=== PATIENT | male | born 1955 | race Caucasian/White ===

== ENCOUNTER 2018-03-28 17:49 | Outpatient (REF) | payer OTHER, SELFPAY ==
[2018-03-30 12:39] LABS: Hepatitis C Ab w Rflx HCV PCR Negative (NEGAT)
== END 2018-03-28 18:09 ==
LOC: NCHCN 17:49
PROVIDERS: PCP Nurse Practitioner Family; Visit Provider Nurse Practitioner Family
DX: Z11.59 Encounter for screening for other viral diseases (principal)
CPT/HCPCS: 86803

== ENCOUNTER 2018-09-19 16:21 | Outpatient (REF) | payer OTHER, SELFPAY ==
[2018-09-19 21:43] LABS: ALT 68 U/L (12-78); AST 30 U/L (15-37); Albumin 3.9 g/dL (3.4-5.0); Alkaline Phosphatase 103 U/L (46-116); Anion Gap 9.4 mmol/L (3-11); BUN 20 mg/dL (7-18); Bilirubin, Total 0.4 mg/dL (0.2-1.0); CO2 27.6 mmol/L (21.0-32.0); CREATININE 1.01 mg/dL (0.70-1.30); Calcium 9.2 mg/dL (8.5-10.1); Chloride 105 mmol/L (98-107); Glucose 124 mg/dL (70-100); Potassium 4.2 mmol/L (3.5-5.1); Sodium 142 mmol/L (136-145); TSH 0.05 uIU/mL (0.358-3.74); Total Protein 6.8 g/dL (6.4-8.2)
== END 2018-09-19 16:41 ==
LOC: NCHCN 16:21
PROVIDERS: PCP Nurse Practitioner Family; Visit Provider Nurse Practitioner Family
DX: E03.9 Hypothyroidism, unspecified (principal); I10 Essential (primary) hypertension; E78.5 Hyperlipidemia, unspecified
CPT/HCPCS: 80053; 84439; 84443; 84481

== ENCOUNTER 2018-11-02 17:00 | Outpatient (REF) | payer OTHER, SELFPAY ==
[2018-11-02 22:48] LABS: FREE T4 0.89 ng/dL (0.76-1.46); TSH 0.09 uIU/mL (0.358-3.74)
[2018-11-02 23:13] LABS: ESR 10 MM/HR (1-20)
[2018-11-03 21:24] LABS: T3,Free 4.2 pg/ml (2.8-5.3)
== END 2018-11-02 17:20 ==
LOC: NCHCN 17:00
PROVIDERS: PCP Nurse Practitioner Family; Visit Provider Nurse Practitioner Family
DX: I10 Essential (primary) hypertension (principal); E03.9 Hypothyroidism, unspecified
CPT/HCPCS: 85652; 84439; 84443; 84481

== ENCOUNTER 2018-11-28 13:32 | Outpatient (CLI) | payer OTHER, SELFPAY ==
[2018-11-28 21:19] LABS: C-Reactive Protein 0.09 mg/dL (0.0-0.3)
[2018-11-30 09:40] LABS: Rheumatoid Factor <8 IU/mL (<12.5)
[2018-11-30 10:19] LABS: Lyme Ab w Rflx to Lyme Confirm Negative
[2018-11-30 14:57] LABS: ANA Interpretation Negative (NEGAT)
== END 2018-11-28 13:52 ==
PROVIDERS: PCP Nurse Practitioner Family; Visit Provider Nurse Practitioner Family
DX: M25.50 Pain in unspecified joint (principal)
CPT/HCPCS: 86038; 86140; 86431; 86618

== ENCOUNTER 2018-12-20 15:22 | Outpatient (REF) | payer OTHER, SELFPAY ==
[2018-12-20 22:04] LABS: TSH (W/Ref FT4) 0.24 uIU/mL (0.358-3.74)
[2018-12-20 22:21] LABS: FREE T4 0.77 ng/dL (0.76-1.46)
== END 2018-12-20 15:42 ==
LOC: NCHCN 15:22
PROVIDERS: PCP Nurse Practitioner Family; Visit Provider Nurse Practitioner Family
DX: E03.9 Hypothyroidism, unspecified (principal)
CPT/HCPCS: 84439; 84443

== ENCOUNTER 2019-02-08 15:42 | Outpatient (REF) | payer OTHER, SELFPAY ==
[2019-02-09 05:53] LABS: TSH 1.14 uIU/mL (0.36-3.74)
== END 2019-02-08 16:02 ==
LOC: NCHCN 15:42
PROVIDERS: PCP Nurse Practitioner Family; Visit Provider Nurse Practitioner Family
DX: E03.9 Hypothyroidism, unspecified (principal)
CPT/HCPCS: 84443

== ENCOUNTER 2019-05-03 01:38 | Outpatient (CLI) | payer OTHER, SELFPAY ==
--- NOTE | 2019-05-03 09:48 | DI.MRI_ITS ---
EXAM: MR UPPER JOINT RT WO CLINICAL HISTORY: RT SHOULDER JT PAIN, M25.511. TECHNIQUE: Multiplanar multisequence MRI was performed. COMPARISON: No exams were available for comparison FINDINGS: MR of the right shoulder was performed according to the usual protocol. There is abnormal bony signa l associated with the acromion and clavicle at the acromioclavicular joint. Otherwise bony signal ap pears within normal limits. Glenoid labrum grossly intact as visualized on this noncontrast study. Minimal fluid in subacromial bursa noted. Biceps tendon and anchor appear intact and the tendon is normally placed in the bicipital groove. There is abnormal signal in supraspinatus and infraspinatus tendons distally consistent with tendinos is. There is a probable tiny partial thickness undersurface tear of the supraspinatus attachment. Subscapularis tendon shows contour abnormality and probable undersurface tear adjacent to the humeral attachment. There may be minimal retraction of a portion of the tendon on its undersurface. No other rotator cuff abnormality seen. No full-thickness rotator cuff tear seen. IMPRESSION: Findings consistent with supraspinatus and infraspinatus tendinosis with tiny partial thickness nonre tracted attachment tear of supraspinatus. Probable partially retracted undersurface tear of subscapularis at its humeral attachment.
== END 2019-05-03 01:58 ==
PROVIDERS: PCP Nurse Practitioner Family; Visit Provider Nurse Practitioner Family
DX: M25.511 Pain in right shoulder (principal); M75.81 Other shoulder lesions, right shoulder; S43.81XA Sprain of other specified parts of right shoulder girdle, initial encounter
CPT/HCPCS: 73221

== ENCOUNTER 2019-09-19 09:21 | Outpatient (REF) | payer OTHER, SELFPAY ==
[2019-09-19 20:27] LABS: ALT 49 U/L (16-63); AST 24 U/L (15-37); Albumin 4.2 g/dL (3.4-5.0); Alkaline Phosphatase 87 U/L (46-116); Anion Gap 8.6 mmol/L (3-11); BUN 16 mg/dL (7-18); Bilirubin, Total 0.4 mg/dL (0.2-1.0); CO2 30.4 mmol/L (21.0-32.0); CREATININE 1.05 mg/dL (0.70-1.30); Calcium 9.1 mg/dL (8.5-10.1); Chloride 104 mmol/L (98-107); Glucose 103 mg/dL (74-106); Potassium 4.4 mmol/L (3.5-5.1); Sodium 143 mmol/L (136-145); TSH 1.57 uIU/mL (0.36-3.74); Total Protein 7.3 g/dL (6.4-8.2)
[2019-09-19 20:30] LABS: Hemoglobin A1C 5.9 % (3.8-5.6)
== END 2019-09-19 09:41 ==
LOC: NCHCN 09:21
PROVIDERS: PCP Nurse Practitioner Family; Visit Provider Nurse Practitioner Family
DX: I10 Essential (primary) hypertension (principal); E03.9 Hypothyroidism, unspecified; E78.5 Hyperlipidemia, unspecified; R39.9 Unspecified symptoms and signs involving the genitourinary system
CPT/HCPCS: 80053; 83036; 84443; 87086

== ENCOUNTER 2019-10-05 12:20 | Outpatient (CLI) | payer OTHER, SELFPAY ==
[2019-10-05 15:51] LABS: D-Dimer 1803 ng/mlFEU (<500)
== END 2019-10-05 12:40 ==
PROVIDERS: PCP Nurse Practitioner Family; Visit Provider Nurse Practitioner Family
DX: M79.89 Other specified soft tissue disorders (principal)
CPT/HCPCS: 36415; 85379

== ENCOUNTER 2019-10-06 11:00 | Outpatient (CLI) | payer OTHER, SELFPAY ==
--- NOTE | 2019-10-06 | DI.US_ITS ---
EXAM: US LOWER EXTREMITY VENOUS LT CLINICAL HISTORY: LT LEG SWELLING, M79.89 TECHNIQUE: Left lower extremity venous ultrasound performed using grayscale, color-flow, and spectra l Doppler analysis. COMPARISON: No exams were available for comparison FINDINGS: The left common femoral and femoral demonstrate normal compressibility, augmentation, and color Doppl er. There is hypoechoic thrombus seen within the posterior tibialis vein with extension into the popl iteal vein. The saphenofemoral junction is unremarkable. There is no evidence of a Lawler cyst. The soft tissues are unremarkable. IMPRESSION: Findings of a DVT within the left posterior tibialis vein and extending into the popliteal vein. DATA REPOSITORY:
== END 2019-10-06 11:20 ==
PROVIDERS: PCP Nurse Practitioner Family; Visit Provider Nurse Practitioner Family
DX: R22.42 Localized swelling, mass and lump, left lower limb (principal); I82.442 Acute embolism and thrombosis of left tibial vein; I82.432 Acute embolism and thrombosis of left popliteal vein
CPT/HCPCS: 93971

== ENCOUNTER 2019-10-16 01:38 | Outpatient (CLI) | payer OTHER, SELFPAY ==
--- NOTE | 2019-10-16 08:22 | DI.CTLCSR_ITS ---
EXAM: CT CHEST LUNG CANCER SCREEN CLINICAL HISTORY: FORMER SMOKER,Z87.891,DVT,I82.90 TECHNIQUE: COMPARISON: No exams were available for comparison FINDINGS: CT examination of the chest was performed utilizing low-dose lung cancer screening protocol. Images obtained through the upper abdomen show unremarkable appearance of visualized portions of live r, spleen, adrenals, and pancreas. Ascending aorta is ectatic at 41 millimeters. No mediastinal or hilar adenopathy. Tracheobronchial tree appears intact. There is a tiny left basilar calcified pulmonary nodule consistent with healed granulomatous disease. No noncalcified intrapulmonary nodule seen. IMPRESSION: Lung RADS Cat 1 - Negative: No nodules and definitely benign nodules Continue annual screening with LD CT in 12 months
== END 2019-10-16 01:58 ==
PROVIDERS: PCP Nurse Practitioner Family; Visit Provider Nurse Practitioner Family
DX: Z12.2 Encounter for screening for malignant neoplasm of respiratory organs (principal); Z87.891 Personal history of nicotine dependence; J98.4 Other disorders of lung
CPT/HCPCS: G0297

== ENCOUNTER 2020-01-08 01:18 | Outpatient (CLI) | payer OTHER, SELFPAY ==
--- NOTE | 2020-01-08 | DI.US_ITS ---
EXAM: US LOWER EXTREMITY VENOUS LT CLINICAL HISTORY: F/U DVT,I82.90 TECHNIQUE: Ultrasound performed using standard protocol. COMPARISON: US US LOWER EXTREMITY VENOUS LT from 10/06/2019 FINDINGS: Duplex venous ultrasound the left lower extremity was performed. Prior examination of October 05 showed popliteal and posterior tibialis thrombus. On today's examination there is nonocclusive visible thr ombus in single posterior tibial vein. No extension into popliteal vein at this time. IMPRESSION: Decreased extent DVT since previous examination of October 05. DVT is nonocclusive and is confined to a single posterior tibial vein. No popliteal involvement. DATA REPOSITORY:
== END 2020-01-08 01:38 ==
PROVIDERS: PCP Nurse Practitioner Family; Visit Provider Nurse Practitioner Family
DX: I82.442 Acute embolism and thrombosis of left tibial vein (principal)
CPT/HCPCS: 93971

== ENCOUNTER 2020-01-15 11:56 | Outpatient (REF) | payer OTHER, SELFPAY ==
[2020-01-15 20:52] LABS: HCT 41.9 % (40.0-50.0); HGB 13.8 g/dL (13.5-17.5); MCH 30.5 pg (27.0-33.0); MCHC 32.9 % (32.0-36.0); MCV 92.7 fL (80-95); MPV 9.7 fL (8.0-11.0); Platelet Count 227 10^3/uL (130-400); RBC 4.52 10^6/uL (4.36-5.78); RDW 12.5 % (11.8-14.1); RDW-SD 42.5 fL; WBC 7.13 10^3/uL (4.4-10.8)
== END 2020-01-15 12:16 ==
LOC: NCHCN 11:56
PROVIDERS: PCP Nurse Practitioner Family; Visit Provider Family Medicine
DX: K92.1 Melena (principal)
CPT/HCPCS: 85027

== ENCOUNTER 2020-05-20 02:23 | Outpatient (CLI) | payer OTHER, SELFPAY ==
[2020-05-20 10:54] LABS: D-Dimer 607 ng/mlFEU (<500)
== END 2020-05-20 02:43 ==
PROVIDERS: PCP Nurse Practitioner Family; Visit Provider Nurse Practitioner Family
DX: R07.9 Chest pain, unspecified (principal); I82.90 Acute embolism and thrombosis of unspecified vein; R05 Cough
CPT/HCPCS: 36415; 85379

== ENCOUNTER 2020-05-24 03:57 | Outpatient (CLI) | payer OTHER, SELFPAY ==
[2020-05-24 12:59] LABS: CREATININE 1.04 mg/dL (0.70-1.30)
--- NOTE | 2020-05-24 13:21 | DI.CT_ITS ---
EXAM: CT CHEST PE CTA CLINICAL HISTORY: COUGH,R05,CHEST TIGHTNESS,F07.89,DVT,I82.90. TECHNIQUE: Imaging Protocol: Axial CT angiography was performed with multi-slice acquisition and mu lti-planar and/or 3D reconstructions. CONTRAST MATERIAL: Intravenous: Omnipaque 350 Contrast volume:100 mL COMPARISON: CT CT CHEST LUNG CANCER SCREEN from 10/16/2019 FINDINGS: Pulmonary Arteries: No evidence of filling defect to suggest pulmonary emboli. Tracheobronchial tree: Patent where visualized. Mediastinum and Myrna: No dominant adenopathy or fluid collection. Pulmonary parenchyma: No consolidation or dominant measurable mass. No architectural distortion. Pleura: No effusion or pneumothorax. Heart: The heart is not dilated. Mild coronary artery calcification. No pericardial effusion. Aorta: Thoracic aorta non-dilated. Mild atherosclerosis. Upper abdomen: Unremarkable. Bones: Mild degenerative changes. Soft tissues: Unremarkable. IMPRESSION: 1. No evidence of pulmonary embolism. 2. Coronary artery calcification and atherosclerosis. RADIATION DOSE DELIVERED: 562.29mGy.cm Total DLP DATA REPOSITORY: All CT scans at this facility are submitted to the National Radiology Data Registry (NRDR) Dose Index Registry (DIR) with the [employer] (A[employer]). RADIATION OPTIMIZATION: All CT scans at this facility use at least one of these dose optimization te chniques: automated exposure control; mA and/or kV adjustment per patient size (includes targeted exa ms where dose is matched to clinical indication); or iterative reconstruction.
[2020-05-24] MEDS: Omnipaque 350 MG/ML 100 ML BTL IJ (13:33)
[2020-05-24] MEDS: Normal Saline - Diluent 50 ML VIAL IV (13:33)
[2020-05-24] MEDS: Normal Saline Flush 10 ML SYR IVP (13:34)
== END 2020-05-24 04:17 ==
PROVIDERS: PCP Nurse Practitioner Family; Visit Provider Nurse Practitioner Family
DX: R05 Cough (principal); R07.89 Other chest pain; I82.90 Acute embolism and thrombosis of unspecified vein; I25.10 Atherosclerotic heart disease of native coronary artery without angina pectoris; I10 Essential (primary) hypertension; Z01.812 Encounter for preprocedural laboratory examination
CPT/HCPCS: 71275; 82565; J3490

== ENCOUNTER 2020-05-30 02:56 | Outpatient (CLI) | payer OTHER, SELFPAY ==
[2020-05-31 17:02] LABS: COVID-19 RT-PCR UVMMC Result Negative (Negative)
== END 2020-05-30 03:16 ==
PROVIDERS: PCP Nurse Practitioner Family; Visit Provider Internal Medicine Cardiovascular Disease
DX: Z20.828 Contact with and (suspected) exposure to other viral communicable diseases (principal); Z01.810 Encounter for preprocedural cardiovascular examination
CPT/HCPCS: U0003

== ENCOUNTER 2020-06-03 01:40 | Outpatient (CLI) | payer OTHER, SELFPAY ==
--- NOTE | 2020-06-03 | ETT_ITS ---
APPROVED REPORT Exam: Exercise Treadmill Patient Location: Out-Patient Room/Bed: Stress Nurse: Bibiana Alvarado RN BMI: 39.15 Baseline Rhythm: Sinus Rhythm Indications: Chest pain/tightness, lighteadededness, MCNAMARA. Medical History Medical History: Aortic dilatation, DVT, former smoker, KAREN, Fatigue, HTN, Obesity, ED, GERD, HLD, Hy pothyroidism Cardiac Medications: Metoprolol succinat, Omeprazole, Rosuvastatin, Sildenafil, Allergies: Prochlorperazine Cardiac Risk Factors: HTN, Hyperlipidemia, FHX of CAD, Smoking (former) Previous Cardiac Procedures: None. Pretest Chest Pain Characteristics: None. Exercise History: Sedentary Physical Disabilities: None. Lung Sounds: Clear to auscultation Heart Sounds: Regular Stress Test Details Test: Exercise stress testing was performed using a Reji protocol. Rest Stress HR Resting HR Supine: 66 bpm Max Heart Rate (APMHR): 156 bpm Resting HR Standin bpm Target HR (85% APMHR): 132 bpm Max HR Achieved: 152 bpm % of APMHR: 97 Recovery HR: 95 bpm HR response to stress: Normal HR response to stress BP Resting BP Supine: 150/84 mmHg Resting BP Standin/80 mmHg Max BP: 190/96 mmHg Recovery BP: 160/82 mmHg BP response to stress: Normal blood pressure response to stress. ECG Resting ECG: Sinus Rhythm Ectopy: None. Stress ECG: Sinus Tachycardia ST Change: No significant ST segment changes. Arrhythmia: occasional PVC, couplet. Recovery ECG: Sinus Rhythm Recovery ST Change: No significant ST segment changes. Recovery Arrhythmia: PVCs, rare PAC Clinical Reason for Termination: Dyspnea Stress Symptoms: Dyspnea, General Fatigue Exercise duration: 4 min31 sec Highest Stage Reached: Stage 2: 2.5 mph at 12% grade. Exercise capacity: 6.45 METs Stress ECG Conclusion 1. The resting electrocardiogram showed left anterior fascicular block, late transition 2. Patient exercised on the Reji protocol and completed a workload of 6.45 METS, stopping due to fat igue and shortness of breath 3. Normal heart rate and blood pressure response to exercise. The patient achieved 97% of predicted heart rate for age 4. Electrocardiographically there was no evidence of myocardial ischemia 5. Occasional premature ventricular contractions, rare premature atrial contractions were noted 6. Keller treadmill score is 4.5, low risk Stress Test Summary STAGE Time (mins) Speed (mph) Grade (%) HR BP SYMPTOMS METS Supine 66 150/84 Standing 75 158/80 1 3 1.7 10 133 172/84 4.6 1 min recovery 130 190/96 3 min recovery 102 186/94 6 min recovery 95 160/82
== END 2020-06-03 02:00 ==
PROVIDERS: PCP Nurse Practitioner Family; Visit Provider Internal Medicine Cardiovascular Disease
DX: R07.9 Chest pain, unspecified (principal); R42 Dizziness and giddiness; R06.09 Other forms of dyspnea; I10 Essential (primary) hypertension; E78.5 Hyperlipidemia, unspecified; Z82.49 Family history of ischemic heart disease and other diseases of the circulatory system; Z87.891 Personal history of nicotine dependence
CPT/HCPCS: 93017

== ENCOUNTER 2020-06-12 03:04 | Outpatient (CLI) | payer OTHER, SELFPAY ==
--- NOTE | 2020-06-12 07:24 | DI.US_ITS ---
APPROVED REPORT EXAM: Comprehensive 2D, Doppler, and color-flow Echocardiogram Patient Location: Out-Patient Cane Furniture Maker: Tg Brennan RDCS (AE) Indications: Chest pain, Chest tightness, Cough, DVT, Aortic Dilation Other Information Study Quality: Adequate Conclusion Left Ventricle : The left ventricle is normal size. The left ventricular systolic function is normal. The left ventricular ejection fraction is within the normal range. There is normal left ventricular wall thickness. There is normal LV segmental wall motion. LVEF is 60%. Right Ventricle : The right ventricle is normal size. The right ventricular systolic function is norm al. The RVSP is 24.7 mmHg. Atria : The left atrium size is normal. The right atrium size is normal. Valves: There are no hemodynamically significant valvular lesions. Great Vessels : The aortic root is normal in size. The ascending aorta is mildly dilated. Aortic arch is normal in caliber. IVC is normal in size and collapses >50% with inspiration. Please see remainder of study for further details. Wall motion Left Ventricle The left ventricle is normal size. The left ventricular systolic function is normal. The left ventric ular ejection fraction is within the normal range. There is normal left ventricular wall thickness. T here is normal LV segmental wall motion. The diastolic function is abnormal. There is no ventricular septal defect visualized. LVEF is 60%. Right Ventricle The right ventricle is normal size. The right ventricular systolic function is normal. The RVSP is 24 .7 mmHg. Atria The left atrium size is normal. The right atrium size is normal. The interatrial septum is intact wit h no evidence for an atrial septal defect. Aortic Valve The aortic valve is normal in structure. Aortic valve is trileaflet. There is no aortic valvular sten osis. No aortic regurgitation is present. Mitral Valve The mitral valve is normal in structure. No evidence of mitral valve stenosis. Trace mitral regurgita tion. Tricuspid Valve The tricuspid valve is normal in structure. There is no tricuspid valve stenosis. Trace tricuspid reg urgitation. Pulmonic Valve The pulmonary valve is normal in structure. There is no pulmonic valvular stenosis. Trace pulmonic re gurgitation. Great Vessels The aortic root is normal in size. The ascending aorta is mildly dilated. Aortic arch is normal in ca liber. IVC is normal in size and collapses >50% with inspiration. Pericardium There is no pericardial effusion. 2D Dimensions IVSD d PLAX 0.94 cm M: 0.6-1.2 LV Vol A2C d MOD 140.1 mL LVPW d PLAX 0.94 cm M: 0.6 - 1.2 LV Vol A4C d MOD 127.9 mL LVID d PLAX 5.12 cm M: 4.2 - 5.8 LA vol/ BSA A2C s A-L 27.5 mL/m2 LVDs 3.25 cm M: 2.5 - 4.0 LA vol/ BSA A4C s A-L 20.8 mL/m2 Ao Root d 3.05 cm M: 3.1 - 3.7 LA Vol/ BSA Biplane s A-L 24.3 mL/m2 RA Area A4C 18.36 cm2 LA Area A4C s MOD 17.43 cm2 RA Vol/ BSA A4C s A-L 23.5 mL/m2 LA Area A2C s MOD 19.74 cm2 Ao Asc Diam d 3.50 cm M: 2.6 - 3.4 LV EF A4C MOD 60.5 % LV EF Teichholz 65.9 % LV EF A2C MOD 60.1 % LVEF (Helton's) 60.41 % M: 52 - 72 LV EF Biplane MOD 60.4 % LV Volume 100.16 mL M: 62 - 150 SV 83.83 mL LV Volume Index 44.51 mL/m2 M: 34 - 74 SV Index 37.17 mL/m2 LV Vol Biplane MOD 138.8 mL FS 36.50 % M-Mode TAPSE 2.52 cm (M/F) >1.7 LV Diastology MV E' medial 0.064 (>0.07 m/s) E/A Ratio 1.4 LV E/e MED 13.20 (<14) MV E Vmax 0.84 (0.4-1.3 m/s) MV E' lateral 0.083 (>0.1 m/s) MV A Vmax 0.60 (0.4-1.3 m/s) LV E/e LAT 10.10 (<14) MV E/A Ratio 1.39 MV E/E' medial 13.23 MV E/E' lateral 10.12 Aortic Valve LVOT Area 3.96 cm2 AoV Area Vmax 2.91 cm2 LVOT Vmax 0.99 m/s AoV Area/ BSA (Vmax) 1.29 cm2/m2 LVOT Mean Nitin. 0.64 m/s LETICIA Mean Nitin. 2.87 cm2 LVOT Peak Grad 3.9 mmHg LETICIA Mean Nitin. Index 1.27 cm2/m2 LVOT Mean Grad 1.9 mmHg LVOT VTI 0.214 m LVOT Diam s 2.20 cm AoV Vmax 1.34 m/s Velocity Ratio 0.73 AoV Mean Nitin. 0.89 m/s AoV Peak Grad 7.2 mmHg LVOT SV 84.76 mL AoV Mean Grad 3.7 mmHg AoV VTI 0.269 m AoV Area VTI 3.15 cm2 AoV Area/ BSA (VTI) 1.40 cm/m2 Mitral Valve MV DT 221 (160-240 msec) MV PHT 64 msec MV Area PHT 3.43 cm2 MV VTI 0.267 m MV Area VTI 3.17 (4.0-6.0 cm2) Pulmonary Valve PV Vmax 1.43 (0.5-1.5 m/s) RVOT Peak Gr. 1.37 mmHg PV Peak Grad 8.2 mmHg RVOT Mean Gr. 0.65 mmHg PV Mean Grad 3.9 mmHg RVOT VTI 0.134 m PV VTI 0.303 m RVOT Vmax 0.58 m/s Tricuspid Valve TR Peak Grad 21.6 mmHg TR Vmax 2.33 m/s RA Pressure 3.00 mmHg RVSP (TR) 24.7 mmHg
== END 2020-06-12 03:24 ==
PROVIDERS: PCP Nurse Practitioner Family; Visit Provider Nurse Practitioner Family
DX: I77.810 Thoracic aortic ectasia (principal)
CPT/HCPCS: 93306

== ENCOUNTER 2020-06-14 09:02 | Outpatient (CLI) | payer OTHER, SELFPAY ==
--- NOTE | 2020-06-14 | DI.RAD_ITS ---
EXAM: XR CHEST 2V PA LATERAL CLINICAL HISTORY: DVT, I82.90 TECHNIQUE: 2D digital imaging was performed. COMPARISON: No exams were available for comparison FINDINGS: MEDIASTINUM: Normal. HEART: Normal. PULMONARY VASCULATURE: Normal. LUNGS: Clear. PLEURAL SPACE: No pleural effusion or pneumothorax. BONE:Within normal limits for the patient's age. OTHER FINDINGS:Normal. IMPRESSION: No acute pulmonary findings. DATA REPOSITORY: RADIATION DOSE DELIVERED:
--- NOTE | 2020-06-14 | DI.US_ITS ---
EXAM: US LOWER EXTREMITY VENOUS LT CLINICAL HISTORY: DVT, I82.90 TECHNIQUE: Left lower extremity venous ultrasound performed using grayscale, color-flow, and spectra l Doppler analysis. COMPARISON: US US LOWER EXTREMITY VENOUS LT from 01/08/2020 FINDINGS: The left common femoral, femoral and popliteal veins demonstrate normal compressibility, augmentation , and color Doppler. The posterior tibial veins are patent. The saphenofemoral junction is unremarka ble. There is no evidence of a Lawler cyst. The soft tissues are unremarkable. IMPRESSION: No DVT. DATA REPOSITORY:
== END 2020-06-14 09:22 ==
PROVIDERS: PCP Nurse Practitioner Family; Visit Provider Nurse Practitioner Family
DX: Z86.718 Personal history of other venous thrombosis and embolism (principal)
CPT/HCPCS: 71046; 93971

== ENCOUNTER 2020-08-22 08:50 | Outpatient (REF) | payer OTHER, SELFPAY ==
[2020-08-22 14:08] LABS: ALT 48 U/L (16-63); AST 24 U/L (15-37); Alkaline Phosphatase 91 U/L (46-116); Anion Gap 6.1 mmol/L (3-11); BUN 21 mg/dL (7-18); Bilirubin, Total 0.4 mg/dL (0.2-1.0); CO2 30.9 mmol/L (21.0-32.0); CREATININE 1.1 mg/dL (0.70-1.30); Calcium 9.1 mg/dL (8.5-10.1); Chloride 106 mmol/L (98-107); Glucose 118 mg/dL (74-106); Potassium 4.3 mmol/L (3.5-5.1); Sodium 143 mmol/L (136-145); TSH (W/Ref FT4) 1.31 uIU/mL (0.36-3.74); Total Protein 7.2 g/dL (6.4-8.2); Vitamin B12 392 pg/mL (193-986)
[2020-08-22 14:19] LABS: Hemoglobin A1C 6.3 % (<5.7)
== END 2020-08-22 08:51 | disposition home or self-care (01) ==
LOC: NCHCN 08:50
PROVIDERS: PCP Nurse Practitioner Family; Visit Provider Nurse Practitioner Family
DX: I10 Essential (primary) hypertension (principal); E78.5 Hyperlipidemia, unspecified; R05 Cough; R73.03 Prediabetes; I70.90 Unspecified atherosclerosis; R07.9 Chest pain, unspecified; I77.819 Aortic ectasia, unspecified site; M25.59 Pain in other specified joint
CPT/HCPCS: 80053; 82607; 83036; 83735; 84443

== ENCOUNTER 2020-09-18 14:55 | Outpatient (REF) | payer OTHER, SELFPAY ==
[2020-09-18 21:38] LABS: HCT 43.2 % (40.0-50.0); HGB 14.4 g/dL (13.5-17.5); MCH 30.9 pg (27.0-33.0); MCHC 33.3 % (32.0-36.0); MCV 92.7 fL (80-95); MPV 9.7 fL (8.0-11.0); Platelet Count 226 10^3/uL (130-400); RBC 4.66 10^6/uL (4.36-5.78); RDW 11.9 % (11.8-14.1); RDW-SD 40.8 fL; WBC 6.97 10^3/uL (4.4-10.8)
== END 2020-09-18 14:56 | disposition home or self-care (01) ==
LOC: NCHCN 14:55
PROVIDERS: PCP Nurse Practitioner Family
DX: I82.90 Acute embolism and thrombosis of unspecified vein (principal)
CPT/HCPCS: 85027

== ENCOUNTER 2020-10-31 10:34 | Outpatient (REF) | payer OTHER, SELFPAY ==
[2020-10-31 13:55] LABS: ALT 47 U/L (16-63); AST 24 U/L (15-37); Albumin 3.8 g/dL (3.4-5.0); Alkaline Phosphatase 106 U/L (46-116); Bilirubin, Total 0.3 mg/dL (0.2-1.0); Calculated LDL 98 mg/dL (<100); Cholesterol 171 mg/dL (<200); HDL Cholesterol 38 mg/dL (40-60); Total Protein 6.8 g/dL (6.4-8.2); Triglyceride 177 mg/dL (<150)
[2020-10-31 14:13] LABS: Bilirubin, Direct 0.1 mg/dL (0.0-0.2)
== END 2020-10-31 10:35 | disposition home or self-care (01) ==
LOC: NCHCN 10:34
PROVIDERS: PCP Nurse Practitioner Family; Visit Provider Nurse Practitioner Family
DX: R73.03 Prediabetes (principal); E03.9 Hypothyroidism, unspecified; E78.5 Hyperlipidemia, unspecified; K21.9 Gastro-esophageal reflux disease without esophagitis; I70.90 Unspecified atherosclerosis
CPT/HCPCS: 80061; 80076

== ENCOUNTER 2020-11-14 09:47 | Outpatient (CLI) | payer OTHER, SELFPAY ==
--- NOTE | 2020-11-14 | DI.US_ITS ---
Exam(s) US EXTREMITY VENOUS BI EXAM: US EXTREMITY VENOUS BI CLINICAL HISTORY: BILAT LEG SWELLING, +D-DIMER, H/O DVT, M79.89. TECHNIQUE: Bilateral lower extremity venous ultrasound performed using grayscale, color-flow, and sp ectral Doppler analysis. COMPARISON: No exams were available for comparison FINDINGS: The bilateral common femoral, femoral and popliteal veins demonstrate normal compressibility, augment ation, and color Doppler. The posterior tibial veins are patent. There is no evidence superficial th rombophlebitis. No Lawler's cyst or hematoma is seen. IMPRESSION: Right: Negative for DVT Left: Negative for DVT DATA REPOSITORY:
[2020-11-14 10:56] LABS: D-Dimer 726 ng/mlFEU (<500)
== END 2020-11-14 09:48 | disposition home or self-care (01) ==
PROVIDERS: PCP Nurse Practitioner Family; Visit Provider Nurse Practitioner Family
DX: R22.41 Localized swelling, mass and lump, right lower limb (principal); R22.42 Localized swelling, mass and lump, left lower limb; M79.89 Other specified soft tissue disorders; R79.1 Abnormal coagulation profile
CPT/HCPCS: 36415; 85379; 93970

== ENCOUNTER 2021-08-11 12:42 | Outpatient (REF) | payer OTHER, SELFPAY ==
[2021-08-11 15:56] LABS: ALT 45 U/L (16-63); AST 24 U/L (15-37); Albumin 3.9 g/dL (3.4-5.0); Alkaline Phosphatase 91 U/L (46-116); Anion Gap 10.5 mmol/L (3-11); BUN 17 mg/dL (7-18); Bilirubin, Total 0.4 mg/dL (0.2-1.0); CO2 27.5 mmol/L (21.0-32.0); Chloride 104 mmol/L (98-107); FREE T4 0.75 ng/dL (0.76-1.46); Glucose 133 mg/dL (74-106); Potassium 4.3 mmol/L (3.5-5.1); Sodium 142 mmol/L (136-145); TSH 1.72 uIU/mL (0.36-3.74); Total Protein 7.1 g/dL (6.4-8.2)
[2021-08-11 15:58] LABS: Hemoglobin A1C 6.3 % (<5.7)
[2021-08-11 22:00] LABS: T3,Free 5.1 pg/mL (2.8-5.3)
== END 2021-08-11 12:43 | disposition home or self-care (01) ==
LOC: NCHCN 12:42
PROVIDERS: PCP Nurse Practitioner Family; Visit Provider Nurse Practitioner Family
DX: I10 Essential (primary) hypertension (principal); E03.9 Hypothyroidism, unspecified; R73.03 Prediabetes; R39.9 Unspecified symptoms and signs involving the genitourinary system; R05.8 Other specified cough; M25.59 Pain in other specified joint
CPT/HCPCS: 80053; 83036; 84439; 84443; 84481

== ENCOUNTER 2022-01-29 09:08 | Emergency (ER) | payer OTHER, SELFPAY ==
[2022-01-29 09:18] VITALS: BP 164/84; PULSE 61; RESP 16; TEMP 36.8; O2SAT 97
--- NOTE | 2022-01-29 09:53 | ED.GENADUL_ITS ---
Discharge Plan Disposition Patient Disposition: HOME Condition: Stable Discharge Details Clinical Impression: Sprain of left shoulder Primary Care Provider: Vivian Bautista ED Provider: Brittany Suarez Home Meds and New Rx's Prescriptions: No Action sildenafil 100 mg tablet 100 mg PO DAILY PRN Rx Instructions: administer 30 minutes to 4 hours before activity cyclobenzaprine 5 mg tablet 5 mg PO QHS famotidine 20 mg tablet 20 mg PO DAILY liothyronine 5 mcg tablet 10 mcg PO DAILY levothyroxine 25 MCG tablet 25 mcg PO DAILY Label Comments: pt is unsure of any of his doses. 02/14/15 rl rosuvastatin [Crestor] 20 MG tablet 20 mg PO QPM Label Comments: pt is unsure of any of his doses. 02/14/15 rl Blood Pressure Medicine Label Comments: pt is unsure of any of his doses or the name of his BP med. 02/14/15 rl loratadine 10 MG tablet 10 mg PO DAILY Qty: 30 0RF Ibuprofen PM 1 EACH capsule metoprolol tartrate 100 MG tablet 100 mg PO DAILY Discharge Instructions Instructions: Shoulder Pain (ED) Additional Instructions: XRays show some widening of the AC joint. No fracture. Rest, Ice, compression. Please keep you previously scheduled appointment with Ortho. Follow up with primary care provider in 3-5 days. Return to ED sooner if any worsening or concerns. Increase oral fluids. Take the muscle relaxers and pain medication as directed with food. Please take Tylenol or Ibuprofen with food every 4-6 hours as needed for pain and swelling. 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 Xray ordered, patient requesting work note until after Feb 17 when he has an appt with Ortho and something for pain. X-ray WNL. Discussed follow-up care patient was given tramadol for pain. This text was generated using [employer] and the [employer] system, please disregard any oddities of phrase or misspellings. Medical Records Medical records reviewed: Yes I reviewed the patient's medical records. Imaging Data Radiologic Study: Imaging: X-Ray Radiologist's impression: EXAM: XR SHOULDER LT COMPLETE 2+V CLINICAL HISTORY: Pain, Hx of surgery TECHNIQUE: COMPARISON: No exams were available for comparison FINDINGS: Five views were obtained. There is a suture anchor of the humeral head. There are slight degenerative changes at the glenohumeral joint. Acromioclavicular joint appears widened which may be a postsurgical finding. There is no evidence of acute fracture or dislocation. HPI General Mode of arrival: ambulatory . Date/Time Provider Initiated Documentation: 01/29/22 09:17 . Limitations to Documentation: no limitations . Information obtained by: patient, RN notes reviewed and old records reviewed . 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 Does have a history of a laparoscopic left shoulder surgery from the [facility] in 2020. Reports increased pain. He has been taking ibuprofen at home with little to no relief. Related Data Home Medications Medication Instructions Recorded Confirmed Blood Pressure Medicine 02/14/15 02/14/15 levothyroxine 25 mcg tablet 25 mcg PO DAILY 02/14/15 01/29/22 loratadine 10 mg tablet 10 mg PO DAILY ##30 02/14/15 01/29/22 rosuvastatin 20 mg tablet (Crestor) 20 mg PO QPM 02/14/15 01/29/22 ibuprofen 200 mg-diphenhydramine 07/12/16 HCl 25 mg capsule (Ibuprofen PM) metoprolol tartrate 100 mg tablet 100 mg PO DAILY 02/15/17 01/29/22 cyclobenzaprine 5 mg tablet 5 mg PO QHS 09/19/21 01/29/22 famotidine 20 mg tablet 20 mg PO DAILY 09/19/21 01/29/22 liothyronine 5 mcg tablet 10 mcg PO DAILY 09/19/21 sildenafil 100 mg tablet 100 mg PO DAILY PRN 09/19/21 01/29/22 Previous Rx's Medication Instructions Recorded loratadine 10 mg tablet 10 mg PO DAILY ##30 02/14/15 Allergies Allergy/AdvReac Type Severity Reaction Status Date / Time prochlorperazine AdvReac Intermediate facial tics Unverified 01/29/22 09:22 [From Compazine] prochlorperazine edisylate AdvReac Intermediate facial tics Unverified 01/29/22 09:22 [From Compazine] prochlorperazine maleate AdvReac Intermediate facial tics Unverified 01/29/22 09:22 [From Compazine] General Stated Complaint: Orthopedic MINE: 4 Review of Systems Musculoskeletal Musculoskeletal: Reports as per HPI, Denies deformity, Reports arthralgias (left shoulder pain) and Reports radiating pain into limb PFSH All Active Problems (Updated 01/29/22 @ 10:39 by Brittany Suarez NP) Sprain of left shoulder (Acute) Aortic dilatation (Acute) KAREN on CPAP (Chronic) Diarrhea (Acute) Screening for colon cancer (Acute) Medical History Atherosclerosis Chronic GERD Erectile dysfunction Fatigue Hyperlipidemia Hypertension Hypothyroidism Obesity Prediabetes Surgical History Appendectomy Arthroplasty of knee Colonoscopy - IV Sedation 2005 2009 Colonoscopy - MAC (02/15/17) Vasectomy Social History Smoking/Tobacco Use Status: Former Tobacco Use Smoking risk assessment performed?: Yes Drug use: Never Do you feel safe in your relationship?: Yes Exam Extrem General: normal to inspection, capillary refill normal and no joint enlargement Left upper extremity: shoulder/upper arm Details: inspection abnormal; no swelling, no deformity and no unsual warmth Course Vital Signs Vital signs: Vital Signs Temperature 36.8 C 01/29/22 09:18 Pulse 61 01/29/22 09:18 Respiratory Rate 16 01/29/22 09:18 Blood Pressure 164/84 H 01/29/22 09:18 Pulse Oximetry 97 01/29/22 09:18 Temperature 36.8 C 01/29/22 09:18 Temperature Source Temporal Artery Scan 01/29/22 09:18 Pulse 61 01/29/22 09:18 Respiratory Rate 16 01/29/22 09:18 Respiratory Effort 01/29/22 09:21 Blood Pressure 164/84 H 01/29/22 09:18 Pulse Oximetry 97 01/29/22 09:18 Oxygen Delivery Method Room Air 01/29/22 09:18 Oxygen Flow Rate 0 01/29/22 09:18 Pain Level 7 01/29/22 09:18
--- NOTE | 2022-01-29 10:04 | DI.RAD_ITS ---
Exam(s) XR SHOULDER LT COMPLETE 2+V EXAM: XR SHOULDER LT COMPLETE 2+V CLINICAL HISTORY: Pain, Hx of surgery TECHNIQUE: COMPARISON: No exams were available for comparison FINDINGS: Five views were obtained. There is a suture anchor of the humeral head. There are slight degenerati ve changes at the glenohumeral joint. Acromioclavicular joint appears widened which may be a postsur gical finding. There is no evidence of acute fracture or dislocation. IMPRESSION: RADIATION DOSE DELIVERED: Total DLP
[2022-01-29] MEDS: Cyclobenzaprine 10 MG TAB, 3 TABS/BTL PO (10:52)
== END 2022-01-29 10:54 | disposition home or self-care (01) ==
PROVIDERS: Emergency Provider Registered Nurse Emergency; PCP Nurse Practitioner Family
DX: S43.402A Unspecified sprain of left shoulder joint, initial encounter (principal); X50.1XXA Overexertion from prolonged static or awkward postures, initial encounter; Y99.0 Civilian activity done for income or pay; I10 Essential (primary) hypertension; Z87.891 Personal history of nicotine dependence
CPT/HCPCS: 99283; 73030; 99282

== ENCOUNTER 2022-07-10 18:09 | Outpatient (CLI) | payer OTHER, SELFPAY ==
[2022-07-10 15:42] LABS: FREE T4 1.01 ng/dL (0.76-1.46); TSH 0.42 uIU/mL (0.36-3.74)
[2022-07-10 22:25] LABS: T3, Total 138 ng/dL (97-169)
== END 2022-07-10 18:10 | disposition home or self-care (01) ==
LOC: LBO 18:10
PROVIDERS: PCP Nurse Practitioner Family; Visit Provider Internal Medicine Endocrinology, Diabetes & Metabolism
DX: E03.9 Hypothyroidism, unspecified (principal)
CPT/HCPCS: 36415; 84439; 84443; 84480

== ENCOUNTER 2022-07-20 08:06 | Day surgery (SDC) | payer OTHER, SELFPAY ==
--- NOTE | 2022-07-19 20:03 | W.COLOREPORT ---
Date of service: 07/20/22 Time of Service: 11:05 Colonoscopy Report Date of procedure: 07/20/22 Pre-op diagnosis general: Surveillance colonscopy; personal hx of adenomatous polyps Post-op diagnosis procedure note: other (Colorectal polyps) Procedure: 1. Colonoscopy 2. Polypectomy by cold forceps (polyp @95cm; polyp @ 80cm; rectosigmoid polyp @30cm) Surgeon: Antony Lopez Anesthesia Type: MAC Estimated blood loss (mL): 5 Pathology: other (1.polyp @95cm ; 2.polyp @ 80cm; 3. rectosigmoid polyp @30cm) Complications: None Disposition: same day Indications: Surveillance colonscopy for personal hx of adenomatous polyps, but last exam in 2017 only demonstrated hyperplastic polyps Prep: Miralax/Dulcolax Retraction Time: >20min Findings: 1. Small polyps (<5mm) found at @95cm, @ 80cm, and rectosigmoid polyp @30cm 2. Few scattered rectosigmoid diverticulosis Procedure Description: After informed consent was obtained, the patient was taken to the procedure room and placed in a left decubitus position. Monitors were applied and a time out was done. The patient's name, date of , procedure, allergies to medications, and metal in their body were reviewed. The patient was then sedated. Once sedated and comfortable, a digital rectal exam was done. External exam was normal. Internal exam revealed normal sphincter tone, and no palpable masses or gross blood. The colonoscope was then introduced and advanced to the cecum under direct visualization with mild difficulty. The ileocecal valve and appendiceal orifice were visualized. The prep was fair.? ?The scope was then slowly withdrawn over 20 minutes in a circumferential manner to the rectum. In doing so, polyps were encountered.?They were all resected and retrieved be cold forceps. There? was few diverticula noted. The mucosa is pink and healthy.? In the rectum, the scope was retroflexed, and mild internal hemorrhoids were noted.? The scope was straightened and withdrawn from the anus. The patient tolerated the procedure well, and there were no immediate complications.? The patient was taken to the Day Surgery Unit recovery?area in good condition. Follow up: 3-5 years; await pathology
--- NOTE | 2022-07-19 20:06 | W.PM.DSUDISC ---
Date of service: 07/20/22 Time of Service: 11:12 Discharge Plan Disposition Patient Disposition: Home Condition: Stable Discharge Details Reason For Visit: Surveillance colonoscopy, hx of adenomatous polyps Attending Provider: Antony Lopez Primary Care Provider: Vivian Bautista Home Meds and New Rx's Prescriptions: No Action multivitamin [Daily Multi-Vitamin] Tablet 1 tab PO DAILY beet supplement PO DAILY polyethylene glycol 3350 17 gram/dose powder 238 g PO ONCE Qty: 238 0RF Rx Instructions: take per colonoscopy instructions bisacodyl [Dulcolax (bisacodyl)] 5 mg tablet,delayed release (DR/EC) 5 mg PO ONCE Qty: 4 0RF Rx Instructions: take per colonoscopy instructions sildenafil 100 mg tablet 100 mg PO DAILY PRN Rx Instructions: administer 30 minutes to 4 hours before activity liothyronine 5 mcg tablet 10 mcg PO DAILY cyclobenzaprine 5 mg tablet 5 mg PO QHS PRN famotidine 20 mg tablet 20 mg PO DAILY PRN levothyroxine 25 MCG tablet 25 mcg PO DAILY Patient Comments: pt is unsure of any of his doses. 02/14/15 rl loratadine 10 MG tablet 10 mg PO DAILY Qty: 30 0RF rosuvastatin [Crestor] 20 mg tablet 20 mg PO QPM Patient Comments: Pt takes 40 mg on Wednesday, Wednesday and Wednesday the rest of the week he takes 20mg.BMR Ibuprofen PM 200-25 mg capsule 200 cap PO PRN (Reason: sleep) metoprolol tartrate 100 MG tablet 100 mg PO DAILY Discharge Instructions Instructions: Colonoscopy (DC), Diverticulosis Diet (GEN), Diverticulosis (DC), Colorectal Polyps (DC) Activity:: Activity as Tolerated Diet:: High fiber DS: Diagnosis Discharge Diagnosis (1) Colorectal polyps: Status: Acute Asessment and Plan: Repeat colonoscopy in 3-5 years Await pathology (2) Diverticulosis large intestine w/o perforation or abscess w/o bleeding: Status: Acute Asessment and Plan: --high fiber diet --increase water intake --see attached recommendations
[2022-07-20 08:26] VITALS: BP 135/92; PULSE 77; RESP 18; TEMP 36.6; O2SAT 99
[2022-07-20] MEDS: Lactated Ringers 1,000 ML 80 ML IV (08:57)
--- NOTE | 2022-07-20 09:16 | W.ANESPRE ---
General Info Date of Service Date Performed: 07/20/22 Height: 5 ft 9 in Weight: 114.9 kg Body Mass Index (BMI): 37.4 Surgical Procedure: Operation Date: 07/20/22 09:35 Proposed Procedure Side Surgeon p Colonoscopy possible Polypectomy Antony Lopez MD Meds Allergies and Home Medications Allergies Allergy/AdvReac Type Severity Reaction Status Date / Time prochlorperazine AdvReac Intermediate facial tics Unverified 07/20/22 08:35 [From Compazine] prochlorperazine edisylate AdvReac Intermediate facial tics Unverified 07/20/22 08:35 [From Compazine] prochlorperazine maleate AdvReac Intermediate facial tics Unverified 07/20/22 08:35 [From Compazine] Home Medication Medication Instructions Recorded levothyroxine 25 mcg tablet 25 mcg PO DAILY 02/14/15 loratadine 10 mg tablet 10 mg PO DAILY #30 tabs 02/14/15 metoprolol tartrate 100 mg tablet 100 mg PO DAILY 02/15/17 liothyronine 5 mcg tablet 10 mcg PO DAILY 09/19/21 sildenafil 100 mg tablet 100 mg PO DAILY PRN 09/19/21 beet supplement PO DAILY 07/10/22 bisacodyl 5 mg tablet,delayed 5 mg PO ONCE colonscopy bowel prep 07/10/22 release (Dulcolax (bisacodyl)) #4 tabs cyclobenzaprine 5 mg tablet 5 mg PO QHS PRN 07/10/22 famotidine 20 mg tablet 20 mg PO DAILY PRN 07/10/22 ibuprofen 200 mg-diphenhydramine 200 cap PO PRN sleep 07/10/22 HCl 25 mg capsule (Ibuprofen PM) multivitamin (Daily Multi-Vitamin 1 tab PO DAILY 07/10/22 tablet) polyethylene glycol 3350 17 238 g PO ONCE colonoscopy prep 07/10/22 gram/dose oral powder #238 grams rosuvastatin 20 mg tablet (Crestor) 20 mg PO QPM 07/10/22 Current Visit Medications: Current Medications Generic Name Dose Route Start Last Admin Trade Name Freq PRN Reason Stop Dose Admin Ringer's Solution 1,000 mls @ 80 mls/hr 07/20/22 06:00 07/20/22 08:57 IV 08/19/22 23:59 80 mls/hr INFUSION DEJUAN Administration IV Miscellaneous Supplies 1 each 07/20/22 06:00 Iv Access IV 08/19/22 23:59 DIRECTED DEJUAN Sodium Chloride 0 ml 07/20/22 06:00 Normal Saline Flush 10 Ml Syr IV 08/19/22 23:59 PRN PRN Sodium Chloride 0 ml 07/20/22 06:00 Normal Saline 10 Ml Vial IJ 08/19/22 23:59 DIRECTED PRN Sterile Water 0 ml 07/20/22 06:00 Water,Injection,Sterile 10 Ml Vial IJ 08/19/22 23:59 DIRECTED PRN PFSH Active Problems Active Problems: Problem Status Onset Code Screening for colon cancer Z12.11 Diarrhea R19.7 KAREN on CPAP G47.33, Z99.89 Aortic dilatation I77.819 Obesity (BMI 30-39.9) E66.9 Medical History Medical History Atherosclerosis Chronic GERD Erectile dysfunction Fatigue Hyperlipidemia Hypertension Hypothyroidism Obesity Prediabetes Medical History Comments:: 07/20/22 - last used CPAP 07/19/22 Surgical History Surgical History Appendectomy Arthroplasty of knee 1975 (L) Colonoscopy - IV Sedation 2005 2009 2016 Colonoscopy - MAC (02/15/17) Hx of shoulder surgery RTCR Vasectomy Tobacco Smoking/Tobacco Use Status: Former Tobacco Use Substance Use Substance use: Never Substance use type: does not use Vital Signs and Lab Results Vital Signs Most Recent Vital Signs in EMR: Most Recent Vital Signs Temp Pulse Resp BP Pulse Ox 36.6 C 77 18 135/92 H 99 07/20/22 08:26 07/20/22 08:26 07/20/22 08:26 07/20/22 08:26 07/20/22 08:26 Lab Results Blood Type / Crossmatch: No Data to Display Complete Blood Count: No Data to Display Complete Metabolic Panel: No Data to Display Liver Function Panel: No Data to Display Coagulation Panel: No Data to Display Cardiac Panel: No Data to Display Arterial Blood Gas: No Data to Display Venous Blood Gas: No Data to Display Pancreas Panel: No Data to Display Thyroid Panel: Thyroid Stimulating Hormone (TSH) 0.42 uIU/mL (0.36-3.74) 07/10/22 13:55 Total Triiodothyronine 138 ng/dL (97-169) 07/10/22 13:55 Infectious Disease: No Data to Display Blood Cultures: No Data to Display Toxicology Panel: No Data to Display Imaging and Studies Imaging and Studies Study information below may be from another EMR and interpreted by another provider. Please see original notes in EMR for more complete details. Stress Test Summary: 2019 Stress ECG Conclusion 1. The resting electrocardiogram showed left anterior fascicular block, late transition 2. Patient exercised on the Reji protocol and completed a workload of 6.45 METS, stopping due to fatigue and shortness of breath 3. Normal heart rate and blood pressure response to exercise. The patient achieved 97% of predicted heart rate for age 4. Electrocardiographically there was no evidence of myocardial ischemia 5. Occasional premature ventricular contractions, rare premature atrial contractions were noted 6. Keller treadmill score is 4.5, low risk Echocardiogram Summary: 06/27Conclusion Left Ventricle : The left ventricle is normal size. The left ventricular systolic function is normal. The left ventricular ejection fraction is within the normal range. There is normal left ventricular wall thickness. There is normal LV segmental wall motion. LVEF is 60%. Right Ventricle : The right ventricle is normal size. The right ventricular systolic function is normal. The RVSP is 24.7 mmHg. Atria : The left atrium size is normal. The right atrium size is normal. Valves: There are no hemodynamically significant valvular lesions. Great Vessels : The aortic root is normal in size. The ascending aorta is mildly dilated. Aortic arch is normal in caliber. IVC is normal in size and collapses >50% with inspiration. Please see remainder of study for further details. Carotid Artery Summary:: 2014 IMPRESSION: No evidence of hemodynamically significant cervical carotid artery stenosis. Anesthesia Assessment and Plan Anesthesia History Personal History: No History of Anesthesia Complications Family History: No Family History of Anesthesia Complications Exercise Tolerance Exercise Tolerance: Metabolic Equivalents>4 Pertinent Negatives Pertinent Negatives: No Symptoms of GERD Cardiac & Pulmonary Exam Cardiac Exam: Normal S1/S2 Heart Sounds Pulmonary Exam: Clear Bilateral Breath Sounds Implantable Cardiac Device Does patient have a Pacemaker or an ICD?: No Airway Exam Known Difficult Airway: No Mallampati Class: 3 Mouth Opening: Normal (> 3cm) Thyromental Distance: Greater than 3 cm Neck Range of Motion: Full ROM Neck Circumference: Normal Teeth Condition: Normal Dentition and Removable Dentures/Plates Upper ASA Classification ASA Score: ASA 3 Emergency Case?: No NPO Status NPO Status: NPO Clears >2 hours, Solids >8 hours Anesthesia Plan Resuscitation Status: Full Code Anesthesia Technique: General Anesthesia Airway Planned: Natural Airway Monitors Used: Standard Monitors
[2022-07-20 09:18] VITALS: BMI 37.4
--- NOTE | 2022-07-20 10:36 | BOWEL_PTH ---
PATIENT: Julian Edmonds LOC: [facility] U#:[id number] AGE/SX: 67/M ROOM: RE07/20/[address]: Antony Lopez : 1955 BED: DIS: 07/20/2022 SPEC #: [id number] RECD: 07/20/22 12:35 STATUS: JANNET REQ #: [id number] KING: 07/20/22 10:[address]: Antony Lopez DEPT: Surgical Specimen RECD BY: Li Vasquez ENTERED: 07/20/22 12:37 SP TYPE: Bowel OTHR DR: Vivian Bautista Tissues: 1 - BIOPSY BOWEL 2 - BIOPSY BOWEL 3 - BIOPSY BOWEL Procedures: GROSS AND MICRO LEVEL 4 Comments: [id number]
[2022-07-20 11:06] VITALS: BP 135/93; PULSE 69; RESP 18; TEMP 36; O2SAT 99
--- NOTE | 2022-07-20 11:11 | W.ANESPOSTOP ---
Postoperative Evaluation Date, Time and Location Date Performed: 07/20/22 Time Performed: 11:11 Patient Location: Day Surgery Unit Vital Signs Most Recent Imported Vital Signs: Most Recent Vital Signs Temp Pulse Resp BP Pulse Ox 36.0 C L 69 18 135/93 H 99 07/20/22 11:06 07/20/22 11:06 07/20/22 11:06 07/20/22 11:06 07/20/22 11:06 Pain Score Most Recent Pain Score: Most Recent Pain Score Pain Level 0 07/20/22 08:26 Assessment Mental Status: Awake (Alert & Oriented to Patient Baseline) Airway and Respiratory Function: Patent airway with normal (patient baseline) respiratory exam Cardiovascular Function: Hemodynamically Stable Hydration Status: Adequately Hydrated Nausea & Vomiting: No Nausea or Vomiting Pain: Pt. Denies Any Pain Peripheral Nerve Block: Patient did not receive a nerve block
[2022-07-20 11:43] VITALS: BP 127/77; PULSE 65; RESP 18; TEMP 36.1; O2SAT 96
== END 2022-07-20 11:59 | disposition home or self-care (01) ==
PROVIDERS: PCP Nurse Practitioner Family; Visit Provider Surgery
PROC: 0DJD8ZZ Inspection of Lower Intestinal Tract, Via Natural or Artificial Opening Endoscopic (ICD-10-PCS; CPT 45378; principal; 2022-07-20 09:30)
DX: Z12.11 Encounter for screening for malignant neoplasm of colon (principal); K63.5 Polyp of colon; Z86.010 Personal history of colon polyps; K57.30 Diverticulosis of large intestine without perforation or abscess without bleeding
CPT/HCPCS: 45380; 88305; J2704

== ENCOUNTER 2022-09-15 11:17 | Outpatient (REF) | payer OTHER, SELFPAY ==
[2022-09-15 16:40] LABS: ALT 43 U/L (16-63); AST 20 U/L (15-37); Albumin 3.8 g/dL (3.4-5.0); Alkaline Phosphatase 94 U/L (46-116); Anion Gap 7.7 mmol/L (3-11); BUN 15 mg/dL (7-18); Bilirubin, Total 0.3 mg/dL (0.2-1.0); CO2 30.3 mmol/L (21.0-32.0); CREATININE 1.1 mg/dL (0.70-1.30); Calcium 8.6 mg/dL (8.5-10.1); Calculated LDL 60 mg/dL (<100); Chloride 104 mmol/L (98-107); Cholesterol 147 mg/dL (<200); Estimated GFR 74.04 (mL/min/1.73m2); Glucose 124 mg/dL (74-106); HDL Cholesterol 39 mg/dL (40-60); Potassium 4.6 mmol/L (3.5-5.1); Sodium 142 mmol/L (136-145); TSH 0.57 uIU/mL (0.36-3.74); Total Protein 6.8 g/dL (6.4-8.2); Triglyceride 243 mg/dL (<150)
[2022-09-15 22:14] LABS: T3,Free 5.9 pg/mL (2.8-5.3)
[2022-09-15 22:48] LABS: PSA, Screening 5.1 ng/mL (<=4.5)
== END 2022-09-15 11:18 | disposition home or self-care (01) ==
LOC: NCHCN 11:17
PROVIDERS: PCP Nurse Practitioner Family; Visit Provider Nurse Practitioner Family
DX: Z00.00 Encounter for general adult medical examination without abnormal findings (principal); Z86.718 Personal history of other venous thrombosis and embolism; I10 Essential (primary) hypertension; I70.90 Unspecified atherosclerosis; E78.5 Hyperlipidemia, unspecified; E66.9 Obesity, unspecified; R73.03 Prediabetes; E03.9 Hypothyroidism, unspecified
CPT/HCPCS: 80053; 80061; 84153; 84439; 84443; 84481

== ENCOUNTER 2022-10-21 15:55 | Outpatient (REF) | payer OTHER, SELFPAY ==
[2022-10-21 17:46] LABS: Bacteria Negative HPF (Negative); C & S Indicated? No; Casts Negative LPF (Negative); Crystals Negative HPF (Negative); Epithelial Cells Few HPF (Negative); Mucus Negative (Negative); RBC 0-2 HPF (0-2); WBC 0-2 HPF (0-5)
== END 2022-10-21 15:56 | disposition home or self-care (01) ==
LOC: LBN 15:55
PROVIDERS: PCP Nurse Practitioner Family; Visit Provider Urology
DX: R31.29 Other microscopic hematuria (principal)
CPT/HCPCS: 81015

== ENCOUNTER 2023-01-01 11:19 | Outpatient (REF) | payer OTHER, SELFPAY ==
[2023-01-01 14:43] LABS: Anion Gap 8.3 mmol/L (3-11); BUN 19 mg/dL (7-18); CO2 28.7 mmol/L (21.0-32.0); CREATININE 1.1 mg/dL (0.70-1.30); Calcium 9.3 mg/dL (8.5-10.1); Chloride 104 mmol/L (98-107); Estimated GFR 74.04 (mL/min/1.73m2); FREE T4 0.91 ng/dL (0.76-1.46); Glucose 123 mg/dL (74-106); Potassium 4.6 mmol/L (3.5-5.1); Sodium 141 mmol/L (136-145); TSH 0.79 uIU/mL (0.36-3.74)
[2023-01-01 22:05] LABS: T3,Free 4.1 pg/mL (2.8-5.3)
== END 2023-01-01 11:20 | disposition home or self-care (01) ==
LOC: NCHCN 11:19
PROVIDERS: PCP Nurse Practitioner Family; Visit Provider Nurse Practitioner Family
DX: I10 Essential (primary) hypertension (principal); R73.03 Prediabetes; R19.7 Diarrhea, unspecified; R05.3 Chronic cough; G47.62 Sleep related leg cramps; E66.9 Obesity, unspecified
CPT/HCPCS: 80048; 84439; 84443; 84481

== ENCOUNTER → 2023-03-15 02:58 | Outpatient (CLI) | payer OTHER, SELFPAY ==
--- NOTE | 2023-03-15 08:30 | DI.RAD_ITS ---
Exam(s) XR FOOT RT COMPLETE EXAM: XR FOOT RT COMPLETE CLINICAL HISTORY: Rt foot pain M79.671 M76.60 ACHILLES TENDINITIS. TECHNIQUE: 2D digital imaging was performed. Three views. COMPARISON: No exams were available for comparison FINDINGS: BONES: No acute fracture is present. No bony destructive lesion is seen. No calcaneal enthesophyte. JOINTS: No dislocation present. No significant degenerative changes. Plantar arch maintained. SOFT TISSUE: Normal. IMPRESSION: Unremarkable radiographs of the right foot. DATA REPOSITORY: RADIATION DOSE DELIVERED:
== END ==
PROVIDERS: PCP Nurse Practitioner Family; Visit Provider Podiatrist
DX: M76.61 Achilles tendinitis, right leg (principal); M79.671 Pain in right foot
CPT/HCPCS: 73630

== ENCOUNTER 2023-05-05 03:10 | Outpatient (CLI) | payer OTHER, SELFPAY ==
[2023-05-05 16:11] LABS: FREE T4 0.91 ng/dL (0.76-1.46); TSH 0.52 uIU/mL (0.36-3.74)
[2023-05-05 23:22] LABS: T3, Total 129 ng/dL (97-169)
== END 2023-05-05 03:11 | disposition home or self-care (01) ==
PROVIDERS: PCP Nurse Practitioner Family; Visit Provider Internal Medicine Endocrinology, Diabetes & Metabolism
DX: M79.671 Pain in right foot (principal)
CPT/HCPCS: 36415; 84439; 84443; 84480

== ENCOUNTER 2023-09-23 15:33 | Outpatient (REF) | payer OTHER, SELFPAY ==
[2023-09-23 17:56] LABS: Calculated LDL 77 mg/dL (<100); Cholesterol 145 mg/dL (<200); HDL Cholesterol 48 mg/dL (40-60); TSH 2.94 uIU/Ml (0.36-3.74); Triglyceride 104 mg/dL (<150)
[2023-09-23 18:13] LABS: FREE T4 1.02 ng/dL (0.76-1.46)
[2023-09-23 23:11] LABS: PSA, Screening 5.9 ng/mL (<=4.5)
[2023-09-23 23:23] LABS: T3, Total 158 ng/dL (97-169)
== END 2023-09-23 15:34 | disposition home or self-care (01) ==
LOC: NCHCN 15:33
PROVIDERS: PCP Nurse Practitioner Family; Visit Provider Nurse Practitioner Family
DX: E03.9 Hypothyroidism, unspecified (principal); E78.5 Hyperlipidemia, unspecified; R31.21 Asymptomatic microscopic hematuria; Z12.5 Encounter for screening for malignant neoplasm of prostate
CPT/HCPCS: 80061; 84153; 84439; 84443; 84480

== ENCOUNTER 2024-02-07 10:24 | Emergency (ER) | payer MEDICARE, BC, SELFPAY ==
[2024-02-07 10:39] VITALS: BP 146/80; PULSE 63; RESP 21; TEMP 36.4; O2SAT 98
[2024-02-07 10:55] VITALS: BP 146/80; PULSE 63; RESP 21; TEMP 36.4; O2SAT 98
--- NOTE | 2024-02-07 10:55 | ED.GENADUL_ITS ---
Discharge Plan Disposition Patient Disposition: Home Condition: Stable Discharge Details Clinical Impression: COVID-19 Primary Care Provider: Vivian Bautista ED Provider: Brittany Suarez Home Meds and New Rx's Prescriptions: New Paxlovid 300 mg (150 mg x 2)-100 mg tablets,dose pack 300 dose pk PO DAILY 5 Days Qty: 10 0RF Rx Instructions: Take 2 150 mg tablets daily x 5 days Held rosuvastatin 40 mg tablet See Rx Instructions PO DAILY Hold Instructions: Resume on 02/12/24. Hold while taking paxlovid Rx Instructions: orally daily; Take (1 tab) 40mg 4 days a week, and (2 tabs) 80mg 3 days a week. sildenafil 100 mg tablet 100 mg PO DAILY PRN Hold Instructions: Resume on 02/12/24. Hold while taking Paxlovid Rx Instructions: administer 30 minutes to 4 hours before activity No Action multivitamin [Daily Multi-Vitamin] Tablet 1 tab PO DAILY beet supplement 1 pill PO DAILY metoprolol succinate 100 mg tablet extended release 24 hr 100 mg PO DAILY cetirizine [Zyrtec] 10 mg tablet 10 mg PO DAILY losartan 50 mg tablet 50 mg PO DAILY levothyroxine 100 mcg capsule 100 mcg PO DAILY Rx Instructions: Pt reports dose as 125mcg (03/15/23) EO famotidine 20 mg tablet 20 mg PO DAILY PRN liothyronine 5 mcg tablet 5 mcg PO DAILY Discharge Instructions Instructions: COVID-19 ED, Nirmatrelvir and Ritonavir Additional Instructions: Positive for COVID-19. Please take the Paxil bid as directed. It is 2 tablets once daily for the next 5 days. Please do not take the sildenafil or the lovastatin while taking this medication. Follow up with primary care provider in 3-5 days. Return to ED sooner if any worsening or concerns. Please quarantine as recommended by the CDC. Referrals: Vivian Bautista [Primary Care Provider] - 1 week Discharge Data Discharge Date/Time-TO BE ENTERED AT DEPARTURE: 02/07/24 12:31 HPI General Mode of arrival: ambulatory . Date/Time Provider Initiated Documentation: 02/07/24 10:44 . Limitations to Documentation: no limitations . Information obtained by: patient, RN notes reviewed and old records reviewed . HPI Narrative: 68-year-old male presents to the ER with a chief complaint of testing for COVID- positive by home test this morning. Reports that his is also positive. He is complaining of cough, congestion and sore throat. He does have a past medical history of high cholesterol, hypertension, diarrhea he is a former smoker history of DVT. He is requesting Paxlovid. I did discuss his medication contraindications with him. He verbalized understanding. Will check renal function improved following COVID-positive status with a rapid COVID test. Related Data Home Medications ?Medication ?Instructions ?Recorded ?Confirmed sildenafil 100 mg tablet 100 mg PO DAILY PRN 09/19/21 02/07/24 beet supplement 1 pill PO DAILY 07/10/22 02/07/24 famotidine 20 mg tablet 20 mg PO DAILY PRN 07/10/22 02/07/24 multivitamin (Daily Multi-Vitamin 1 tab PO DAILY 07/10/22 02/07/24 tablet) cetirizine 10 mg tablet (Zyrtec) 10 mg PO DAILY 03/15/23 02/07/24 levothyroxine 100 mcg capsule 100 mcg PO DAILY 03/15/23 02/07/24 liothyronine 5 mcg tablet 5 mcg PO DAILY 03/15/23 02/07/24 losartan 50 mg tablet 50 mg PO DAILY 03/15/23 02/07/24 metoprolol succinate 100 mg 100 mg PO DAILY 03/15/23 02/07/24 tablet,extended release 24 hr rosuvastatin 40 mg tablet See Rx Instructions PO DAILY 03/15/23 02/07/24 nirmatrelvir 300 mg (150 mg 300 dose pk PO DAILY Covid 5 days 02/07/24 x2)-ritonavir 100 mg tablet,dose #10 dose pk pack (Paxlovid) Previous Rx's ?Medication ?Instructions ?Recorded nirmatrelvir 300 mg (150 mg 300 dose pk PO DAILY Covid 5 days 02/07/24 x2)-ritonavir 100 mg tablet,dose #10 dose pk pack (Paxlovid) Allergies Allergy/AdvReac Type Severity Reaction Status Date / Time prochlorperazine (From AdvReac Intermediate facial tics Unverified 03/15/23 14:58 Compazine) prochlorperazine edisylate AdvReac Intermediate facial tics Unverified 03/15/23 14:58 (From Compazine) prochlorperazine maleate AdvReac Intermediate facial tics Unverified 03/15/23 14:58 (From Compazine) General Stated Complaint: RespSymp MINE: 4 Exam Narrative Exam Narrative: Constitutional: Alert and oriented x3. Appears stated age. Normal body habitus. Head: Normocephalic, no trauma. Eyes: Pupils PERRL, Red reflex noted, EOM's intact. Eyelids symmetrical without lesions, discharge, or swelling. ENT: Bilateral TM's WNL, External ear normal to inspection, no mastoid TTP, swelling, or erythema, Nasal turbinates WNL, no nasal discharge. Normal dentition, Posterior pharynx WNL, no exudate. Chest: RRR, Normal S1, S2, distal pulses intact. Resp: Lungs clear to auscultation bilaterally, no wheezes, rales, or rhonchi. Abdomen: Soft, non-distended, Normoactive bowel sounds all 4 quads. Musculoskeletal: Normal gait, Moves all 4 extremities without difficulty. Skin: No suspicious rashes or lesions. Capillary refill less than 2 sec. Neurologic: Cranial nerves II-XII intact. Alert and oriented x 3. Motor: No deficits noted. Sensory: Intact bilaterally all 4 extremities. Hematologic/Lymphatic: No ecchymosis, no lymphadenopathy. Course Vital Signs Vital signs: Vital Signs Temperature 36.4 C L 02/07/24 10:39 Pulse 63 02/07/24 10:39 Respiratory Rate 21 02/07/24 10:39 Blood Pressure 146/80 H 02/07/24 10:39 Pulse Oximetry 98 02/07/24 10:39 Temperature 36.4 C L 02/07/24 10:39 Temperature Source Oral 02/07/24 10:39 Pulse 63 02/07/24 10:39 Respiratory Rate 21 02/07/24 10:39 Blood Pressure 146/80 H 02/07/24 10:39 Blood Pressure Position Sitting 02/07/24 10:39 Pulse Oximetry 98 02/07/24 10:39 Oxygen Delivery Method Room Air 02/07/24 10:39 Oxygen Flow Rate 0 02/07/24 10:39 Pain Level 2 02/07/24 10:39 Medical Decision Making 68-year-old male presents to the ER with a chief complaint of testing for COVID- positive by home test this morning. Reports that his is also positive. He is complaining of cough, congestion and sore throat. He does have a past medi gabrielle history of high cholesterol, hypertension, diarrhea he is a former smoker history of DVT. He is requesting Paxlovid. I did discuss his medication contraindications with him. He verbalized understanding. Will check renal function improved following COVID-positive status with a rapid COVID test. CMP POC COVID positive. CMP is WNL, will order regular dose Paxlovid and have patient hold statin and Sildenefil while taking the medication he verbalizes understanding. This text was generated using Ifeelgoodsation system, please disregard any oddities of phrase or misspellings. Quality:SDOH Health Related Social Needs: No Data to Display PFSH All Active Problems (Updated 02/07/24 @ 11:35 by Brittany Suarez NP) COVID-19 (Acute) Pain of right lower extremity (Acute) Achilles tendon contracture, bilateral (Acute) Achilles tendinitis, right leg (Acute) Bilateral knee pain (Acute) Lower urinary tract symptoms (LUTS) (Acute) Onychomycosis (Acute) Diverticulosis large intestine w/o perforation or abscess w/o bleeding (Acute) Colorectal polyps (Acute) Obesity (BMI 30-39.9) (Acute) Aortic dilatation (Acute) - Patient had ultrasound of the aorta on 06/28 The ultrasound was normal and showed no aortic dilation. Atherosclerosis (Acute) KAREN on CPAP (Chronic) Prediabetes (Acute) Hypertension (Chronic) Chronic GERD (Acute) Hypothyroidism (Chronic) Hyperlipidemia (Acute) Erectile dysfunction (Acute) Medical History Asymptomatic microscopic hematuria Diarrhea Fatigue Former smoker History of DVT (deep vein thrombosis) Low back pain Nocturnal leg cramps Screening for colon cancer Surgical History Appendectomy Arthroplasty of knee 1974 (L) Colonoscopy - IV Sedation 2005 2009 2016 Colonoscopy - MAC (02/15/17) Hx of shoulder surgery RTCR Vasectomy Social History Smoking/Tobacco Use Status: Former Tobacco Use Quit Date: 06/07/02 Smoking risk assessment performed?: Yes Drug use: Never Substance use type: does not use Current gender identity: male Do you feel safe at home: Yes Do you feel safe in your relationship?: Yes
--- OUTSIDE RECORDS SUMMARY | 2024-02-07 11:00 | XMS_ITS | Encounter Summary ---
Author Organization [facility] Address [address] [place] [address] Care Team Providers Care Director Of Event Sales Name Role Phone Vivian Bautista APRN Primary Care Provider [phone] Encounter Details Date Type Department Care Team (Late st Contact Info) Description 01/01/2023 Lab Requisition [facility] Pathology & Laboratory Medicine - [facility] [address], [place] [address] Outr Resulting Lab, Provider Social History Tobacco Use Types Packs/Day Years Used Date Smoking Tobacco: Never Assessed Interpersonal Safety Answer Date Record ed Physically Hurt Never 01/07/2020 Verbally Threaten Not on file 01/07/2020 Sex and Gender Information Value Date Recorded Sex Assigned at Not on file Gender Identity Not on file Sexual Orientation Not on file documented as of this encounter Plan of Treatment Not on file documented as of this encounter Procedures Procedure Name Priority Date/Time Associated Diagnosis Comments T3 FREE Routine 01/01/2023 9:00 EDT documented in this encounter Results * T3 FREE (01/01/2023 9:00 EDT) T3, Free 4.1 2.8 - 5.3 pg/mL 01/01/2023 22:00 EDT [facility] Blood VENOUS BLOOD / Unknown 01/01/2023 9:00 EDT 01/01/2023 21:16 EDT Provider Outr Resulting Lab CHEMISTRY & BLOOD GAS ORDERABLES [facility] [address] [place] [address] documented in this encounter Visit Diagnoses Not on filedocumented in this encounter Care Teams Director Of Event Sales Relationship Specialty Start Date End Date Vivian Bautista APRN [address] [place] [id number] PCP - General 07/08/22 documented as of this encounter
--- OUTSIDE RECORDS SUMMARY | 2024-02-07 11:00 | XMS_ITS | Referral Summary ---
Author Organization [facility] Address [address] [place] [address] Care Team Providers Care Basket Filler Name Role Phone Vivian aButista APRN Primary Care Provider [phone] Social History Tobacco Use Types Packs/Day Years Used Date Smoking Tobacco: Never Assessed Interpersonal Safety Answer Date Record ed Physically Hurt Never 01/07/2020 Verbally Threaten Not on file 01/07/2020 Sex and Gender Information Value Date Recorded Sex Assigned at Not on file Gender Identity Not on file Sexual Orientation Not on file Plan of Treatment Not on file Care Teams Basket Filler Relationship Specialty Start Date End Date Vivian Bautista APRN [address] [place] [address] PCP - General 07/08/22
--- OUTSIDE RECORDS SUMMARY | 2024-02-07 11:00 | XMS_ITS | Encounter Summary ---
Author Organization [facility] Address [address] [place] [address] Care Team Providers Care Patient Financial Services Specialist Name Role Phone Vivian Bautista APRN Primary Care Provider [phone] Encounter Details Date Type Department Care Team (Late st Contact Info) Description 07/20/2022 Lab Requisition [facility] Pathology & Laboratory Medicine - [address] [address] Antony Lopez MD Polyp of colon; Rectal polyp; Diverticulosis of large intestine without perforation or abscess without bleeding Social History Tobacco Use Types Packs/Day Years [...] Procedure Name Priority Date/Time Associated Diagnosis Comments SURGICAL PATHOLOGY Today 07/20/2022 10 :36 EST Polyp of colon Rectal polyp Diverticulosis of large intestine without perforation or abscess without bleeding documented in this encounter Results * SURGICAL PATHOLOGY (07/20/2022 10:36 EST) Note to Patient The following pathology results have been interpreted by your pathologist and may be available to you before your health provider has had the opportunity to review them. Please allow time for your provider to receive these results and explore management options, if applicable. 07/21/2022 17:55 [facility] Final Diagnosis A. COLON, 95 CMS, POLYP, BIOPSY: - Fragments of tubular adenoma. B. COLON, 80 CMS, POLYP, BIOPSY: - Tubular adenoma. C. COLON, RECTOSIGMOID AT 30 CMS, POLYP, BIOPSY: - Hyperplastic polyp. 07/21/2022 17:55 [facility] Attestation By the signature below, the attending physician certifies that they have 1) personally conducted a gross and/or microscopic examination of the described specimen(s), and/or personally interpreted the results of laboratory testing of the described specimen(s), and 2) personally rendered or confirmed the above diagnosis. 07/21/2022 17:55 [facility] at [address]55 Clinical History History of colon polyps 07/21/2022 17:55 [facility] Gross Description A. Received in formalin labelled with proper patient identification (initials J, E) and 1. Polyp at 95 cm is an aggregate of rizvi-brown tissue fragments (1.2 x 0.7 x 0.1 cm). Entirely submitted in A1. B. Received in formalin labelled with proper patient identification (initials J, E) and 2. Polyp at 80 cm is a rizvi tissue (0.6 x 0.4 x 0.2 cm). Entirely submitted in B1. C. Received in formalin labelled with proper patient identification (initials J, E) and 3. Rectal sigmoid polyp at 30 cm are 2 rizvi-brown tissue fragments (0.6 x 0.5 x 0.1 cm in aggregate). Entirely submitted in C1. NESS LARA(ASCP) 07/21/2022 8:18 07/21/2022 17:55 [facility] Performing Lab [facility] 07/21/2022 17:55 [facility] Scanned Images 07/21/2022 17:55 [facility] Tissue ENTIRE SIGMOID COLON / Unknown 07/20/2022 10:36 EST 07/20/2022 17:45 EST Tissue specimen (specimen) COLON STRUCTURE / Unknown 07/20/2022 10:36 EST 07/20/2022 17:45 EST Tissue specimen (specimen) SIGMOID COLON STRUCTURE / Unknown 07/20/2022 10:36 EST 07/20/2022 17:45 EST Antony Lopez MD PATHOLOGY ORDERABLES [facility] [address] [place] [address] documented in this encounter Visit Diagnoses Diagnosis Polyp of colon Benign neoplasm of colon Rectal polyp Anal and rectal polyp Diverticulosis of large intestine without perforation or abscess without bleeding Diverticulosis of colon (without mention of hemorrhage) documented in this encounter Care Teams Patient Financial Services Specialist Relationship Specialty Start Date End Date Vivian Bautista, INSERTER OPERATOR [address] [place] [address] PCP - General 07/08/22 documented as of this encounter
--- OUTSIDE RECORDS SUMMARY | 2024-02-07 11:00 | XMS_ITS | Encounter Summary ---
Author Organization [facility] Address [address] [place] [address] Care Team Providers Care Floating Derrick Operator Name Role Phone Vivian Bautista APRN Primary Care Provider [phone] [phone] Encounter Details Date Type Department Care Team (Late st Contact Info) Description 05/05/2023 Lab Requisition [facility] Pathology & Laboratory Medicine - [facility] [address] [place] [address] Outr Resulting Lab, Provider Social History Tobacco [...] Procedure Name Priority Date/Time Associated Diagnosis Comments T3, TOTAL Routine 05/05/2023 15:07 EST documented in this encounter Results * T3, TOTAL (05/05/2023 15:07 EST) T3, Total 129 97 - 169 ng/dL 05/05/2023 23:16 EST [facility] Blood VENOUS BLOOD / Unknown 05/05/2023 15:07 EST 05/05/2023 22:10 EST Provider Outr Resulting Lab CHEMISTRY & BLOOD GAS ORDERABLES [facility] [address] [place] [address] documented in this encounter Visit Diagnoses Not on filedocumented in this encounter Care Teams Floating Derrick Operator Relationship Specialty Start Date End Date Vivian Bautista APRN [address] [facility] [address] [place] [address] PCP - General 07/08/22 documented as of this encounter
--- OUTSIDE RECORDS SUMMARY | 2024-02-07 11:00 | XMS_ITS | Encounter Summary ---
Author Organization [facility] Address [address] [place] [address] Care Team Providers Care Multi Skilled Operator Name Role Phone Imer Villegas MD Primary Care Provider [phone] Encounter Details Date Type Department Care Team (Latest Contact Info) Description 02/15/2017 9:53 EDT - 02/15/2017 23:59 EDT Hospital Encounter [facility] [address] [place] [address] Unknown, Provider, Discharge Disposition: Home or Self Care Social History Tobacco Use Types Packs/Day Years Used Date Smoking Tobacco: Never Assessed Sex and Gender Information Value Date Recorded Sex Assigned at Not on file Gender Identity Not on file Sexual Orientation Not on file documented as of this encounter Discharge Disposition Disposition Code Departure Means Destination Home or Self Halfway documented in this encounter Plan of Treatment Not on file documented as of this encounter Visit Diagnoses Not on filedocumented in this encounter Care Teams Multi Skilled Operator Relationship Specialty Start Date End Date Imer Villegas MD [address] [place] [address] PCP - General 11/13/09 07/07/22 documented as of this encounter
--- OUTSIDE RECORDS SUMMARY | 2024-02-07 11:00 | XMS_ITS | Encounter Summary ---
Author Organization [facility] Address [address] [place] [address] Care Team Providers Care Stone Crusher Operator Name Role Phone Vivian Bautista APRN Primary Care Provider [phone] [phone] Encounter Details Date Type Department Care Team (Late st Contact Info) Description 09/15/2022 Lab Requisition [facility] Pathology & Laboratory Medicine - [facility] [address] [place] [address] Outr Resulting Lab, Provider Social History Tobacco [...] Date/Time Associated Diagnosis Comments T3 FREE Routine 09/15/2022 7:55 EDT PSA TOTAL, DIAGNOSTIC Routine 09/15/2022 7:55 EDT documented in this encounter Results * (ABNORMAL) T3 FREE (09/15/2022 7:55 EDT) T3, Free 5.9(H) 2.8 - 5.3 pg/mL 09/15/2022 22:10 EDT [facility] Blood VENOUS BLOOD / Unknown 09/15/2022 7:55 EDT 09/15/2022 21:39 EDT Provider Outr Resulting Lab CHEMISTRY & BLOOD GAS ORDERABLES Performing Organization Address City/[facility]/ZIP Co de Phone Number [facility] [address] [place] [address] * (ABNORMAL) PSA TOTAL, DIAGNOSTIC (09/15/2022 7:55 EDT) PSA 5.1(H) <=4.5 ng/mL 09/15/2022 22:44 EDT [facility] Blood VENOUS BLOOD / Unknown 09/15/2022 7:55 EDT 09/15/2022 21:39 EDT Narrative [facility] - 09/15/2022 22:44 EDT NOTE: Serum PSA concentration should not be interpreted as absolute evidence for the presence or absence of malignant disease. Assayed on Siemens VM Enterprisesaur XPT using chemiluminescent technology.??Values obtained by using different assay methods cannot be used interchangeably. Provider Outr Resulting Lab CHEMISTRY & BLOOD GAS ORDERABLES Performing Organization Address City/[facility]/ZIP Co de Phone Number [facility] [address] [place] [address] documented in this encounter Visit Diagnoses Not on filedocumented in this encounter Care Teams Stone Crusher Operator Relationship Specialty Start Date End Date Vivian Bautista APRN [address] [facility] [address] [place] [address] PCP - General 07/08/22 documented as of this encounter
--- OUTSIDE RECORDS SUMMARY | 2024-02-07 11:00 | XMS_ITS | Encounter Summary ---
Author Organization [facility] Address [address] [place] [address] Care Team Providers Care Industrial Psychology Professor Name Role Phone Imer Villegas MD Primary Care Provider [phone] Vivian Bautista APRN Primary Care Provider [phone] Encounter Details Date Type Department Care Team (Late st Contact Info) Description 05/30/2020 Lab Requisition [facility] Pathology & Laboratory Medicine - [address] [address] Outr Resulting Lab, Provider Social History Tobacco [...] Procedure Name Priority Date/Time Associated Diagnosis Comments ZZCOVID-19 TEST [facility] PCR Today 05/30/2020 8:58 EST COVID-19 TESTING Routine 05/30/2020 8:58 EST documented in this encounter Results * COVID-19 TEST [facility] PCR (05/30/2020 8:58 EST) Swab ENTIRE NASOPHARYNX / Unknown 05/30/2020 8:58 EST 05/30/2020 20:24 EST Provider Outr Resulting Lab MICROBIOLOGY - GENERAL ORDERABLES Performing Organization Address [facility] Co de Phone Number [facility] [address] [place] [address] * COVID-19 TESTING (05/30/2020 8:58 EST) COVID-19 rt-PCR Result Negative Negative 05/31/2020 16:58 EST [facility] Comment: This test has not been FDA cleared or approved. This test has been authorized by FDA under an EUA for use by authorized laboratories. This test has been authorized only for detection of nucleic acid from 2019-nCoV, not for any other viruses or pathogens. This test is only authorized for the duration of the declaration that circumstances exist justifying the authorization of emergency use of in vitro diagnostic tests for detection and/or diagnosis of 2019-nCoV under section 564(b)(1) of Act, 21 U.S.C ?? 360bbb-3(b) (1), unless the authorization is terminated or revoked sooner. Negative results do not preclude 2019-nCoV infection and should not be used as the sole basis for treatment or other patient management decisions. Negative results must be combined with clinical observations, patient history, and epidemiological information. Performed on the LOGID[employer]-Solutionsher Fusion instrument Performing Lab [facility] 05/31/2020 16:58 EST [facility] Swab 05/30/2020 8:58 EST 05/30/2020 20:24 EST Provider Outr Resulting Lab MICROBIOLOGY - GENERAL ORDERABLES Performing Organization Address City/[facility] Co de Phone Number [facility] [address] [place] [address] documented in this encounter Visit Diagnoses Not on filedocumented in this encounter Care Teams Industrial Psychology Professor Relationship Specialty Start Date End Date Imer Villegas MD [address] [place] [address] PCP - General 11/13/09 07/07/22 Vivian Bautista, VINNY [address] [place] [address] PCP - General 07/08/22 documented as of this encounter
--- OUTSIDE RECORDS SUMMARY | 2024-02-07 11:00 | XMS_ITS | Encounter Summary ---
Author Organization [facility] Address [address] [place] [address] Care Team Providers Care Speech Therapist Technician Name Role Phone Imer Villegas MD Primary Care Provider [phone] Vivian Bautista APRN Primary Care Provider [phone] Encounter Details Date Type Department Care Team (Late st Contact Info) Description 08/11/2021 Lab Requisition [facility] Pathology & Laboratory Medicine - [facility] [address] [place], [place] [address] Outr Resulting Lab, Provider Social History Tobacco [...] Date/Time Associated Diagnosis Comments T3 FREE Routine 08/11/2021 8:15 EST documented in this encounter Results * T3 FREE (08/11/2021 8:15 EST) T3, Free 5.1 2.8 - 5.3 pg/mL 08/11/2021 21:56 EST [facility] Blood VENOUS BLOOD / Unknown 08/11/2021 8:15 EST 08/11/2021 21:17 EST Provider Outr Resulting Lab CHEMISTRY & BLOOD GAS ORDERABLES [facility] [address] [place] [address] documented in this encounter Visit Diagnoses Not on filedocumented in this encounter Care Teams Speech Therapist Technician Relationship Specialty Start Date End Date Imer Villegas MD [address] [place] [address] PCP - General 11/13/09 07/07/22 Vivian Bautista APRN [address] [place] [address] PCP - General 07/08/22 documented as of this encounter
--- OUTSIDE RECORDS SUMMARY | 2024-02-07 11:00 | XMS_ITS | Encounter Summary ---
Author Organization [facility] Address [address] [place] [address] Care Team Providers Care Lead Mechanic Name Role Phone Vivian Bautista APRN Primary Care Provider [phone] Encounter Details Date Type Department Care Team (Late st Contact Info) Description 07/10/2022 Lab Requisition [facility] Pathology & Laboratory Medicine - [facility] [address] [place] [address] Outr Resulting Lab, Provider Social History Tobacco [...] Date/Time Associated Diagnosis Comments T3, TOTAL Routine 07/10/2022 13:55 EST documented in this encounter Results * T3, TOTAL (07/10/2022 13:55 EST) T3, Total 138 97 - 169 ng/dL 07/10/2022 22:20 EST [facility] Blood VENOUS BLOOD / Unknown 07/10/2022 13:55 EST 07/10/2022 21:33 EST Provider Outr Resulting Lab CHEMISTRY & BLOOD GAS ORDERABLES [facility] [address] [place] [address] documented in this encounter Visit Diagnoses Not on filedocumented in this encounter Care Teams Lead Mechanic Relationship Specialty Start Date End Date Vivian Bautista APRN [address] [facility] [address] [place] [phone] PCP - General 07/08/22 documented as of this encounter
--- OUTSIDE RECORDS SUMMARY | 2024-02-07 11:00 | XMS_ITS | Clinical Summary ---
Author Organization [facility] Address [address] [place] [address] Care Team Providers Care Professor Of Biblical Studies Name Role Phone Vivian Bautista APRN Primary Care Provider [phone] Social History Tobacco Use Types Packs/Day Years Used Date Smoking Tobacco: Never Assessed Interpersonal Safety Answer Date Record ed Physically Hurt Never 01/07/2020 Verbally Threaten Not on file 01/07/2020 Sex and Gender Information Value Date Recorded Sex Assigned at Not on file Gender Identity Not on file Sexual Orientation Not on file Plan of Treatment Health Maintenance Due Date Last Done Comments Hepatitis C Screen 1955 RSV Immunization ( o r 60+ Years) (1 - 1-dose 60+ series) 2016 Fall Risk Screening 2021 COVID-19 Vaccine ( season) 2023 Care Teams Professor Of Biblical Studies Relationship Specialty Start Date End Date Vivian Bautista APRN [facility] [facility] [address] [place] [address] PCP - General 07/08/22
--- OUTSIDE RECORDS SUMMARY | 2024-02-07 11:00 | XMS_ITS | Encounter Summary ---
Author Organization [facility] Address [address] [place] [address] Care Team Providers Care Spinning Lathe Operator Automatic Name Role Phone Vivian Bautista APRN Primary Care Provider [phone] Encounter Details Date Type Department Care Team (Late st Contact Info) Description 09/23/2023 Lab Requisition [facility] Pathology & Laboratory Medicine - [facility] [address] [place] [address] Outr Resulting Lab, Provider Social History Tobacco [...] Date/Time Associated Diagnosis Comments T3, TOTAL Routine 09/23/2023 12:25 EDT PSA TOTAL, DIAGNOSTIC Routine 09/23/2023 12:25 EDT documented in this encounter Results * T3, TOTAL (09/23/2023 12:25 EDT) T3, Total 158 97 - 169 ng/dL 09/23/2023 23:18 EDT [facility] Blood VENOUS BLOOD / Unknown 09/23/2023 12:25 EDT 09/23/2023 22:30 EDT Provider Outr Resulting Lab CHEMISTRY & BLOOD GAS ORDERABLES Performing Organization Address [facility] Co de Phone Number [facility] [address] [place], [place] [address] * (ABNORMAL) PSA TOTAL, DIAGNOSTIC (09/23/2023 12:25 EDT) PSA 5.9(H) <=4.5 ng/mL 09/23/2023 23:07 EDT [facility] Blood VENOUS BLOOD / Unknown 09/23/2023 12:25 EDT 09/23/2023 22:30 EDT Narrative [facility] - 09/23/2023 23:07 EDT NOTE: Serum PSA concentration should not be interpreted as absolute evidence for the presence or absence of malignant disease. Assayed on Siemens Palladium [employer] SciencesIA [employer]aur XPT using chemiluminescent technology.??Values obtained by using different assay methods cannot be used interchangeably. Provider Outr Resulting Lab CHEMISTRY & BLOOD GAS ORDERABLES Performing Organization Address [facility] Co de Phone Number [facility] [address] [place] [phone] documented in this encounter Visit Diagnoses Not on filedocumented in this encounter Care Teams Spinning Lathe Operator Automatic Relationship Specialty Start Date End Date Vivian Bautista APRN [address] [place] [address] PCP - General 07/08/22 documented as of this encounter
--- OUTSIDE RECORDS SUMMARY | 2024-02-07 11:01 | XMS_ITS | Encounter Summary ---
[place] [address] Care Team Providers Care Geophysics Scientist Name Role Phone Vivian Bautista APRN Primary Care Provider [phone] [phone] Encounter Details Date Type Department Care Team (Late st Contact Info) Description 09/15/2023 [place] [phone] Bossman Hu, RN Social History Tobacco Use Types Packs/Day Years Used Date Smoking Tobacco: Former Cigarettes Smokeless Tobacco: Never Comments:quit 2002 Alcohol Use Standard Drinks/Week Comments Yes 0 (1 standard drink = 0.6 oz pur e alcohol) Sex and Gender Information Value Date Recorded Sex Assigned at Male 03/18/2021 6:26 AM EDT Gender Identity Male 03/18/2021 6:26 AM EDT Sexual Orientation Straight 03/18/2021 6: 26 AM EDT documented as of this encounter Miscellaneous Notes * Telephone Encounter - Bossman Hu, RN - 09/15/2023 4:44 PM EDT Copied from CRM #[id number]. Topic: Specialty Dept CRMs - Generic Call >> Sep 15, 2023 4:34 PM Janet Quiros wrote: Specialist: Dr.Michael Kong Relationship (if other than patient-full name): self Reason for Call: Patient wants to know if any labs or imaging is needed prior to his one year follow up. If so please send orders to [facility] and notify patient. documented in this encounter Plan of Treatment Not on file documented as of this encounter Visit Diagnoses Not on filedocumented in this encounter Care Teams Geophysics Scientist Relationship Specialty Start Date End Date Vivian Bautista, ONLINE MERCHANDISING COORDINATOR [address] [place] [address] PCP - General 10/19/13 documented as of this encounter
--- OUTSIDE RECORDS SUMMARY | 2024-02-07 11:01 | XMS_ITS | Encounter Summary ---
[place] [address] Care Team Providers Care City Surveyor Name Role Phone Vivian Bautista APRN Primary Care Provider [phone] [phone] Encounter Details Date Type Department Care Team (Late st Contact Info) Description 11/17/2022 [place] [phone] Bossman Hu, RN Social History Tobacco Use [...] Telephone Encounter - Bossman Hu, RN - 11/17/2022 7:28 AM EDT Received in basket message to cancel CT urogram from 10/05/2022 by the ordering provider. Order cancelled. documented in this encounter Plan of Treatment Not on file documented as of this encounter Visit Diagnoses Not on filedocumented in this encounter Care Teams City Surveyor Relationship Specialty Start Date End Date Vivian Bautista APRN [address] [place] [address] PCP - General 10/19/13 documented as of this encounter
--- OUTSIDE RECORDS SUMMARY | 2024-02-07 11:01 | XMS_ITS | Encounter Summary ---
Author Organization [facility] Address [address] [place] [address] Care Team Providers Care Patient Account Analyst Name Role Phone Unavailable Primary Care Provider Unavailabl e Encounter Details Date Type Department Care Team (Late st Contact Info) Description 11/11/2009 Results Only [facility] Laboratory Services - [facility] ([facility]) [address] [place], [place] [address] Frank Andres MD [address] [place] [address] Social History Tobacco Use Types Packs/Day Years Used Date Smoking Tobacco: Never Assessed Sex and Gender Information Value Date Recorded Sex Assigned at Not on file Gender Identity Not on file Sexual Orientation Not on file documented as of this encounter Plan of Treatment Not on file documented as of this encounter Procedures Procedure Name Priority Date/Time Associated Diagnosis Comments SURGICAL PATHOLOGY Routine 11/11/2009 0:00 EDT documented in this encounter Results * SURGICAL PATHOLOGY (11/11/2009 0:00 EDT) Pathology Report: SURGICAL PATHOLOGY REPORT ? Reports generated via electronic interface contain original data; ? however they are lacking the format of the original report. ? Caution should be taken when reading/interpreti ng unformatted reports. ? Name: ? GREY, EDWARD ? Accession #: ? [id number] ? : ? 1955 (Age: 54) ??M ? Collect Date: ? 11/11/2009 ? Location: ? [facility] ? Receive Date: ? 11/12/2009 ? Provider: FRANK ANDRES MD ? Copy to: DAVID JACOBSON MD ? Final Pathologic Diagnosis: ? Colon, 25 cm, polyps, biopsies: ? - Fragments of hyperplastic polyps. ? Document reviewed and electronically signed by: ? JOSE ALEXANDRA MD ? Report ??Date: 11/13/2009 09:17 ? By the signature above, the attending physician certifies that he/she has ? personally conducted a gross and/or microscopic examination of the described ? specimens and rendered or confirmed the above diagnosis. ? Specimen(s) Received: ? Colon polyps 25 cm x2 ? Clinical History: ? Hx polyps ? Gross Description: ? Received in Carlton's fixative labelled Grey, Edward and #1 colon ?? polyps 25 cm x 2 are three biopsies which vary in size from 0.2 x 0.2 x 0.2 cm up to 0.4 x 0.3 x 0.2 cm. ??The specimens are submitted intact in one cassette. ?? (Orin Fernandez)/mpl ? End of Report ? TANIA ROSALES 11/11/2009 11/12/2009 8:1 1 EDT Frank Andres MD PATHOLOGY ORDERABLE S TANIA ROSALES [address] [place] [address] documented in this encounter Visit Diagnoses Not on filedocumented in this encounter
--- OUTSIDE RECORDS SUMMARY | 2024-02-07 11:01 | XMS_ITS | Encounter Summary ---
Author Organization [facility] Address [facility] [place] [address] Care Team Providers Care Security Incident Response Engineer Name Role Phone Morena Bautistahradelaida Rose VINNY Primary Care Provider +1 [phone] Encounter Details Date Type Department Care Team (Late st Contact Info) Description 10/15/2022 [place] [address] Srinivas Kong MD [facility] [place] [place] [address] Microhematuria Social History Tobacco Use Types Packs/Day Years [...] AM EDT documented as of this encounter Plan of Treatment Not on file documented as of this encounter Visit Diagnoses Diagnosis Microhematuria Microscopic hematuria documented in this encounter Care Teams Security Incident Response Engineer Relationship Specialty Start Date End Date Vivian Bautista APRN [address] [place] [address] PCP - General 10/19/13 documented as of this encounter
--- OUTSIDE RECORDS SUMMARY | 2024-02-07 11:01 | XMS_ITS | Encounter Summary ---
[place] [address] Care Team Providers Care Customer Services Manager Name Role Phone Vivian Bautista APRN Primary Care Provider [phone] [phone] Reason for Visit * Consultation (Urgent) - Closed Specialty Diagnoses / Procedures Referred By Lashaun camarena Referred To Contact Urology Diagnoses Unspecified symptoms and signs involving the genitourinary system Asymptomatic microscopic hematuria Lower urinary tract symptoms. Vivian Bautista APRN [address] [place] [address] [facility] [place] [address] Referral ID Status Reason Start Date Expiration Date V isits Requested Visits Authorized [id number] Closed Consult, Test & Treat PCP Updated and/or Approved 08/28/2021 08/28/2022 12 12 Encounter Details Date Type Department Care Team (Late st Contact Info) Description 09/25/2021 10:00 AM EDT Office [place] [address] Srinivas Miller MD [facility] [address] Screening PSA (prostate specific antigen); Benign prostatic hyperplasia, unspecified whether lower urinary tract symptoms present; Microhematuria Social History Tobacco Use Types Packs/Day Years Used Date Smoking Tobacco: Former Cigarettes Smokeless Tobacco: Never Comments:quit 2007 Alcohol Use Standard Drinks/Week Comments Yes 0 (1 standard drink = 0.6 oz pur e alcohol) Sex and Gender Information Value Date Recorded Sex Assigned at Male 03/18/2021 6:26 AM EDT Gender Identity Male 03/18/2021 6:26 AM EDT Sexual Orientation Straight 03/18/2021 6: 26 AM EDT documented as of this encounter Last Filed Vital Signs Vital Sign Reading Time Taken Comments Blood Pressure 126/65 09/25/2021 10:02 AM EDT Pulse 68 09/25/2021 10:02 AM EDT Temperature - - Respiratory Rate - - Oxygen Saturation - - Inhaled Oxygen Concentration - - Weight - - Height - - Body Mass Index - - documented in this encounter Progress Notes * Srinivas Miller MD - 09/25/2021 10:00 AM EDT [facility] SECTION OF UROLOGY UROLOGY CLINIC VISIT Name: Julian Edmonds : 1955 Date: 09/25/2021 Referred by: Vivian Bautista Chief Complaint: BPH with LUTS History of Present Illness (carried forward for reference): Julian Edmonds is a 66 y.o. male withCAD, KAREN on CPAP now but had stopped recently. He is referred for nocturia and trace blood on urinedip at PCP office. Moderate bother with nocturia. Denies dysuria or gross hematuria. Has had microhematuria (trace) in the past. UA today shows no blood. 20pack year smoking history. Quit 20yrs ago Denies stress or urge urinary incontinence. He is currently taking no medications for urinary symptoms. Drinks 1 cup coffee in AM, then water/gatorade. Bedtime 8pm. He drinks up until bedtime and when he gets up to avoid leg cramps. IPSS score 9/35 (0/1/1/3/1/1/2); QOL 4/6. No prostate imaging. He has never had PSA checked No reported bowel issues. Patient is currently not on any anticoagulation. Patient Active Problem List Diagnosis Code ??? Knee pain M25.569 ??? Hypertension I10 ??? GERD (gastroesophageal reflux disease) K21.9 ??? Hyperlipidemia E78.5 ??? Thyroid disease E07.9 ??? KAREN (obstructive sleep apnea) G47.33 ??? ASCVD (arteriosclerotic cardiovascular disease) I25.10 ??? Thoracic aortic aneurysm without rupture I71.2 Past Surgical History: Procedure Laterality Date ??? PRO UNLISTED CRANIO/MAXILLOFACIAL SURG top denture/wisdom teeth ??? PRO UNLISTED E/M SVC appendectomy ??? PRO UNLISTED PROCEDURE PHARYNX ADENOIDS/TONSILS tonsill ??? PRO UNLISTED PROCEDURE, MUSCULOSKELETAL SYSTEM, GENERAL knee ??? PRO UNLISTED PX UR SYS vasectomy Physical Examination: BP 126/65 Pulse 68 Constitutional: The patient is well developed, well nourished, alert and oriented, and appears his stated age. Cardiovascular: Good peripheral pulses Respiratory: Breathing comfortably. No audible wheezes are appreciated. Abdomen: Moderately obese, soft, non-tender, non-distended. : Phallus flaccid, uncircumcised, retractable, no lesions. Scrotum with no swelling, erythema, ormasses. Bilateral testes with no masses, tenderness, or swelling. Rectal: Normal sphincter tone. The prostate is significantly enlarged (>60 gm) with no nodularity, firmness and asymmetry. Extremities: Appear warm and well perfused. No LE Edema Neuro: Awake and alert. Oriented to person/place/time. No gross motor defects. Review of Tests: Recent Urine: UA today negative UA at PCPs office had trace blood hemolyzed Urine Studies Performed today: PVR (with bladder scanner) = 20-40ml ASSESSMENT Julian Edmonds is a 66 y.o. male with BPH with mild LUTS and low PVR . He also has KAREN and is bothered by nocturia. Discussed the importance of wearing his CPAP. Also discussed avoiding fluids within 2-3hrs of bedtime and not drinking water overnight. Discussed the risks/benefits of PSA screening. Will check PSA today. Will send UA for micro to rule out microhematuria. PLAN - PSA today (will call if abnormal) - UA micro - f/u 1 year The patient expressed understanding and agreement with the above. Srinivas Miller MD Section of Urology [facility] Office: [phone] documented in this encounter Miscellaneous Notes * Addendum Note - Tami Zuniga - 09/25/2021 10:00 AM EDTAddended by: TAMI ZUNIGA on: 09/25/2021 10:47 AM Modules accepted: Orders * Addendum Note - Srinivas Miller MD - 09/25/2021 10:00 AM EDTAddended by: SRINIVAS MILLER on: 09/25/2021 11:20 AM Modules accepted: Orders documented in this encounter Plan of Treatment Not on file documented as of this encounter Procedures Procedure Name Priority Date/Time Associated Diagnosis Comments HC URINALYSIS ROUTINE Routine 09/25/2021 11:20 AM EDT Microhematuria HC PROSTATE SPECIFIC AG SCREENING Routine 09/25/2021 10:59 AM EDT Screening PSA (prostate specific antigen) Benign prostatic hyperplasia, unspecified whether lower urinary tract symptoms present documented in this encounter Results * _Urinalysis with microscopic (09/25/2021 11:20 AM EDT) Glucose, Urine Dipstick Negative Negative mg/dL [facility] Protein, Urine Dipstick Negative Negative mg/dL [facility] Bilirubin, Urine Dipstick Negative Negative mg/dL [facility] Comment: Clinical correlation required for positive Urine Bilirubin results as false positive may occur with some drugs and drug related products. If a false positive is suspected a serum total bilirubin should be considered if clinically indicated. Urobilinogen, Urine Dipstick Normal Normal mg/dL [facility] pH, Urn (dipstick) 5.0 5.0 - 8.0 [facility] Blood, Urine Dipstick Negative Negative mg/dL [facility] Ketone, Urine Dipstick Negative Negative mg/dL [facility] Nitrite, Urine Dipstick Negative Negative [facility] Leukocytes, Urine Dipstick Negative Negative [facility] Appearance, Urine Dipstick Clear Clear [facility] Specific Ovid Urine Automated 1.026 1.005 - 1.030 [facility] Color, Urine Dipstick Yellow Yellow [facility] RBC, Urine 3 0 - 3 /HPF [facility] WBC, Urine 2 0 - 3 /HPF [facility] Squamous Epithelial Cells Raw Data, Urine 1 <=4 /HPF [facility] Hyaline Casts, Urine 1 0 - 2 /LPF [facility] Urine 09/25/2021 11:2 0 AM EDT 09/25/2021 2:16 PM EDT Narrative Resulting Agency Comment Spec In Lab Srinivas Miller MD URINE ORDERABLES Performing Organization Address [facility] Co de Phone Number [facility] [place] [address] * (ABNORMAL) PSA Screen (09/25/2021 10:59 AM EDT) PSA Screen 6.12(H) 0.00 - 4.00 ng/mL [facility] Comment: PLEASE NOTE: The above reference interval is intended for healthy males with an intact prostate. Values within this reference interval may indicate recurrence in men who have undergone radical prostatectomy. Blood 09/25/2021 10:5 9 AM EDT 09/25/2021 11:11 AM EDT Narrative Resulting Agency Comment Spec In Lab Srinivas Miller MD CHEMISTRY ORDERABLES Performing Organization Address [facility]/ZIP Co de Phone Number [facility] [place] [address] documented in this encounter Visit Diagnoses Diagnosis Screening PSA (prostate specific antigen) Special screening for malignant neoplasm of prostate Benign prostatic hyperplasia, unspecified whether lower urinary tract symptoms present Microhematuria Microscopic hematuria documented in this encounter Care Teams Customer Services Manager Relationship Specialty Start Date End Date Vivian Bautista APRN [address] [place] [address] PCP - General 10/19/13 documented as of this encounter
--- OUTSIDE RECORDS SUMMARY | 2024-02-07 11:01 | XMS_ITS | Encounter Summary ---
[place] [address] Care Team Providers Care Diagram Clerk Name Role Phone Vivian Bautista APRN Primary Care Provider [phone] [phone] Encounter Details Date Type Department Care Team (Latest Contact Info) Description 05/05/2023 Travel Social History Tobacco Use Types Packs/Day Years [...] on filedocumented in this encounter Care Teams Diagram Clerk Relationship Specialty Start Date End Date Vivian Bautista APRN [address] [place] [address] PCP - General 10/19/13 documented as of this encounter
--- OUTSIDE RECORDS SUMMARY | 2024-02-07 11:01 | XMS_ITS | Encounter Summary ---
[facility] [place] [address] Care Team Providers Care Command And Control Officer Name Role Phone Morena Bautistahryn Milton VINNY Primary Care Provider +1 [phone] Encounter Details Date Type Department Care Team (Late st Contact Info) Description 10/28/2022 [place] [address] Srinivas Kong MD [facility] [place] [address] Social History Tobacco Use Types Packs/Day Years [...] encounter Miscellaneous Notes * Telephone Encounter - Coral Mcnair RN - 10/28/2022 10:19 AM EDT Copied from [facility] #[id number]. Topic: Specialty Dept CRMs - Generic Call >> October 28, 2022 10:08 AM Estelle Schmitz wrote: Specialist: Dr Kong Relationship (if other than patient-full name): Patient Reason for Call: Patient is calling the office back again to find out what the urine test results are, patient has been waiting over a week to discuss results. Please call patient back as soon as possible documented in this encounter Plan of Treatment Not on file documented as of this encounter Visit Diagnoses Not on filedocumented in this encounter Care Teams Command And Control Officer Relationship Specialty Start Date End Date Vivian Bautista APRN [address] [place] [address] PCP - General 10/19/13 documented as of this encounter
--- OUTSIDE RECORDS SUMMARY | 2024-02-07 11:01 | XMS_ITS | Encounter Summary ---
Author Organization [facility] Address [facility] [place] [address] Care Team Providers Care Professor Of Food Biochemistry Name Role Phone MicheleMorena davenporthryn Milton VINNY Primary Care Provider +1 [phone] Encounter Details Date Type Department Care Team (Late st Contact Info) Description 10/09/2022 [place] [address] Srinivas Kong MD [facility] [place] [address] Social History Tobacco Use Types Packs/Day Years [...] encounter Miscellaneous Notes * Telephone Encounter - Farooq Richmond - 10/09/2022 3:22 PM EDTSummary: schedule CT LMOM for pt to call back to answer CT questions and schedule CTU prior to appt with Dilan on 12/18 documented in this encounter Plan of Treatment Not on file documented as of this encounter Visit Diagnoses Not on filedocumented in this encounter Care Teams Professor Of Food Biochemistry Relationship Specialty Start Date End Date Vivian Bautista APRN [address] [place] [address] PCP - General 10/19/13 documented as of this encounter
--- OUTSIDE RECORDS SUMMARY | 2024-02-07 11:01 | XMS_ITS | Encounter Summary ---
Author Organization [facility] [place] [address] Care Team Providers Care Senior Application Software Engineer Name Role Phone Morena Bautistahradelaida Rose VINNY Primary Care Provider +1 -[phone] Encounter Details Date Type Department Care Team (Late st Contact Info) Description 09/25/2021 Telephone [place] [address] Srinivas Kong MD [facility] [place] [address] [place] [address] Social History Tobacco Use Types Packs/Day Years [...] encounter Miscellaneous Notes * Telephone Encounter - Srinivas Kong MD - 09/25/2021 4:18 PM EDT Called patient to let him know his PSA came back at 6.12. Therefore I recommend repeating this in 2-4 weeks as a PSA free and total. I will call with result. Srinivas Kong MD 09/25/2021 4:20 PM documented in this encounter Plan of Treatment Not on file documented as of this encounter Results * (ABNORMAL) PSA (Ultrasensitive), total and free (10/16/2021 7:23 AM EDT) Prostate Specific Antigen (Ultrasensitive ) 6.06(H) 0.00 - 4.00 ng/mL [facility] Comment: PLEASE NOTE: The above reference interval is intended for healthy males with an intact prostate. Values within this reference interval may indicate recurrence in men who have undergone radical prostatectomy. Prostate Specific Antigen, Free 1.0 ng/mL [facility] PSA % Free 16 % [facility] Comment: Probability of finding FUSING MACHINE OPERATOR on needle biopsy by age in years: % fPSA ? 50-59yrs ? 60-69yrs ? >=70yrs <=10 ? 49.2 ? 57.5 ? 64.5 11-18 ?26.9 ? 33.9 ? 40.8 19-25 ?18.2 ? 23.9 ? 29.7 >25 ? 9.1 ? 12.2 ? 15.8 Blood 10/16/2021 7:23 AM EDT 10/16/2021 7:31 AM EDT Narrative Resulting Agency Comment Spec In Lab Srinivas Kong MD CHEMISTRY ORDERABLES [facility] [place] [address] documented in this encounter Visit Diagnoses Diagnosis Elevated PSA Elevated prostate specific antigen (PSA) documented in this encounter Care Teams Senior Application Software Engineer Relationship Specialty Start Date End Date Vivian Bautista APRN [address] [place] [address] PCP - General 10/19/13 documented as of this encounter
--- OUTSIDE RECORDS SUMMARY | 2024-02-07 11:01 | XMS_ITS | Encounter Summary ---
[place] [address] Care Team Providers Care Felt Coverer Name Role Phone Vivian Bautista APRN Primary Care Provider [phone] Encounter Details Date Type Department Care Team (Latest Contact Info) Description 10/01/2023 Travel Social History Tobacco Use Types Packs/Day [...] on filedocumented in this encounter Care Teams Felt Coverer Relationship Specialty Start Date End Date Vivian Bautista APRN [address] [place] [address] PCP - General 10/19/13 documented as of this encounter
--- OUTSIDE RECORDS SUMMARY | 2024-02-07 11:01 | XMS_ITS | Encounter Summary ---
Author Organization [facility] [place] [address] Care Team Providers Care Studio Operations Manager Name Role Phone Vivian Bautista APRN Primary Care Provider [phone] Reason for Visit * Consultation (Routine) - Closed Specialty Diagnoses / Procedures Referred By Lashaun camarena Referred To Contact Cardiology Diagnoses Chest pain, unspecified Dizziness and giddiness Aortic ectasia, unspecified site Other chest pain Chest pain, unspecified. Dizziness and giddiness. Aortic ectasia, unspecified site. Other chest pain *SCANNED DOCS Vivian Bautista APRN [address] [place] [address] [facility] [address] [place] [address] Referral ID Status Reason Start Date Expiration Date V isits Requested Visits Authorized [id number] Closed Consult, Test [facility] PCP Updated and/or Approved 08/13/2020 08/13/2021 6 6 Encounter Details Date Type Department Care Team (Late st Contact Info) Description 09/10/2020 8:00 AM EDT Office Visit Cardiology at [address] [place] [address] Haim Fung MD [facility] [place] [address] Chest pain, unspecified type; Thoracic aortic aneurysm without rupture; ASCVD (arteriosclerotic cardiovascular disease); Hypertension, unspecified type; Hyperlipidemia, unspecified hyperlipidemia type Social History Tobacco Use Types Packs/Day Years [...] Sign Reading Time Taken Comments Blood Pressure 136/84 09/10/2020 8:03 AM EDT Pulse 59 09/10/2020 8:03 AM EDT Temperature - - Respiratory Rate - - Oxygen Saturation 99% 09/10/2020 8:03 AM EDT Inhaled Oxygen Concentration - - Weight 115.7 kg (255 lb) 09/10/2020 8:03 AM EDT Height 175.3 cm (5' 9) 09/10/2020 8:03 AM EDT Body Mass Index 37.66 09/10/2020 8:03 AM EDT documented in this encounter Progress Notes * Haim Fung MD - 09/10/2020 8:00 AM EDT Images from the original note were not included. [facility] [place] [address] CARDIOLOGY OUTPATIENT PROGRESS NOTE PRIMARY CARE PROVIDER: Vivian Bautista APRN REFERRING PROVIDER: Vivian Bautista PROBLEM LIST: Patient Active Problem List Diagnosis ??? ASCVD (arteriosclerotic cardiovascular disease) -Asymptomatic -Calcification on coronary CT scan ??? Thoracic aortic aneurysm without rupture -Ascending aortic diameter equals 3.[address] scan ??? KAREN (obstructive sleep apnea) ??? Hypertension ??? GERD (gastroesophageal reflux disease) ??? Hyperlipidemia ??? Thyroid disease ??? Knee pain MEDICATIONS: Current Outpatient Medications Medication Sig Dispense Refill ??? amLODIPine (Norvasc) 5 mg Tablet Take 5 mg by mouth daily. ??? omeprazole (PriLOSEC) 20 mg Capsule, Delayed Release(E.C.) Take 20 mg by mouth daily. ??? cholecalciferol, Vitamin D3, (Vitamin D3) 1,000 unit Tablet Take by mouth daily. ??? cyclobenzaprine (Flexeril) 5 mg Tablet as needed. ??? liothyronine (Cytomel) 5 mcg Tablet TAKE 2 TABLETS BY MOUTH DAILY 180 tablet 3 ??? levothyroxine (SYNTHROID) 137 mcg Tablet 100 mcg daily. ??? meTOPROLOL succinate (TOPROL-XL) 100 mg Tablet Sustained Release 24 hr Take 50 mg by mouth daily. ??? rosuvastatin (CRESTOR) 10 mg Tablet Take 10 mg by mouth daily. ??? ibuprofen (ADVIL;MOTRIN) 800 mg tablet Take 800 mg by mouth every 6 hours as needed. No current facility-administered medications for this visit. Subjective: Patient ID: Julian Edmonds is a 65 y.o. patient of Vivian Bautista APRN. HPI: This is the initial outpatient visit for a 65-year-old gentleman with no symptomatic coronary disease who was referred to me for management of hypertension dyslipidemia coronary artery disease and a dilated ascending aorta. He works in a physically demanding profession as a [place]. He has a great deal of daily physical activity including carrying lumber and climbing up and down ladders. With exertion, absolutely no symptoms including exertional chest pain dyspnea or any cardiac functional limitations. No previous history of coronary artery disease, revascularization MN. No history of congestive heart failure. 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 He is now up about 20 pounds and has noted a consequent loss of stamina. Recently he was noted increasing fatigue and had his beta- yaakov that he takes for hypertension reduced and was started on a calcium channel yaakov. He also takes rosuvastatin for dyslipidemia. Recently, he underwent a routine screening CT because of a past smoking history. He was noted to have coronary artery calcification. His ascending thoracic aorta measured 3.5 cm which was slightly above the range of normal. It should be noted however that he is a large gentleman standing close to 6feet tall. Was not indexed for body height. He also had as a result a stress test and echocardiogram. His stress test was completely negative for ischemia and his echocardiogram is entirely normal aswell including his aortic root diameter. REVIEW OF SYSTEMS: He is scheduled for rotator cuff surgery in 2 weeks and has already been cleared by his primary care provider on the basis of the negative stress test. He actually has no symptoms and unlimited functional capacity. Family History: Family History Problem Relation Age of Onset ??? Heart Disease Father has had a few heart attacks ??? High Cholesterol Father ??? High Cholesterol Sister Social History: Social History Socioeconomic History ??? Marital status: Spouse name: Not on file ??? Number of children: Not on file ??? Years of education: Not on file ??? Highest education level: Not on file Occupational History ??? Not on file Tobacco Use ??? Smoking status: Former Smoker Types: Cigarettes ??? Smokeless tobacco: Never Used ??? Tobacco comment: quit 2008 Substance and Sexual Activity ??? Alcohol use: Yes Types: 6 Cans of beer per week ??? Drug use: No ??? Sexual activity: Not on file Other Topics Concern ??? Exercise: Patient reported Yes ??? Abuse or Threat: Physical, Sexual, Verbal No Social History Narrative ??? Not on file Social Determinants of Health Financial Resource Strain: ??? Difficulty of Paying Living Expenses: Food Insecurity: ??? Worried About Running Out of Food in the Last Year: ??? Ran Out of Food in the Last Year: Transportation Needs: ??? Lack of Transportation (Medical): ??? Lack of Transportation (Non-Medical): Physical Activity: ??? Days of Exercise per Week: ??? Minutes of Exercise per Session: Stress: ??? Feeling of Stress : Social Connections: ??? Frequency of Communication with Friends and Family: ??? Frequency of Social Gatherings with Friends and Family: ??? Attends Shinto Services: ??? Active Member of Clubs or Organizations: ??? Attends Club or Organization Meetings: ??? Marital Status: Intimate Partner Violence: ??? Fear of Current or Ex-Partner: ??? Emotionally Abused: ??? Physically Abused: ??? Sexually Abused: Objective: PHYSICAL EXAM: BP 136/84 Pulse 59 Ht 175.3 cm (5' 9) Wt 115.7 kg (255 lb) SpO2 99% BMI 37.66 kg/m?? , Body mass index is 37.66 kg/m??. General: Pleasant. No distress. Skin: Warm and dry. HEENT: Anicteric sclera. Neck: JVP not elevated. No AJR. No carotid bruits. Chest: Clear to auscultation Heart: No heave. Regularly regular rhythm. Normal S1 and S2. No gallops. No murmurs. Abdomen: Nondistended. Soft. Nontender. Extremities: No edema. NETWORK STRATEGIST: Normal mentation. Psych: Appropriate affect. Labs: EKG shows sinus rhythm with left anterior fascicular block Assessment and Plan: ASCVD (arteriosclerotic cardiovascular disease) I believe that he needs to be treated to secondary prevention targets given the presence of his coronary calcification and multiple risk factors. I will recheck his lipids today and we will target anLDL cholesterol of less than 70 and a non- HDL cholesterol less than 100 Thoracic aortic aneurysm without rupture While technically he does meet criteria for an aneurysmal ascending aorta, given his body size I believe that this is nonsignificant. This can be managed through achieving standard targets for blood pressure management and lipid management Hypertension I agree with the change that was recently made in the antihypertensive therapy. I would like to target a systolic blood pressure to be regularly less than 135 mmHg and this may require titrating up his amlodipine to 10 mg daily Hyperlipidemia I am going to recheck his lipids today with target lipid levels as described above. I suspect he will need a higher dose of rosuvastatin. Revisit will be with me in 1 year, sooner if any new symptoms intervene. I gave him a target weightof less than 240 pounds by the time of his next visit. Thank you for the opportunity to participate in this patient's cardiovascular care. All questions were answered and I look forward to the next visit. Haim Fung MD * Haim Fung MD - 09/10/2020 8:00 AM EDT Lipids are backing. Will increase him to high dose statin. Thanks. documented in this encounter Miscellaneous Notes * Assessment & Plan Note - Haim Fung MD - 09/10/2020 8:42 AM EDT Associated Problem(s): Hyperlipidemia I am going to recheck his lipids today with target lipid levels as described above. I suspect he will need a higher dose of rosuvastatin. * Assessment & Plan Note - Haim Fung MD - 09/10/2020 8:41 AM EDT Associated Problem(s): Hypertension I agree with the change that was recently made in the antihypertensive therapy. I would like to target a systolic blood pressure to be regularly less than 135 mmHg and this may require titrating up his amlodipine to 10 mg daily * Assessment & Plan Note - Haim Fung MD - 09/10/2020 8:41 AM EDT Associated Problem(s): Thoracic aortic aneurysm without rupture While technically he does meet criteria for an aneurysmal ascending aorta, given his body size I believe that this is nonsignificant. This can be managed through achieving standard targets for blood pressure management and lipid management * Assessment & Plan Note - Haim Fung MD - 09/10/2020 8:40 AM EDT Associated Problem(s): ASCVD (arteriosclerotic cardiovascular disease) I believe that he needs to be treated to secondary prevention targets given the presence of his coronary calcification and multiple risk factors. I will recheck his lipids today and we will target anLDL cholesterol of less than 70 and a non- HDL cholesterol less than 100 documented in this encounter Plan of Treatment Not on file documented as of this encounter Procedures Procedure Name Priority Date/Time Associated Diagnosis Comments HC VENIPUNCTURE Routine 09/10/2020 8:49 AM EDT Chest pain, unspecified type EKG 12-LEAD Routine 09/10/2020 8:05 AM EDT Chest pain, unspecified type documented in this encounter Results * Lipid Panel (Reflex Direct LDL) (09/10/2020 8:49 AM EDT) [facility] Cholesterol, Total 205 mg/dL [facility] Comment: Lower Risk: <200 mg/dL Average Risk: 200-239 mg/dL Higher Risk: >op=527 mg/dL Triglyceride 267 mg/dL [facility] Comment: Average Risk/Lower Risk: <150 mg/dL Borderline High Risk: 150-199 mg/dL High Risk: 200-499 mg/dL Very High Risk: >td=432 mg/dL HDL Cholesterol 41 mg/dL [facility] Comment: Males: ?? Higher Risk: <40 mg/dL Females: ?? Higher Risk: <50 mg/dL LDL Cholesterol 111 mg/dL [facility] Comment: Lowest Risk: <100 mg/dL Lower Risk: 100-129 mg/dL Borderline High Risk: 130-159 mg/dL High Risk: 160-189 mg/dL Very High Risk: >wi=947 mg/dL Cholesterol/HDL Ratio 5.0 ratio [facility] Lipid Interpretation See Note [facility] Comment: Lipid management should be guided by a patient? s ASCVD risk, goals and preferences. ACC/AHA Guidelines recommend high intensity statin if clinical ASCVD or LDL greater than or equal to 190 mg/dL. http://tinyurl.com/JYT-CXS-Uqqpzezce Adults aged 40-75 with LDL 70-189 mg/dL should have their 10 year ASCVD risk estimated with the ACC/AHA ASCVD risk cake batter mixer http://tools.acc.org/ZDRND-Xveu-Skmecamqh/ Statin should be discussed if risk greater than or equal to 7.5% in non-diabetics. With diabetes, moderate intensity statin is recommended if risk less than 7.5%, high intensity if risk greater than or equal to 7.5%. Annual lipid monitoring on statins is not necessary. Evaluate secondary causes of Triglycerides greater than 500 mg/dL or LDL greater than 190 mg/dL: See table 6 of ACC/AHA Guideline. Lifestyle modification is a critical component of ASCVD risk reduction. Blood specimen (specimen) 09/10/2020 8:49 AM EDT 09/10/2020 8:57 AM EDT Narrative Resulting Agency Comment Spec In Lab Haim Fung MD CHEMISTRY ORDERABL ES Performing Organization Address City/[facility] Co de Phone Number [facility] [place] [address] * EKG 12 Lead (09/10/2020 8:05 AM EDT) Ventricular rate 60 BPM MUSE SYSTEM Atrial Rate 60 BPM MUSE SYSTEM P-R Interval 186 ms MUSE SYSTEM QRS Duration 94 ms MUSE SYSTEM Q-T Interval 384 ms MUSE SYSTEM QTC Calculated (Bezet) 384 ms MUSE SYSTEM Calculated P Hudgins 26 degrees MUSE SYSTEM Calculated R Hudgins -51 degrees MUSE SYSTEM Calculated T Hudgins 16 degrees MUSE SYSTEM INTERPRETATION Normal sinus rhythm Left anterior fascicular block Otherwise normal ECG No previous ECGs available I personally reviewed the tracing and edited the fellows interpretation Confirmed by fellow MD Erika, Lorri Garcia ([id number]) on 09/10/2020 11:07:46 AM Confirmed by MD SIMON BRUCE ([id number]) on 09/10/2020 1:33:58 PM MUSE SYSTEM 09/10/2020 8:05 AM EDT 09/10/2020 1:33 PM EDT Haim Fung MD ECG ORDERABLES Performing Organization Address City/[facility]/ZIP Co de Phone Number MUSE SYSTEM documented in this encounter Visit Diagnoses Diagnosis Chest pain, unspecified type Thoracic aortic aneurysm without rupture Thoracic aneurysm without mention of rupture ASCVD (arteriosclerotic cardiovascular disease) Unspecified cardiovascular disease Hypertension, unspecified type Hyperlipidemia, unspecified hyperlipidemia type documented in this encounter Care Teams Studio Operations Manager Relationship Specialty Start Date End Date Vivian Bautista APRN [address] [place] [address] PCP - General 10/19/13 documented as of this encounter
--- OUTSIDE RECORDS SUMMARY | 2024-02-07 11:01 | XMS_ITS | Encounter Summary ---
Author Organization [facility] Address [facility] [place] [address] Care Team Providers Care Brass Plater Name Role Phone Vivian Bautista VINNY Primary Care Provider [phone] Encounter Details Date Type Department Care Team (Late st Contact Info) Description 11/28/2021 Telephone Urology at [facility] [address] [place] [id number] Srinivas Kong MD [facility] [place] [address] Social History Tobacco Use Types Packs/Day Years [...] Telephone Encounter - Srinivas Kong MD - 11/28/2021 11:32 AM EDT Attempted to call patient to inform him that MRI was negative and PSA density is < 0.10 which means we can continue to watch his PSA and he does not require biopsy at this time. Could not leave voicemail documented in this encounter Plan of Treatment Not on file documented as of this encounter Visit Diagnoses Diagnosis BPH with elevated PSA Hypertrophy of prostate without urinary obstruction and other lower urinary tract symptoms (LUTS) documented in this encounter Care Teams Brass Plater Relationship Specialty Start Date End Date Vivian Bautista APRN [address] [place] [address] PCP - General 10/19/13 documented as of this encounter
--- OUTSIDE RECORDS SUMMARY | 2024-02-07 11:01 | XMS_ITS | Encounter Summary ---
Author Organization [facility] Address [facility] [place] [address] Care Team Providers Care Chain Mender Name Role Phone Vivian Bautista VINNY Primary Care Provider [phone] Encounter Details Date Type Department Care Team (Late st Contact Info) Description 10/05/2022 8:40 AM EDT [place] [address] Srinivas Kong MD [facility] [place] [address] Microhematuria; Lower urinary tract symptoms (LUTS); BPH with elevated PSA Social History Tobacco Use Types Packs/Day Years [...] Sign Reading Time Taken Comments Blood Pressure - - Pulse 76 10/05/2022 8:39 AM EDT Temperature - - Respiratory Rate 16 10/05/2022 8:39 AM EDT Oxygen Saturation 99% 10/05/2022 8:39 AM EDT Inhaled Oxygen Concentration - - Weight 113.4 kg (250 lb) 10/05/2022 8:39 AM EDT Height 175.3 cm (5' 9) 10/05/2022 8:39 AM EDT Body Mass Index 36.92 10/05/2022 8:39 AM EDT documented in this encounter Progress Notes * Srinivas Kong MD - 10/05/2022 8:40 AM EDT [facility] SECTION OF UROLOGY UROLOGY CLINIC VISIT Name: Julian Edmonds : 1955 Date: 10/05/2022 Referred by: No ref. provider found Chief Complaint: BPH with LUTS History of Present Illness (carried forward for reference): Julian Edmonds is a 67 y.o. male withCAD, KAREN on CPAP now but had stopped recently. He is referred for nocturia and trace blood on urinedip at PCP office. 09/2021 Moderate bother with nocturia. Denies dysuria or [...] to avoid leg cramps. IPSS score 9/35 (0/1//3/); QOL 4/6. PSA 6.12 (16% free) MRI showed 88cc prostate. PIRADS 1 No reported bowel issues. Patient is currently not on any anticoagulation. 10/05/22 Nocturia down to ~1-2x/night since wearing CPAP regularly IPSS 10; QoL 3 PSA 5.1 (09/2022) Former smoker (30 pack years, quit 2002) UA last year showed 3RBC/hpf. UA recently at PCP showed persistent microscopic hematuria. Physical Examination: Pulse 76 Resp 16 Ht 175.3 cm (5' 9) Wt 113.4 kg (250 lb) SpO2 99% BMI 36.92 kg/m?? Vital Signs Stable Gen: NAD Resp: Breathing comfortably Abd: not distended Ext: Appear well perfused Rectal: Normal sphincter tone. The prostate is significantly enlarged (>60 gm) with no nodularity, firmness and asymmetry. Review of Tests: Recent Urine: UA (09/2021) - 3 RBC/hpf UA today - PENDING ASSESSMENT Julian Edmonds is a 67 y.o. male with BPH with mild LUTS and low PVR . He also has KAREN with nocturia helped by CPAP. PSA is stable and likely just elevated due to BPH He also has persistent microhematuria and a 30 pack year smoking history. We will confirm with a UA/micro today. But we will order a CT urogram and office cystoscopy to complete a hematuria workup. PLAN - CT urogram - office cysto - UA today The patient expressed understanding and agreement with the above. Srinivas Kong MD Section of Urology [facility] Office: [phone] documented in this encounter Plan of Treatment Not on file documented as of this encounter Visit Diagnoses Diagnosis Microhematuria Microscopic hematuria Lower urinary tract symptoms (LUTS) Other symptoms involving urinary system BPH with elevated PSA Hypertrophy of prostate without urinary obstruction and other lower urinary tract symptoms (LUTS) documented in this encounter Care Teams Chain Mender Relationship Specialty Start Date End Date Vivian Bautista APRN [address] [place] [address] PCP - General 10/19/13 documented as of this encounter
--- OUTSIDE RECORDS SUMMARY | 2024-02-07 11:01 | XMS_ITS | Encounter Summary ---
Author Organization [facility] Address [facility] [place] [address] Care Team Providers Care Citrix Consultant Name Role Phone Morena Bautistahradelaida Rose VINNY Primary Care Provider [phone] [phone] Reason for Visit * Reason Comments Skin Check Encounter Details Date Type Department Care Team (Late st Contact Info) Description 11/10/2022 9:15 AM EDT Office Visit Dermatology at [facility] [address] [place] [address] Tressa Jordan MD [facility] [place] [address] Multiple benign melanocytic nevi of upper and lower extremities and trunk; Seborrheic keratoses; Verduzco angioma; Stucco keratoses; Spider angioma; Lentigines Social History Tobacco Use Types Packs/Day Years [...] AM EDT documented as of this encounter Progress Notes * Tressa Jordan MD - 11/10/2022 9:15 AM EDT Images from the original note were not included. DEPARTMENT OF DERMATOLOGY Medical Dermatology Clinic Provider: TRESSA JORDAN MD Patient's preferred name Amadeo Preferred contact method for results [x]Phone (Cell) []myD-H []Letter Detailed phone message OK? Yes Are there any other people with whom we may discuss your care? (Lynette) Past Medical History Date, location, treatment Melanoma No Dysplastic nevi No SCC No BCC No AKs No UV Exposure & Protection + History of blistering sunburns Other relevant past medical history Xerosis, EIC (left chest) Family History Details Melanoma No NMSC No Other relevant family history No Social History Occupation: [employer] Hobbies: Marital status: . Previously lived in [place]. Pre-Procedure Questions Details Allergy to lidocaine, epinephrine, Dermabond, chlorhexidine, or adhesives No Bleeding disorder or blood thinners No Pacemaker, defibrillator, deep brain stimulator, cochlear implant No History of Present Illness: Julian Edmonds is a 67 y.o. Patient returns to the clinic today for afull skin exam and skin cancer screening with the following concerns: - He denies any growing, tender, or bleeding lesions. - He denies any rashes. - He endorses a few new skin tags. Last FSE: 11/06/20 with Srinivas Cates MD Medications: Reviewed in eD-H Allergies: Reviewed in eD-H Skin Examination: Full skin examination: Patient asked to undress to their comfort level. Verbalized that the provider???s preference is that the patient remove all clothing and that the provider will not examine areas patient elects to keep covered. Patient elects to keep underwear on and have the following examined: scalp, hair, face, ears, neck, chest, axillae, abdomen, back, and upper and lower extremities. Genitalia and buttocks were not examined. Assessment/Plan 1. Benign Nevi - Scattered light to medium brown macules on the trunk and extremities with reassuring pigment pattern on dermoscopy. - Reassured of benign appearance on exam today. - Advised patient to watch for any new or changing lesions. - Reviewed warning signs of skin cancer. 2. Seborrheic Keratoses - Stuck on, waxy papules on the trunk and extremities. - Benign. No treatment needed. 3. Verduzco Angiomas - 0.2-0.4cm bright red, well-demarcated papules on the trunk and extremities. - Benign. No treatment needed. 4. Stucco Keratoses - 0.2-0.3cm white, warty, stuck-on papules on the bilateral legs. - Patient reassured of benign nature. - Advised patient to call if areas become inflamed or irritated. 5. Lentigines - Scattered light-brown, evenly pigmented, well-demarcated macules on sun-exposed areas of the trunk and extremities. - No worrisome pigmented lesions. Discussed benign nature of lesions and provided reassurance. Willcontinue to monitor. 6. Spider Angioma - Blanchable, vascular, pink papule with radial branches on the nasal root. - Discussed benign nature and provided reassurance. No treatment necessary. Other: N/A RTC: 2 years for FSE []Note routed to litigation secretary [x]Recall placed in scheduling system []Appointment scheduled at checkout Scribe attestation: ROBERTA Bryant has performed the documentation for this encounter in the presence of and acting as a scribe for TRESSA JORDAN MD. I performed the above scribed service and agree with the accuracy of the documentation in this encounter. Reviewed and signed by: TRESSA JORDAN MD Dermatology [facility] documented in this encounter Plan of Treatment Not on file documented as of this encounter Visit Diagnoses Diagnosis Multiple benign melanocytic nevi of upper and lower extremities and trunk Seborrheic keratoses Verduzco angioma Nevus, non-neoplastic Stucco keratoses Spider angioma Nevus, non-neoplastic Lentigines Other dyschromia documented in this encounter Care Teams Citrix Consultant Relationship Specialty Start Date End Date Vivian Bautista APRN [address] [place] [address] PCP - General 10/19/13 documented as of this encounter
--- OUTSIDE RECORDS SUMMARY | 2024-02-07 11:01 | XMS_ITS | Clinical Summary ---
Author Organization [facility] Address [facility] [place] [address] Care Team Providers Care Trim Operator Name Role Phone MicheleMorena davenportjanice Rose APRN Primary Care Provider [phone] [phone] Allergies Active Allergy Reactions Criticality Noted Date Comments Prochlorperazine Other (See Comments) 3 Facial ticks Medications Medication Sig Dispensed Refills Start Date End Date Status meTOPROLOL succinate (TOPROL-XL) 100 mg Tablet Sustained Release 24 hr Take 100 mg by mouth daily. 06/21/2017 Active rosuvastatin (Crestor) 40 mg Tablet Take 1 tablet by mouth daily. 90 tablet 3 09/10/2020 Active Additional Information Patient taking differently:40 mg Oral DAILY,Takes 2 tablets every other day, Reported on 10/16/2021 sildenafiL (VIAGRA) 100 mg Tablet 05/12/2021 Active ibuprofen (Advil) 600 mg Tablet 02/19/2022 Active cyclobenzaprine (Flexeril) 5 mg Tablet Take 5 mg by mouth as needed. 03/26/2022 Active multivitamin Capsule Take 1 capsule by mouth daily. Active NONFORMULARY REQUEST 2 times daily. Beet supplement Active cetirizine (ZyrTEC) 10 mg tablet Take 10 mg by mouth daily. Active fluticasone (VERAMYST) 27.5 mcg/actuation [place], Suspension 2 sprays by Nasal route as needed for Rhinitis. Active losartan (Cozaar) 50 mg tablet Take 1 tablet by mouth daily. 90 tablet 3 10/08/2022 Active levothyroxine (Synthroid) 125 mcg tabletIndications:H ypothyroidism, acquired TAKE 1 TABLET DAILY 90 tablet 3 04/28/2023 Active liothyronine (Cytomel) 5 mcg tabletIndications:H ypothyroidism, acquired Take 1 tablet once daily 90 tablet 3 05/11/2023 Active Active Problems Problem Noted Date Diagnosed Date ASCVD (arteriosclerotic cardiovascular disease) 09/10/2020 Overview (09/10/2020): -Asymptomatic -Calcification on coronary CT scan Assessment & Plan (10/08/2022 8:11 AM EDT): His coronary artery disease is properly treated with secondary prevention intensity statins and aggressive blood pressure control. He does need to lose weight. He is not on aspirin which is appropriate. I have encouraged continued weight loss and exercise Assessment & Plan (10/16/2021 8:37 AM EDT): He continues to be asymptomatic from his coronary artery disease. He is appropriately treated with high-dose statin and antihypertensive therapy. He is overdue for lipids. I continue to think that he does not warrant aspirin therapy. I have emphasized the importance of appropriate diet and increased exercise for long-term therapy. Assessment & Plan (09/10/2020 8:40 AM EDT): I believe that he needs to be treated to secondary prevention targets given the presence of his coronary calcification and multiple risk factors. I will recheck his lipids today and we will target an LDL cholesterol of less than 70 and a non-HDL cholesterol less than 100 Thoracic aortic aneurysm without rupture 021 Overview (09/10/2020): -Ascending aortic diameter equals 3.[address] scan Assessment & Plan (09/10/2020 8:41 AM EDT): While technically he does meet criteria for an aneurysmal ascending aorta, given his body size I believe that this is nonsignificant. This can be managed through achieving standard targets for blood pressure management and lipid management KAREN (obstructive sleep apnea) 07/15/2017 Knee pain 01/02/2013 Hypertension Assessment & Plan (10/08/2022 8:12 AM EDT): His blood pressure is not at goal. Again I attribute this to weight gain. I encouraged him to lose back the weight he has gained over the last year. In the interim I am going to add losartan 50 mg daily to target systolic blood pressure averaging less than 135 mmHg. Assessment & Plan (10/16/2021 8:38 AM EDT): Overall his blood pressure control is adequate and I have not made any changes in his therapy with metoprolol. Assessment & Plan (09/10/2020 8:41 AM EDT): I agree with the change that was recently made in the antihypertensive therapy. I would like to target a systolic blood pressure to be regularly less than 135 mmHg and this may require titrating up his amlodipine to 10 mg daily GERD (gastroesophageal reflux disease) Hyperlipidemia Assessment & Plan (10/08/2022 8:12 AM EDT): His LDL cholesterol is under excellent control. His triglycerides are increased in the last year and I think this is a reflection of poor diet. I have asked him to lose back to 13 pounds he is gained over the last year and adhere to a diet with less concentrated sugars. Assessment & Plan (10/16/2021 8:39 AM EDT): This is his maximally tolerated statin dose. In the past he has not tolerated Zetia because of diarrhea. I am going to check fasting lipids today. The major therapeutic impact of this is going to be being able to better advise him regarding diet and exercise if it is still above target because I do not think that we have much by the way future therapeutic options. Assessment & Plan (09/10/2020 8:42 AM EDT): I am going to recheck his lipids today with target lipid levels as described above. I suspect he will need a higher dose of rosuvastatin. Thyroid disease Family History Medical History Relation Comments Heart Disease Father has had a few he art attacks High Cholesterol Father High Cholesterol Sister Relation Status Comments Father Sister Social History Tobacco Use Types Packs/Day Years Used Date Smoking Tobacco: Former Cigarettes Smokeless Tobacco: Never Tobacco Cessation:Counseling Given: Not Answered Comments:quit 2002 Alcohol Use Standard Drinks/Week Comments Yes 0 (1 standard drink = 0.6 oz pur e alcohol) Sex and Gender Information Value Date Recorded Sex Assigned at Male 03/18/2021 6:26 AM EDT Gender Identity Male 03/18/2021 6:26 AM EDT Sexual Orientation Straight 03/18/2021 6: 26 AM EDT Last Filed Vital Signs Vital Sign Reading Time Taken Comments Blood Pressure 124/74 10/07/2023 8:46 AM EDT Pulse 55 10/07/2023 8:46 AM EDT Temperature 36.7 ??C (98 ??F) 05/11/2023 1:19 PM EST Respiratory Rate 16 10/05/2022 8:39 AM EDT Oxygen Saturation 99% 05/11/2023 1:19 PM EST Inhaled Oxygen Concentration - - Weight 111.9 kg (246 lb 9.6 oz) 05/11/2023 1:19 PM EST Height 175.3 cm (5' 9) 05/11/2023 1:19 PM EST Body Mass Index 36.42 05/11/2023 1:19 PM EST Plan of Treatment Health Maintenance Due Date Last Done Comments CT Colonography 1955 Colonoscopy 1955 Colorectal Cancer Screening 1955 FIT DNA 1955 FIT 1955 Sigmoidoscopy (10 year) with FIT yearly 1955 Sigmoidoscopy 1955 Hepatitis C Screening 1974 Tdap adult 1975 Tetanus vaccine 1975 Diabetes Screening (HgbA1C or Glucose) 1996 Zoster vaccine (1 of 2) 2006 Advance Directive 2011 AAA Screen 2021 Pneumoccocal Vaccine: 65+ (1 of 1 - PCV) 2021 Covid-19 Vaccine ( - 2022-24 season) 2023 Influenza (Flu) vaccine (1 o f 1 - Influenza standard series) 02/06/2024 Advance Directives Documents on File Type Date Recorded Patient Options Trader Expl anation Personal Options Trader 07/06/2017 10:47 AM Lynette GuoRenee Care Teams Trim Operator Relationship Specialty Start Date End Date Vivian Bautista APRN [address] [place] [address] PCP - General 10/19/13
--- OUTSIDE RECORDS SUMMARY | 2024-02-07 11:01 | XMS_ITS | Encounter Summary ---
Author Organization [facility] Address [facility] [place] [address] Care Team Providers Care Napper Grinder Name Role Phone Vivian Bautista VINNY Primary Care Provider [phone] Encounter Details Date Type Department Care Team (Late st Contact Info) Description 11/01/2020 Orders Only Cardiology at [address] [address] Haim Fung MD [facility] [place] [address] Social History Tobacco Use Types Packs/Day Years [...] on filedocumented in this encounter Care Teams Napper Grinder Relationship Specialty Start Date End Date Vivian Bautista APRN [address] [place] [address] PCP - General 10/19/13 documented as of this encounter
--- OUTSIDE RECORDS SUMMARY | 2024-02-07 11:01 | XMS_ITS | Encounter Summary ---
[place] [address] Care Team Providers Care Audio Technician Name Role Phone Vivian Bautista APRN Primary Care Provider [phone] Encounter Details Date Type Department Care Team (Latest Contact Info) Description 11/03/2022 Travel Social History Tobacco Use Types Packs/Day [...] on filedocumented in this encounter Care Teams Audio Technician Relationship Specialty Start Date End Date Vivian Bautista APRN [address] [place] [address] PCP - General 10/19/13 documented as of this encounter
--- OUTSIDE RECORDS SUMMARY | 2024-02-07 11:01 | XMS_ITS | Encounter Summary ---
Author Organization [facility] Address [facility] [place] [address] Care Team Providers Care Flux Core Welder Name Role Phone MicheleMorena davenporthryn Milton VINNY Primary Care Provider [phone] Encounter Details Date Type Department Care Team (Late st Contact Info) Description 12/22/2020 Orders [place] [address] Darren Mendoza MD [facility] [place] [address] Hypothyroidism, unspecified type Social History Tobacco Use Types Packs/Day [...] as of this encounter Visit Diagnoses Diagnosis Hypothyroidism, unspecified type documented in this encounter Care Teams Flux Core Welder Relationship Specialty Start Date End Date Vivian Bautista APRN [address] [place] [address] PCP - General 10/19/13 documented as of this encounter
--- OUTSIDE RECORDS SUMMARY | 2024-02-07 11:01 | XMS_ITS | Encounter Summary ---
Author Organization [facility] Address [address] [place] [address] Care Team Providers Care Sports Lawyer Name Role Phone David Jacobson MD Primary Care Provider [phone] Encounter Details Date Type Department Care Team (Late st Contact Info) Description 07/02/2005 Results Only [facility] conversion [address] [place] [address] Frank Andres MD [address] [place] [id number] Social History Tobacco Use Types Packs/Day Years Used Date Smoking Tobacco: Never Assessed Sex and Gender Information Value Date Recorded Sex Assigned at Not on file Gender Identity Not on file Sexual Orientation Not on file documented as of this encounter Plan of Treatment Not on file documented as of this encounter Procedures Procedure Name Priority Date/Time Associated Diagnosis Comments SURGICAL PATHOLOGY Routine 07/02/2005 0:00 EST documented in this encounter Results * SURGICAL PATHOLOGY (07/02/2005 0:00 EST) Pathology Report: SURGICAL PATHOLOGY REPORT Reports generated via electronic interface contain original data; however they are lacking the format of the original report. Caution should be taken when reading/interpreti ng unformatted reports. Name: ? JULIAN EDMONDS ? Accession #: ? [id number] ? : ? 1955 (Age: 50) ??M ? Collect Date: ? 07/02/2005 ? Location: ? [facility] ? Receive Date: ? 07/03/2005 ? Provider: FRANK ANDRES MD Copy to: DAVID JACOBSON MD ? Final Pathologic Diagnosis: A. ?Colon, sigmoid, polyps, biopsies: 1. ?Tubular adenoma. 2. ?Hyperplastic polyps. ? 3. ?? No high grade dysplasia or carcinoma identified. B. ?Rectum, polyp, biopsy: 1. ?Hyperplastic polyp. ?2. ?No adenomatous mucosa identified. Document reviewed and electronically signed by: LISA SMITH MD Report ??Date: 07/06/2005 17:35 By the signature above, the attending physician certifies that he/she has personally conducted a gross and/or microscopic examination of the described specimens and rendered or confirmed the above diagnosis. Specimen(s) Received: A. ?Sigmoid polyps B. ?Rectum polyp Clinical History: ? Polyps Gross Description: ? Received in Hollande's fixative labeled Grey and sigmoid polyps are five rizvi-pink tissues ranging from 0.2 x 0.1 x 0.1 cm to 0.7 x 0.4 x 0.3 cm. The four smaller tissues are submitted in toto as (A1). ??The larger is bisected and entirely submitted as (A2). ?? Received in Hollande's fixative labeled Grey and rectum polyp is a 0.2 x 0.1 x 0.1 cm rizvi-pink tissue. ??The specimen is submitted intact as (B). ??(Nay Ibarra)/tmg End of Report TANIA ROSALES 07/02/2005 07/03/2005 8:4 0 EST Frank Andres MD PATHOLOGY ORDERABLE S Performing Organization Address City/State/[facility] Co de Phone Number [facility] [address] [place] [address] documented in this encounter Visit Diagnoses Not on filedocumented in this encounter Care Teams Sports Lawyer Relationship Specialty Start Date End Date David Jacobson MD [address] [place] [id number] PCP - General 11/13/09 07/07/22 documented as of this encounter
--- OUTSIDE RECORDS SUMMARY | 2024-02-07 11:01 | XMS_ITS | Encounter Summary ---
Author [place] [address] Care Team Providers Care Head Paper Tester Name Role Phone Vivian Bautista APRN Primary Care Provider [phone] Encounter Details Date Type Department Care Team (Latest Contact Info) Description 05/11/2022 Travel Social History Tobacco Use Types Packs/Day [...] on filedocumented in this encounter Care Teams Head Paper Tester Relationship Specialty Start Date End Date Vivian Bautista APRN [address] [place] [address] PCP - General 10/19/13 documented as of this encounter
--- OUTSIDE RECORDS SUMMARY | 2024-02-07 11:01 | XMS_ITS | Encounter Summary ---
Author Organization [facility] Address [facility] [place] [address] Care Team Providers Care Game Moderator Name Role Phone Vivian Bautista VINNY Primary Care Provider [phone] Encounter Details Date Type Department Care Team (Late st Contact Info) Description 10/08/2022 8:00 AM EDT Office Visit Cardiology at [address] [address] Haim Fung MD [facility] [place] [address] ASCVD (arteriosclerotic cardiovascular disease); Hyperlipidemia, unspecified hyperlipidemia type; Hypertension, unspecified type Social History Tobacco Use Types [...] Sign Reading Time Taken Comments Blood Pressure 142/83 10/08/2022 7:44 AM EDT Pulse 54 10/08/2022 7:44 AM EDT Temperature - - Respiratory Rate - - Oxygen Saturation 100% 10/08/2022 7:44 AM EDT Inhaled Oxygen Concentration - - Weight 119.5 kg (263 lb 6.4 oz) 10/08/2022 7:44 AM EDT Height 175.3 cm (5' 9) 10/08/2022 7:44 AM EDT Body Mass Index 38.9 10/08/2022 7:44 AM EDT documented in this encounter Patient Instructions * Patient Instructions* Haim Fung MD - 10/08/2022 8:00 AM EDT I am adding losartan to your medications. Your other medications will remain the same You need to lose back the weight you have gained over the last year. I will see you back in a year. Please have cholesterol check before the appointment documented in this encounter Progress Notes * Haim Fung MD - 10/08/2022 8:00 AM EDT Images from the original note were not included. [facility] [place] [id number] CARDIOLOGY OUTPATIENT PROGRESS NOTE PRIMARY CARE PROVIDER: Vivian Bautista APRN REFERRING PROVIDER: Vivian Bautista PROBLEM LIST: Patient Active Problem List Diagnosis ??? ASCVD (arteriosclerotic cardiovascular disease) -Asymptomatic -Calcification on coronary CT scan ??? Hypertension ??? Hyperlipidemia ??? Thoracic aortic aneurysm without rupture -Ascending aortic diameter equals 3.[address] scan ??? KAREN (obstructive sleep apnea) ??? GERD (gastroesophageal reflux disease) ??? Thyroid disease ??? Knee pain MEDICATIONS: Current Outpatient Medications Medication Sig Dispense Refill ??? cetirizine (ZyrTEC) 10 mg tablet Take 10 mg by mouth daily. ??? fluticasone (VERAMYST) 27.5 mcg/actuation [place], Suspension 2 sprays by Nasal route as needed for Rhinitis. ??? liothyronine (Cytomel) 5 mcg tablet Take 5 mcg by mouth daily. ??? cyclobenzaprine (Flexeril) 5 mg Tablet Take 5 mg by mouth as needed. ??? multivitamin Capsule Take 1 capsule by mouth daily. ??? NONFORMULARY REQUEST 2 times daily. Beet supplement ??? levothyroxine (Synthroid) 125 mcg Tablet Take 1 tablet by mouth daily. 90 tablet 3 ??? ibuprofen (Advil) 600 mg Tablet ??? sildenafiL (VIAGRA) 100 mg Tablet ??? rosuvastatin (Crestor) 40 mg Tablet Take 1 tablet by mouth daily. (Patient taking differently: Take 40 mg by mouth daily. Takes 2 tablets every other day) 90 tablet 3 ??? meTOPROLOL succinate (TOPROL-XL) 100 mg Tablet Sustained Release 24 hr Take 100 mg by mouth daily. ??? losartan (Cozaar) 50 mg tablet Take 1 tablet by mouth daily. 90 tablet 3 No current facility-administered medications for this visit. Subjective: Patient ID: Julian Edmonds is a 67 y.o. patient of Vivian Bautista APRN. HPI: This is a 67-year-old gentleman whom I am seeing in follow-up. He has a history of asymptomatic coronary artery disease that was detected incidentally on CT scan. We have opted to treat him to secondary prevention goals as a result. His risk factors are hypertension and dyslipidemia as well as weight gain. Over the last year he has gained 13 pounds. He has a physically active job. He attributes this to dietary indiscretions. He checks his blood pressure regularly at home, and typical systolic blood pressures average approximate 140 mmHg. He has a physically active job that involves walking almost [place] every day. With exertion he has no chest pain or dyspnea. Functional capacity is unchanged. REVIEW OF SYSTEMS: Otherwise unremarkable Family History: Family History Problem Relation Age [...] file Tobacco Use ??? Smoking status: Former Types: Cigarettes ??? Smokeless tobacco: Never ??? Tobacco comments: quit 2003 Vaping Use ??? Vaping Use: Never used Substance and Sexual Activity ??? Alcohol use: Yes Types: 6 Cans of beer per week ??? Drug use: No ??? Sexual activity: Not on file Other Topics Concern ??? Exercise: Patient reported Yes ??? Abuse or Threat: Physical, Sexual, Verbal No Social History Narrative ??? Not on file Social Determinants of Health Financial Resource Strain: Not on file Food Insecurity: Not on file Transportation Needs: Not on file Physical Activity: Not on file Housing Stability: Not on file Objective: PHYSICAL EXAM: BP 142/83 (BP Location (NBP): Left arm, Patient Position: Sitting) Pulse 54 Ht 175.3 cm (5' 9) Wt 119.5 kg (263 lb 6.4 oz) SpO2 100% BMI 38.90 kg/m?? , Body mass index is 38.9 kg/m??. General: Pleasant. No distress. Skin: Warm and dry. HEENT: Anicteric sclera. Neck: JVP not elevated. No AJR. No carotid bruits. Chest: Clear to auscultation Heart: No heave. Regularly regular rhythm. Normal S1 and S2. No gallops. No murmurs. Abdomen: Nondistended. Soft. Nontender. Extremities: No edema. CAREER COUNSELOR: Normal mentation. Psych: Appropriate affect. Labs: Lab Results Component Value Date CHLPL 138 10/16/2021 CHLPL 205 09/10/2020 HDL 35 10/16/2021 HDL 41 09/10/2020 CHOLHDL 3.9 10/16/2021 CHOLHDL 5.0 09/10/2020 TRIG 153 10/16/2021 TRIG 267 09/10/2020 LDLCHOL 72 10/16/2021 LDLCHOL 111 09/10/2020 Recent lipids were checked by his primary care provider. His LDL cholesterol of 60, although his triglycerides have increased to 250. Assessment and Plan: ASCVD (arteriosclerotic cardiovascular disease) His coronary artery disease is properly treated with secondary prevention intensity statins and aggressive blood pressure control. He does need to lose weight. He is not on aspirin which is appropriate. I have encouraged continued weight loss and exercise Hyperlipidemia His LDL cholesterol is under excellent control. His triglycerides are increased in the last year and I think this is a reflection of poor diet. I have asked him to lose back to 13 pounds he is gainedover the last year and adhere to a diet with less concentrated sugars. Hypertension His blood pressure is not at goal. Again I attribute this to weight gain. I encouraged him to lose back the weight he has gained over the last year. In the interim I am going to add losartan 50 mg daily to target systolic blood pressure averaging less than 135 mmHg. Patient Instructions ??? I am adding losartan to your medications. ??? Your other medications will remain the same ??? You need to lose back the weight you have gained over the last year. ??? I will see you back in a year. Please have cholesterol check before the appointment Thank you for the opportunity to participate in this patient's cardiovascular care. All questions were answered and I look forward to the next visit. Haim Fung MD documented in this encounter Miscellaneous Notes * Assessment & Plan Note - Haim Fung MD - 10/08/2022 8:12 AM EDT Associated Problem(s): Hypertension His blood pressure is not at goal. Again I attribute this to weight gain. I encouraged him to lose back the weight he has gained over the last year. In the interim I am going to add losartan 50 mg daily to target systolic blood pressure averaging less than 135 mmHg. * Assessment & Plan Note - Haim Fung MD - 10/08/2022 8:11 AM EDT Associated Problem(s): Hyperlipidemia His LDL cholesterol is under excellent control. His triglycerides are increased in the last year and I think this is a reflection of poor diet. I have asked him to lose back to 13 pounds he is gainedover the last year and adhere to a diet with less concentrated sugars. * Assessment & Plan Note - Haim Fung MD - 10/08/2022 8:11 AM EDT Associated Problem(s): ASCVD (arteriosclerotic cardiovascular disease) His coronary artery disease is properly treated with secondary prevention intensity statins and aggressive blood pressure control. He does need to lose weight. He is not on aspirin which is appropriate. I have encouraged continued weight loss and exercise documented in this encounter Plan of Treatment Not on file documented as of this encounter Visit Diagnoses Diagnosis ASCVD (arteriosclerotic cardiovascular disease) Unspecified cardiovascular disease Hyperlipidemia, unspecified hyperlipidemia type Hypertension, unspecified type documented in this encounter Care Teams Game Moderator Relationship Specialty Start Date End Date Vivian Bautista APRN [address] [place] [address] PCP - General 10/19/13 documented as of this encounter
--- OUTSIDE RECORDS SUMMARY | 2024-02-07 11:01 | XMS_ITS | Encounter Summary ---
Author Organization [facility] Address [address] [place] [address] Care Team Providers Care Shake Table Operator Name Role Phone Imer Villegas MD Primary Care Provider [phone] Encounter Details Date Type Department Care Team (Late st Contact Info) Description 02/15/[address] [facility] [phone] Halley Butterfield MD [address] [place] [address] [address] [place], [place] [address] Social History Tobacco Use Types Packs/Day Years Used Date Smoking Tobacco: Never Assessed Sex and Gender Information Value Date Recorded Sex Assigned at Not on file Gender Identity Not on file Sexual Orientation Not on file documented as of this encounter Plan of Treatment Not on file documented as of this encounter Procedures Procedure Name Priority Date/Time Associated Diagnosis Comments SURGICAL PATHOLOGY Routine 02/15/2017 15 :24 EDT documented in this encounter Results * SURGICAL PATHOLOGY (02/15/2017 15:24 EDT) Pathology Report: SURGICAL PATHOLOGY REPORT Reports generated via electronic interface contain original data; however they are lacking the format of the original report. Caution should be taken when reading/interpret ing unformatted reports. Name: ? JOSH HINES ? Accession #: ? [id number] ? : ? 1955 (Age: 61) ??M ? Collect Date: ? 02/15/2017 ? Location: ? [facility] ? Receive Date: ? 02/15/2017 ? Provider: HALLEY BUTTERFIELD MD Copy to: ZEYAD DUBOIS HRIS COORDINATOR ? Final Pathologic Diagnosis: A. ??RECTUM, POLYP, BIOPSY: - Fragments of hyperplastic polyp. B. ??COLON, SIGMOID, POLYP, BIOPSY: - Fragments of hyperplastic polyp(s). Document reviewed and electronically signed by: LILLIAN FANG MD Report ??Date: 02/18/2017 18:25 By the signature above, the attending physician certifies that he/she has personally conducted a gross and/or microscopic examination of the described specimens and rendered or confirmed the above diagnosis. Specimen(s) Received: A. ??Rectal polyp x3 B. ??Sigmoid polyp x3 Clinical History: Hx of polyps Gross Description: A. ?Received in formalin labelled with proper patient identification (initials J, E) and rectal polyp x3 are three pink-rizvi tissues (0.2 x 0.1 x 0.1 cm to 0.4 x 0.3 x 0.1 cm). Entirely submitted in A1. B. ?Received in formalin labelled with proper patient identification (initials J, E) and sigmoid polyp x3 are five pink-rizvi tissues (0.2 x 0.2 x 0.1 cm to 0.4 x 0.2 x 0.1 cm). Entirely submitted in B1 and B2. NESS Blood (ASCP) 02/15/2017 4:15 PM End of Report [facility] 02/15/2017 15:2 4 EDT 02/15/2017 15:24 EDT Halley Butterfield MD PATHOLOGY ORDERA KESHIA [facility] [address] [place] [address] documented in this encounter Visit Diagnoses Not on filedocumented in this encounter Care Teams Shake Table Operator Relationship Specialty Start Date End Date Imer Villegas MD [address] [place] [address] PCP - General 11/13/09 07/07/22 documented as of this encounter
--- OUTSIDE RECORDS SUMMARY | 2024-02-07 11:01 | XMS_ITS | Encounter Summary ---
Author Organization [facility] [place] [address] Care Team Providers Care Tire Retreader Name Role Phone Vivian Bautista VINNY Primary Care Provider [phone] Reason for Visit * Reason Comments Medication Refill Encounter Details Date Type Department Care Team (Late st Contact Info) Description 09/01/2020 Refill [place] [address] Darren Mendoza MD [facility] [place] [address] Social History Tobacco Use Types Packs/Day Years [...] on filedocumented in this encounter Care Teams Tire Retreader Relationship Specialty Start Date End Date Vivian Bautista APRN [address] [place] [address] PCP - General 10/19/13 documented as of this encounter
--- OUTSIDE RECORDS SUMMARY | 2024-02-07 11:01 | XMS_ITS | Encounter Summary ---
Author Organization [facility] [place] [address] Care Team Providers Care Lap Hand Tool Name Role Phone Vivian Bautista APRN Primary Care Provider [phone] Encounter Details Date Type Department Care Team (Late st Contact Info) Description 07/16/2022 Orders Only Sleep [facility] at [facility] [address] [place] [address] Katie Mckeon, SUPERVISOR [facility] KAERN on CPAP Social History Tobacco Use Types Packs/Day Years [...] as of this encounter Visit Diagnoses Diagnosis KAREN on CPAP Obstructive sleep apnea (adult) (pediatric) documented in this encounter Care Teams Lap Hand Tool Relationship Specialty Start Date End Date Vivian Bautista APRN [address] [place] [address] PCP - General 10/19/13 documented as of this encounter
--- OUTSIDE RECORDS SUMMARY | 2024-02-07 11:01 | XMS_ITS | Encounter Summary ---
Author Organization [facility] Address [facility] [place] [address] Care Team Providers Care Fruit Grading Supervisor Name Role Phone Vivian Bautista VINNY Primary Care Provider [phone] Reason for Visit * Reason Comments Skin Cancer Examination Encounter Details Date Type Department Care Team (Late st Contact Info) Description 11/06/2020 2:00 PM EDT Office Visit Dermatology at [facility] [address] [place] [address] Srinivas Cates MD [facility] [place] [address] Dilated pore of [place]; Multiple benign nevi; Lentigines; Callus; Verduzco angioma; Seborrheic keratoses; Stucco keratoses; Xerosis cutis Social History Tobacco Use Types Packs/Day Years [...] as of this encounter Progress Notes * Srinivas Cates MD - 11/06/2020 2:00 PM EDT Images from the original note were not included. DEPARTMENT OF DERMATOLOGY [facility] Provider: Srinivas Cates MD Patient's preferred name Amadeo Preferred contact method for results [] myDH [] Letter [x] Phone: home Detailed phone message OK? Yes Are there any other people with whom we may discuss your care? , Lynette PAST MEDICAL HISTORY Y/N Date, location, treatment Melanoma N Dysplastic nevi N SCC N BCC N AKs N Blistering sunburns or tanning bed use Y Blistering sunburns Other relevant past medical history (i.e. eczema, psoriasis, birthmarks, immunosuppression) N FAMILY HISTORY Y/N If yes, details Melanoma N NMSC N Other relevant family history N SOCIAL HISTORY Occupation: [employer] Other: Diagnosis or treatment significantly limited by social determinants of health? No History of Present Illness: Julian Edmonds is a 65 y.o., established patient, last seen on 11/27/2019. Here today for a full skin exam with the following concerns: - Lesion on the right second finger that he has noticed in the past couple years. He is often picking at the lesion. - Lesion on the right forehead that has been present for a while. He has tried squeezing at the lesion with no resolve. The lesion has not grown. Medications: Reviewed in eD-H Allergies: Reviewed in eD-H Skin Examination: Full skin examination: Patient asked to undress to their comfort level. Verbalized that the provider's preference is that patient removal all clothing and that the provider will not examine areas patient elects to keep covered. Examination of the scalp, hair, head, face, ears, neck, chest, axillae,abdomen, back, buttocks, and upper and lower extremities.Genitalia was not examined. Assessment/Plan #. Dilated Pores - Poral opening with central keratin plug on right forehead and chest - Reassured of benign nature, no intervention required - Can consider removal in the future if patient desires. #. Benign nevi - Scattered medium-brown macules and papules on the trunk and extremities. - Reassured of benign appearance on exam today. - Reviewed ABCDEs of melanoma - Recommend daily sun protection with protective clothing and SPF 30+ #. Solar Lentigines - 0.2-0.6cm light-brown evenly pigmented, well-demarcated macules on the face, trunk, and extremities - Patient reassured of benign nature, reinforced importance of sun protection #. Callus - On the right 2nd finger there is a 3 mm flesh colored thickened papule - Reassured of benign nature #. Verduzco Angiomas - Multiple 0.2-0.4cm bright red, well-demarcated papules on the abdomen, chest, and back - Reassured of benign nature #. Stucco Keratoses - 0.2-0.3cm white, warty, stuck-on papules on the bilateral legs. - Patient reassured of benign nature. - Advised patient to call if areas become inflamed or irritated. #. Xerosis Cutis - Patient with diffuse xerosis and scaling of the lower extremities - Recommend dove soap as an alterative to old spice soap. Recommend old spice use. #. Seborrheic Keratoses - Scattered brown and flesh colored waxy nummular stuck on plaques located on the trunk and extremities - Reassured of benign nature, return to clinic if these lesions become inflamed or irritating Other items to document in the assessment/plan if relevant ??? N/A RTC: Return in about 2 years (around 11/06/2022) for FSE. Scribe attestation: Coral Foster CMA has performed the documentation for this encounter in the presence of and acting as a scribe for Srinivas Cates MD I performed the above scribed service and agree with the accuracy of the documentation in this encounter. Reviewed and signed by: Srinivas Cates MD Dermatology [facility] Patient seen and evaluated with staff hospital television rental clerk: Wil Kong MD Department of Dermatology [facility] * Wil Kong MD - 11/06/2020 2:00 PM EDT I directly supervised Dr. Cates during this office visit. Dr. Cates presented the history and physical exam to me. I then saw and examined this patient with Dr. Cates . We reviewed the history and pertinent details and I confirmed the physical findings. I agree with the details of the history and physical exam as documented in Dr. Cates's note. WIL KONG MD Staff Physician documented in this encounter Plan of Treatment Not on file documented as of this encounter Visit Diagnoses Diagnosis Dilated pore of [place] Multiple benign nevi Benign neoplasm of skin, site unspecified Lentigines Other dyschromia Callus Corns and callosities Verduzco angioma Nevus, non-neoplastic Seborrheic keratoses Stucco keratoses Xerosis cutis Other specified disease of sebaceous glands documented in this encounter Care Teams Fruit Grading Supervisor Relationship Specialty Start Date End Date Vivian Bautista, TEAM MEMBER [address] [place] [address] PCP - General 10/19/13 documented as of this encounter
--- OUTSIDE RECORDS SUMMARY | 2024-02-07 11:01 | XMS_ITS | Encounter Summary ---
Author Organization [facility] Address [facility] [place] [address] Care Team Providers Care Manager Msw Name Role Phone Vivian Bautista VINNY Primary Care Provider [phone] Encounter Details Date Type Department Care Team (Late st Contact Info) Description 09/16/2023 Orders Only Cardiology at [address] [address] Haim Fung MD [facility] [place] [address] Mixed hyperlipidemia; Benign prostatic hyperplasia, unspecified whether lower urinary tract symptoms present Social History Tobacco Use Types Packs/Day Years [...] as of this encounter Plan of Treatment Scheduled Orders Name Type Priority Associated Diagnoses Orde r Schedule Lipid Panel (Reflex Direct LDL) Lab Routine Mixed hyperlipidemia Expected: 09/17/2023, Expires: 01/16/2024 documented as of this encounter Visit Diagnoses Diagnosis Mixed hyperlipidemia Benign prostatic hyperplasia, unspecified whether lower urinary tract symptoms present documented in this encounter Care Teams Manager Msw Relationship Specialty Start Date End Date Vivian Bautista APRN [address] [place] [address] PCP - General 10/19/13 documented as of this encounter
--- OUTSIDE RECORDS SUMMARY | 2024-02-07 11:01 | XMS_ITS | Encounter Summary ---
Author Organization [facility] [place] [address] Care Team Providers Care Natural Resource Manager Name Role Phone MicheleMorena davenportjanice Rose APRN Primary Care Provider [phone] [phone] Reason for Visit * Reason Comments Obstructive Sleep Apnea Encounter Details Date Type Department Care Team (Late st Contact Info) Description 03/07/2020 2:30 PM EDT Office Visit Sleep Center at [facility] [address] [place] [address] Katie Mckeon, REGIONAL [employer]ED TRUCK DRIVER SLEEP CENTER KAREN on CPAP Social History Tobacco Use Types [...] Sign Reading Time Taken Comments Blood Pressure 140/75 03/07/2020 2:28 PM EDT Pulse 79 03/07/2020 2:28 PM EDT Temperature - - Respiratory Rate - - Oxygen Saturation 99% 03/07/2020 2:28 PM EDT Inhaled Oxygen Concentration - - Weight 109.8 kg (242 lb) 03/07/2020 2:28 PM EDT Height 177.8 cm (5' 10) 03/07/2020 2:28 PM EDT Body Mass Index 34.72 03/07/2020 2:28 PM EDT documented in this encounter Progress Notes * Katie Mckeon, [employer] TRUCK DRIVER - 03/07/2020 2:30 PM EDT Sleep Medicine Clinical Health Specialist Brief Follow-Up Note HPI: Mr. Julian Edmonds is a 64 y.o. male seen for follow-up of obstructive sleep apnea. Patient presents today for a one year follow-up in PAP clinic: ?? Sleep Study: 07/09/17 HST DOS: 07/09/17 Total recording time: 543 min 4% SHUBHAM: 25 Apnea index: 6 Central apnea index: 3 Hypopnea with desaturation > or equal to 4% index: 19 Average SpO2: 89% Minimum SpO2: 68% ?? Minimum heart rate: 50 bpm Maximum heart rate: 102 bpm Average heart rate: 63 bpm Weight: 239# Prior visit: 03/07/19. He continues to have excellent adherence and tolerance and good symptom benefit from CPAP. The download demonstrates the AHI appears well controlled. The 95% leak is a bit elevated. He is aware of mouth breathing-has some dry mouth. He has a chin strap-has never used it. He may try it. He has a FFM uses it only when he has an URI. Likes his nasal mask. Some recent trouble returning to sleep when he gets up to urinate (once/night) that he related to increased work stress. He goes to bed early and is up early. Averages 8 hr/night of sleep. Sleep quality is good. No settingchanges made. RTC in one year. Treatment: CPAP Pressure: 11-16 cm (9-6 cm) Pressure tolerance good Interface: Nasal mask-N 20 nasal mask. He does have a FFM but has never used it Fit: likes it notices some leak-mouth breathing-never has use the chin strap-he has one Chin Strap: Tried it but not using it. HCC: [employer] Insurance: [employer] Snoring: no Dry Mouth/Throat: yes not bad Mouth Breathing: yes some Symptom Benefit: Patient-reported last 4 scores: [facility] 12/15/2017 03/07/2018 03/07/2019 03/01/2020 [facility] 8 8 7 6 Insomnia Severity Index 8 (Subthreshold insomnia) 9 (Subthreshold insomnia) 4 (No clinically significant insomnia) 4 (No clinically significant insomnia) VR12 - Physical Component Summary - - - - VR12 - Mental Component Summary - - - - Sleep quality: better than it has been since the shoulder surgery done in August Bedtime: 8pm, affixes mask. Latency: out like a light Awakening's: once/night to void. Can take awhile to return to sleep couple times/week mind runs Rise time: 5 am He estimates 8 hr of sleep most night sometimes more Daytime Symptoms: Involuntary Dozing: no Napping: once in a blue navarro on a week end day in his recliner Driving: Sleepiness or drowsiness no ROS: ?? ENT: Nasal Obstruction:??no sinus congestion. He does have a productive cough for last 2 months or longer Constitutional:?? Study Weight 239# 03/07/19 weight: 239# Current weight: 242# Previous data Compliance Card Data: Date Range: 12/08-03/25/19 Settin-16 cm median 11.5 cm/95% 13 cm Residual AHI: 0.2 Vibratory Snore Index: n/a % Night in Large Leak: Median 2.7/95% 22 Average usage all days-Hours: 7 hr 35 min # of Days of usage: 79/90 % Days used > 4 hours 84% Physical Exam: Respirations: Even and not labored at rest DERM: Skin irritation: none Vitals: 03/07/20 1428 BP: 140/75 Pulse: 79 SpO2: 99% Weight: 109.8 kg (242 lb) Height: 177.8 cm (5' 10) Time spent face to face: 35 Min. Assessment: Mr. Julian Edmonds is a 64 y.o. male seen for follow-up of obstructive sleep apnea. Mr Edmonds presents today for a one year follow-up in PAP clinic: His data card was defective. He does have modemconnection but [place] staying at camp 6 months of the year. He will return home this weekend and plug in his CPAP to upload the data to air view. He will gabrielle me once done so I can view the data. He reports he has shoulder surgery back in August. Didn't use the machine for couple months until he was ableto return to bed from recliner. He's doing better now. No problems with daytime sleepiness rarely naps or dozes. Continues to use a nasal mask no chin strap. Some mouth breathing and dry mouth but tolerates well. Prefers not to use the chin strap. He reports having a productive cough the past couple months will be seeing his PCP to address it. I will call patient once I have the data DL to view. Otherwise no setting changes made RTC in one year unless I see something on DL. Recomendations: 1) CPAP 11-16 cm with ramp off and Heated Humidity 2) Follow-up: RTC one year with Delmi pulido 3) Driving safety discussed, recommend patient not drive if drowsy, if drowsy while driving to well puller head and take a nap. 4) Patient to replace supplies routinely and understands mask cushions can be replaced monthly. 5) Once I have DL will call patient. The patient indicates understanding of these issues and agrees with the plan. documented in this encounter Plan of Treatment Not on file documented as of this encounter Visit Diagnoses Diagnosis KAREN on CPAP Obstructive sleep apnea (adult) (pediatric) documented in this encounter Care Teams Natural Resource Manager Relationship Specialty Start Date End Date Vivian Bautista APRN [address] [place] [address] PCP - General 10/19/13 documented as of this encounter
--- OUTSIDE RECORDS SUMMARY | 2024-02-07 11:01 | XMS_ITS | Encounter Summary ---
Author Organization [facility] Address [facility] [place] [address] Care Team Providers Care Industrial Robotics Mechanic Name Role Phone MicheleMorena davenporthryn Milton VINNY Primary Care Provider [phone] Encounter Details Date Type Department Care Team (Late st Contact Info) Description 05/14/2022 Orders [place] [address] Courtney Nagel MD [facility] [place] [address] Hypothyroidism, acquired Social History Tobacco Use Types Packs/Day Years [...] of this encounter Visit Diagnoses Diagnosis Hypothyroidism, acquired Unspecified hypothyroidism documented in this encounter Care Teams Industrial Robotics Mechanic Relationship Specialty Start Date End Date Vivian Bautista APRN [address] [place] [address] PCP - General 10/19/13 documented as of this encounter
--- OUTSIDE RECORDS SUMMARY | 2024-02-07 11:01 | XMS_ITS | Encounter Summary ---
[place] [address] Care Team Providers Care Kaiawhina Kura [place] Maori Name Role Phone Vivian Bautista APRN Primary Care Provider [phone] Encounter Details Date Type Department Care Team (Latest Contact Info) Description 10/07/2023 Travel Social History Tobacco Use Types Packs/Day [...] on filedocumented in this encounter Care Teams Kaia[place]ina [place]ura [place] Maori Relationship Specialty Start Date End Date Vivian Bautista APRN [address] [place] [address] PCP - General 10/19/13 documented as of this encounter
--- OUTSIDE RECORDS SUMMARY | 2024-02-07 11:01 | XMS_ITS | Encounter Summary ---
[place] [address] Care Team Providers Care Chemical Instrumentation Officer Name Role Phone Vivian Bautista APRN Primary Care Provider [phone] Encounter Details Date Type Department Care Team (Latest Contact Info) Description 10/21/2023 Travel Social History Tobacco Use Types Packs/Day [...] on filedocumented in this encounter Care Teams Chemical Instrumentation Officer Relationship Specialty Start Date End Date Vivian Bautista APRN [address] [place] [address] PCP - General 10/19/13 documented as of this encounter
--- OUTSIDE RECORDS SUMMARY | 2024-02-07 11:01 | XMS_ITS | Encounter Summary ---
Author Organization [facility] Address [facility] [place] [address] Care Team Providers Care Bricklayer Sewer Name Role Phone Vivian Bautista VINNY Primary Care Provider [phone] [phone] Encounter Details Date Type Department Care Team (Late st Contact Info) Description 10/07/2023 8:40 AM EDT [place] [address] Srinivas Kong MD [facility] [place] [address] BPH with elevated PSA Social History Tobacco [...] Pulse 55 10/07/2023 8:46 AM EDT Temperature - - Respiratory Rate - - Oxygen Saturation - - Inhaled Oxygen Concentration - - Weight - - Height - - Body Mass Index - - documented in this encounter Progress Notes * Wm Sims MD - 10/07/2023 8:40 AM EDT [facility] SECTION OF UROLOGY UROLOGY CLINIC VISIT Name: Julian Edmonds : 1955 Date: 10/07/2023 Referred by: No ref. provider found Chief Complaint: BPH with LUTS History of Present Illness (carried forward for reference): Julian Edmonds is a 68 y.o. male withCAD, KAREN on CPAP now [...] MRI showed 88cc prostate. PIRADS 1 No family hx prostate cancer No reported bowel issues. Patient is currently not on any anticoagulation. 10/05/22 Nocturia down to ~1-2x/night since wearing CPAP regularly IPSS 10; QoL 3 PSA 5.1 (09/2022) Former smoker (30 pack years, quit 2002) UA last year showed 3RBC/hpf. UA today showed no blood 10/07/23 No complaints. Still just 1 cup coffee in AM IPSS 12 (mainly frequency, urgency); QoL 3; PVR 133mL PSA 5.9 Physical Examination: BP 124/74 Pulse 55 Vital Signs Stable Gen: NAD Resp: Breathing comfortably Abd: not distended Ext: Appear well perfused Rectal (10/2022): Normal sphincter tone. The prostate is significantly enlarged (>60 gm) with no nodularity, firmness and asymmetry. Review of Tests: PVR (bladder scanner) today = 133mL Recent Urine: UA (09/2021) - 3 RBC/hpf UA today - PENDING ASSESSMENT Julian Edmonds is a 68 y.o. male with BPH with moderate LUTS and moderate PVR . He also has KAREN with nocturia helped by CPAP. PSA is stable and likely just elevated due to BPH. Did discuss flomax as an option if LUTS become more bothersome. Reviewed side effects. PLAN - Patient will message if he'd like to try flomax - otherwise F/u 1 year with PSA prior The patient expressed understanding and agreement with the above. Srinivas Kong MD Section of Urology [facility] Office: [phone] documented in this encounter Plan of Treatment Scheduled Orders Name Type Priority Associated Diagnoses Orde r Schedule PSA (Ultrasensitive) Lab STAT BPH with elevated PSA Expected: 10/06/2024 (Approximate), Expires: 04/08/2025 documented as of this encounter Visit Diagnoses Diagnosis BPH with elevated PSA Hypertrophy of prostate without urinary obstruction and other lower urinary tract symptoms (LUTS) documented in this encounter Care Teams Bricklayer Sewer Relationship Specialty Start Date End Date Vivian Bautista APRN [address] [place] [address] PCP - General 10/19/13 documented as of this encounter
--- OUTSIDE RECORDS SUMMARY | 2024-02-07 11:01 | XMS_ITS | Encounter Summary ---
Author Organization [facility] [place] [address] Care Team Providers Care Marketing Outreach Coordinator Name Role Phone Morena Bautistahradelaida Rose VINNY Primary Care Provider [phone] [phone] Reason for Visit * Reason Comments Medication Refill Encounter Details Date Type Department Care Team (Late st Contact Info) Description 08/26/2019 Ref[place] [address] Darren Mendoza MD [facility] [place] [address] Social History Tobacco Use Types Packs/Day Years [...] on filedocumented in this encounter Care Teams Marketing Outreach Coordinator Relationship Specialty Start Date End Date Vivian Bautista APRN [address] [place] [address] PCP - General 10/19/13 documented as of this encounter
--- OUTSIDE RECORDS SUMMARY | 2024-02-07 11:01 | XMS_ITS | Encounter Summary ---
Author Organization [facility] [place] [address] Care Team Providers Care Floor Specialist Name Role Phone Vivian Bautista APRN Primary Care Provider [phone] Reason for Visit * Reason Comments Rash * Consultation (Routine) - Specialty Diagnoses / Procedures Referred By Lashaun camarena Referred To Contact Dermatology Diagnoses Rash and other nonspecific skin eruption RASH THROUGHOUT BODY Vivian Bautista APRN [address] [place] [address] [facility] Dermatology [address] [place] [address] Referral ID Status Reason Start Date Expiration Date V isits Requested Visits Authorized [id number] Consult, Test & Treat Connection Center PCP Updated and/or Approved 09/28/2019 09/27/2020 6 6 Encounter Details Date Type Department Care Team (Late st Contact Info) Description 11/27/2019 9:30 AM EDT Office Visit Dermatology at [facility] [address] [place] [address] Trino Chiang MD [facility] [place] [address] Xerosis of skin; EIC (epidermal inclusion cyst); Stucco keratoses; Skin exam, screening for cancer Social History Tobacco Use Types Packs/Day Years [...] as of this encounter Progress Notes * Trino Chiang - 11/27/2019 9:30 AM EDT Images from the original note were not included. DERMATOLOGY - NEW PATIENT NOTE Date of service: 11/27/2019 Julian Edmonds : 1955, 64 y.o. Chief Complaint: Chief Complaint Patient presents with ??? Rash HPI: Julian Edmonds is a 64 y.o. male referred by Vivian Bautista with the following concerns: Mr. Edmonds is here today for evaluation of a rash, and a full skin exam. In particular, he notes waxy stuck on papules on his bilateral thighs and distal legs. Asymptomatic. He also notes diffuse dryness. Intermittently itchy. He also notes 2 cysts on his left chest. Asymptomatic. He has not notedany other new, growing, changing, bleeding, painful or otherwise symptomatic moles or other lesions. He has not noted any other changes in any preexisting lesions. Relevant Skin History: - Okay to leave detailed message with results? yes - Skin cancer (including type): no Family History: Melanoma: no Relevant Social History: - [place] Meds: Current Outpatient Medications Medication Sig Dispense Refill ??? liothyronine (Cytomel) 5 mcg Tablet TAKE 2 TABLETS BY MOUTH DAILY 180 tablet 3 ??? levothyroxine (SYNTHROID) 137 mcg Tablet daily. ??? meTOPROLOL succinate (TOPROL-XL) 100 mg Tablet Sustained Release 24 hr daily. ??? rosuvastatin (CRESTOR) 10 mg Tablet Take 10 mg by mouth daily. ??? ibuprofen (ADVIL;MOTRIN) 800 mg tablet Take 800 mg by mouth every 6 hours as needed. ??? sildenafil (VIAGRA) 100 mg tablet Take 100 mg by mouth as needed. ??? famotidine (PEPCID) 10 mg tablet Take 10 mg by mouth as needed. No current facility-administered medications for this visit. Allergies: Allergies Allergen Reactions ??? Compazine [Prochlorperazine] Other (See Comments) Facial ticks Review of Systems: - General: Feels well - Skin: No other skin concerns. Examination: - Constitutional: Patient was alert, well-appearing and in no noticeable distress. - Full Skin Exam: Skin examination of the scalp, face, ears, neck, back, chest, axillae, abdomen, right and left upper extremities, right and left lower extremities, hands, feet, and buttocks was normal with the exception of the findings listed below. Genitalia not examined. - ROBERTA Lugo was present and on standby during my examination. Diagnosis/Skin findings/Assessment/Plan: # Xerosis - patient with diffuse xerosis and scaling located on the trunk and extremities. - Recommend applying a thick moisturizer, such as Vanicream and CeraVe, twice daily to the trunk and extremities after showering. - If there is itching, recommend applying an over the counter hydrocortisone cream # Epidermal Inclusion Cyst - two 1cm skin colored papule/nodule with central punctum on the left chest - hx of enlarging and becoming bothersome with sleeping. Risk and benefits of surgical interventiondiscussed. - Joint decision reached to defer treatment at this time # Stucco keratosis - on the lower legs/ankles are white 2-3mm gritty stuck on papules ??- Reassured of the benign nature of these lesions. No treatment needed.?? # Screening for Malignant Neoplasm. No suspicious lesions appreciated today - The ABCDEs of Melanoma were discussed with the patient - Patient advised on proper sun protection, use at least SPF 30 sunscreen preferably zinc or titanium oxide, avoid peak hours of the day between 10am-2pm when the sun is the brightest. RTC: in one year for fse Note initiated by ROBERTA Lugo. I, ROBERTA Lugo, have performed the documentation for this encounter in the presence of and acting as a scribe for Trino Chiang MD. I performed the services which were documented by the scribe, and I agree with the accuracy of the documentation in this encounter. Trino Chiang MD Reviewed and signed by Trino Chiang MD Resident in Dermatology [facility] Patient seen in conjunction with staff tapper balance wheel screw hole: Sejal Ambrocio MD Section of Dermatology [facility] * Sejal Ambrocio MD - 11/27/2019 9:30 AM EDT I directly supervised Dr. Chiang in the care of this patient. I saw and evaluated this patient with Dr. Chiang. He presented the history and physical exam details to me, then we saw the patient together and I confirmed these findings. I agree with details as written. My physical examination confirms Dr. Chiang's findings. The assessment and plan were formulated in discussion with me at the time of visit and I agree withthem as documented. SEJAL AMBROCIO MD FAAD Staff Physician documented in this encounter Plan of Treatment Not on file documented as of this encounter Visit Diagnoses Diagnosis Xerosis of skin Other specified disease of sebaceous glands EIC (epidermal inclusion cyst) Sebaceous cyst Stucco keratoses Skin exam, screening for cancer Screening for malignant neoplasm of the skin documented in this encounter Care Teams Floor Specialist Relationship Specialty Start Date End Date Vivian Bautista APRN [address] [place] [address] PCP - General 10/19/13 documented as of this encounter
--- OUTSIDE RECORDS SUMMARY | 2024-02-07 11:01 | XMS_ITS | Encounter Summary ---
Author Organization [facility] [address] Care Team Providers Care Building Maintenance Repairer Name Role Phone Michele, Vivian Rose APRN Primary Care Provider +1 [phone] Encounter Details Date Type Department Care Team (Late st Contact Info) Description 03/18/2021 8:15 AM EDT Office Visit Sleep Center at [facility] [address] [place] [address] Katie Mckeon, MANAGER [facility] KAREN on CPAP Social History [...] as of this encounter Progress Notes * Katie Mckeon, MANAGER [employer]ITION - 03/18/2021 8:15 AM EDT Sleep Medicine Clinical Health Specialist Brief Follow-Up Note HPI: Mr. Julian Edmonds is a 65 y.o. male seen for follow-up of obstructive sleep apnea. Hx of GERD HTN, thyroid, ASCVD, thoracic aortic aneurism, hyperlipidemia and KAREN ?? Sleep Study: 07/09/17 HST DOS: 07/09/17 Total recording time: 543 min 4% SHUBHAM: 25 Apnea index: 6 Central apnea index: 3 Hypopnea with desaturation > or equal to 4% index: 19 Average SpO2: 89% Minimum SpO2: 68% ?? Minimum heart rate: 50 bpm Maximum heart rate: 102 bpm Average heart rate: 63 bpm Weight: 239# Prior visit 03/07/20: Mr Edmonds presents today for a one year follow-up in PAP clinic: His data card was defective. He does have modem connection but is staying at [facility] 6 months of the year. He will return home this weekend and plug in his CPAP to upload the data to air view. He will call me once done so I can view the data. He reports he has shoulder surgery back in August. Didn't use the machinefor couple months until he was able to return to bed from recliner. He's doing [...] year unless I see something on DL. RTC for one year follow up: Treatment: CPAP Pressure: 11-16 cm (9-6 cm) Pressure tolerance good Interface: Nasal mask-N 20 nasal mask. He does have a FFM but has never used it Fit: likes it notices some leak-mouth breathing-never has use the chin strap-he has one Chin Strap: Tried it but not using it. HCC: [employer] Insurance: [employer] Snoring: no Dry Mouth/Throat: yes not bad only on occ Mouth Breathing: yes occ Symptom Benefit: Patient-reported last 4 scores: [facility] 03/07/2018 03/07/2019 03/01/2020 03/18/2021 [facility] 8 (Low Risk) 7 (Low Risk) 6 (Low Risk) 6 (Low Risk) Insomnia Severity Index 9 (Subthreshold insomnia) 4 (No clinically significant insomnia) 4 (No clinically significant insomnia) 11 (Subthreshold insomnia) VR12 - Physical Component Summary - - - - VR12 - Mental Component Summary - - - - Sleep quality: Bedtime: 8 pm, affixes mask. Latency: out like a light Awakening's: once/night to void. Can take awhile to return to sleep couple times/week mind runs-long standing. Shoulder pain wakes him often (both shoulders operated on in course of 2 years.) Rise time: 5 am or earlier 330 elayne 2-3 times/week His hours of use vary Daytime Symptoms: feels tired when on computer around 10 am and 2 pm. Will get up and move around. Involuntary Dozing: no Nappin-2 times/week for an hour on days he wakes earlier. Feels refreshed Driving: Sleepiness or drowsiness seldom but knows to car repairer pullman to nap or not drive ROS: ?? ENT: Nasal Obstruction:??no sinus congestion. Constitutional:?? Study Weight 239# 03/07/19 weight: 239# 03/07/20 weight: 242# 03/18/21 weight: steady Previous data Compliance Card Data: Date Range: 11/11-02/08/21 Settin-16 cm median 11.4 cm/95% 13 cm Residual AHI: 0.3/hr Vibratory Snore Index: n/a % Night in Large Leak: Median 0.6/95% 14 Average usage all days-Hours: 7 hr 32 min # of Days of usage: 83/90 % Days used > 4 hours 89% Days used 92% Physical Exam: Respirations: Even and not labored at rest DERM: Skin irritation: none There were no vitals filed for this visit. Time spent face to face: 45 Min. Assessment: Mr. Julian Edmonds is a 65 y.o. male seen for follow-up of obstructive sleep apnea. Mr Edmonds presents today in PAP clinic for one year follow up. He reports he had left shoulder reconstruction surgery on September 24. No other health conditions. No technical problems with CPAP. Machine is 3 years old. He uses a nasal mask N 20. Occ dry mouth. Has chin strap but doesn't sense he needs it The download shows he uses his machine most nights and meets adherence. His hours of use tends to vary. He reports couple times/week has trouble returning to sleep when wakes. Has a lot of shoulder pain. Will get up for the day as early as 330 a. Those days he reports daytime sleepiness and will nap. Feels refreshed after the hour nap. He reports benefit with CPAP. Wouldn't be able to sleep without it.The download stopped recoding right after 02/08/21. He's been at [employer] and his modem connection is not good. The AHI, and leak appear controlled. No setting changes made. RTC in one year. Recomendations: 1) CPAP 11-16 cm with ramp off and Heated Humidity 2) Follow-up: RTC one year with [facility] pulido 3) Driving safety discussed, recommend patient not drive if drowsy, if drowsy while driving to car repairer pullman and take a nap. 4) Patient to replace supplies routinely and understands mask cushions can be replaced monthly. 5) If unable to return to sleep leave bedroom, do something mundane such as card game solitaire until sleepy. The patient indicates understanding of these issues and agrees with the plan. documented in this encounter Plan of Treatment Not on file documented as of this encounter Visit Diagnoses Diagnosis KAREN on CPAP Obstructive sleep apnea (adult) (pediatric) documented in this encounter Care Teams Building Maintenance Repairer Relationship Specialty Start Date End Date Vivian Bautista APRN [address] [place] [address] PCP - General 10/19/13 documented as of this encounter
--- OUTSIDE RECORDS SUMMARY | 2024-02-07 11:01 | XMS_ITS | Encounter Summary ---
Author Organization [facility] Address [facility] [place] [address] Care Team Providers Care Lab Director Name Role Phone Vivian Bautista VINNY Primary Care Provider [phone] [phone] Encounter Details Date Type Department Care Team (Late st Contact Info) Description 05/11/2023 2:00 PM EST Office Visit [place] [address] Courtney Nagel MD [facility] [place] [address] Hypothyroidism, acquired Social History Tobacco Use Types [...] Sign Reading Time Taken Comments Blood Pressure 141/76 05/11/2023 1:19 PM EST Pulse 61 05/11/2023 1:19 PM EST Temperature 36.7 ??C (98 ??F) 05/11/2023 1:19 PM EST Respiratory Rate - - Oxygen Saturation 99% 05/11/2023 1:19 PM EST Inhaled Oxygen Concentration - - Weight 111.9 kg (246 lb 9.6 oz) 05/11/2023 1:19 PM EST Height 175.3 cm (5' 9) 05/11/2023 1:19 PM EST Body Mass Index 36.42 05/11/2023 1:19 PM EST documented in this encounter Progress Notes * Courtney Nagel MD - 05/11/2023 2:00 PM EST [facility] Follow up Patient Chief complaint: hypothyroidism History: Julian Edmonds is a 68 y.o. male with hypothyroidism, HTN, HLD, KAREN on CPAP, here for follow up of hypothyroidism. Last visit with me in 05/2022. At last visit, I had decreased his Cytomel from 10 mcg daily to 5 mcg daily due to tremors and had increased his LT4 from 100 mcg daily to 125 mcg daily due to elevated TSH. He remains on this regimen at this time. He is currently on LT4 125 mcg and 5mcg of Cytomel daily - both taken in the AM. He has lost about 20 lbs in the last year, intentional, has been fasting. Hs yogurt/fruit in the morning as well as oatmeal. Does not eat in the afternoonand then eats supper - usually protein/vegetables. No neck pain, dysphagia, dysphonia. No constipation, has occasional diarrhea. No longer having tremors on lower dose of T3. Fatigue has improved as well and he tells me today that his BP has improved. Trying to stay more active. He continues to usehis CPAP machine for treatment of KAREN and overall feels well. 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 GERD (gastroesophageal reflux disease) Hormone disorder hypo thyroid Hyperlipidemia Hypertension Thyroid disease Medications: Metoprolol Losartan LT4 Cytomel Allergies: Compazine [prochlorperazine] Review of systems: As noted in HPI, all other systems reviewed and negative Patient Vitals for the past 24 hrs: Temp Pulse BP SpO2 05/11/23 1319 36.7 ??C (98 ??F) 61 141/76 99 % Physical Exam: General: No acute distress, well appearing Head: atraumatic, normocephalic Eyes: no proptosis, no erythema Neck: supple, non-tender to palpation, no masses or goiter noted CV: S1/S2, RRR Resp: CTAB, breathing comfortably; no respiratory distress Psych: AAO x 3; normal affect; memory intact Labs/Imagin05/05/2023: TSH 0.52 Free T4 0.91 Total T3 129 Latest Reference Range & Units 12/17/20 14:10 05/11/22 14:18 T3, Total 80 - 200 ng/dL 119 126 Free T4 0.93 - 1.70 ng/dL 1.02 0.94 TSH 0.27 - 4.20 mcIU/mL 3.39 6.91 (H) (H): Data is abnormally high Assessment and Plan: 68 year old man with hypothyroidism and fatigue 1. Hypothyroidism: Now biochemically euthyroid and clinically euthyroid as well. Continue with LT4 125 mcg daily and Cytomel 5 mcg daily. Refills provided today. Follow up in 1 year (telehealth visit). Courtney Nagel MD [employer] team manager Endocrinology Section [facility] documented in this encounter Plan of Treatment Scheduled Orders Name Type Priority Associated Diagnoses Orde r Schedule T3 Total Lab Routine Hypothyroidism, acquired Expected: 04/10/2024 (Approximate), Expires: 05/11/2024 T4, free Lab Routine Hypothyroidism, acquired Expected: 04/10/2024 (Approximate), Expires: 05/11/2024 TSH Lab Routine Hypothyroidism, acquired Expected: 04/10/2024 (Approximate), Expires: 05/11/2024 documented as of this encounter Visit Diagnoses Diagnosis Hypothyroidism, acquired Unspecified hypothyroidism documented in this encounter Care Teams Lab Director Relationship Specialty Start Date End Date Vivian Bautista APRN [address] [place] [address] PCP - General 10/19/13 documented as of this encounter
--- OUTSIDE RECORDS SUMMARY | 2024-02-07 11:01 | XMS_ITS | Encounter Summary ---
[place] [address] Care Team Providers Care Headhunter Name Role Phone Vivian Bautista APRN Primary Care Provider [phone] [phone] Encounter Details Date Type Department Care Team (Latest Contact Info) Description 11/10/2022 Travel Social History Tobacco Use Types Packs/Day [...] on filedocumented in this encounter Care Teams Headhunter Relationship Specialty Start Date End Date Vivian Bautista APRN [address] [place] [address] PCP - General 10/19/13 documented as of this encounter
--- OUTSIDE RECORDS SUMMARY | 2024-02-07 11:01 | XMS_ITS | Encounter Summary ---
Author Organization [facility] Address [facility] [place] [address] Care Team Providers Care Industrial Gas Fitter Name Role Phone Morena Bautistahradelaida Rose VINNY Primary Care Provider [phone] [phone] Encounter Details Date Type Department Care Team (Late st Contact Info) Description 08/19/2022 Orders Only Cardiology at [address] [address] Haim Fung MD [facility] [place] [address] Hyperlipidemia, unspecified hyperlipidemia type Social History Tobacco [...] as of this encounter Visit Diagnoses Diagnosis Hyperlipidemia, unspecified hyperlipidemia type documented in this encounter Care Teams Industrial Gas Fitter Relationship Specialty Start Date End Date Vivian Bautista, TAG MAKER [address] [place] [address] PCP - General 10/19/13 documented as of this encounter
--- OUTSIDE RECORDS SUMMARY | 2024-02-07 11:01 | XMS_ITS | Encounter Summary ---
Author Organization [facility] Address [facility] [place] [address] Care Team Providers Care Admission Nurse Name Role Phone Vivian Bautista VINNY Primary Care Provider [phone] [phone] Encounter Details Date Type Department Care Team (Late st Contact Info) Description 09/10/2020 Orders Only Cardiology at [address] [address] Haim Fung MD [facility] [place] [address] Social History Tobacco Use Types Packs/Day Years [...] on filedocumented in this encounter Care Teams Admission Nurse Relationship Specialty Start Date End Date Vivian Bautista APRN [address] [place] [address] PCP - General 10/19/13 documented as of this encounter
--- OUTSIDE RECORDS SUMMARY | 2024-02-07 11:01 | XMS_ITS | Encounter Summary ---
Author Organization [facility] [place] [address] Care Team Providers Care Casino Porter Name Role Phone Michele, Vviian Rose APRN Primary Care Provider +1 [phone] Encounter Details Date Type Department Care Team (Late st Contact Info) Description 03/20/2022 2:30 PM EDT Office Visit Sleep Center at [facility] [address] [place] [address] Katie Mckeon, LABORER [employer] SLEEP [facility] KAREN on CPAP Social History [...] Sign Reading Time Taken Comments Blood Pressure 131/57 03/20/2022 2:29 PM EDT Pulse 63 03/20/2022 2:29 PM EDT Temperature - - Respiratory Rate - - Oxygen Saturation 98% 03/20/2022 2:29 PM EDT Inhaled Oxygen Concentration - - Weight 116.3 kg (256 lb 6.4 oz) 03/20/2022 2:29 PM EDT Height 175.3 cm (5' 9) 03/20/2022 2:29 PM EDT Body Mass Index 37.86 03/20/2022 2:29 PM EDT documented in this encounter Progress Notes * Katie Mckeon, LABORER [employer]ABLE [employer] - 03/20/2022 2:30 PM EDT Sleep Medicine Clinical Health Specialist Brief Follow-Up Note HPI: Mr. Julian Edmonds is a 66 y.o. male seen for follow-up of obstructive [...] Average heart rate: 63 bpm Weight: 239# Last seen on 03/18/21: He reports he had left shoulder reconstruction surgery on September 24. No otherhealth conditions. No technical problems with CPAP. Machine is 3 years old. He uses a nasal mask N 20. Occ dry mouth. Has chin strap but doesn't sense he needs it The download shows he uses his machine most nights and meets adherence. His hours of use tends to vary. He reports couple times/week hastrouble returning to sleep when wakes. Has a lot of shoulder pain. Will get up for the day as earlyas 330 a. Those days he reports daytime sleepiness and will nap. Feels refreshed after the hour nap. He reports benefit with CPAP. Wouldn't be able to sleep without it.The download stopped recoding right after 02/08/21. [place] and [place] modem connection is not good. The AHI, and leak appear controlled. No setting changes made. RTC in one year. RTC for one year follow up: Treatment: CPAP Pressure: 11-16 cm (9-6 cm) Pressure tolerance good Interface: Nasal mask-N 20 nasal mask. He does have a FFM as back up Fit: likes it notices some leak-mouth breathing-never has use the chin strap-he has one Chin Strap: no HCC: [employer] Insurance: [employer] Snoring: no Dry Mouth/Throat: once in blue navarro Mouth Breathing: occ Symptom Benefit: Patient-reported last 4 scores: [facility] 03/07/2019 03/01/2020 03/18/2021 03/15/2022 [facility] 7 (Low Risk) 6 (Low Risk) 6 (Low Risk) 6 (Low Risk) Insomnia Severity Index 4 (No clinically significant insomnia) 4 (No clinically significant insomnia) 11 (Subthreshold insomnia) 14 (Subthreshold insomnia) VR12 - Physical Component Summary - - - - VR12 - Mental Component Summary - - - - Sleep quality: Bedtime: 8 pm, affixes mask. Latency: out like a light Awakening's: 2-3 times/night to urinate was waking once to urinate a year ago. Sometimes has trouble returning to sleep. Was told has enlarged prostate Rise time: 5 am or earlier 330 elayne 2-3 times/week Daytime Symptoms: not bad Involuntary Dozing: no Nappin times/month Driving: Sleepiness or drowsiness seldom but knows to ticket puller to nap or not drive. He was tired driving down here today after he had lunch ROS: ?? ENT: Nasal Obstruction:??generally no sinus congestion. Constitutional:?? Study Weight 239# 03/07/19 weight: 239# 03/07/20 weight: 242# 03/18/21 weight 256 Previous data Compliance Card Data: Date Range: 11/17-02/14/22 Settin-16 cm median 11.4 cm/95% 13 cm Residual AHI: 0.3/hr Vibratory Snore Index: n/a % Night in Large Leak: Median 2/95% 18.6 Average usage all days-Hours: 6 hr 30 min # of Days of usage: 73/90 % Days used > 4 hours 80% Days used 81% Physical Exam: Respirations: Even and not labored at rest DERM: Skin irritation: none Vitals: 03/20/22 1429 BP: 131/57 Pulse: 63 SpO2: 98% Weight: 116.3 kg (256 lb 6.4 oz) Height: 175.3 cm (5' 9) Time spent face to face: 40 Min. Assessment: Mr. Julian Edmonds is a 66 y.o. male seen for follow-up of obstructive sleep apnea. Mr Edmonds presents today in PAP clinic for one year follow up. He reports re-injured his shoulder. Weight is up 9 pounds from a year ago @ 256#. Has noticed some EDS at times. His DL shows he's using CPAP and meeting adherence. The AHI is controlled at 0.3/hr. Median pressure is 11/95% 13 cm. The leak appears to fluctuate through the nights. He uses a nasal mask, has chin strap, not using. Also has a FFM on hand. Dry mouth-seldom noticed. Unclear if he's mouth breathing or if mask leaks. We talked about trying a chin strap or the FFM. He prefers the FFM. He will let me know the outcome. Im unable to see data on line from air view. No longer has modem connection. Needs data card for DL. He reports feels better with CPAP than without Sherman scale is 6. He denies any unintentional sleep. He does wake more frequently to urinate. His doctor told him has enlarged prostrate. We talked about trying a higher min setting but I;m reluctant to until leak is controlled. He's comfortable with the current pressure auto pressure. No setting changes at this time. RTC in4 months in July when due for new updated CPAP. Recomendations: 1) CPAP 11-16 cm with ramp off and Heated Humidity 2) Follow-up: RTC due for new updated CPAP in Jul tele-health with [facility] 3) Driving safety discussed, recommend patient not drive if drowsy, if drowsy while driving to ticket puller and take a nap. 4) Patient to [...] (pediatric) documented in this encounter Care Teams Casino Porter Relationship Specialty Start Date End Date Vivian Bautista, VINNY [address] [place] [address] PCP - General 10/19/13 documented as of this encounter
--- OUTSIDE RECORDS SUMMARY | 2024-02-07 11:01 | XMS_ITS | Encounter Summary ---
[place] [address] Care Team Providers Care Concrete Laborer Name Role Phone Vivian Bautista APRN Primary Care Provider [phone] [phone] Encounter Details Date Type Department Care Team (Late st Contact Info) Description 10/15/2022 [place] [id number] Lola Barrios RN Social History Tobacco Use Types Packs/Day [...] encounter Miscellaneous Notes * Telephone Encounter - Lola Barrios RN - 10/15/2022 11:32 AM EDT I returned the pt's call. I let him know that it appears his urine sample was either never sent to the lab, or processed. The pt states Dr. Kong had him leave the labeled urine sample in the bathroom. I apologized to the patient for the error. He will do a repeat urine sample (UA micro) at [facility]. Orders faxed. Copied from [facility] #[id number]. Topic: Specialty Dept CRMs - Test Results >> October 15, 2022 11:25 AM Katie Hernandez wrote: Test Results Request Specialist: Dilan Relationship (if other than patient-full name): self Ordering Provider: Dilan Type of Test: urine test collected in office Date of Test: 10/05/22 Where Was This Test Performed: [facility] Patient states that he was told he would be notified of results and what the next test would be. Please advise. documented in this encounter Plan of Treatment Not on file documented as of this encounter Visit Diagnoses Not on filedocumented in this encounter Care Teams Concrete Laborer Relationship Specialty Start Date End Date Vivian Bautista APRN [address] [place] [address] PCP - General 10/19/13 documented as of this encounter
--- OUTSIDE RECORDS SUMMARY | 2024-02-07 11:01 | XMS_ITS | Encounter Summary ---
Author Organization [facility] Address [facility] [place] [address] Care Team Providers Care Industrial Specialist Name Role Phone Morena Bautistahryn Milton VINNY Primary Care Provider [phone] Encounter Details Date Type Department Care Team (Late st Contact Info) Description 05/11/2022 1:30 PM EST Office Visit [place] [address] Courtney Nagel MD [facility] [place] [address] Hypothyroidism, acquired; Fatigue, unspecified type Social History Tobacco Use Types [...] Sign Reading Time Taken Comments Blood Pressure 162/86 05/11/2022 1:48 PM EST Pulse 92 05/11/2022 1:48 PM EST Temperature 36.7 ??C (98 ??F) 05/11/2022 1:48 PM EST Respiratory Rate - - Oxygen Saturation 98% 05/11/2022 1:48 PM EST Inhaled Oxygen Concentration - - Weight 117 kg (258 lb) 05/11/2022 1:48 PM EST Height 172.7 cm (5' 8) 05/11/2022 1:48 PM EST Body Mass Index 39.23 05/11/2022 1:48 PM EST documented in this encounter Progress Notes * Courtney Nagel MD - 05/11/2022 1:30 PM EST [facility] Endocrinology Clinic Follow up Patient Chief complaint: hypothyroidism History: Julian Edmonds is a 67 y.o. male with hypothyroidism, HTN, HLD, KAREN, here for follow up of hypothyroidism. Last visit with Dr. Mendoza in 12/2020. He is currently on LT4 100 mcg and 10 mcg of Cytomel daily - both taken in the AM, typically does not eat until the afternoon. Takes his LT4 and T3 with coffee. He continues to have fatigue. No neck complaints. His weight has remained stable. No constipation. He has noticed tremors with the T3 and has occasional palpitations as well. Per last note from 09/2020, intention was to increase LT4 to 150mcg daily but he remains on 100 mcg daily. He continues to have fatigue. He wakes up every 2 hours at night to urinate, due to prostate issues- volume low. He also had shoulder surgery prior to this year, with residual pain in the left shoulder that wakes him up at night. He does use his CPAP at night, due to get a new machinenext year. Past Medical History: Past Medical History: Diagnosis Date ??? Allergy 1975 compozine ??? Chronic pain knee ??? Digestive problems heartburn/sometimes ??? Elevated cholesterol 2002 ??? 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 GERD (gastroesophageal reflux disease) ??? Hormone disorder hypo thyroid ??? Hyperlipidemia ??? Hypertension ??? Thyroid disease Medications: Current Outpatient Medications: ??? Synthroid 100 mcg Tablet, , Disp: , Rfl: ??? ibuprofen (Advil) 600 mg Tablet, , Disp: , Rfl: ??? loratadine (Claritin) 10 mg Tablet, , Disp: , Rfl: ??? sildenafiL (VIAGRA) 100 mg Tablet, , Disp: , Rfl: ??? rosuvastatin (Crestor) 40 mg Tablet, Take 1 tablet by mouth daily. (Patient taking differently:Take 40 mg by mouth daily. Takes 2 tablets every other day), Disp: 90 tablet, Rfl: 3 ??? liothyronine (Cytomel) 5 mcg Tablet, TAKE 2 TABLETS BY MOUTH DAILY, Disp: 180 tablet, Rfl: 3 ??? meTOPROLOL succinate (TOPROL-XL) 100 mg Tablet Sustained Release 24 hr, Take 100 mg by mouth daily., Disp: , Rfl: Allergies: Compazine [prochlorperazine] Review of systems: As noted in HPI, all other systems reviewed and negative Patient Vitals for the past 24 hrs: Temp Pulse BP SpO2 05/11/22 1348 36.7 ??C (98 ??F) 92 162/86 98 % Physical Exam: General: No acute distress, well appearing Eyes: no proptosis, no erythema Neck: supple, non-tender to palpation, no nodules or goiter noted CV: S1/S2, RRR Resp: breathing comfortably; chest expansion bilaterally Neuro: + fine tremor bilaterally Psych: AAO x 3; normal affect; memory intact Skin: warm to touch; no jaundice Labs/Imaging: Latest Reference Range & Units 12/17/20 14:10 T3, Total 75 - 170 ng/dL 119 Free T4 0.93 - 1.70 ng/dL 1.02 TSH 0.27 - 4.20 mcIU/mL 3.39 Assessment and Plan: 67 year old man with hypothyroidism and fatigue 1. Hypothyroidism: - on LT4 100 mcg daily and Cytomel 10 mcg daily - tremulous on exam, thus will decrease Cytomel to 5 mcg daily - check TFTs today, will adjust LT4 dose as needed 2. Fatigue: - most likely multifactorial in etiology, from pain, prostate, KAREN etc - may not be related to thyroid - check TFTs 30 minutes total time spent seeing patient today, precharting/reviewing previous labs/office notes,and documenting in the record. Return visit in 1 year Courtney Nagel MD [employer] Operatorpizza chef Endocrinology Section [facility] documented in this encounter Plan of Treatment Not on file documented as of this encounter Procedures Procedure Name Priority Date/Time Associated Diagnosis Comments HC VENIPUNCTURE Routine 05/11/2022 2:18 PM EST Hypothyroidism, acquired HC THYROID STIMULATING HORMONE, SERUM Routine 05/11/2022 2:18 PM EST Hypothyroidism, acquired HC FREE THYROXINE (T4) Routine 05/11/2022 2:18 PM EST Hypothyroidism, acquired documented in this encounter Results * T3 Total (05/11/2022 2:18 PM EST) T3 Total 126 80 - 200 ng/dL [facility] Blood 05/11/2022 2:18 PM EST 05/11/2022 2:36 PM EST Narrative Resulting Agency Comment Spec In Lab Courtney Nagel MD CHEMISTRY ORDERABLES Performing Organization Address [facility] Co de Phone Number [facility] [address] * T4, free (05/11/2022 2:18 PM EST) Free T4 0.94 0.93 - 1.70 ng/dL [facility] Comment: Reference Interval (ng/dL): Females: ??First Trimester: 0.97-1.68 ??Second Trimester: 0.77-1.51 ??Third Trimester: 0.77-1.49 Blood 05/11/2022 2:18 PM EST 05/11/2022 2:36 PM EST Narrative Resulting Agency Comment Spec In Lab Courtney Nagel MD CHEMISTRY ORDERABLES Performing Organization Address City/[facility] Co de Phone Number [facility] [address] * (ABNORMAL) TSH (05/11/2022 2:18 PM EST) Thyroid Stimulating Hormone 6.91(H) 0.27 - 4.20 mcIU/mL [facility] Comment: Reference Interval (mcIU/mL): Females: ??First Trimester: 0.23-3.88 ??Second Trimester: 0.22-3.90 ??Third Trimester: 0.44-4.66 Blood 05/11/2022 2:18 PM EST 05/11/2022 2:36 PM EST Narrative Resulting Agency Comment Spec In Lab Courtney Nagel MD CHEMISTRY ORDERABLES Performing Organization Address City/State/[facility] Co de Phone Number [facility] [address] documented in this encounter Visit Diagnoses Diagnosis Hypothyroidism, acquired Unspecified hypothyroidism Fatigue, unspecified type documented in this encounter Care Teams Industrial Specialist Relationship Specialty Start Date End Date Vivian Bautista APRN [address] [place] [address] PCP - General 10/19/13 documented as of this encounter
--- OUTSIDE RECORDS SUMMARY | 2024-02-07 11:01 | XMS_ITS | Encounter Summary ---
Author Organization [facility] Address [facility] [place] [address] Care Team Providers Care Financial Brokers Name Role Phone Vivian Bautista VINNY Primary Care Provider [phone] Reason for Visit * Consultation (Routine) - Closed Specialty Diagnoses / Procedures Referred By Lashaun camarena Referred To Contact Endocrinology Diagnoses Hypothyroidism, unspecified HYPOTHYROIDISM Frandy Styles MD [address] [place] [address] Darren Mendoza MD [facility] [place] [address] Referral ID Status Reason Start Date Expiration Date V isits Requested Visits Authorized [id number] Closed Consult, [facility] PCP Updated and/or Approved 09/03/2020 09/03/2021 6 6 Encounter Details Date Type Department Care Team (Late st Contact Info) Description 12/17/2020 1:30 PM EDT Office [place] [address] Darren Mendoza MD [facility] [place] [address] Hypothyroidism, unspecified type; Fatigue, unspecified type Social History Tobacco Use [...] Sign Reading Time Taken Comments Blood Pressure 145/75 12/17/2020 1:19 PM EDT Pulse 55 12/17/2020 1:19 PM EDT Temperature 36.1 ??C (97 ??F) 12/17/2020 1:19 PM EDT Respiratory Rate - - Oxygen Saturation 99% 12/17/2020 1:19 PM EDT Inhaled Oxygen Concentration - - Weight 117.2 kg (258 lb 4.8 oz) 12/17/2020 1:19 PM EDT Height 177.8 cm (5' 10) 12/17/2020 1:19 PM EDT Body Mass Index 37.06 12/17/2020 1:19 PM EDT documented in this encounter Progress Notes * Darren Mendoza MD - 12/17/2020 1:30 PM EDT We are seeing this 65 year old man after a 3 year hiatus to re-evaluate possible endocrine causes of fatigue. From 2018 1) Fatigue- the possible endocrine causes include under-or over-replacement of thyroid hormone, hypercalcemia, hyperglycemia, GH deficiency and hypogonadism; there is nothing to suggest adrenal insufficiency. His primary care team has done a nice job of ruling out everything but hypogonadism and GHdeficiency - the latter is not typically worth pursing as the treatment is very expensive and rarely effective for fatigue.We will check his gonadal status. In the meantime I added low dose T3 to seeif this would improve his sense of well being - he can try 5 mcg for two weeks and then try 10 if not effective. I warned him about potential palcebo effects. Interestingly, although most randomized studies do not show questionnaire based improvement with adding T3, usually 1/3 to 1/2 of these patients will say they globally felt better on the T3/T4 combination. 2) hypothyroidism Interim history Fatigue has not improved, though initially it did with thyroid adjustment (added liiothyronine) Now has no energy again for the past year Taking 100 mcg of T4 nd 10 mcg of T3 a day Has sleep apnea, uses CPAP which had helped Ready to nap by 10 AM. Falls asleep easily and rapoidly if he stops. PCP has adjusted bp meds - tried amlodipine- but had leg swelling, went back to metoprolol No palpitations, no recent tremor Has had recent shoulder repair - biceps Medications 12/17/20 1350 Medication Sig Taking? rosuvastatin (Crestor) 40 mg Tablet Take 1 tablet by mouth daily. Yes liothyronine (Cytomel) 5 mcg Tablet TAKE 2 TABLETS BY MOUTH DAILY Yes levothyroxine (SYNTHROID) 137 mcg Tablet 100 mcg daily. Yes meTOPROLOL succinate (TOPROL-XL) 100 mg Tablet Sustained Release 24 hr Take 50 mg by mouth daily. Yes ibuprofen (ADVIL;MOTRIN) 800 mg tablet Take 800 mg by mouth every 6 hours as needed. Yes BP 145/75 Pulse 55 Temp 36.1 ??C (97 ??F) (Temporal) Ht 177.8 cm (5' 10) Wt 117.2 kg (258 lb 4.8 oz) SpO2 99% BMI 37.06 kg/m?? Looks well Eyes: full eom, no stare Thyroid: normal size and texture neck: Neuro:no tremor Recent Results (from the past 24 hour(s)) T4, free Result Value Ref Range Free T4 1.02 0.93 - 1.70 ng/dL T3 Total Result Value Ref Range T3, Total 119 75 - 170 ng/dL TSH Result Value Ref Range TSH 3.39 0.27 - 4.20 mcIU/mL ' 1) hypothyroidism/on T3/T4- these tests are on the lower side of normal for T4 and upper normal TSH- will increase T4 dose to 150 and increase T3 to 10 mcg by letter. It is unclear if this has any role in his fatigue. This was a 30 min visit in total time for precharting, interview and counseling, review of labs as above, ordering labs and charting documented in this encounter Plan of Treatment Scheduled Orders Name Type Priority Associated Diagnoses Orde r Schedule TSH Lab Routine Hypothyroidism, unspecified type Expected: 12/17/2020 (Approximate), Expires: 06/18/2021 T4, free Lab Routine Hypothyroidism, unspecified type Expected: 12/17/2020 (Approximate), Expires: 06/18/2021 documented as of this encounter Procedures Procedure Name Priority Date/Time Associated Diagnosis Comments HC TOTAL T3 Routine 12/17/2020 2:10 PM EDT Hypothyroidism, unspecified type Fatigue, unspecified type HC THYROID STIMULATING HORMONE, SERUM Routine 12/17/2020 2:10 PM EDT Hypothyroidism, unspecified type Fatigue, unspecified type HC FREE THYROXINE (T4) Routine 12/17/2020 2:10 PM EDT Fatigue, unspecified type documented in this encounter Results * T4, free (12/17/2020 2:10 PM EDT) Free T4 1.02 0.93 - 1.70 ng/dL [facility] Blood 12/17/2020 2:10 PM EDT 12/17/2020 2:45 PM EDT Narrative Resulting Agency Comment Spec In Lab Darren Mendoza MD CHEMISTRY ORDERABLES Performing Organization Address City/[facility]/ZIP Co de Phone Number [facility] [place] [address] * T3 Total (12/17/2020 2:10 PM EDT) T3 Total 119 75 - 170 ng/dL [facility] Blood 12/17/2020 2:10 PM EDT 12/17/2020 2:45 PM EDT Narrative Resulting Agency Comment Spec In Lab Darren Mendoza MD CHEMISTRY ORDERABLES [facility] [place] [address] * TSH (12/17/2020 2:10 PM EDT) Thyroid Stimulating Hormone 3.39 0.27 - 4.20 mcIU/mL [facility] Blood 12/17/2020 2:10 PM EDT 12/17/2020 2:45 PM EDT Narrative Resulting Agency Comment Spec In Lab Darren Mendoza MD CHEMISTRY ORDERABLES [facility] [place] [address] documented in this encounter Visit Diagnoses Diagnosis Hypothyroidism, unspecified type Fatigue, unspecified type documented in this encounter Care Teams Financial Brokers Relationship Specialty Start Date End Date Vivian Bautista APRN [address] [place] [address] PCP - General 10/19/13 documented as of this encounter
--- OUTSIDE RECORDS SUMMARY | 2024-02-07 11:01 | XMS_ITS | Encounter Summary ---
Author Organization [facility] Address [facility] [place] [address] Care Team Providers Care Energy Attorney Name Role Phone Morena Bautistahryn Milton VINNY Primary Care Provider [phone] [phone] Reason for Visit * Reason Comments Medication Refill Encounter Details Date Type Department Care Team (Late st Contact Info) Description 04/25/2023 Refill [place] [address] Courtney Nagel MD [facility] [place] [address] Hypothyroidism, acquired Social History Tobacco Use Types [...] encounter Miscellaneous Notes * Telephone Encounter - Charles Borjas - 04/28/2023 8:14 AM EST Patient is out of thius medication. Please pinedo if possible. documented in this encounter Plan of Treatment Not on file documented as of this encounter Visit Diagnoses Diagnosis Hypothyroidism, acquired Unspecified hypothyroidism documented in this encounter Care Teams Energy Attorney Relationship Specialty Start Date End Date Vivian Bautista APRN [address] [place] [address] PCP - General 10/19/13 documented as of this encounter
--- OUTSIDE RECORDS SUMMARY | 2024-02-07 11:01 | XMS_ITS | Encounter Summary ---
Author Organization [facility] Address [facility] [place] [address] Care Team Providers Care Automotive Painter Name Role Phone Vivian Bautista VINNY Primary Care Provider [phone] [phone] Encounter Details Date Type Department Care Team (Late st Contact Info) Description 10/16/2021 8:00 AM EDT Office [place] [address] Haim Fung MD [facility] [place] [place] [address] Hyperlipidemia, unspecified hyperlipidemia type; ASCVD (arteriosclerotic cardiovascular disease); Hypertension, unspecified type Social History Tobacco Use [...] Sign Reading Time Taken Comments Blood Pressure 148/87 10/16/2021 8:06 AM EDT Pulse 67 10/16/2021 8:06 AM EDT Temperature - - Respiratory Rate - - Oxygen Saturation - - Inhaled Oxygen Concentration - - Weight 116.1 kg (256 lb) 10/16/2021 8:06 AM EDT standing Height - - Body Mass Index 36.73 12/17/2020 1:19 PM EDT documented in this encounter Patient Instructions * Patient Instructions* Haim Fung MD - 10/16/2021 8:39 AM EDT I have not made any changes in your medications today. We will get in touch with you regarding the results of your cholesterol test. As always, we would like you to maintain a heart healthy lifestyle. For you, this means losing backthe 20 pounds you have gained over the last several years and increasing your frequency of exercise. Revisit will be with me in 1 year, sooner if any new symptoms intervene. documented in this encounter Progress Notes * Haim Fung MD - 10/16/2021 8:00 AM EDT Images from the original note were not included. [facility] [place] [address] CARDIOLOGY OUTPATIENT PROGRESS NOTE PRIMARY CARE PROVIDER: Vivian Bautista APRN REFERRING PROVIDER: Vivian Bautitsa PROBLEM LIST: Patient Active Problem List Diagnosis ??? ASCVD (arteriosclerotic cardiovascular disease) -Asymptomatic -Calcification on coronary CT scan ??? Hypertension ??? Hyperlipidemia ??? Thoracic aortic aneurysm without rupture -Ascending aortic diameter equals 3.[address] scan ??? KAREN (obstructive sleep apnea) ??? GERD (gastroesophageal reflux disease) ??? Thyroid disease ??? Knee pain MEDICATIONS: Current Outpatient Medications Medication Sig Dispense Refill ??? loratadine (Claritin) 10 mg Tablet ??? sildenafiL (VIAGRA) 100 mg Tablet ??? rosuvastatin (Crestor) 40 mg Tablet Take 1 tablet by mouth daily. (Patient taking differently: Take 40 mg by mouth daily. Takes 2 tablets every other day) 90 tablet 3 ??? liothyronine (Cytomel) 5 mcg Tablet TAKE 2 TABLETS BY MOUTH DAILY 180 tablet 3 ??? levothyroxine (SYNTHROID) 137 mcg Tablet 100 mcg daily. ??? meTOPROLOL succinate (TOPROL-XL) 100 mg Tablet Sustained Release 24 hr Take 100 mg by mouth daily. ??? ibuprofen (ADVIL;MOTRIN) 800 mg tablet Take 800 mg by mouth every 6 hours as needed. No current facility-administered medications for this visit. Subjective: Patient ID: Julian Edmonds is a 66 y.o. patient of Vivian Bautista APRN. HPI: This is a 66-year-old patient well-known to me from a previous visit for his coronary artery disease. This was detected incidentally at the time of a noncontrast CT scan for cancer screening and a former smoker. He was completely free of any coronary artery disease symptoms at the time. He denied angina. He has a previous stress imaging study that is negative for ischemia. After discussion of theoptions we elected to continue medical therapy with antihypertensive therapy and lipid-lowering therapy. We also discussed aspirin therapy which given his primary prevention status was felt to be notindicated. He continues to do well. He is a physically active person. 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 With exertion, no chest pain or dyspnea. 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 However with activity such as climbing stairs and carrying building materials he has no chest pain. Last year we attempted to increase his rosuvastatin from 40 mg to 80 mg daily. He did not tolerate this because of cramps but he is now alternating 40 mg with 80 mg. He takes his metoprolol faithfully. He checks his blood pressure at home. Typical systolic blood pressure is under 140 mmHg, usually averaging around 137 238 mmHg. REVIEW OF SYSTEMS: He has had a recent PSA that was elevated and this is getting a repeat today. Family History: Family History Problem Relation Age [...] Never Used ??? Tobacco comment: quit 2008 Vaping Use ??? Vaping Use: Never used [...] Not on file Objective: PHYSICAL EXAM: BP 148/87 (BP Location (NBP): Left arm, Patient Position: Sitting, BP Cuff Sizes: Adult (25-34 cm)) Pulse 67 Wt 116.1 kg (256 lb) Comment: standing BMI 36.73 kg/m?? , Body mass index is 36.73 kg/m??. General: Pleasant. No distress. Skin: Warm and dry. HEENT: Anicteric sclera. Neck: JVP not elevated. No AJR. No carotid bruits. Chest: Clear to auscultation Heart: No heave. Regularly regular rhythm. Normal S1 and S2. No gallops. No murmurs. Abdomen: Nondistended. Soft. Nontender. Extremities: No edema. MUMPS DEVELOPER: Normal mentation. Psych: Appropriate affect. Labs: Lab Results Component Value Date CHLPL 205 09/10/2020 HDL 41 09/10/2020 CHOLHDL 5.0 09/10/2020 TRIG 267 09/10/2020 LDLCHOL 111 09/10/2020 Assessment and Plan: ASCVD (arteriosclerotic cardiovascular disease) He continues to be asymptomatic from his coronary artery disease. He is appropriately treated with high-dose statin and antihypertensive therapy. He is overdue for lipids. I continue to think that hedoes not warrant aspirin therapy. I have emphasized the importance of appropriate diet and increased exercise for long-term therapy. Hypertension Overall his blood pressure control is adequate and I have not made any changes in his therapy with metoprolol. Hyperlipidemia This is his maximally tolerated statin dose. In the past he has not tolerated Zetia because of diarrhea. I am going to check fasting lipids today. The major therapeutic impact of this is going to be being able to better advise him regarding diet and exercise if it is still above target because I donot think that we have much by the way future therapeutic options. Patient Instructions ??? I have not made any changes in your medications today. ??? We will get in touch with you regarding the results of your cholesterol test. ??? As always, we would like you to maintain a heart healthy lifestyle. For you, this means losing back the 20 pounds you have gained over the last several years and increasing your frequency of exercise. ??? Revisit will be with me in 1 year, sooner if any new symptoms intervene. Thank you for the opportunity to participate in this patient's cardiovascular care. All questions were answered and I look forward to the next visit. Haim Fung MD A total of 30 minutes were spent on this visit including preparation, record review, time with the patient and documentation. documented in this encounter Miscellaneous Notes * Assessment & Plan Note - Haim Fung MD - 10/16/2021 8:38 AM EDT Associated Problem(s): Hyperlipidemia This is his maximally tolerated statin dose. In the past he has not tolerated Zetia because of diarrhea. I am going to check fasting lipids today. The major therapeutic impact of this is going to be being able to better advise him regarding diet and exercise if it is still above target because I donot think that we have much by the way future therapeutic options. * Assessment & Plan Note - Haim Fung MD - 10/16/2021 8:37 AM EDT Associated Problem(s): Hypertension Overall his blood pressure control is adequate and I have not made any changes in his therapy with metoprolol. * Assessment & Plan Note - Haim Fung MD - 10/16/2021 8:37 AM EDT Associated Problem(s): ASCVD (arteriosclerotic cardiovascular disease) He continues to be asymptomatic from his coronary artery disease. He is appropriately treated with high-dose statin and antihypertensive therapy. He is overdue for lipids. I continue to think that hedoes not warrant aspirin therapy. I have emphasized the importance of appropriate diet and increased exercise for long-term therapy. documented in this encounter Plan of Treatment Not on file documented as of this encounter Results * Lipid Panel (Reflex Direct LDL) (10/16/2021 7:23 AM EDT) [facility] Cholesterol, Total 138 mg/dL [facility] Comment: Lower Risk: <200 mg/dL Average Risk: 200-239 mg/dL Higher Risk: >kw=289 mg/dL Triglyceride 153 mg/dL [facility] Comment: Average Risk/Lower Risk: <150 mg/dL Borderline High Risk: 150-199 mg/dL High Risk: 200-499 mg/dL Very High Risk: >rx=901 mg/dL HDL Cholesterol 35 mg/dL [facility] Comment: Males: ?? Higher Risk: <40 mg/dL Females: ?? Higher Risk: <50 mg/dL LDL Cholesterol 72 mg/dL [facility] Comment: Lowest Risk: <100 mg/dL Lower Risk: 100-129 mg/dL Borderline High Risk: 130-159 mg/dL High Risk: 160-189 mg/dL Very High Risk: >eg=788 mg/dL Cholesterol/HDL Ratio 3.9 ratio [facility] Lipid Interpretation See Note [facility] Comment: Lipid management should be guided by a patient? s ASCVD risk, goals and preferences. ACC/AHA Guidelines recommend high intensity statin if clinical ASCVD or LDL greater than or equal to 190 mg/dL. http://Qualiallurl.com/CLO-SUL-Tocdalati Adults aged 40-75 with LDL 70-189 mg/dL should have their 10 year ASCVD risk estimated with the ACC/AHA ASCVD risk bench boring machine operator http://tools.acc.org/TDXGB-Qdjo-Xqbvevsoh/ Statin should be discussed if risk greater [...] critical component of ASCVD risk reduction. Blood 10/16/2021 7:23 AM EDT 10/16/2021 9:49 AM EDT Narrative Resulting Agency Comment Spec In Lab Haim Fung MD CHEMISTRY ORDERABL ES [facility] [place] [address] documented in this encounter Visit Diagnoses Diagnosis Hyperlipidemia, unspecified hyperlipidemia type ASCVD (arteriosclerotic cardiovascular disease) Unspecified cardiovascular disease Hypertension, unspecified type documented in this encounter Care Teams Automotive Painter Relationship Specialty Start Date End Date Vivian Bautista APRN [address] [place] [address] PCP - General 10/19/13 documented as of this encounter
--- OUTSIDE RECORDS SUMMARY | 2024-02-07 11:01 | XMS_ITS | Encounter Summary ---
Author Organization [place] [place] [address] Care Team Providers Care Silver Cleaner Name Role Phone Vivian Bautista APRN Primary Care Provider [phone] Reason for Referral * Diagnostic Test (Routine) - Closed Specialty Diagnoses / Procedures Referred By Lashaun camarena Referred To Contact Radiology Diagnoses Elevated PSA Procedures MRI Pelvis wwo (Prostate) Srinivas Kong MD [facility] [place] [address] [place] [address] Referral ID Status Reason Start Date Expiration Date V isits Requested Visits Authorized [id number] Closed Specialty Service Requested 10/21/2021 01/19/2022 1 1 Encounter Details Date Type Department Care Team (Late st Contact Info) Description 10/21/2021 [place] [address] Srinivas Kong MD [facility] [place] [address] Social History Tobacco Use Types Packs/Day Years [...] Telephone Encounter - Srinivas Kong MD - 10/21/2021 12:42 PM EDT Called Mr. Edmonds to let him know that his PSA was still elevated at 6 and his %free PSA was 16 which is neither worrisome nor reassuring. Therefore we will proceed with an MRI of the prostate. We will plan to perform a biopsy if there are any suspicious lesions or if PSA density is >0.10. I will call him with MRI results Srinivas Kong MD 10/21/2021 12:44 PM documented in this encounter Plan of Treatment Not on file documented as of this encounter Results * MRI Pelvis wwo (Prostate) (11/27/2021 8:53 AM EDT) Anatomical Region Laterality Modality Pelvis Magnetic Resonan ce Impressions 11/28/2021 9:22 AM EDT No focal lesions. ??BPH. PI-RADS 1. Clinically significant disease is highly unlikely to be present. PI-RADS v2.1 Assessment Categories PI-RADS 1 -- Very low (clinically significant cancer is highly unlikely to be present) PI-RADS 2 -- Low (clinically significant cancer is unlikely to be present) PI-RADS 3 -- Intermediate (the presence of clinically significant cancer is equivocal) PI-RADS 4 -- High (clinically significant cancer is likely to be present) PI-RADS 5 -- Very high (clinically significant cancer is highly likely to be present) I have personally reviewed the image(s) and the resident's interpretation and agree with the findings, Mumtaz Jaramillo MD at 11/28/2021 9:22 AM Thank you for letting us participate in the care of this patient. ??If you are a health care provider and have any questions regarding this report, please contact the number below. ??For patients who have questions please contact the health medical care administrator that requested your imaging first. ? Electronically signed by: Mumtaz Jaramillo MD, [facility] ([phone]), at 11/28/2021 9:22 AM Narrative 11/28/2021 9:22 AM EDT EXAMINATION: MRI PELVIS WWO (PROSTATE) CLINICAL HISTORY: Persistently elevated PSA HAS PATIENT HAD PREVIOUS BIOPSY?:No MOST RECENT PSA LEVEL:6 TECHNIQUE: Multiparametric MRI of the prostate prior to and following IV administration of 23 cc of Dotarem contrast. ?? QUALITY: Meets PI-RADS technical criteria. COMPARISON: None FINDINGS: Prostate dimensions: 4.7 x 6.1 x 5.9cm. Estimated prostate volume: 88cc (X x Y x Z x 0.52) PSA density: 0.07 (PSA/prostate volume >0.15 susp, 0.25 highly susp) Peripheral zone: No focal lesions. T2: Linear or wedge-shaped hypointensity with indistinct margin. PI-RADs: 2. DWI: ??No abnormality on ADC and high b-value DWI. PI-RADs: 1. DCE-MRI: (-) No early arterial enhancement.. ? Combined PI-RADs: 1. Transition zone: No focal lesions T2: Typical encapsulated and homogenous circumscribed nodules. PI-RADs: 1. DWI: ??No abnormality on ADC and high b-value DWI. PI-RADs: 1. DCE-MRI: ??(-) No early arterial enhancement.. ? Combined PI-RADs: 1. Extraprostatic disease: Not applicable Lymphadenopathy:No Other findings: Bilateral fat-containing inguinal hernias. Procedure Note Mumtaz Jaramillo MD - 11/28/2021 EXAMINATION: MRI PELVIS WWO (PROSTATE) CLINICAL HISTORY: Persistently elevated PSA HAS PATIENT HAD PREVIOUS BIOPSY?:No MOST RECENT PSA LEVEL:6 TECHNIQUE: Multiparametric MRI of the prostate prior to and following IV administration of 23 cc of Dotarem contrast. QUALITY: Meets PI-RADS technical criteria. COMPARISON: None FINDINGS: Prostate dimensions: 4.7 x 6.1 x 5.9cm. Estimated prostate volume: 88cc (X x Y x Z x 0.52) PSA density: 0.07 (PSA/prostate volume >0.15 susp, 0.25 highly susp) Peripheral zone: No focal lesions. T2: Linear or wedge-shaped hypointensity with indistinct margin. PI-RADs: 2. DWI: No abnormality on ADC and high b-value DWI. PI-RADs: 1. DCE-MRI: (-) No early arterial enhancement.. Combined PI-RADs: 1. Transition zone: No focal lesions T2: Typical encapsulated and homogenous circumscribed nodules. PI-RADs: 1. DWI: No abnormality on ADC and high b-value DWI. PI-RADs: 1. DCE-MRI: (-) No early arterial enhancement.. Combined PI-RADs: 1. Extraprostatic disease: Not applicable Lymphadenopathy:No Other findings: Bilateral fat-containing inguinal hernias. IMPRESSION No focal lesions. BPH. PI-RADS 1. Clinically significant disease ishighly unlikely to be present. PI-RADS v2.1 Assessment Categories PI-RADS 1 -- Very low (clinically significant cancer is highly unlikely gisselle present) PI-RADS 2 -- Low (clinically significant cancer is unlikely to bepresent) PI-RADS 3 -- Intermediate (the presence of clinically significant canceris equivocal) PI-RADS 4 -- High (clinically significant cancer is likely to bepresent) PI-RADS 5 -- Very high (clinically significant cancer is highly likely gisselle present) I have personally reviewed the image(s) and the resident's interpretationand agree with the findings, Mumtaz Jaramillo MD at 11/28/2021 9:22 AM Thank you for letting us participate in the care of this patient. If youare a health care provider and have any questions regarding this report,please contact the number below. For patients who have questions please contactthe health medical care administrator that requested your imaging first. Electronically signed by: Mumtaz Jaramillo MD, [facility]([phone]), at 11/28/2021 9:22 AM Srinivas Kong MD IMG MRI ORDERABLES documented in this encounter Visit Diagnoses Diagnosis Elevated PSA Elevated prostate specific antigen (PSA) Elevated PSA Elevated prostate specific antigen (PSA) documented in this encounter Care Teams Silver Cleaner Relationship Specialty Start Date End Date Vivian Bautista APRN [address] [place] [address] PCP - General 10/19/13 documented as of this encounter
--- OUTSIDE RECORDS SUMMARY | 2024-02-07 11:01 | XMS_ITS | Encounter Summary ---
Author [facility] [place] [address] Care Team Providers Care Photography Colorist Name Role Phone Morena Bautistahradelaida Rose VINNY Primary Care Provider [phone] Encounter Details Date Type Department Care Team (Late st Contact Info) Description 10/28/2022 [place] [address] Srinivas Kong MD [facility] [place] [address] Social History Tobacco Use Types Packs/Day Years [...] Telephone Encounter - Srinivas Kong MD - 10/28/2022 10:48 AM EDT Called patient to review UA with microscopy. There were no RBCs in his urine. Therefore we can cancel his cystoscopy and CT scan. He can get annual UA with his PCP and if there is >3RBC/hpf on microscopy, he can be referred back for CT and cystoscopy. Srinivas Kong MD 10/28/2022 10:49 AM documented in this encounter Plan of Treatment Not on file documented as of this encounter Visit Diagnoses Not on filedocumented in this encounter Care Teams Photography Colorist Relationship Specialty Start Date End Date Vivian Bautista APRN [address] [place] [address] PCP - General 10/19/13 documented as of this encounter
--- OUTSIDE RECORDS SUMMARY | 2024-02-07 11:01 | XMS_ITS | Encounter Summary ---
Author Organization [place] [address] Care Team Providers Care Electric Motor Rebuilder Name Role Phone Vivian Bautista APRN Primary Care Provider [phone] Reason for Referral * Diagnostic Test (Routine) - Closed Specialty Diagnoses / Procedures Referred By Lashaun camarena Referred To Contact Radiology Diagnoses Elevated PSA Procedures MRI Pelvis wwo (Prostate) Srinivas Kong MD [facility] [place] [address] [place] [address] Referral ID Status Reason Start Date Expiration Date V isits Requested Visits Authorized [id number] Closed Specialty Service Requested 10/21/2021 01/19/2022 1 1 Reason for Visit * Diagnostic Test (Routine) - Closed Specialty Diagnoses / Procedures Referred By Lashaun camarena Referred To Contact Radiology Diagnoses Elevated PSA Procedures MRI Pelvis wwo (Prostate) Srinivas Kong MD [facility] [place] [address] [facility] [place] [address] Referral ID Status Reason Start Date Expiration Date V isits Requested Visits Authorized [id number] Closed Specialty Service Requested 10/21/2021 01/19/2022 1 1 Encounter Details Date Type Department Care Team (Latest Contact Info) Description 11/27/2021 7:48 AM EDT - 11/27/2021 11:59 PM EDT Hospital [place] [address] Srinivas Kong MD [facility] [place] [address] Elevated PSA Discharge Disposition: Home Social History Tobacco Use Types Packs/Day Years [...] AM EDT documented as of this encounter Medications at Time of Discharge Medication Sig Dispensed Refills Start Date End Date sildenafiL (VIAGRA) 100 mg Tablet 05/12/2021 rosuvastatin (Crestor) 40 mg Tablet Take 1 tablet by mouth daily. 90 tablet 3 09/10/2020 meTOPROLOL succinate (TOPROL-XL) 100 mg Tablet Sustained Release 24 hr Take 100 mg by mouth daily. 06/21/2017 loratadine (Claritin) 10 mg Tablet 08/22/2021 10/05/2022 liothyronine (Cytomel) 5 mcg Tablet TAKE 2 TABLETS BY MOUTH DAILY 180 tablet 3 08/29/2019 07/15/2022 levothyroxine (SYNTHROID) 137 mcg Tablet 100 mcg daily. 02/04/2017 03/20/2022 ibuprofen (ADVIL;MOTRIN) 800 mg tablet Take 600 mg by mouth every 6 hours as needed. 03/20/2022 documented as of this encounter Plan of Treatment Not on file documented as of this encounter Procedures Procedure Name Priority Date/Time Associated Diagnosis Comments MRI PELVIS WWO (PROSTATE) Routine 11/27/2021 8:53 AM EDT Elevated PSA documented in this encounter Results * MRI Pelvis wwo [...] who have questions please contact the health care management assistant that requested your imaging first. ? Electronically signed by: Mumtaz Jaramillo MD, [facility] ([phone]), at 11/28/2021 9:22 AM Narrative 11/28/2021 9:22 [...] patients who have questions please contactthe health care management assistant that requested your imaging first. Electronically signed by: Mumtaz Jaramillo MD, [facility]([phone]), at 11/28/2021 9:22 AM Srinivas Kong MD [facility] MRI ORDERABLES documented in this encounter Visit Diagnoses Diagnosis Elevated PSA Elevated prostate specific antigen (PSA) documented in this encounter Administered Medications Inactive Administered Medications - up to 3 most recent administrations Medication Order MAR Action Action Date Dose Rate Site gadoterate meglumine (Dotarem) (0.5 mMol/mL) injection solution 0-100 mL 0-100 mL, Intravenous, ONCE PRN, 1 dose, Starting on Radha 11/27/21 at 0851, Until Radha 11/27/21 at 0848, Per Protocol, Radiology Contrast, Routine Given 11/27/2021 8:48 AM EDT 23 mLs documented in this encounter Care Teams Electric Motor Rebuilder Relationship Specialty Start Date End Date Vivian Bautista APRN [address] [place] [address] PCP - General 10/19/13 documented as of this encounter
--- OUTSIDE RECORDS SUMMARY | 2024-02-07 11:01 | XMS_ITS | Encounter Summary ---
[place] [address] Care Team Providers Care Dope Firer Name Role Phone Vivian Bautista APRN Primary Care Provider [phone] Encounter Details Date Type Department Care Team (Latest Contact Info) Description 09/28/2022 Travel Social History Tobacco Use Types Packs/Day [...] on filedocumented in this encounter Care Teams Dope Firer Relationship Specialty Start Date End Date Vivian Bautista APRN [address] [place] [address] PCP - General 10/19/13 documented as of this encounter
--- OUTSIDE RECORDS SUMMARY | 2024-02-07 11:01 | XMS_ITS | Encounter Summary ---
[place] [address] Care Team Providers Care Hammerer Helper Name Role Phone Vivian Bautista APRN Primary Care Provider [phone] Encounter Details Date Type Department Care Team (Latest Contact Info) Description 10/08/2022 Travel Social History Tobacco Use Types Packs/Day [...] on filedocumented in this encounter Care Teams Hammerer Helper Relationship Specialty Start Date End Date Vivian Bautista APRN [address] [place] [address] PCP - General 10/19/13 documented as of this encounter
--- OUTSIDE RECORDS SUMMARY | 2024-02-07 11:01 | XMS_ITS | Encounter Summary ---
Author [place] [address] Care Team Providers Care Installer Helper Name Role Phone Vivian Bautista APRN Primary Care Provider [phone] Encounter Details Date Type Department Care Team (Latest Contact Info) Description 10/01/2022 Travel Social History Tobacco Use Types Packs/Day [...] on filedocumented in this encounter Care Teams Installer Helper Relationship Specialty Start Date End Date Vivian Bautista APRN [address] [place] [address] PCP - General 10/19/13 documented as of this encounter
--- OUTSIDE RECORDS SUMMARY | 2024-02-07 11:01 | XMS_ITS | Encounter Summary ---
[place] [address] Care Team Providers Care Compatibility Test Engineer Name Role Phone Morena Bautistahryn Milton VINNY Primary Care Provider +1 -[phone] Encounter Details Date Type Department Care Team (Late st Contact Info) Description 09/03/2020 Orders Only Cardiology at [address] [address] Lynne Sorto RN Chest pain, unspecified type Social History Tobacco Use Types [...] documented as of this encounter Results * EKG 12 Lead (09/10/2020 8:05 AM EDT) Ventricular rate 60 BPM MUSE SYSTEM Atrial Rate 60 BPM MUSE SYSTEM P-R Interval 186 ms MUSE SYSTEM QRS Duration 94 ms MUSE SYSTEM Q-T Interval 384 ms MUSE SYSTEM QTC Calculated (Bezet) 384 ms MUSE SYSTEM Calculated P Sandy 26 degrees MUSE SYSTEM Calculated R Sandy -51 degrees MUSE SYSTEM Calculated T Sandy 16 degrees MUSE SYSTEM INTERPRETATION Normal sinus rhythm Left anterior fascicular block Otherwise normal ECG No previous ECGs available I personally reviewed the tracing and edited the fellows interpretation Confirmed by fellow MD Erika, Lorri Garcia ([id number]) on 09/10/2020 11:07:46 AM Confirmed by MD ALFRED, KATY ([id number]) on 09/10/2020 1:33:58 PM MUSE SYSTEM 09/10/2020 8:05 AM EDT 09/10/2020 1:33 PM EDT Haim Fung MD ECG ORDERABLES MUSE SYSTEM documented in this encounter Visit Diagnoses Diagnosis Chest pain, unspecified type documented in this encounter Care Teams Compatibility Test Engineer Relationship Specialty Start Date End Date Vivian Bautista, MECHANICAL MANUFACTURING TECHNICIAN [address] [place] [address] PCP - General 10/19/13 documented as of this encounter
--- OUTSIDE RECORDS SUMMARY | 2024-02-07 11:01 | XMS_ITS | Encounter Summary ---
[place] [address] Care Team Providers Care Nuclear Test Technician Name Role Phone Vivian Bautista APRN Primary Care Provider +1 [phone] Encounter Details Date Type Department Care Team (Latest Contact Info) Description 05/11/2023 Travel Social History Tobacco Use Types Packs/Day [...] on filedocumented in this encounter Care Teams Nuclear Test Technician Relationship Specialty Start Date End Date Vivian Bautista APRN [address] [place] [address] PCP - General 10/19/13 documented as of this encounter
--- OUTSIDE RECORDS SUMMARY | 2024-02-07 11:01 | XMS_ITS | Encounter Summary ---
[place] [address] Care Team Providers Care Donor Recruiter Name Role Phone Vivian Bautista APRN Primary Care Provider +1 [phone] Encounter Details Date Type Department Care Team (Latest Contact Info) Description 10/05/2022 Travel Social History Tobacco Use Types Packs/Day [...] on filedocumented in this encounter Care Teams Donor Recruiter Relationship Specialty Start Date End Date Vivian Bautista APRN [address] [place] [address] PCP - General 10/19/13 documented as of this encounter
--- OUTSIDE RECORDS SUMMARY | 2024-02-07 11:01 | XMS_ITS | Encounter Summary ---
[place] [address] Care Team Providers Care Foreign Legal Consultant Name Role Phone Morena Bautistahradelaida Rose VINNY Primary Care Provider +1 [phone] Encounter Details Date Type Department Care Team (Latest Contact Info) Description 10/16/2021 7:15 AM EDT Laboratory Appointment Lab [address] [place] [id number] Elevated PSA; Hyperlipidemia, unspecified hyperlipidemia type Social History Tobacco [...] Name Priority Date/Time Associated Diagnosis Comments HC PROSTATE SPECIFIC ANTIGEN Routine 10/16/2021 7:23 AM EDT Elevated PSA LIPID PANEL (REFLEX DIRECT LDL) Routine 10/16/2021 7:23 AM EDT Hyperlipidemia, unspecified hyperlipidemia type documented in this encounter Results * Lipid Panel (Reflex Direct LDL) (10/16/2021 7:23 AM EDT) Cholesterol, Total 138 mg/dL [facility] Comment: Lower Risk: <200 mg/dL Average Risk: 200-239 mg/dL Higher Risk: >ll=725 mg/dL Triglyceride 153 mg/dL [facility] Comment: Average Risk/Lower Risk: <150 mg/dL Borderline High Risk: 150-199 mg/dL High Risk: 200-499 mg/dL Very High Risk: >sm=259 mg/dL HDL Cholesterol 35 mg/dL [facility] Comment: Males: ?? Higher Risk: <40 mg/dL Females: ?? Higher Risk: <50 mg/dL LDL Cholesterol 72 mg/dL [facility] Comment: Lowest Risk: <100 mg/dL Lower Risk: 100-129 mg/dL Borderline High Risk: 130-159 mg/dL High Risk: 160-189 mg/dL Very High Risk: >xg=135 mg/dL Cholesterol/HDL Ratio 3.9 ratio [facility] Lipid Interpretation See Note [facility] Comment: Lipid management should be guided by a patient? s ASCVD risk, goals and preferences. ACC/AHA Guidelines recommend high intensity statin if clinical ASCVD or LDL greater than or equal to 190 mg/dL. http://The Young Turksurl.com/OPS-CDW-Euromxlhk Adults aged 40-75 with LDL 70-189 mg/dL should have their 10 year ASCVD risk estimated with the ACC/AHA ASCVD risk relief captain http://tools.acc.org/BOYXC-Ywrk-Ozdflvmaj/ Statin should be discussed if risk greater [...] Lab Haim Fung MD CHEMISTRY ORDERABL ES [facility] [place] [address] * (ABNORMAL) PSA (Ultrasensitive), total and free (10/16/2021 7:23 AM EDT) Prostate Specific Antigen (Ultrasensitive ) 6.06(H) 0.00 - 4.00 ng/mL [facility] Comment: PLEASE NOTE: The above reference interval is intended for healthy males with an intact prostate. Values within this reference interval may indicate recurrence in men who have undergone radical prostatectomy. Prostate Specific Antigen, Free 1.0 ng/mL [facility] PSA % Free 16 % [facility] Comment: Probability of finding DOCTOR ASSISTANT on needle biopsy by age in years: % fPSA ? 50-59yrs ? 60-69yrs ? >=70yrs <=10 ? 49.2 ? 57.5 ? 64.5 11-18 ?26.9 ? 33.9 ? 40.8 19-25 ?18.2 ? 23.9 ? 29.7 >25 ? 9.1 ? 12.2 ? 15.8 Blood 10/16/2021 7:23 AM EDT 10/16/2021 7:31 AM EDT Narrative Resulting Agency Comment Spec In Lab Srinivas Kong MD CHEMISTRY ORDERABLES [facility] [place] [address] documented in this encounter Visit Diagnoses Diagnosis Elevated PSA Elevated prostate specific antigen (PSA) Hyperlipidemia, unspecified hyperlipidemia type documented in this encounter Care Teams Foreign Legal Consultant Relationship Specialty Start Date End Date Vivian Bautista APRN [address] [place] [address] PCP - General 10/19/13 documented as of this encounter
--- OUTSIDE RECORDS SUMMARY | 2024-02-07 11:02 | XMS_ITS | Encounter Summary ---
Author Organization [facility] [place] [address] Care Team Providers Care Tumbling And Rolling Supervisor Name Role Phone MicheleMorena davenporthryn Milton VINNY Primary Care Provider +1 -[phone] Encounter Details Date Type Department Care Team (Late st Contact Info) Description 06/08/2014 [place] [address] Charles Aguiar MD [facility] [place] [address] Social History Tobacco Use Types Packs/Day Years Used Date Smoking Tobacco: Former Cigarettes 1 5 0 08/29/2002 - 08/30/2007 Smokeless Tobacco: Never Alcohol Use Standard Drinks/Week Comments Yes 0 (1 standard drink = 0.6 oz pur e alcohol) Sex and Gender Information Value Date Recorded Sex Assigned at Male 03/18/2021 6:26 AM EDT Gender Identity Male 03/18/2021 6:26 AM EDT Sexual Orientation Straight 03/18/2021 6: 26 AM EDT documented as of this encounter Miscellaneous Notes * Telephone Encounter - Faith Cifuentes LPN - 06/08/2014 1:06 PM EST His MRI is normal. Can you let him know. ----- Called patient left message of normal MRI and left number to call back if he had anymore questions documented in this encounter Plan of Treatment Not on file documented as of this encounter Visit Diagnoses Not on filedocumented in this encounter Care Teams Tumbling And Rolling Supervisor Relationship Specialty Start Date End Date Vivian Bautista, JANITORIAL SERVICES SUPERVISOR [address] [place] [address] PCP - General 10/19/13 documented as of this encounter
--- OUTSIDE RECORDS SUMMARY | 2024-02-07 11:02 | XMS_ITS | Encounter Summary ---
Author Organization [facility] Address [facility] [place] [address] Care Team Providers Care Dental Patient Coordinator Name Role Phone Vivian Bautista VINNY Primary Care Provider +1 [phone] Reason for Visit * Reason Comments Left Knee Pain Encounter Details Date Type Department Care Team (Late st Contact Info) Description 10/19/2013 8:00 AM EDT Office [place] [address] Wm Jimenez PA [facility] [address] [place] [address] Knee pain, left (Primary Dx) Discharge Disposition: Home Social History Tobacco Use [...] Sign Reading Time Taken Comments Blood Pressure 133/90 10/19/2013 8:32 AM EDT Pulse 60 10/19/2013 8:32 AM EDT Temperature 36.6 ??C (97.9 ??F) 10/19/2013 8:32 AM ED T Respiratory Rate - - Oxygen Saturation - - Inhaled Oxygen Concentration - - Weight 99 kg (218 lb 4.8 oz) 10/19/2013 8:32 AM EDT Height 175.3 cm (5' 9) 10/19/2013 8:32 AM EDT v erbalized Body Mass Index 32.24 10/19/2013 8:32 AM EDT documented in this encounter Progress Notes * Wm Jimenez PA - 10/19/2013 9:06 AM EDT HISTORY OF PRESENT ILLNESS 58 y.o. year old male returns seeking repeat injection to his left knee.He had good relief with an injection 1 year ago. He has had no interval injuries. He has felt well aside from the knee. PHYSICAL EXAM: Ambulatory without assist or antalgia. There is trace effusion to the knee. No pain or laxity with varus and valgus stress. ROM from 0-130. Calves soft and nontender without edema. Peripheral pulses intact and equal ASSESSMENT: Left knee OA seeking injection PLAN: We discussed the risks and limitation of injections. We'll proceed with injection and f/u with him as needed. Indications for TKA were discussed. PROCEDURE NOTE: Time-out was performed. After consent was obtained, using sterile technique the left knee was prepped and 3 ml's of 1% plain Lidocaine used to anesthetize the needle tract into the joint from the suprapatellar approach. The knee joint was entered and 35 mg kenalog and 2 ml plain Lidocaine was then injected and the needle withdrawn. The procedure was well tolerated. The patient is asked to continue to rest the knee for a few more days before resuming regular activities. It may bemore painful for the first 1-2 days. Watch for fever, or increased swelling or persistent pain in knee. Call or return to clinic prn if such symptoms occur or the knee fails to improve as anticipated. documented in this encounter Plan of Treatment Not on file documented as of this encounter Visit Diagnoses Diagnosis Knee pain, left- Primary Pain in joint, lower leg documented in this encounter Administered Medications Inactive Administered Medications - up to 3 most recent administrations Medication Order MAR Action Action Date Dose Rate Site BUpivacaine (PF) (MARCAINE) 0.25 % (2.5 mg/mL) injection 5 mg 5 mg, Intra-articular, ONCE, 1 dose, On Radha 10/19/13 at 0945, Routine Given 10/19/2013 9:31 AM EDT 5 mg lidocaine (PF) (XYLOCAINE) 10 mg/mL (1 %) injection 50 mg 50 mg, Subcutaneous, ONCE, 1 dose, On Radha 10/19/13 at 0945, Routine Given 10/19/2013 9:31 AM EDT 50 mg triamcinolone acetonide (KENALOG) injection 35 mg 35 mg, Intra-articular, ONCE, 1 dose, On Radha 10/19/13 at 0945, Routine Given 10/19/2013 9:31 AM EDT 35 mg documented in this encounter Care Teams Dental Patient Coordinator Relationship Specialty Start Date End Date Vivian Bautista APRN [address] [place] [address] PCP - General 10/19/13 documented as of this encounter
--- OUTSIDE RECORDS SUMMARY | 2024-02-07 11:02 | XMS_ITS | Encounter Summary ---
Author Organization [facility] [address] Care Team Providers Care Pharmacy Retail Support Specialist Name Role Phone Michele, Vivian Rose APRN Primary Care Provider [phone] [phone] Reason for Visit * Reason Comments Obstructive Sleep Apnea Encounter Details Date Type Department Care Team (Late st Contact Info) Description 03/07/2019 2:30 PM EDT Office Visit Sleep Center at [facility] [address] [place] [address] Katie Mckeon, [facility] KAREN on CPAP Social History [...] this encounter Progress Notes * Katie Mckeon, [facility] - 03/07/2019 2:30 PM EDT Sleep Medicine Clinical Health Specialist Brief Follow-Up Note HPI: Mr. Julian Edmonds is a 63 y.o. male seen for follow-up of obstructive sleep apnea. Patient presents today for follow-up in PAP clinic: ?? Sleep Study: 07/09/17 HST DOS: 07/09/17 Total recording time: 543 min ?? 4% SHUBHAM: 25 Apnea index: 6 Central apnea index: 3 Hypopnea with desaturation > or equal to 4% index: 19 ?? Average SpO2: 89% Minimum SpO2: 68% ?? Minimum heart rate: 50 bpm Maximum heart rate: 102 bpm Average heart rate: 63 bpm Weight: 239# Treatment: CPAP Pressure: 11-16 cm (9-6 cm) Pressure tolerance good Interface: Nasal mask-N 20 nasal mask. He does have a FFM but has never used it Fit: likes it notices some leak-mouth breathing-never has use the chin strap-he has one Chin Strap: no HCC: [employer] Snoring: no Dry Mouth/Throat: yes-mouth breathing Mouth Breathing: Doesn't think so Patient perceived outcome: good, I'm getting plenty of sleep Symptom Benefit: Patient-reported last 4 scores: [facility] 09/21/2017 12/15/2017 03/07/2018 03/07/2019 [facility] 7 8 8 7 Insomnia Severity Index 15 (Moderately severe insomnia) 8 (Subthreshold insomnia) 9 (Subthreshold insomnia) 4 (No clinically significant insomnia) VR12 - Physical Component Summary - - - - VR12 - Mental Component Summary - - - - Sleep quality: good Bedtime: 730-8pm, affixes mask Awakening's: once/night to void. Can take awhile to return to sleep-mind starts wondering from increased work related stress Rise time: 430-5 am 7 days/week Daytime Symptoms: improvment Involuntary Dozing: no Napping: once in a blue navarro in his recliner Driving: Sleepiness or drowsiness no Patient estimates hours of sleep is 8 hr/night ROS: ?? ENT: Nasal Obstruction:??ok Constitutional:?? Study Weight 239# Current weight: 239# according to his scale Compliance Card Data: Date Range: 12/08-03/25/19 Settin-16 [...] this visit. Time spent face to face: 35 Min. Assessment: Mr. Julian Edmonds is a 63 y.o. male seen for follow-up of obstructive sleep apnea. Mr Edmonds presents today for follow-up in PAP clinic: He continues to have excellent adherence and tolerance andgood symptom benefit from CPAP. The download demonstrates [...] of sleep. Sleep quality is good. No setting changes made. RTC in one year. Recomendations: 1) CPAP 11-16 cm with ramp off and Heated Humidity 2) Follow-up: RTC one year with Delmi pulido 3) Driving safety discussed, recommend patient not drive if drowsy, if drowsy while driving to warehouse order puller and take a nap. 4) Patient to replace supplies routinely and understands mask cushions can be replaced monthly. The patient indicates understanding of these issues and agrees with the plan. documented in this encounter Plan of Treatment Not on file documented as of this encounter Visit Diagnoses Diagnosis KAREN on CPAP Obstructive sleep apnea (adult) (pediatric) documented in this encounter Care Teams Pharmacy Retail Support Specialist Relationship Specialty Start Date End Date Vivian Bautista APRN [address] [place] [address] PCP - General 10/19/13 documented as of this encounter
--- OUTSIDE RECORDS SUMMARY | 2024-02-07 11:02 | XMS_ITS | Encounter Summary ---
Author Organization [facility] Address [facility] [place] [address] Care Team Providers Care Senior Resident Care Director Name Role Phone Vivian Bautista APRN Primary Care Provider +1 [phone] Reason for Visit * Reason Comments Fatigue * Consultation (Routine) - Closed Specialty Diagnoses / Procedures Referred By Lashaun camarena Referred To Contact Endocrinology Diagnoses Vivian Reddy APRN [address] [place] [address] [facility] Endocr[facility]ology [address] [place] [id number] Referral ID Status Reason Start Date Expiration Date V isits Requested Visits Authorized [id number] Closed Consult, Test & Treat [facility] 11/04/2017 11/04/2018 1 1 Encounter Details Date Type Department Care Team (Late st Contact Info) Description 03/01/2018 9:00 AM EDT Office [place] [address] Darren Mendoza MD [facility] [place] [address] Chronic fatigue; Hypothyroidism, unspecified type Social History Tobacco Use [...] Sign Reading Time Taken Comments Blood Pressure 135/81 03/01/2018 8:43 AM EDT Pulse 53 03/01/2018 8:43 AM EDT Temperature - - Respiratory Rate - - Oxygen Saturation - - Inhaled Oxygen Concentration - - Weight 102.2 kg (225 lb 6.4 oz) 03/01/2018 8:43 AM EDT Height 175.3 cm (5' 9) 03/01/2018 8:43 AM EDT Body Mass Index 33.29 03/01/2018 8:43 AM EDT documented in this encounter Progress Notes * Darren Mendoza MD - 03/01/2018 9:00 AM EDT We are asked to see this 62 year old man to evaluate for potential endocrine causes of excessive fatigue It has been years he has not felt well due to fatigue Was found to have hypothyroidism 10-15 years ago Has been on 137 mcg a day for a while Recent dx of sleep apena- CPAP has helped but still hits the wall at around 2PM Takes nap if he can - will restore him Has had thyroid tests recently Has not had a testosterone (that he knows of) but has had a decrease in libido for some 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[employer] ([employer] He feels his job performance is still good but he has to push He has been losing weight - used to weigh 240 and has lost to 220-225- feels better Had a stress test and echo 3 years ago 1) Hypothyroidism 2) Sleep apnea 3) hernia repair 4) L knee replaced 1974 5) appendectomy Allergies Compazine gives him tics Smoking - quit 2007 EtOH 1-2 a day FH - dm2 + early cad + thyroid - prostate cancer - colon cancer [place]A [place] Lives w SO Enjoys hunting (birds) and fishing, home projects ROS - dental - asthma - chest pains - does - renal stones - renal disease - inflamed joints BP 135/81 Pulse 53 Ht 175.3 cm (5' 9) Wt 102.2 kg (225 lb 6.4 oz) BMI 33.29 kg/m2 Pleasant man, in good overall health Eyes- fulleom Thyroid - not enlarged, normal texture Chest - + mild gynecomastia, brast tissue extends 2.5 cm from edge of aerolae Tests - normal size and turgor Pending labs; testosterone total and free 1) Fatigue- the possible endocrine causes include [...] better on the T3/T4 combination. 2) hypothyroidism documented in this encounter Plan of Treatment Not on file documented as of this encounter Procedures Procedure Name Priority Date/Time Associated Diagnosis Comments TESTOSTERONE, TOTAL AND FREE Routine 03/01/2018 10:01 AM EDT Chronic fatigue documented in this encounter Results * Testosterone, total and free (03/01/2018 10:01 AM EDT) Testo Total 506 250 - 1100 ng/dL [facility] Comment: Men with clinically significant hypogonadal symptoms and testosterone values repeatedly in the range of the 200-300 ng/dL or less, may benefit from testosterone treatment after adequate risk and benefits counseling. For additional information, please refer to http://education.Singularu.com/faq/ GwmiaBbefyztwqjquFATSCNBAB213 (This link is being provided for informational/ educational purposes only.) This test was developed and its analytical performance characteristics have been determined by [facility] [place], [place]. It has not been cleared or approved by the U.S. Food and Drug Administration. This assay has been validated pursuant to the CLIA regulations and is used for clinical purposes. Testo Free (OCTOBER) 78.9 35.0 - 155.0 pg/mL [facility] Comment: This test was developed and its analytical performance characteristics have been determined by [facility] [place], [place]. It has not been cleared or approved by the U.S. Food and Drug Administration. This assay has been validated pursuant to the CLIA regulations and is used for clinical purposes. Test Performed by [facility], [facility], [address] [place] [address] Lyle Smith M.D., Ph.D., Director of Laboratories , CLIA [id number] Blood specimen (specimen) 03/01/2018 10:01 AM EDT 03/01/2018 12:56 PM EDT Narrative Resulting Agency Comment Spec In Lab Darren Mendoza MD LAB SEND OUT ORDERAB LES Performing Organization Address City/State/[facility] Co de Phone Number [facility] [place] [address] documented in this encounter Visit Diagnoses Diagnosis Chronic fatigue Other malaise and fatigue Hypothyroidism, unspecified type documented in this encounter Care Teams Senior Resident Care Director Relationship Specialty Start Date End Date Vivian Bautista APRN [address] [place] [address] PCP - General 10/19/13 documented as of this encounter
--- OUTSIDE RECORDS SUMMARY | 2024-02-07 11:02 | XMS_ITS | Encounter Summary ---
Author Organization [facility] [place] [address] Care Team Providers Care Mobile Solutions Architect Name Role Phone Vivian Bautista VINNY Primary Care Provider +1 -[phone] Encounter Details Date Type Department Care Team (Late st Contact Info) Description 08/18/2017 Telephone Sleep Center at [facility] [address] [place] [id number] Megha Stokes, RN Social History Tobacco Use Types Packs/Day [...] encounter Miscellaneous Notes * Telephone Encounter - Lisette Brown MD - 08/23/2017 4:29 PM EDT Called home number x 3 -- busy signal. Called cell number listed -- no answer; no voice mail option documented in this encounter Plan of Treatment Not on file documented as of this encounter Visit Diagnoses Not on filedocumented in this encounter Care Teams Mobile Solutions Architect Relationship Specialty Start Date End Date Vivian Bautista APRN [address] [place] [address] PCP - General 10/19/13 documented as of this encounter
--- OUTSIDE RECORDS SUMMARY | 2024-02-07 11:02 | XMS_ITS | Encounter Summary ---
Author Organization [facility] [place] [address] Care Team Providers Care Manager Utilization Management Name Role Phone Vivian Bautista APRN Primary Care Provider +1 -[phone] Encounter Details Date Type Department Care Team (Late st Contact Info) Description 03/17/2018 Telephone Sleep Center at [facility] [address] [place] [address] Lynette Yuen Social History Tobacco Use Types Packs/Day Years [...] on filedocumented in this encounter Care Teams Manager Utilization Management Relationship Specialty Start Date End Date Vivian Bautista APRN [address] [place] [address] PCP - General 10/19/13 documented as of this encounter
--- OUTSIDE RECORDS SUMMARY | 2024-02-07 11:02 | XMS_ITS | Encounter Summary ---
Author Organization [facility] Address [facility] [place] [address] Care Team Providers Care Salesperson Driver Name Role Phone Vivian Bautista VINNY Primary Care Provider [phone] [phone] Encounter Details Date Type Department Care Team (Late st Contact Info) Description 07/10/2014 8:30 AM EST Office [place] [address] Eddie Norton MD [facility] [place] [address] [place] Discharge Disposition: Home Social History Tobacco Use [...] Sign Reading Time Taken Comments Blood Pressure 153/96 07/10/2014 8:22 AM EST Pulse 61 07/10/2014 8:22 AM EST Temperature - - Respiratory Rate - - Oxygen Saturation - - Inhaled Oxygen Concentration - - Weight 104.1 kg (229 lb 6.4 oz) 07/10/2014 8:22 AM EST Height - - Body Mass Index 32.92 05/07/2014 12:42 PM EST documented in this encounter Progress Notes * Eddie Norton MD - 07/10/2014 8:39 AM EST Reason for consult: Headaches, flushing Referred by: Vivian Noriega Mr Edmonds is a 59 yr old male who comes in consult for headaches and episodes of HTN and flushing.States that he has been getting a lot of headaches. They are about 10 min duration and they are located on top of head. Had MRI head done which was normal. Seen a neurologist. Did not find any cause of headaches. They occur on random days. No relation to any activity or food or anything. But with headaches he has noted that his BP is high and has flushing. Except for headahces he does not have any other symptoms expect for numbness in his left UE. Statesthat he had stress test, Carotid US and everything is normal. Weight changes: gained about 18 pounds Headaches: yes Palpitations: yes - not too often. Sometimes feels the heart beat in roof of mouth Anxiety: none Flushings: gets red in face at the time of headaches Tremors: none Nausea: none Constipation: none HTN: gets HTN when he has headache. Vision: blurry at the time of headaches Polyuria: none Polydipsia: none Sweating: none SOB: none PMH: Hypothyroidism Dyslipidemia OA PSH: Inguinal hernia repair Left knee reconstruction Appendectomy FH: Father - thyroid issues , [place] - 2 times Nephews: hypothyroidism PGM - thyroid issues Mother - CAD. Smoker, PAD - s/p leg amputation Social: Non smoker Alcohol - 6 pack a week No illicit drugs Not Kids - 2 biological kids - in good health Work - [employer] Meds/Allergies: reviewed PE Blood pressure 153/96, pulse 61, weight 104.055 kg (229 lb 6.4 oz). Repeat BP: 154/96 General: well nourished, in no distress Head/Eyes: anicteric, PERRL, No conjunctival injection, no proptosis, no lid lag ENT: without Lesions/exudates Neck: Supple, full ROM, no LAD or masses Thyroid: normal, with no nodules, no bruit CV: RRR, no murmur/gallops/rubs Pulm: Non-labored, CTAB Abd: ND, positive bowel sounds, soft, NT, no masses Peripheral: No edema, palpable DP pulses Neuro: CN intact including visual edwards, sensation intact to light touch, reflexes in bl knees normal. Skin: no rashes, not dry. A/P: Mr Edmonds is a 59 yr old male comes in consult for headaches, flushing, HTN. The differential include HTN induced headaches, pheochromocytoma, carcinoid syndrome. HTN : repeat BP shows it to be high. Also his h/o of HTN occuring with headaches could point the cause of headaches could be primary HTN. Pheochromocytoma: Very less likely. His lack of weight loss, lack of pallor (has flushing), lack ofother sympathetic symptoms makes this diagnosis less likely. But with rare palpitations, HTN with headaches would be worth ruling out. Carcinoid: except for flushing and rare palpitations he does not have other symptoms of carcinoid like diarrhea, abdominal symptoms. Will measure 24 hour urine 5 HIAA to rule out the possibility. P: Plasma metanephrines 24 hour urine 5 HIAA Eddie Norton Endocrine Staff Physician [facility] documented in this encounter Plan of Treatment Not on file documented as of this encounter Procedures Procedure Name Priority Date/Time Associated Diagnosis Comments METANEPHRINES, FRACTIONATED FREE, PLASMA Routine 07/10/2014 9:17 AM EST [place] documented in this encounter Results * Metanephrines, Fractionated Free, plasma (07/10/2014 9:17 AM EST) Normetanephrine, Free (OCTOBER) 0.73 <0.90 nmol/L [facility] Comment: Test Performed by: [place] [id number] Pastoral Assistant: Tha Banerjee M.D. Metanephrine, Free (OCTOBER) <0.20 <0.50 nmol/L [facility] Comment: Test Performed by: [facility] [address] [place] [address] Pastoral Assistant: Tha Banerjee M.D. Blood specimen (specimen) 07/10/2014 9:17 AM EST 07/10/2014 1:09 PM EST Narrative Resulting Agency Comment Spec In Lab Eddie Norton MD LAB SEND OUT ORD ERABLES [facility] documented in this encounter Visit Diagnoses Diagnosis [place] documented in this encounter Care Teams Salesperson Driver Relationship Specialty Start Date End Date Vivian Bautista APRN [address] [place] [address] PCP - General 10/19/13 documented as of this encounter
--- OUTSIDE RECORDS SUMMARY | 2024-02-07 11:02 | XMS_ITS | Encounter Summary ---
Author Organization [facility] [place] [address] Care Team Providers Care Director Business Development Name Role Phone Morena Bautistahryn Milton VINNY Primary Care Provider [phone] [phone] Encounter Details Date Type Department Care Team (Late st Contact Info) Description 07/30/2017 Telephone Sleep Center at [facility] [address] [place] [address] Lisette Brown MD [facility] [place] [address] Social History Tobacco Use Types Packs/Day Years [...] filedocumented in this encounter Care Teams Director Business Development Relationship Specialty Start Date End Date Vivian Bautista, VINNY [address] [place] [address] PCP - General 10/19/13 documented as of this encounter
--- OUTSIDE RECORDS SUMMARY | 2024-02-07 11:02 | XMS_ITS | Encounter Summary ---
Author Organization [place] [address] Care Team Providers Care Barker Operator Name Role Phone Vivian Dubois APRN Primary Care Provider [phone] [phone] Reason for Visit * Consultation (Routine) - Closed Specialty Diagnoses / Procedures Referred By Lashaun camarena Referred To Contact Sleep Center Diagnoses Snoring Procedures PRG HOME SLEEP TEST TYPE 3 PORTABLE Du Brown MD [facility] SLEEP [place] [address] [facility] [address] [place] [address] Referral ID Status Reason Start Date Expiration Date V isits Requested Visits Authorized [id number] Closed Test Only 07/06/2017 08/19/2017 1 1 Encounter Details Date Type Department Care Team (Late st Contact Info) Description 07/09/2017 3:30 PM EST Procedure visit Sleep Center at [facility] [address] [place] [address] Du Brown MD [facility] SLEEP [place] [address] KAREN (obstructive sleep apnea) Social History Tobacco Use Types Packs/Day Years [...] as of this encounter Progress Notes * Du Brown MD - 07/09/2017 3:30 PM EST Images from the original note were not included. HOME SLEEP APNEA TEST RESULTS Home sleep testing performed with a 4 channel Apnea Link Plus Monitor, recording respiratory effort, airflow, oxygen saturation and heart rate. DOS: 07/09/17 Total recording time: 543 min 4% SHUBHAM: 25 Apnea index: 6 Central apnea index: 3 Hypopnea with desaturation > or equal to 4% index: 19 Average SpO2: 89% Minimum SpO2: 68% Minimum heart rate: 50 bpm Maximum heart rate: 102 bpm Average heart rate: 63 bpm Assessment: Home sleep testing demonstrates evidence of obstructive sleep apnea, overall in at least the moderate range of severity. Mean oxyhemoglobin saturation was reduced. There were periods of higher frequency obstructive events with associated marked cyclical oxyhemoglobin desaturations, although no periods of persistent hypoxemia observed. Phone message left for Mr. Edmonds. Recommendations: AutoPAP 6-16cm F/U after initiating CPAP; call sooner for problems/questions [facility] HOME SLEEP APNEA TEST REPORT Patient Name: Julian Edmonds Study Date: 07/09/2017 Age & Sex: 62 y.o. Male Height: 5'10 Date of : 1955 Weight: 239 BMI: 34.3 Referring Prov.: VIVIAN DUBOIS APRN Scoring Tech: ALEE TORREZ, ROBERT, RPSGT Sleep Fellow: Sleep Specialist: DU BROWN M.D. General Test Details Type III home sleep apnea testing was performed utilizing nasal pressure, single thoracoabdominal movement, heart rate, and oxygen saturation according to established AASM guidelines. Recording Start Time: :: Monitoring Start Time: :: Recording End Time: : Monitoring End Time: :43 Total Recording Time (TRT): 543.0 minutes Monitoring Time (MT): 543.0 minutes Respiratory Details Respiratory Event Total Count Index (events/hr) Obstructive apnea 22 2.4 Mixed apnea 0 0.0 Central apnea 28 3.1 Sum of all apnea types 50 5.5 Hypopneas without associated desaturation 1 0.1 Hypopneas with desaturation >=4% (CMS) 176 19.4 4% Respiratory Event Index (4%SHUBHAM): 25.0 *Includes the sum of all apneas and hypopneas (assoc. with desaturation of >=4%) per hour of monitoring. 4% AHI (CMS): 25.0 *Includes the sum of all apneas and hypopneas (assoc. with desaturation of >=4%) per hour of monitoring. Sea-[place] Breathin.0% of total monitoring time Minimum SpO2: 68% Average SpO2 (during TRT): 89% SpO2 <= X%: Total Time <=90% 208.3 min <=89% 141.5 min <=88% 97.0 min SpO2 Ranges: Total Time 90%-99% 399.9 min 80%-90% 126.0 min 70%-80% 14.5 min 60%-70% 0.5 min 0%-60% 0.5 min Cardiac Details Minimum Heart Rate 50 bpm Maximum Heart Rate 102 bpm Average Heart Rate 63 bpm Graphs Time Scale Respiratory Event Graph SpO2 Trend documented in this encounter Plan of Treatment Not on file documented as of this encounter Visit Diagnoses Diagnosis KAREN (obstructive sleep apnea) Obstructive sleep apnea (adult) (pediatric) documented in this encounter Care Teams Barker Operator Relationship Specialty Start Date End Date Vivian Dubois APRN [address] [place] [address] PCP - General 10/19/13 documented as of this encounter
--- OUTSIDE RECORDS SUMMARY | 2024-02-07 11:02 | XMS_ITS | Encounter Summary ---
Author Organization [facility] [place] [address] Care Team Providers Care Art Appraiser Name Role Phone Michele, Vivian Rose APRN Primary Care Provider [phone] Encounter Details Date Type Department Care Team (Late st Contact Info) Description 03/08/2018 Orders Only Sleep Center at [facility] [address] [place] [address] Katie Mckeon, COMPOSITE BOND WORKER SLEEP CENTER KAREN on CPAP Social History [...] Type Priority Associated Diagnoses Orde r Schedule Pulmonary Function Testing PFT Routine KAREN on CPAP Ordered: 03/08/2018 documented as of this encounter Visit Diagnoses Diagnosis KAREN on CPAP Obstructive sleep apnea (adult) (pediatric) documented in this encounter Care Teams Art Appraiser Relationship Specialty Start Date End Date Vivian Bautista APRN [address] [place] [address] PCP - General 10/19/13 documented as of this encounter
--- OUTSIDE RECORDS SUMMARY | 2024-02-07 11:02 | XMS_ITS | Encounter Summary ---
Author Organization [facility] [place] [address] Care Team Providers Care Director Food Safety Name Role Phone Vivian Bautista VINNY Primary Care Provider [phone] [phone] Encounter Details Date Type Department Care Team (Late st Contact Info) Description 08/23/2017 Orders Only Sleep Center at [facility] [address] [place] [address] Lisette Brown MD [facility] DR SLEEP [place] [address] Social History Tobacco Use Types Packs/Day Years [...] filedocumented in this encounter Care Teams Director Food Safety Relationship Specialty Start Date End Date Vivian Bautista APRN [address] [place] [address] PCP - General 10/19/13 documented as of this encounter
--- OUTSIDE RECORDS SUMMARY | 2024-02-07 11:02 | XMS_ITS | Encounter Summary ---
Author Organization [facility] [place] [address] Care Team Providers Care Television Anchor Name Role Phone Vivian Bautista VINNY Primary Care Provider [phone] Reason for Visit * Reason Onset Date Comments Medication Refill 06/21/2018 Encounter Details Date Type Department Care Team (Late st Contact Info) Description 06/21/2018 [place] [address] Darren Mendoza MD [facility] [place] [address] Social History Tobacco Use Types Packs/Day Years [...] on filedocumented in this encounter Care Teams Television Anchor Relationship Specialty Start Date End Date Vivian Bautista APRN [address] [place] [address] PCP - General 10/19/13 documented as of this encounter
--- OUTSIDE RECORDS SUMMARY | 2024-02-07 11:02 | XMS_ITS | Encounter Summary ---
Author Organization [facility] Address [facility] [place] [address] Care Team Providers Care Cook Apprentice Pastry Name Role Phone Imer Villegas MD Primary Care Provider [phone] Encounter Details Date Type Department Care Team (Late st Contact Info) Description 12/26/2012 Orders [place] [address] Wm Jimenez PA [facility] [place] [address] Left knee pain (Primary Dx) Social History Tobacco Use Types Packs/Day Years Used Date Smoking Tobacco: Never Assessed Sex and Gender Information Value Date Recorded Sex Assigned at Male 03/18/2021 6:26 AM EDT Gender Identity Male 03/18/2021 6:26 AM EDT Sexual Orientation Straight 03/18/2021 6: 26 AM EDT documented as of this encounter Plan of Treatment Not on file documented as of this encounter Results * XR JOINT TEAM ALIGNMENT AP LAT SCHUSS SKYLINE (01/02/2013 2:28 PM EDT) Anatomical Region Laterality Modality N/A Radiographic Jovanna ging 01/02/2013 2:28 PM EDT Narrative 01/02/2013 3:07 PM EDT Examination JOINT TEAM STANDING ALIGNMENT AP LAT SCHUSS SKYLINE/LEFT Clinical History LEFT KNEE OA Comparison None. Technique Separate images of the pelvis, knees and feet were acquired in the AP projection with the patient standing. In addition to routine views of the knee, these images were stitched together to form a composite image of the pelvis and legs allowing for evaluation of lower extremity alignment in the weight bearing position. AP PA sunrise views and a lateral view of the left knee as well as a 2nd PA view. Findings A line drawn from mid femoral head to mid talus intersects the left knee along the medial tibial spine and the right knee between the tibial spines. ??There is a piece of orthopedic hardware seen at the tibial tuberosity on the left. ?? Clinical correlation recommended. ??There is no left effusion. ??There is marked medial compartment narrowing on the left side with slight subluxation of the tibia laterally relative to the femur. ??Osteophytes are seen. ??The right knee has normal appearance. ??The left knee shows coarsening of the trabecular pattern and bony demineralization. The changes are likely related to prior trauma. Clinical correlation is recommended. Procedure Note Ema Llanes MD - 01/02/2013 Examination JOINT TEAM STANDING ALIGNMENT AP LAT SCHUSS SKYLINE/LEFT Clinical History LEFT KNEE OA Comparison None. Technique Separate images of the pelvis, knees and feet were acquired in the AP projection with the patient standing. In addition to routine views of theknee, these images were stitched together to form a composite image of thepelvis and legs allowing for evaluation of lower extremity alignment in the weightbearing position. AP PA sunrise views and a lateral view of the left knee as well as a 2ndPA view. Findings A line drawn from mid femoral head to mid talus intersects the left kneealong the medial tibial spine and the right knee between the tibial spines.There is a piece of orthopedic hardware seen at the tibial tuberosity on the left. Clinical correlation recommended. There is no left effusion. There ismarked medial compartment narrowing on the left side with slight subluxation ofthe tibia laterally relative to the femur. Osteophytes are seen. The rightknee has normal appearance. The left knee shows coarsening of the trabecular pattern and bony demineralization. The changes are likely related to prior trauma. Clinical correlation is recommended. Kobe Alejandre MD IMG DX ORDERABLES documented in this encounter Visit Diagnoses Diagnosis Left knee pain- Primary Pain in joint, lower leg Left knee pain Pain in joint, lower leg documented in this encounter Care Teams Cook Apprentice Pastry Relationship Specialty Start Date End Date Imer Villegas MD PCP - General 12/23/12 10/18/13 documented as of this encounter
--- OUTSIDE RECORDS SUMMARY | 2024-02-07 11:02 | XMS_ITS | Encounter Summary ---
Author Organization [facility] [place] [address] Care Team Providers Care Event Organizer Name Role Phone Michele, Vivian Rose APRN Primary Care Provider [phone] Reason for Visit * Reason Comments Obstructive Sleep Apnea Encounter Details Date Type Department Care Team (Late st Contact Info) Description 03/07/2018 2:30 PM EDT Office Visit Sleep Center at [facility] [address] [place] [address] Katie Mckeon, DIRECTOR MEDICAL SCIENCE SLEEP CENTER KAREN on CPAP Social History [...] this encounter Progress Notes * Katie Mckeon, DIRECTOR MEDICAL SCIENCE - 03/07/2018 2:30 PM EDT Sleep Medicine Clinical Health Specialist Brief Follow-Up Note HPI: Mr. Julian Edmonds is a 62 y.o. male seen for follow-up of obstructive [...] but has never used it Fit: likes it, some leak with the increase in pressure Chin Strap: no HCC: [employer] Snoring: no Dry Mouth/Throat: not bad Mouth Breathing: Doesn't think so Patient perceived outcome: Not as tired in the afternoons with the pressure increase. Symptom Benefit: Troy: 8 (8 previous) Sleep quality: good Bedtime: 8-9 pm, affixes mask, asleep promptly Awakening's: once/night to void. Generally no problems returning to sleep Rise time: 430-5:00 am 7 days/week Daytime Symptoms: improvment Involuntary Dozing: no and never did Napping: less napping with the pressure increase, prior to CPAP used to be everyday. Driving: Sleepiness or drowsiness no Patient estimates hours of sleep is 7-8 hr/night ROS: ?? ENT: Nasal Obstruction:??ok Constitutional:?? Study Weight 239# Current weight: 225# has lost some weight cutting back on what he eats Compliance Card Data: Date Range: 12/03-03/02/18 Settin-16 cm median 11 cm/95% 12.8 cm (was raised from 9-16 cm) Residual AHI: 0.2 Vibratory Snore Index: n/a % Night in Large Leak: Median 4/95% 21 Average usage all days-Hours: 7 hr 35 min # of Days of usage: 85/80 % Days used > 4 hours 94% Total % Days used 94% Physical Exam: Respirations: Even and not labored at rest DERM: Skin irritation: none There were no vitals filed for this visit. Time spent face to face: 35 Min. Assessment: Mr. Julian Edmonds is a 62 y.o. male seen for follow-up of obstructive sleep apnea. Patient presents today for follow-up in PAP clinic: Mr Edmonds is using his CPAP and meeting adherence. The download demonstrates the AHI appears well controlled. Leak is a bit higher from the pressure increase. Mr Edmonds is aware of some leak but not bad. He feels better with the increase-no longer hitting the wall every afternoon. He did see his material handler and was recently started on cytomel 5 mcg/day in addition to his synthroid. Patient has a hx of thyroid disease. To address the leak he will try his FFM (F 20), has never tried it before. Currently uses a nasal over the nose mask N 20. Mask strap adjustment was demonstrated. No settings change. RTC in one year/PRN. Recomendations: 1) CPAP 11-16 cm with ramp off and Heated Humidity 2) Follow-up: RTC one year with Delmi pulido 3) Driving safety discussed, recommend patient not drive if drowsy, if drowsy while driving to assembler for puller over machine and take a nap. 4) Patient to replace supplies routinely and understands mask cushions can be replaced monthly. 5) Patient will try his FFM F 20-has never used it. The patient indicates understanding of these issues and agrees with the plan. documented in this encounter Plan of Treatment Not on file documented as of this encounter Visit Diagnoses Diagnosis KAREN on CPAP Obstructive sleep apnea (adult) (pediatric) documented in this encounter Care Teams Event Organizer Relationship Specialty Start Date End Date Vivian Bautista APRN [address] [place] [address] PCP - General 10/19/13 documented as of this encounter
--- OUTSIDE RECORDS SUMMARY | 2024-02-07 11:02 | XMS_ITS | Encounter Summary ---
Author Organization [facility] Address [facility] [place] [address] Care Team Providers Care Mule Tender Name Role Phone Imer Villegas MD Primary Care Provider Encounter Details Date Type Department Care Team (Late st Contact Info) Description 01/02/2013 1:58 PM EDT - 01/02/2013 11:59 PM EDT Hospital Encounter XRay at [address] [place] [address] Left knee pain Social History Tobacco Use Types Packs/Day Years [...] Sig Dispensed Refills Start Date End Date levothyroxine (SYNTHROID) 150 mcg tablet Take 150 mcg by mouth daily. 06/25/2017 ibuprofen (ADVIL;MOTRIN) 800 mg tablet Take 600 mg by mouth every 6 hours as needed. 03/20/2022 sildenafil (VIAGRA) 100 mg tablet Take 100 mg by mouth as needed. 09/10/2020 famotidine (PEPCID) 10 mg tablet Take 10 mg by mouth as needed. 09/10/2020 GLUCOSAMINE/CHONDROITIN SULF A (GLUCOSAMINE-CHONDROITIN ORAL) Take by mouth. 06/25/2017 documented as of this encounter Plan of Treatment Not on file documented as of this encounter Procedures Procedure Name Priority Date/Time Associated Diagnosis Comments XR JOINT TEAM ALIGNMENT AP LAT SCHUSS SKYLINE Routine 01/02/2013 2:28 PM EDT Left knee pain documented in this encounter Results * XR JOINT TEAM [...] this encounter Visit Diagnoses Diagnosis Left knee pain Pain in joint, lower leg documented in this encounter Care Teams Mule Tender Relationship Specialty Start Date End Date Imer Villegas MD PCP - General 12/23/12 10/18/13 documented as of this encounter
--- OUTSIDE RECORDS SUMMARY | 2024-02-07 11:02 | XMS_ITS | Encounter Summary ---
Author Organization [facility] [place] [address] Care Team Providers Care Rat Poisoner Name Role Phone Vivian Bautista VINNY Primary Care Provider [phone] Encounter Details Date Type Department Care Team (Late st Contact Info) Description 05/07/2014 12:45 PM EST [place] [address] Charles Aguiar MD [facility] [place] [address] Headache Discharge Disposition: Home Social History Tobacco Use [...] Sign Reading Time Taken Comments Blood Pressure 143/86 05/07/2014 12:42 PM EST Pulse 64 05/07/2014 12:42 PM EST Temperature - - Respiratory Rate - - Oxygen Saturation - - Inhaled Oxygen Concentration - - Weight 97.5 kg (215 lb) 05/07/2014 12:42 PM EST Height 177.8 cm (5' 10) 05/07/2014 12:42 PM EST Body Mass Index 30.85 05/07/2014 12:42 PM EST documented in this encounter Progress Notes * Charles Aguiar MD - 05/07/2014 1:39 PM EST I was asked to see Julian Edmonds at the request of Vivian Bautista M.D. for the evaluation of headache. Julian is a 59-year-old gentleman who states that this summer he began having new brief headache episodes. He recalls when he was young at around fifth grade, he was having intermittent headaches and migraines and said he was seen in [place]. He said he may have had an encephalitis, but then he mentioned migraine and he said he was having them for several years and then they just went away. He has been headache free over these years; although this summer he started having episodic headache lasting about 15 to 20 minutes. They could occur in different parts of his head. At times they would be behind his eyes and other times top of the head or back of the head. Sometimes they would be more on the left side with a left cervical region. He says they seem to build up over several minutes and then they slowly dissipate after about 15 to 20 minutes. He describes them as constant, ache. He did say they were throbbing, although when I clarified it with him he did not find that they were not pulsatile in any way. He does not notice any clear triggers, sometimes he will wake up in the middle of the night with them. They do not seem to occur at any particular time of day. He denies any nausea or vomiting, photo or phonophobia. He states that during these episodes he will feel a flushness in his face. He will say that people will notice his face and it is quite red. He does not notice any lid swelling or ptosis. He does not notice any eye discharge. He states that he feels his blood pressure is elevated during these events. He says he feels like that is the case and he has actually measured his blood pressure during a headache and has noticed it to be high, about 160 to 170/90, although normally he says he is around 140. He does not normally take any medication for blood pressure. He says that he has had this sensation and was able to measure it at the drug store before, although he does not have a blood pressure cuff at home. He says that the episodes are becoming more frequent and seem to occur about three to four times a week. He is again, headache free in between the episodes. He does have some chronic cervical pain with mild neck discomfort at baseline. He mentions some intermittent paresthesias on the left forearm, more posteriorly, and then into the first and second fingertip, but that has only been going on the last couple of weeks. He says he has seen his primary care doctor. He has had a stress test that was unremarkable, carotid ultrasound that was unremarkable, as well as some routine blood work and thyroid studies, which he says have been unremarkable. I do not have any of those results. Past Medical History: Hyperlipidemia. History of colonic polyps. Hypothyroidism. GERD. History of erectile dysfunction. Medications 05/07/14 1338 Medication Sig Taking? rosuvastatin (CRESTOR) 10 mg Tablet Take 10 mg by mouth daily. Yes simvastatin (ZOCOR) 5 mg tablet Take 5 mg by mouth nightly. Yes levothyroxine (SYNTHROID) 150 mcg tablet Take 150 mcg by mouth daily. Yes ibuprofen (ADVIL;MOTRIN) 800 mg tablet Take 800 mg by mouth every 6 hours as needed. Yes sildenafil (VIAGRA) 100 mg tablet Take 100 mg by mouth as needed. Yes famotidine (PEPCID) 10 mg tablet Take 10 mg by mouth as needed. Yes GLUCOSAMINE/CHONDROITIN SULF A (GLUCOSAMINE-CHONDROITIN ORAL) Take by mouth. Yes Allergies Allergen Reactions ??? Compazine [Prochlorperazine] Other (See Comments) Facial ticks Family History: No history of migraine. Social History: He lives with his significant other. He has two children, she has one. He quit smoking in 2000. He drinks about a six pack of beer a week. 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 He says his significant other is an Oncology nurse. He also mentions he has one of his sons in Medical School. Review of Systems: As per history of presenting illness; otherwise, notable for some intermittent snoring and some daytime sleepiness. He says his primary doctor would like him to get a sleep study, although he is holding off at this point. He mentions some occasional chills, which he attributes to his thyroid disease. Weight has been stable; otherwise negative. In general he appears in no distress. HEENT: Mucous membranes are moist. Sclerae are anicteric. Oropharynx is clear. Cardiovascular: Heart has a regular rate and rhythm, S1 S2, no murmurs. Respiratory: Lungs are clear to auscultation bilaterally. Musculoskeletal: See neurological exam. Skin: No rashes. Neurological: Mental status: He is alert, oriented, and attentive to questions. Speech is fluent and goal directed. Affect is appropriate. Cranial nerve testing II through XII is intact including extraocular muscles intact. Fundoscopy exam revealed sharp discs bilaterally. Motor exam: There is no muscle atrophy or fasciculations. Tone is normal. No pronator drift. Power is 5 out of 5 throughout. Reflexes are 2 out of 4 throughout except for 1 out of 4 knee jerks and ankle jerks. Sensory exam is intact to light touch and vibration. Cerebellar: Normal fhtunv-ph-ecsw testing. Gait is normal. Romberg is negative. Clinical Data: See history of presenting illness. Assessment: Julian Edmonds is a 59-year-old gentleman with a history since this summer of intermittent brief headaches. He mentions they are associated with blood pressure spiking and he does have some flushness and redness during these events. The etiology of these headaches are unclear, although based on his history does suggest that transient hypertension could be causing these headaches. It is unclear though why he is having these episodes of episodic hypertension. He says he has had a stress test that has been unremarkable. I am not sure of any further investigations he has had, but some routine blood work apparently was normal. Thyroid studies were also normal. Based on the brief nature of these events, it does not raise concern for condition such as temporal arteritis. Mass lesions would be very atypical. Brief headaches would not be typical for migraine. He is not one to normally get headaches. Cluster variant or paroxysmal hemicrania continua could present this way; however, his headaches are not unilateral. Of note, with respect to cluster his headaches are not severe either. Recommendations: We did discuss a MRI brain with and without contrast is reasonable. He would prefer to have that done through [facility] and will then therefore be arranged by Vivian Bautista A.P.R.N. I will send this note to her and would request the reports to be sent, as well as request the images be sent electronically. We did discuss the possibility of Endocrine consult or even Cardiology consult. Rare conditions such as a pheochromocytoma or carcinoid syndrome could present with episodic headache and flushing; however, again it is not typical for either. The 24-hour metanephrines could be considered. He will talk to his PCP and get a referral to Endocrinology. I would agree with his PCP regarding consideration for a sleep study, although I would have a hard time linking that back to his headaches, if he had obstructive sleep apnea, as he does not note morning headaches. We discussed also for him to get a home blood pressure monitor to get a better idea of what his blood pressure has been looking like and also to be able to get frequent measurements while he is doing well compared to these attacks of redness, flushing, and headache. Then he can pass those results to his PCP. I will plan to see him in followup in about two months' time, sooner if needed. documented in this encounter Plan of Treatment Not on file documented as of this encounter Visit Diagnoses Diagnosis Headache documented in this encounter Care Teams Rat Poisoner Relationship Specialty Start Date End Date Vivian Bautista APRN [address] [place] [address] PCP - General 10/19/13 documented as of this encounter
--- OUTSIDE RECORDS SUMMARY | 2024-02-07 11:02 | XMS_ITS | Encounter Summary ---
Author Organization [facility] Address [facility] [place] [address] Care Team Providers Care Platen Builder Up Name Role Phone Vivian Bautista VINNY Primary Care Provider [phone] Encounter Details Date Type Department Care Team (Latest Contact Info) Description 06/25/2017 7:34 AM EST - 06/25/2017 11:59 PM [facility] Encounter XRay at [address] [place] [address] Srinivas Cruz MD [facility] [place] [address] Pain in both knees, unspecified chronicity Discharge Disposition: Home Social History Tobacco Use [...] Sig Dispensed Refills Start Date End Date meTOPROLOL succinate (TOPROL-XL) 100 mg Tablet Sustained Release 24 hr Take 100 mg by mouth daily. 06/21/2017 levothyroxine (SYNTHROID) 137 mcg Tablet 100 mcg daily. 02/04/2017 03/20/2022 rosuvastatin (CRESTOR) 10 mg Tablet Take 10 mg by mouth daily. 09/10/2020 ibuprofen (ADVIL;MOTRIN) 800 mg tablet Take 600 mg by mouth every 6 hours as needed. 03/20/2022 sildenafil (VIAGRA) 100 mg tablet Take 100 mg by mouth as needed. 09/10/2020 famotidine (PEPCID) 10 mg tablet Take 10 mg by mouth as needed. 09/10/2020 documented as of this encounter Plan of Treatment Not on file documented as of this encounter Procedures Procedure Name Priority Date/Time Associated Diagnosis Comments XR KNEE AP AND LAT BILAT Routine 06/25/2017 7:52 AM EST Pain in both knees, unspecified chronicity documented in this encounter Results * XR Knee 1-2 Views Bilat (Generic) (06/25/2017 7:52 AM EST) Anatomical Region Laterality Modality Knee Bilateral Digital Radiogra phy Impressions 06/25/2017 10:42 AM EST Osteoarthritis of the left knee is present and is more severe than seen in 2012. Narrative 06/25/2017 10:42 AM EST EXAMINATION: XR KNEE 1-2 VIEWS BILAT (GENERIC) CLINICAL HISTORY: bilat knee pain TECHNIQUE: Knees bilateral AP and lateral COMPARISON: January 02, 2013 FINDINGS: Right knee The joint spaces are intact. No acute pathology is present. Left knee The joint spaces of the left knee is narrowed with most severe involvement of the medial compartment. Tricompartmental osteophytes are present. The arthropathy is more severe than seen in the prior study of 2012. Again seen is a metallic fixation device in the tibial tuberosity. Procedure Note Satish Meadows MD - 06/25/2017 EXAMINATION: XR KNEE 1-2 VIEWS BILAT (GENERIC) CLINICAL HISTORY: bilat knee pain TECHNIQUE: Knees bilateral AP and lateral COMPARISON: January 02, 2013 FINDINGS: Right knee The joint spaces are intact. No acute pathology is present. Left knee The joint spaces of the left knee is narrowed with most severe involvementof the medial compartment. Tricompartmental osteophytes are present. The arthropathy is more severe than seen in the prior study of 2012. Againseen is a metallic fixation device in the tibial tuberosity. IMPRESSION Osteoarthritis of the left knee is present and is more severe than seen [id number]. Srinivas Cruz MD IMG DX ORDERABLES documented in this encounter Visit Diagnoses Diagnosis Pain in both knees, unspecified chronicity documented in this encounter Care Teams Platen Builder Up Relationship Specialty Start Date End Date Vivian Bautista APRN [address] [place] [id number] PCP - General 10/19/13 documented as of this encounter
--- OUTSIDE RECORDS SUMMARY | 2024-02-07 11:02 | XMS_ITS | Encounter Summary ---
Author Organization [facility] [place] [address] Care Team Providers Care Beef Grader Name Role Phone MicheleMorena davenporthryn Milton VINNY Primary Care Provider [phone] Reason for Visit * Reason Comments Obstructive Sleep Apnea Encounter Details Date Type Department Care Team (Late st Contact Info) Description 12/22/2017 8:15 AM EDT Office Visit Sleep Center at [facility] [address] [place] [address] Katie Mckeon, HOTEL CLERK [facility] KAREN on CPAP Social History [...] of this encounter Progress Notes * Katie Mckeon CRTT - 12/22/2017 8:15 AM EDT Sleep Medicine Clinical Health [...] 63 bpm Weight: 239# Treatment: CPAP Pressure: 9-16 cm Pressure: tolerance Interface: Nasal mask Fit: likes it Chin Strap: no HCC: [employer] Snoring: no Dry Mouth/Throat: no Mouth Breathing: Doesn't think so Patient perceived outcome: Sleeping better and have more energy. Still could do a power snooze in the afternoon. Not much has changed other than the higher pressure is better. Symptom Benefit: Streetman: 8 (7 previous) Sleep quality: improvement Bedtime: 8-9 pm, affixes mask and is asleep promptly Awakening's: once/night to void. Generally no problems returning to sleep Rise time: 430-5:00 am 7 days/week Daytime Symptoms: improvment Involuntary Dozing: no and never did Napping: about 4-5 time/weeks. Prior to CPAP used to be everyday. Driving: Sleepiness or drowsiness no Patient estimates his hours of sleep in 7-8 hr/night ROS: ?? ENT: Nasal Obstruction:?? some stuffiness Constitutional:?? Weight is steady at 239# Compliance Card Data: Date Range: 09/22-12/20/17 Settin-16 cm median 9.5cm/95% 12.6 cm Residual AHI: 0.2 Vibratory Snore Index: n/a % Night in Large Leak: Median 0.8/95% 14.5 Average usage all days-Hours: 6 hr 13 min # of Days of usage: 26/29 % Days used > 4 hours 97% Total % Days used 97% Physical Exam: Respirations: Even and not labored at rest DERM: Skin irritation: none There were no vitals filed for this visit. Time spent face to face: 25 Min. Assessment: Mr. Julian Edmonds is a 62 y.o. male seen for follow-up of obstructive sleep apnea. Patient presents today for follow-up in PAP clinic: Mr Edmonds is using his CPAP and meeting adherence. The download demonstrates the AHI and leak appear well controlled. The median pressure is 9.5 cm and the 95% is 12.6 cm. Mr Edmonds reports the air pressure increase is much better but he's still crashing in the mid afternoons and will often nap. He feels he has good sleep quality and is getting enough hours of sleep. He did say he has an appt with the white sugar supervisor to evaluate for his thyroid. Thinkshis mid-afternoon sleepiness could be related to his hx of thyroid disease. Options discussed today: (1) formal in lab titration study, (2) try a higher min pressure of 11 cm (11-16 cm) and follow upwith white sugar supervisor. Mr Edmonds wants to try a pressure increase. He has an appt with white sugar supervisor in Feb. He will RTC in Mar after his appt. He knows to call me sooner if any concerns or problems. Recomendations: 1) CPAP 11-16 cm with ramp off and Heated Humidity 2) Follow-up: RTC in March with Delmi pulido after he's seen his white sugar supervisor. 3) Driving safety discussed, recommend patient not drive if drowsy, if drowsy while driving to machine puller and take a nap. 4) Patient to replace supplies routinely and understands mask cushions can be replaced monthly. 5) Patient to tighten mask straps more frequently. 6) Script to note the pressure was increased via his modem and CPAP 7) Follow up with white sugar supervisor The patient indicates understanding of these issues and agrees with the plan. documented in this encounter Plan of Treatment Not on file documented as of this encounter Visit Diagnoses Diagnosis KAREN on CPAP Obstructive sleep apnea (adult) (pediatric) documented in this encounter Care Teams Beef Grader Relationship Specialty Start Date End Date Vivian Bautista APRN [address] [place] [address] PCP - General 10/19/13 documented as of this encounter
--- OUTSIDE RECORDS SUMMARY | 2024-02-07 11:02 | XMS_ITS | Encounter Summary ---
[place] [address] Care Team Providers Care Field Irrigation Worker Name Role Phone Imer Villegas MD Primary Care Provider [phone] Reason for Visit * Reason Onset Date Comments Referral 09/20/2013 Encounter Details Date Type Department Care Team (Late st Contact Info) Description 09/20/2013 Telephone [place] [id number] Tiffany Cosby Referral Social History Tobacco Use Types Packs/Day Years [...] encounter Miscellaneous Notes * Telephone Encounter - Sherri Cabrera - 09/20/2013 4:22 PM EDT Established patient already. Scheduled a follow-up with Inocencio Jimenez. * Telephone Encounter - Tiffany Cosby - 09/20/2013 2:01 PM EDT Left message for patient to call back and schedule their referral. documented in this encounter Plan of Treatment Not on file documented as of this encounter Visit Diagnoses Not on filedocumented in this encounter Care Teams Field Irrigation Worker Relationship Specialty Start Date End Date Imer Villegas MD PCP - General 12/23/12 10/18/13 documented as of this encounter
--- OUTSIDE RECORDS SUMMARY | 2024-02-07 11:02 | XMS_ITS | Encounter Summary ---
Author Organization [facility] [place] [address] Care Team Providers Care Hand I Blocker Name Role Phone Vivian Bautista APRN Primary Care Provider [phone] Reason for Visit * Reason Comments Follow-up bilat knee pain * Consultation (Routine) - Closed Specialty Diagnoses / Procedures Referred By Lashaun camarena Referred To Contact Orthopaedics Diagnoses soren knee pain Vivian Bautista APRN [address] [place] [address] [facility] [address] [place] [id number] Referral ID Status Reason Start Date Expiration Date V isits Requested Visits Authorized [id number] Closed Consult, Test & Treat Connection Center 05/25/2017 05/25/2018 1 1 Encounter Details Date Type Department Care Team (Late st Contact Info) Description 06/25/2017 8:30 AM EST Office [place] [address] Wm Jimenez PA [facility] [place]OP[facility]ED[place] [address] Knee instability, left (Primary Dx); Pain in both knees, unspecified chronicity Social History Tobacco Use Types Packs/Day Years [...] Sign Reading Time Taken Comments Blood Pressure 139/83 06/25/2017 8:03 AM EST Pulse 61 06/25/2017 8:03 AM EST Temperature - - Respiratory Rate - - Oxygen Saturation - - Inhaled Oxygen Concentration - - Weight 108.7 kg (239 lb 9.6 oz) 06/25/2017 8:03 AM EST measured Height 176.5 cm (5' 9.49) 06/25/2017 8:03 AM ES T measured Body Mass Index 34.89 06/25/2017 8:03 AM EST documented in this encounter Progress Notes * Wm Jimenez PA - 06/25/2017 8:30 AM EST HISTORY OF PRESENT ILLNESS 62 y.o. year old male returns, I have seen him previously and injectionshave been beneficial. We last injected him 3 years ago. He returns seeking repeat injectionHe has had no interval injuries. He has felt well aside from the knee. PHYSICAL EXAM: Ambulatory without assist or antalgia. There is effusion to either knee. No pain or laxity with varus and valgus stress. ROM from 0-130. Calves soft and nontender without edema. Excellent quad strength. Peripheral pulses intact and equal X-rays: Progression of predominantly medial joint space narrowing. Medial based osteophytes more pronounced than previous. ASSESSMENT: Bilateral knee OA seeking injection PLAN: We discussed the risks and limitation of injections. We'll proceed with injection and f/u with him as needed. Indications for TKA were discussed. He would also like to try a knee brace which has previously been useful as well. PROCEDURE NOTE: Time-out was performed. After consent [...] of this encounter Visit Diagnoses Diagnosis Knee instability, left- Primary Pain in both knees, unspecified chronicity documented in this encounter Administered Medications Inactive Administered Medications - up to 3 most recent administrations Medication Order MAR Action Action Date Dose Rate Site BUpivacaine (PF) (MARCAINE) 0.25 % (2.5 mg/mL) injection 50 mg 50 mg, Intra-articular, ONCE, 1 dose, On Wed06/25/17 at 0945, Routine Given 06/25/2017 9:21 AM EST 50 mg lidocaine (XYLOCAINE) 10 mg/mL (1 %) injection 50 mg 50 mg, Subcutaneous, ONCE, 1 dose, On Wed06/25/17 at 0945, Routine Given 06/25/2017 9:21 AM EST 50 mg triamcinolone acetonide (KENALOG) injection 35 mg 35 mg, Intra-articular, ONCE, 1 dose, On Wed06/25/17 at 0945, Routine Given 06/25/2017 9:21 AM EST 35 mg triamcinolone acetonide (KENALOG) injection 35 mg 35 mg, Intra-articular, ONCE, 1 dose, On Wed06/25/17 at 0945, Routine Given 06/25/2017 9:21 AM EST 35 mg documented in this encounter Care Teams Hand I Blocker Relationship Specialty Start Date End Date Vivian Bautista APRN [address] [place] [id number] PCP - General 10/19/13 documented as of this encounter
--- OUTSIDE RECORDS SUMMARY | 2024-02-07 11:02 | XMS_ITS | Encounter Summary ---
Author Organization [facility] Address [facility] [place] [address] Care Team Providers Care Beam Dyer Name Role Phone MicheleMorena davenporthryn Milton VINNY Primary Care Provider [phone] Encounter Details Date Type Department Care Team (Late st Contact Info) Description 05/15/2014 Orders [place] [address] Charles Aguiar MD [facility] [place] [address] Social History Tobacco Use Types Packs/Day Years [...] Procedure Name Priority Date/Time Associated Diagnosis Comments FILM LIBRARY STORAGE ONLY MR HEAD Routine 05/15/2014 8:51 AM EST documented in this encounter Results * Film Library- Storage only MR Head (05/15/2014 8:51 AM EST) Anatomical Region Laterality Modality Other 05/15/2014 8:51 AM EST Narrative 05/25/2014 8:51 AM EST This is a Non-reportable exam Procedure Note PATRICIA, UNSIGNED REPORT - 05/25/2014 This is a Non-reportable exam Charles Aguiar MD G FILM LIBRARY ORD ERABLES documented in this encounter Visit Diagnoses Not on filedocumented in this encounter Care Teams Beam Dyer Relationship Specialty Start Date End Date Vivian Bautista APRN [address] [place] [address] PCP - General 10/19/13 documented as of this encounter
--- OUTSIDE RECORDS SUMMARY | 2024-02-07 11:02 | XMS_ITS | Encounter Summary ---
Author Organization [facility] [place] [address] Care Team Providers Care Supervisor Aircraft Cleaning Name Role Phone Vivian Bautista APRN Primary Care Provider [phone] Reason for Referral * Consultation (Routine) - Closed Specialty Diagnoses / Procedures Referred By Lashaun camarena Referred To Contact Sleep Center Diagnoses Snoring Procedures PRG HOME SLEEP TEST TYPE 3 PORTABLE Lisette Brown MD [facility] [place] [address] [facility] [address] [place] [address] Referral ID Status Reason Start Date Expiration Date V isits Requested Visits Authorized [id number] Closed Test Only 07/06/2017 08/19/2017 1 1 Reason for Visit * Consultation (Routine) - Closed Specialty Diagnoses / Procedures Referred By Lashaun camarena Referred To Contact Sleep Center Diagnoses fatigue Vivian Bautista APRN [address] [place] [address] [facility] Sleep Medicine [address] [place] [address] Referral ID Status Reason Start Date Expiration Date V isits Requested Visits Authorized [id number] Closed Consult Only 05/18/2017 05/18/2018 1 1 Encounter Details Date Type Department Care Team (Late st Contact Info) Description 06/25/2017 10:00 AM EST Office Visit Sleep Center at [address] [place] [address] Lisette Brown MD [facility] [place] [address] Snoring; Hypersomnia; Disrupted sleep-wake cycle Social History Tobacco Use Types Packs/Day Years [...] as of this encounter Progress Notes * Lisette Brown MD - 06/25/2017 10:00 AM EST Sleep Medicine Consultation Note HPI: Julian Edmonds is a 62 y.o. male seen at the request of Vivian Bautista APRN for advice regarding possible sleep apnea. He reports snoring and daytime tiredness. Hits a wall around 10am and around 2 pm. Snoring present - not excessively loud. She has not observed apneas/pauses in breathing. He way wake himself snoring. Denies waking gasping. Generally no problems initiating sleep. Wakes at least 1-2x to urinate - can sometimes have trouble getting back to sleep. Snoring and awakenings present at least a couple years. Sleep is unrefreshed - also a couple years. Hits a wall around 10am and around 2 pm. Works as [employer] - has more difficulty concentrating and staying alert during these times but doesn't fall asleep at work. Dozes at home watching TV. Can get very sleepy if unengaged. Denies sleepiness with driving. Denies accidents/close calls. Doesn't fall asleep as passenger. Sleep Pattern: Bed/Recliner/Wedge: waterbed Bedtime: 8-9 Lights out: immediate Latency: rapid Awakenings: around 2 Wake time: spont 4-6 Respiratory: Snoring: yes Observed Apneas: not reported Mouth Breathing: yes Dry Mouth: yes Nocturnal Gasping: no Nasal Obstruction: no Daytime Symptoms: Patient-reported scores: [facility] 06/25/2017 [facility] 10 (High Risk) Insomnia Severity Index 17 (Moderately severe insomnia) VR12 - Physical Component Summary - VR12 - Mental Component Summary - Upon Awakening: unrefreshed Naps: naps after work for 20 min-30min 3-4x/week Involuntary Dozing: some with TV Driving: denies Close calls related to sleepiness denies Accidents related to sleepiness denies Other Associates Sleep Symptoms: Parasomnias: Sleep Walking: no Dream Enactment: no Motor: RLS: no PLMS: no Family History: Family history of sleep disorders: son snores and stops breathing ROS: CON: weight change: stable past few years; at highest weight ENT: nasal obstruction: no PUL: MCNAMARA: no CV: chest pain: no Palpitations: no LE edema: no GI: GERD: occasional; not nocturnal (has woken him the past but that was a long time ago) : Nocturia: 1-2x MSK: Pain: occ knee pain NEURO: sleep related headaches: no ALL: no PSY: Depression, anxiety: denies Past Medical History: Patient Active Problem List Diagnosis Code ??? Knee pain M25.569 ??? Hypertension I10 ??? GERD (gastroesophageal reflux disease) K21.9 ??? Hyperlipidemia E78.5 ??? Thyroid disease E07.9 Medications: Outpatient Prescriptions Marked as Taking for the 06/25/17 encounter (Office Visit) with Lisette Brown MD Medication Sig Dispense Refill ??? levothyroxine (SYNTHROID) 137 mcg Tablet ??? meTOPROLOL succinate (TOPROL-XL) 100 mg Tablet Sustained Release 24 hr ??? rosuvastatin (CRESTOR) 10 mg Tablet Take 10 mg by mouth daily. ??? ibuprofen (ADVIL;MOTRIN) 800 mg tablet Take 800 mg by mouth every 6 hours as needed. ??? famotidine (PEPCID) 10 mg tablet Take 10 mg by mouth as needed. Current Facility-Administered Medications for the 06/25/17 encounter (Office Visit) with Lisette Brown MD Medication Dose Route Frequency Provider Last Rate Last Dose ??? [COMPLETED] triamcinolone acetonide (KENALOG) injection 35 mg 35 mg Intra- articular Once Wm Jimenez PA 35 mg at 06/25/17920 ??? [COMPLETED] lidocaine (XYLOCAINE) 10 mg/mL (1 %) injection 50 mg 50 mg Subcutaneous Once Wm Jimenez PA 50 mg at 06/25/17920 ??? [COMPLETED] BUpivacaine (PF) (MARCAINE) 0.25 % (2.5 mg/mL) injection 50 mg 50 mg Intra-articular Once Wm Jimenez PA 50 mg at 06/25/17920 ??? [COMPLETED] triamcinolone acetonide (KENALOG) injection 35 mg 35 mg Intra- articular Once Wm Jimenez PA 35 mg at 06/25/17920 Social History: Living situation: Employment: [employer] Alcohol: about 8 beers over a week Smoking: no Caffeine: max 1 cup coffee qd Other drugs: denies PE: BP 139/83 HR 61 Ht 70in Wt 239# General: alert, no distress Eyes: PERRL, conjunctiva clear ENT: oropharynx MP: 3 Crowded: clear Dentition: intact Mandibular structure and position: mild retrognathia NECK: Submental fat present: yes Supple, no LAD, no thyroid enlargement LUNGS: respirations even and unlabored, CTAB CV: RRR, no m/g/r, no c/c/e ABD: BS+, soft, NT, no HSM SKIN: warm and dry NEURO: gait and station normal, no tremor PSYCH: Alert and appropriate: yes Oriented to person, place and time: yes Affect: full range Mood:good Judgement and insight: intact Assessment: Julian Edmonds is a 62 y.o. male with a history of snoring, disrupted sleep and excessive daytimesleepiness. He also has a history of obesity and hypertension. The history and symptoms are suspicious for obstructive sleep apnea. The diagnosis of obstructive sleep apnea was reviewed in detail with the patient at this time. Potential consequences of untreated obstructive sleep apnea reviewed, including increased cardiovascular risk. Treatment options reviewed in detail. Patient confirms that study results can be called to [phone] and detailed message left if not available to answer. Questions regarding diagnosis and management answered at this time. Recommendations: 1. HSAT (Shara Berry for DME) 2. Role of weight loss reviewed; also discussed limiting any ETOH in the evening 3. Safe driving precautions extensively reviewed with the patient. 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
--- OUTSIDE RECORDS SUMMARY | 2024-02-07 11:02 | XMS_ITS | Encounter Summary ---
Author Organization [place] [address] Care Team Providers Care Chipper Name Role Phone Imer Villegas MD Primary Care Provider Reason for Visit * Reason Comments Left Knee Pain Encounter Details Date Type Department Care Team (Late st Contact Info) Description 01/02/2013 3:10 PM EDT Office [place] [address] Wm Jimenez PA [facility] DR [place] [address] Katy Reina PA [facility] [place] [address] Knee pain (Primary Dx); DJD (degenerative joint disease) of knee Discharge Disposition: Home Social History Tobacco Use [...] Sign Reading Time Taken Comments Blood Pressure 141/83 01/02/2013 3:34 PM EDT LEF T ARM Pulse 52 01/02/2013 3:34 PM EDT Temperature - - Respiratory Rate - - Oxygen Saturation - - Inhaled Oxygen Concentration - - Weight - - Height - - Body Mass Index - - documented in this encounter Progress Notes * Katy Reina PA - 01/02/2013 4:35 PM EDT PATIENT NAME: Julian Edmonds AGE: 57 y.o. MR#: [id number] DATE OF VISIT: 01/02/2013 DATE OF INJURY/ONSET: chronic STAFF: Dr. Alejandre CHIEF COMPLAINT: Left knee pain HISTORY OF PRESENT ILLNESS Mr. Grey lopez 57 y.o. year old male comes into clinic today for left knee pain. Patient states he has had issues with his left knee since . He states after an injury as an athlete in 1974 and a right meniscus surgery followed by multiple surgeries there after a history of infection. 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 He wore an AFO brace for quite some time but no longer wears. Today he presents with increasing knee pain. 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 The patient states he has some constant underlying pain but has [place] point like pain in the anterior aspect of his knee. intermittently. He does have some instability about the knee and does wear simple knee brace. He finds that he doesn't experience much swelling about the knee, but does complain of posterior discomfort. He denies any locking or catching. He additionally uses Motrin very frequently with some relief. He uses ice and heat on a regular basis and has had a history of an injection many years ago without great improvement of his symptoms. He additionally notes that he has some weakness in that extremity and that his right lower extremity.. does most of his work on a regular basis PAST SURGICAL HX: multiple surgery left knee, appendectomy, vasectomy PAST MEDICAL HX:htn, high cholesterol. 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 ROS: Denies fever or chills. Some numbness foot and lateral aspect calf. Denies CP, SOB or cough. Denies GI symptoms. PHYSICAL EXAM: Mr. Grey lopez 57 y.o. year old is alert and oriented. He appears in no acute discomfort and is resting comfortably in a chair in the exam room. Inspection: small effusion. no ecchymosis. Chronic skin changes over anterior knee consistent with bursitis. Palpation: Medial joint line tenderness. Missing 5-8 degree full extension. Flexion to 115 Orthopedic testing: no MCL laxity. positive LCL laxity with firm endpoint positive Anterior Drawer. neg Posterior Drawer. neg Faby. Not tested McMurrays RADIOLOGICAL STUDIES: As per radiology. Examination JOINT TEAM STANDING ALIGNMENT AP LAT [...] the right knee between the tibial spines. There is a piece of orthopedic hardware seen at the tibial tuberosity on the left. Clinical correlation recommended. There is no left effusion. There is marked medial compartment narrowing on the left side with slight subluxation of the tibia laterally relative to the femur. Osteophytes are seen. The right knee has normal appearance. The left knee shows coarsening of the trabecular pattern and bony demineralization. The changes are likely related to prior trauma. Clinical correlation is recommended. ASSESSMENT: Left knee pain. DJD knee. Multi operated knee with hx of infection PLAN: Mr. Edmonds and I discussed his radiologic findings and physical exam findings. The patient has symptoms consistent with symptoms from DJD. We discussed treatment options in regards to his kneeto include activity modification, continued use of nsaids, use of knee brace to help with some insta bility at work, injections, and surgery. In light of his young age and active work habits we discussed use of synvisc. His symptoms are currently intermittent in nature. We discussed that it could take up to 4 weeks to see benefit. If this did not alleviate symptoms then steroid can be considered. I additionally gave him an RX for knee brace to help with stability. Follow up with us PRN. We did discuss that I was uncertain that he would avoid knee replacement forever, but with the type of work he does and his long surgical hx he may benefit from using alternative therapy at this time.. The patient understands to contact us if they have any other questions or concerns. PROCEDURE NOTE: left knee injection (synvisc) A time-out was performed and the left knee was confirmed to be the site of injection. The patient was confirmed to have no allergies to betadine or local anesthetics. The patient was counseled about the potential risks of the procedure, including infection, bleeding and incomplete relief of symptoms. The skin was prepped widely over the left knee with duraprep. Ethyl chloride was used to numb the skin. Then, using sterile technique, a solution consisting of 6cc of synvisc one (48 mg) was injectedinto the left knee with a 20 g needle. The needle was felt to slide into the joint and mixture flowed freely. The skin was cleaned with alcohol and a Band-Aid was applied. The patient tolerated the procedure well. documented in this encounter Plan of Treatment Not on file documented as of this encounter Visit Diagnoses Diagnosis Knee pain- Primary Pain in joint, lower leg DJD (degenerative joint disease) of knee Osteoarthrosis, unspecified whether generalized or localized, lower leg documented in this encounter Administered Medications Inactive Administered Medications - up to 3 most recent administrations Medication Order MAR Action Action Date Dose Rate Site Hylan G-F 20 (SYNVISC-ONE) Syrg 48 mg 48 mg, Intra-articular, ONCE, On Wed01/02/13 at 1700, 1 dose Given 01/02/2013 4:37 PM EDT 48 mg documented in this encounter Care Teams Chipper Relationship Specialty Start Date End Date Imer Villegas MD PCP - General 12/23/12 10/18/13 documented as of this encounter
--- OUTSIDE RECORDS SUMMARY | 2024-02-07 11:02 | XMS_ITS | Encounter Summary ---
Author Organization [facility] [place] [address] Care Team Providers Care Assistant Store Manager Operations Name Role Phone MicheleMorena davenporthryn Milton VINNY Primary Care Provider [phone] Encounter Details Date Type Department Care Team (Late st Contact Info) Description 06/25/2017 Orders Only [place] [address] Wm Jimenez PA [facility] DR [place] [address] Pain in both knees, unspecified chronicity Social [...] as of this encounter Results * XR Knee 1-2 Views Bilat (Generic) (06/25/2017 7:52 AM EST) Anatomical Region Laterality Modality Knee Bilateral Digital Radiogra phy Impressions 06/25/2017 10:42 AM EST Osteoarthritis of the left knee is present and is more severe than seen in 2013. Narrative 06/25/2017 10:42 AM EST EXAMINATION: XR [...] present and is more severe than seen [id number]. Srinivas Cruz MD IMG DX ORDERABLES documented in this encounter Visit Diagnoses Diagnosis Pain in both knees, unspecified chronicity Pain in both knees, unspecified chronicity documented in this encounter Care Teams Assistant Store Manager Operations Relationship Specialty Start Date End Date Vivian Bautista APRN [address] [place] [address] PCP - General 10/19/13 documented as of this encounter
--- OUTSIDE RECORDS SUMMARY | 2024-02-07 11:02 | XMS_ITS | Encounter Summary ---
Author Organization [facility] Address [facility] [place] [address] Care Team Providers Care Investigative Agent Name Role Phone MicheleMorena davenporthryn Milton VINNY Primary Care Provider [phone] Reason for Visit * Reason Comments Sleep Apnea Encounter Details Date Type Department Care Team (Late st Contact Info) Description 09/22/2017 8:00 AM EDT Office Visit Sleep Center at [facility] [address] [place] [address] Katie Mckeon, [facility] KAREN on CPAP Social History [...] Progress Notes * Katie Mckeon CRTT - 09/22/2017 8:00 AM EDT Sleep Medicine Clinical Health Specialist [...] 63 bpm Weight: 239# Treatment: CPAP Pressure: 6-16 cm Pressure: tolerance Interface: Nasal mask Fit: likes it Chin Strap: no HCC: [employer] Snoring: no Dry Mouth/Throat: no Mouth Breathing: Doesn't think so Patient perceived outcome: Sleeping better and have more energy. Still could do a power snooze in the afternoon. Symptom Benefit: [place]: 7 (10 previous) Sleep quality: improvement Daytime Symptoms: improvment Involuntary Dozing: no and never did Napping: once in awhile in the afternoon. Prior to CPAP used to be everyday. Driving: Sleepiness or drowsiness no ROS: ?? ENT: Nasal Obstruction:?? some stuffiness Constitutional:?? Weight is steady at 239# Compliance Card Data: Date Range: 08/23-09/20/17 Settin-16 cm median 8 cm/95% 11 cm Residual AHI: 0.3 Vibratory Snore Index: n/a % Night in Large Leak: Median 0.8/95% 7.7 Average usage all days-Hours: 6 hr 13 min # of Days of usage: 26/29 % Days used > 4 hours 79% Total % Days used 90% Physical Exam: Respirations: Even and not labored at rest DERM: Skin irritation: none There were no vitals filed for this visit. Time spent face to face: 30 Min. Assessment: Mr. Julian Edmonds is a 62 y.o. male seen for follow-up of obstructive sleep apnea. Patient presents today for follow-up in PAP clinic: Mr Edmonds is using his CPAP and meeting adherence. The download demonstrates the AHI and leak appear well controlled. The median pressure is 8 cm and the 95% is11 cm. Mr Grey has partial improvement from CPAP with his rest and energy. He reports a sense ofnot enough air pressure and a desire to take a power nap in the mid afternoon. He agrees to raisingthe min pressure from 6 to 8 cm (8-16 cm) and turing off the ramp feature.Mask strap fit was demonstrated and I provided him with written instructions. I will have him RTC in 2-3 mos to assess EDS and pressure need. He knows to call me sooner with any concerns. Recomendations: 1) CPAP 8-16 cm with ramp off and Heated Humidity 2) Follow-up: RTC 2-3 mos with Delmi pulido 3) Driving safety discussed, recommend patient not drive if drowsy, if drowsy while driving to meat puller and take a nap. 4) Patient to replace supplies routinely and understands mask cushions can be replaced monthly. 5) Patient to adjust mask straps more frequently as demonstrated 6) Provided patient with written instructions for mask strap fit The patient indicates understanding of these issues and agrees with the plan. documented in this encounter Plan of Treatment Not on file documented as of this encounter Visit Diagnoses Diagnosis KAREN on CPAP Obstructive sleep apnea (adult) (pediatric) documented in this encounter Care Teams Investigative Agent Relationship Specialty Start Date End Date Vivian Bautista APRN [address] [place] [address] PCP - General 10/19/13 documented as of this encounter
[2024-02-07 11:23] LABS: ALT 30 U/L (16-63); AST 20 U/L (15-37); Albumin 3.7 g/dL (3.4-5.0); Alkaline Phosphatase 101 U/L (46-116); Anion Gap 7.1 mmol/L (3-11); BUN 14 mg/dL (7-18); Bilirubin, Total 0.71 mg/dL (0.2-1.0); CO2 26.9 mmol/L (21.0-32.0); CREATININE 1.1 mg/dL (0.70-1.30); Calcium 8.9 mg/dL (8.5-10.1); Chloride 107 mmol/L (98-107); Estimated GFR 73.58 (mL/min/1.73m2); Glucose 103 mg/dL (74-106); Potassium 4.3 mmol/L (3.5-5.1); Sodium 141 mmol/L (136-145); Total Protein 7.2 g/dL (6.4-8.2)
== END 2024-02-07 12:31 | disposition home or self-care (01) ==
PROVIDERS: Emergency Provider Registered Nurse Emergency; PCP Nurse Practitioner Family
DX: U07.1 COVID-19 (principal); R05.1 Acute cough; R07.0 Pain in throat; Z11.52 Encounter for screening for COVID-19
CPT/HCPCS: 80053; 99283

== ENCOUNTER 2024-06-27 13:37 | Outpatient (REF) | payer MEDICARE, BC, SELFPAY ==
[2024-06-27 15:29] LABS: FREE T4 0.92 ng/dL (0.76-1.46); TSH 1.08 uIU/mL (0.36-3.74)
[2024-06-27 22:46] LABS: T3, Total 141 ng/dL (97-169)
== END 2024-06-27 13:38 | disposition home or self-care (01) ==
LOC: NCHCN 13:37
PROVIDERS: PCP Nurse Practitioner Family; Visit Provider Nurse Practitioner Family
DX: E03.9 Hypothyroidism, unspecified (principal)
CPT/HCPCS: 84439; 84443; 84480

== ENCOUNTER 2024-07-20 09:33 | Outpatient (REF) | payer MEDICARE, SELFPAY ==
--- OUTSIDE RECORDS SUMMARY | 2024-07-20 09:40 | XMS_ITS | Encounter Summary ---
Author Organization [facility] Address [address] [place] [address] Care Team Providers Care Marketing Technology Coordinator Name Role Phone Imer Villegas MD Primary Care Provider [phone] Encounter Details Date Type Department Care Team (Late st Contact Info) Description 02/15/2017 Results Only [facility] [place] [phone] Halley Butterfield MD [address] [place] [address] [address] [place], [place] [address] Social History Tobacco Use Types Packs/Day Years Used Date Smoking Tobacco: Never Assessed Sex and Gender Information Value Date Recorded Sex Assigned at Not on file Legal Sex Male 18:37 EST Gender Identity Not on file Sexual Orientation [...] when reading/interpret ing unformatted reports. Name: ? JULIAN EDMONDS ? Accession #: ? [id number] ? : ? 1955 (Age: 61) ??M ? Collect Date: ? 02/15/2017 ? Location: ? [facility] ? Receive Date: ? 02/15/2017 ? Provider: HALLEY BUTTERFIELD MD Copy to: ZEYAD Rose SILVINO MANAGER READING ? Final Pathologic Diagnosis: A. ??RECTUM, POLYP, [...] (ASCP) 02/15/2017 4:15 PM End of Report [facility] 02/15/2017 15:2 4 EDT 02/15/2017 15:24 EDT us Halley Butterfield MD PATHOLOGY ORDERABLES Fin al Result [facility] [address] [place] [address] documented in this encounter Visit Diagnoses Not on filedocumented in this encounter Care Teams Marketing Technology Coordinator Relationship Specialty Start Date End Date Imer Villegas MD [address] [place] [address] PCP - General 11/13/09 07/07/22 documented as of this encounter
--- OUTSIDE RECORDS SUMMARY | 2024-07-20 09:40 | XMS_ITS | Encounter Summary ---
Author Organization [facility] [place] [address] Care Team Providers Care Pharmacovigilance Safety Expert Name Role Phone Vivian Bautista VINNY Primary Care Provider [phone] Encounter Details Date Type Department Care Team (Latest Contact Info) Description 07/06/2024 Travel Social History Tobacco Use Types Packs/Day [...] as of this encounter Plan of Treatment Upcoming Encounters Date Type Department Care Team (Late st Contact Info) Description 10/09/2024 9:40 AM EDT Office Visit Urology at [facility] [place] [address] Srinivas Kong MD [facility] [place] [place] [address] 07/05/2025 8:30 AM EST TH Visit (TeleHealth) [place] [address] Courtney Nagel MD [facility] [place] [place] [address] documented as of this encounter Visit Diagnoses Not on filedocumented in this encounter Care Teams Pharmacovigilance Safety Expert Relationship Specialty Start Date End Date Vivian Bautista, TRUCK SERVICE TECHNICIAN [address] [place] [address] PCP - General 10/19/13 documented as of this encounter
--- OUTSIDE RECORDS SUMMARY | 2024-07-20 09:40 | XMS_ITS | Encounter Summary ---
Author Organization [facility] Address [address] [place] [address] Care Team Providers Care General Ii Farmworker Name Role Phone Imer Villegas MD Primary Care Provider [phone] Vivian Bautista APRN Primary Care Provider [phone] Encounter Details Date Type Department Care Team (Late st Contact Info) Description 05/30/2020 Lab Requisition [facility] Pathology & Laboratory Medicine - [address] [address] Outr Resulting Lab, Provider Social History Tobacco [...] Unknown 05/30/2020 8:58 EST 05/30/2020 20:24 EST us Provider Outr Resulting Lab MICROBIOLOGY - GENER AL ORDERABLES Final Result Performing Organization Address [facility] de Phone Number [facility] [address] [place] [address] * COVID-19 TESTING (05/30/2020 8:58 EST) COVID-19 rt-PCR Result Negative Negative 05/31/2020 16:[address] [facility] Comment: This test has [...] history, and epidemiological information. Performed on the Principle Powerher Fusion instrument Performing Lab Zenda [facility] Lab 05/31/2020 16:[address] [facility] Swab 05/30/2020 8:58 EST 05/30/2020 20:24 EST us Provider Outr Resulting Lab MICROBIOLOGY - GENER AL ORDERABLES Final Result Performing Organization Address City/Special Care [facility]/ZIP Co de Phone Number [facility] [address] [place] [address] documented in this encounter Visit Diagnoses Not on filedocumented in this encounter Care Teams General Ii Farmworker Relationship Specialty Start Date End Date Imer Villegas MD [address] [place] [id number] PCP - General 11/13/09 07/07/22 Vivian Bautista APRN [facility] [address] [place] [address] PCP - General 07/08/22 documented as of this encounter
--- OUTSIDE RECORDS SUMMARY | 2024-07-20 09:40 | XMS_ITS | Encounter Summary ---
Author Organization [facility] Address [facility] [place] [address] Care Team Providers Care Cut Off Sawyer Name Role Phone MicheleMorena davenporthryn Milton CASILLAS Primary Care Provider [phone] [phone] Encounter Details Date Type Department Care Team (Late st Contact Info) Description 05/11/2024 Telephone Dermatology at [facility] [address] [place] [address] Tressa Jordan MD [facility] [address] [place] [address] Social History Tobacco Use Types Packs/Day Years [...] encounter Miscellaneous Notes * Telephone Encounter - Vianney Danielle - 05/11/2024 8:04 AM EST Julian Edmonds called in as he left a VM yesterday and did not get a call back yet. Would like a CB today. Message routed to Akila documented in this encounter Plan of Treatment Upcoming Encounters Date Type Department Care Team (Late st Contact Info) Description 10/09/2024 9:40 AM EDT [place] [address] Srinivas Kong MD [facility] [place] [address] 07/05/2025 8:30 AM EST TH Visit (TeleHealth) [place] [address] Courtney Nagel MD [facility] [place] [address] documented as of this encounter Visit Diagnoses Not on filedocumented in this encounter Care Teams Cut Off Sawyer Relationship Specialty Start Date End Date Vivian Bautista APRN [address] [place] [address] PCP - General 10/19/13 documented as of this encounter
--- OUTSIDE RECORDS SUMMARY | 2024-07-20 09:40 | XMS_ITS | Encounter Summary ---
Author Organization [facility] [place] [address] Care Team Providers Care Portrait Artist Name Role Phone Vivian Bautista VINNY Primary Care Provider +1 [phone] Encounter Details Date Type Department Care Team [...] 9:40 AM EDT Office Visit Urology at [facility] [place] [address] Srinivas Kong MD [facility] [place] [address] 07/05/2025 8:30 AM EST TH Visit (TeleHealth) [place] [address] Courtney Nagel MD [facility] [place] [address] documented as of this encounter Visit Diagnoses Not on filedocumented in this encounter Care Teams Portrait Artist Relationship Specialty Start Date End Date Vivian Bautista, FINANCIAL INSTITUTION PRESIDENT [address] [place] [address] PCP - General 10/19/13 documented as of this encounter
--- OUTSIDE RECORDS SUMMARY | 2024-07-20 09:40 | XMS_ITS | Encounter Summary ---
Author Organization [facility] [place] [address] Care Team Providers Care Guide Dog Instructor Name Role Phone Vivian Bautista VINNY Primary Care Provider [phone] [phone] Encounter Details Date Type Department Care Team (Late st Contact Info) Description 11/17/2022 Telephone [place] [address] Bossman Hu, RN Social History Tobacco Use [...] 9:40 AM EDT [place] [address] Srinivas Kong MD [facility] [place] [address] 07/05/2025 8:30 AM EST TH Visit (TeleHealth) [place] [address] Courtney Nagel MD [facility] [place] [address] documented as of this encounter Visit Diagnoses Not on filedocumented in this encounter Care Teams Guide Dog Instructor Relationship Specialty Start Date End Date Vivian Bautista APRN [address] [place] [address] PCP - General 10/19/13 documented as of this encounter
--- OUTSIDE RECORDS SUMMARY | 2024-07-20 09:40 | XMS_ITS | Encounter Summary ---
Author Organization [facility] Address [facility] [place] [address] Care Team Providers Care Reception Clerk Name Role Phone Vivian Bautista VINNY Primary Care Provider [phone] [phone] Encounter Details Date Type Department Care Team (Late st Contact Info) Description 10/28/2022 [place] [address] Srinivas Kong MD [facility] [place] [address] Social History Tobacco Use Types Packs/Day Years [...] - 10/28/2022 10:19 AM EDT Copied from CRM #[id number]. Topic: Specialty Dept CRMs - Generic Call [...] 9:40 AM EDT [place] [address] Srinivas Kong MD [facility] [place] [address] 07/05/2025 8:30 AM EST TH Visit (TeleHealth) [place] [address] Courtney Nagel MD [facility] [place] [place] [address] documented as of this encounter Visit Diagnoses Not on filedocumented in this encounter Care Teams Reception Clerk Relationship Specialty Start Date End Date Vivian Bautista APRN [address] [place] [address] PCP - General 10/19/13 documented as of this encounter
--- OUTSIDE RECORDS SUMMARY | 2024-07-20 09:40 | XMS_ITS | Encounter Summary ---
Author Organization [facility] Address [address] [place] [address] Care Team Providers Care Mortgage Accounting Clerk Name Role Phone Vivian Bautista APRN Primary Care Provider [phone] [phone] Encounter Details Date Type Department Care Team (Late st Contact Info) Description 01/01/2023 Lab Requisition [facility] Pathology & Laboratory Medicine - [facility] [address] [place], [place] [address] Outr Resulting Lab, Provider Social History Tobacco [...] 2.8 - 5.3 pg/mL 01/01/2023 22:00 EDT [facility] Blood VENOUS BLOOD / Unknown 01/01/2023 9:00 EDT 01/01/2023 21:16 EDT us Provider Outr Resulting Lab CHEMISTRY & BLOOD GA S ORDERABLES Final Result [facility] [address] [place] [address] documented in this encounter Visit Diagnoses Not on filedocumented in this encounter Care Teams Mortgage Accounting Clerk Relationship Specialty Start Date End Date Vivian Bautista APRN [address] [place] [address] PCP - General 07/08/22 documented as of this encounter
--- OUTSIDE RECORDS SUMMARY | 2024-07-20 09:40 | XMS_ITS | Encounter Summary ---
Author Organization [facility] Address [address] [place] [address] Care Team Providers Care Lead Embedded Software Engineer Name Role Phone Vivian Bautista APRN Primary Care Provider +1 [phone] Encounter Details Date Type Department Care Team (Late st Contact Info) Description 09/23/2023 Lab Requisition [facility] Pathology & Laboratory Medicine - [facility] [address] [place] [address] Outr Resulting Lab, Provider Social History Tobacco [...] 97 - 169 ng/dL 09/23/2023 23:18 EDT [facility] Blood VENOUS BLOOD / Unknown 09/23/2023 12:25 EDT 09/23/2023 22:30 EDT Provider Outr Resulting Lab CHEMISTRY & BLOOD GA S ORDERABLES Final Result Performing Organization Address [facility] de Phone Number [facility] [address] [place] [address] * (ABNORMAL) PSA TOTAL, DIAGNOSTIC (09/23/2023 12:25 EDT) PSA 5.9(H) <=4.5 ng/mL 09/23/2023 23:07 EDT [facility] Blood VENOUS BLOOD / Unknown 09/23/2023 12:25 EDT 09/23/2023 22:30 EDT Narrative [facility] - 09/23/2023 23:07 EDT NOTE: Serum PSA concentration should not be interpreted as absolute evidence for the presence or absence of malignant disease. Assayed on Ostaraaur XPT using chemiluminescent technology.??Values obtained by using different assay methods cannot be used interchangeably. us Provider Outr Resulting Lab CHEMISTRY & BLOOD GA S ORDERABLES Final Result Performing Organization Address [facility] de Phone Number [facility] [address] [place] [address] documented in this encounter Visit Diagnoses Not on filedocumented in this encounter Care Teams Lead Embedded Software Engineer Relationship Specialty Start Date End Date Vivian Bautista APRN 26 [facility] [address] [place] [address] PCP - General 07/08/22 documented as of this encounter
--- OUTSIDE RECORDS SUMMARY | 2024-07-20 09:40 | XMS_ITS | Encounter Summary ---
Author Organization [facility] [place] [address] Care Team Providers Care Principal Process Engineer Name Role Phone Vivian Bautista VINNY Primary Care Provider +1 -[phone] Encounter Details Date Type Department Care Team [...] 9:40 AM EDT Office Visit Urology at [facility] [place] [address] Srinivas Kong MD [facility] [place] [address] 07/05/2025 8:30 AM EST TH Visit (TeleHealth) [place] [address] Courtney Nagel MD [facility] [place] [address] documented as of this encounter Visit Diagnoses Not on filedocumented in this encounter Care Teams Principal Process Engineer Relationship Specialty Start Date End Date Vivian Bautista, CRICKET COACH [address] [place] [address] PCP - General 10/19/13 documented as of this encounter
--- OUTSIDE RECORDS SUMMARY | 2024-07-20 09:40 | XMS_ITS | Encounter Summary ---
Author Organization [facility] [place] [address] Care Team Providers Care Drapery Installer Name Role Phone Vivian Bautista VINNY Primary Care Provider +1 -[phone] Encounter Details Date Type Department Care Team [...] 9:40 AM EDT Office Visit Urology at [facility] [place] [place] [address] Srinivas Kong MD [facility] [place] [address] 07/05/2025 8:30 AM EST TH Visit (TeleHealth) [place] [address] Courtney Nagel MD [facility] [place] [address] documented as of this encounter Visit Diagnoses Not on filedocumented in this encounter Care Teams Drapery Installer Relationship Specialty Start Date End Date Vivian Bautista, RN X RAY [address] [place] [address] PCP - General 10/19/13 documented as of this encounter
--- OUTSIDE RECORDS SUMMARY | 2024-07-20 09:40 | XMS_ITS | Encounter Summary ---
Author Organization [facility] Address [facility] [place] [address] Care Team Providers Care Belt Tender Name Role Phone Vivian Bautista VINNY Primary Care Provider +1 -[phone] Encounter Details Date Type Department Care Team (Late st Contact Info) Description 07/06/2024 1:00 PM EST Office Visit Dermatology at [facility] [address] [place] [address] Philipp Reynoso MD [facility] [address] [place] [address] Seborrheic keratoses; Lentigines; Verduzco angioma; Multiple melanocytic nevi; Xerosis of skin; Stucco keratoses Social History Tobacco Use Types Packs/Day Years [...] AM EDT documented as of this encounter Patient Instructions * Patient Instructions* Nicole Mora RN - 07/06/2024 1:00 PM EST Images from the original note were not included. AmLactin can be used from head to toe and can help smooth, moisturize, and maintain the correct pH of your skin. Amlactin's label says not to use on the face but we see excellent results using it there. And it falsely warns you it can cause sunburn. Use sun protection but be reassured this is not going to make you more prone to a burn. This product is available in many pharmacies and online including [facility] documented in this encounter Progress Notes * Lane Duran - 07/06/2024 1:00 PM EST Entered in error. * Philipp Reynoso MD - 07/06/2024 1:00 PM EST Images from the original note were not included. DEPARTMENT OF DERMATOLOGY Medical Dermatology Clinic Provider: Philipp Ryenoso MD Patient's preferred name Amadeo Preferred contact [...] relevant family history No Social History Occupation: [employer] Hobbies: Marital status: . Previously lived in [place]. Pre-Procedure Questions Details Allergy to lidocaine, epinephrine, Dermabond, chlorhexidine, or adhesives No Bleeding disorder or blood thinners No Pacemaker, defibrillator, deep brain stimulator, cochlear implant No History of Present Illness: Julian Edmonds is a 69 y.o. Patient returns to clinic today for a full skin exam. Patient reports the following concerns: -Spot on posterior neck that is raised, non-tender, does not bleed, occasionally itchy. Last visit at Dermatology: 11/10/2022 Last visit with this provider: Visit date not found Medications: Reviewed in eD-H Allergies: Reviewed in [...] Genitalia and buttocks were not examined. Assessment/Plan #. Melanocytic Nevi - Medium brown, evenly pigmented macules and papules scattered on the trunk andextremities. Reassuring pigment pattern on dermoscopy. - Discussed benign appearance and provided reassurance. Will continue to monitor. - Advised patient to watch for anything new or changing. Discussed changes (bleeding, pain, change in color or shape) that should prompt re-evaluation. #. Lentigines - Light-brown, evenly pigmented, well-demarcated macules scattered on sun-exposed areas of the head, trunk, and extremities. - Discussed benign appearance on exam today and provided reassurance. No treatment necessary at this time. #. Seborrheic Keratoses - [place]-brown papules/plaques with waxy, stuck-on appearance scattered on the head, trunk, and extremities. - Explained that these are hereditary and adult-acquired. Reassured patient of benign nature. No treatment necessary. #. Verduzco Angiomas - Bright red, well-demarcated papules on the trunk. - Discussed benign nature and provided reassurance. No treatment necessary. #. Stucco Keratoses - 0.2-0.3cm white, warty, stuck-on papules on the bilateral legs. - Patient reassured of benign nature. - Recommended AmLactin lotion, provided information in AVS. #. Skin Tags - Sessile, flesh-colored papules on the bilateral axilla. - Discussed benign nature of lesions and provided reassurance. No treatment necessary at this time. Other: Sun protection discussed (protective clothing and SPF30+ broad-spectrum sunscreen) OTC skin products discussed RTC: 2 years for FSE // sooner as needed []Note routed to pathology secretary/transcriptionist [x]Recall placed in scheduling system []Appointment scheduled at checkout Scribe attestation: Nicole Mora, RN has performed the documentation for this encounter in the presence of and acting as a scribe for Philipp Reynoso MD. I performed the above scribed service and agree with the accuracy of the documentation in this encounter. Reviewed and signed by: Philipp Reynoso MD Dermatology [facility] Patient seen and evaluated with staff fancy sewer: Sejal Ambrocio MD Dermatology [facility] * Sejal Ambrocio MD - 07/06/2024 1:00 PM EST I directly supervised Philipp Reynoso MD in the care of this Dermatology patient in person. I saw and evaluated this patient with Philipp Reynoso MD. Philipp Reynoso MD presented the history and physical exam details to me, then we saw the patienttogether, and I confirmed these findings. I agree with details as written. My physical examination confirms Philipp Reynoso MD's findings. The assessment and plan were formulated in discussion with me at the time of visit, and I agree with them as documented. SEJAL AMBROCIO MD Staff Storage Battery Charger Department of Dermatology [facility] documented in this encounter Plan of Treatment Upcoming Encounters Date Type Department Care Team (Late st Contact Info) Description 10/09/2024 9:40 AM EDT [place] [address] Srinivas Kong MD [facility] [place] [place] [address] 07/05/2025 8:30 AM EST TH Visit (TeleHealth) [place] [address] Courtney Nagel MD [facility] [place] [address] documented as of this encounter Visit Diagnoses Diagnosis Seborrheic keratoses Lentigines Other dyschromia Verduzco angioma Nevus, non-neoplastic Multiple melanocytic nevi Xerosis of skin Other specified disease of sebaceous glands Stucco keratoses documented in this encounter Care Teams Belt Tender Relationship Specialty Start Date End Date Vivian Bautista APRN [address] [place] [address] PCP - General 10/19/13 documented as of this encounter
--- OUTSIDE RECORDS SUMMARY | 2024-07-20 09:40 | XMS_ITS | Encounter Summary ---
Author Organization [facility] [place] [address] Care Team Providers Care Website/Blog Editor Name Role Phone Vivian Bautista VINNY Primary Care Provider +1 -[phone] Encounter Details Date Type Department Care Team (Late st Contact Info) Description 03/28/2024 Telephone Cardiology at [address] [address] Dasha Jean Baptiste, RN Social History Tobacco Use Types Packs/Day [...] encounter Miscellaneous Notes * Telephone Encounter - Dasha Jean Baptiste, RN - 03/30/2024 4:48 PM EDT Return call to patient to relay response from Dr. Fung copied below. Patient verbalized understanding and states he will look further into cost with goodrx. March 28, 2024 Haim Fung MD to [facility] Cardiology Nurse - Marlo 03/28/24 4:50 PM I would like him to stay on metoprolol. Even if his insurance does not cover it it should be at most $10 for a 3-month prescription. If cost becomes a problem a good Rx card cannot help. Atenolol is too short acting an agent. Dasha Jean Baptiste RN 4A Cardiology [facility] Vascular [facility] Team Nurse [phone] * Telephone Encounter - Dasha Jean Baptiste RN - 03/28/2024 12:36 PM EDT Return call to patient who reports his insurance is changing and will no longer cover metoprolol succinate 100 mg daily. They preferred alternative is atenolol. Patient's pcp is the current prescriber, but would like input from Dr. Fung due to patient's cardiac history. Dasha Jean Baptiste RN 4A Cardiology [facility] Team Nurse [phone] documented in this encounter Plan of Treatment Upcoming Encounters Date Type Department Care Team (Late st Contact Info) Description 10/09/2024 9:40 AM EDT Office [place] [address] Srinivas Kong MD [facility] [place] [address] 07/05/2025 8:30 AM EST TH Visit (TeleHealth) [place] [address] Courtney Nagel MD [facility] [place] [address] documented as of this encounter Visit Diagnoses Not on filedocumented in this encounter Care Teams Website/Blog Editor Relationship Specialty Start Date End Date Vivian Bautista APRN [address] [place] [address] PCP - General 10/19/13 documented as of this encounter
--- OUTSIDE RECORDS SUMMARY | 2024-07-20 09:40 | XMS_ITS | Encounter Summary ---
[place] [address] Care Team Providers Care Celery Cutter Name Role Phone Vivian Bautista APRN Primary Care Provider +1 -[phone] Encounter Details Date Type Department Care Team (Late st Contact Info) Description 09/15/2023 [place] [address] Bossman Hu, RN Social History Tobacco Use [...] 09/15/2023 4:44 PM EDT Copied from CRM #[id number]. Topic: Specialty Dept CRMs - Generic Call >> Sep 15, 2023 4:34 PM Janet Quiros wrote: Specialist: Dr.Michael Kong Relationship (if other than patient-full name): self Reason for Call: Patient wants to know if any labs or imaging is needed prior to his one year follow up. If so please send orders to [facility] and notify patient. documented in this encounter Plan of Treatment Upcoming Encounters Date Type Department Care Team (Late st Contact Info) Description 10/09/2024 9:40 AM EDT [place] [address] Srinivas Kong MD [facility] [place] [address] 07/05/2025 8:30 AM EST TH Visit (TeleHealth) Endocrinology at [place] [address] Courtney Nagel MD [facility] [place] [address] documented as of this encounter Visit Diagnoses Not on filedocumented in this encounter Care Teams Celery Cutter Relationship Specialty Start Date End Date Vivian Bautista APRN [address] [place] [address] PCP - General 10/19/13 documented as of this encounter
--- OUTSIDE RECORDS SUMMARY | 2024-07-20 09:40 | XMS_ITS | Clinical Summary ---
Author Organization [facility] Address [address] [place] [address] Care Team Providers Care Health Technician Hearing Name Role Phone Vivian Bautista APRN Primary Care Provider +1 -[phone] Encounters Date Type Department Care Team Description 06/27/2024 Lab Requisition [facility] Pathology & Laboratory Medicine - [address] [address] Outr Resulting Lab, Provider from Last 3 Months Social History Tobacco Use Types Packs/Day Years [...] Last Done Comments Hepatitis C Screen 1955 Fall Risk Screening 2021 COVID-19 Vaccine (2023- season) 2024 RSV Immunization ( o r 60+ Years) (1 - 1-dose 75+ series) 2031 Procedures Procedure Name Priority Date/Time Associated Diagnosis Comments T3, TOTAL Routine 06/27/2024 9:20 EST from Last 3 Months Results * T3, TOTAL (06/27/2024 9:20 EST) T3, Total 141 97 - 169 ng/dL 06/27/2024 22:42 EST [facility] Blood VENOUS BLOOD / Unknown 06/27/2024 9:20 EST 06/27/2024 21:51 EST us Provider Outr Resulting Lab CHEMISTRY & BLOOD GA S ORDERABLES Final Result [facility] [address] [place], [place] [address] from Last 3 Months Insurance [employer] Care Teams Health Technician Hearing Relationship Specialty Start Date End Date Vivian Bautista APRN [address] [place] [address] PCP - General 07/08/22
--- OUTSIDE RECORDS SUMMARY | 2024-07-20 09:40 | XMS_ITS | Encounter Summary ---
Author Organization [facility] Address [address] [place] [address] Care Team Providers Care Garage Worker Name Role Phone Vivian Bautista APRN Primary Care Provider +1 -[phone] Encounter Details Date Type Department Care Team (Late st Contact Info) Description 07/20/2022 Lab Requisition [facility] Pathology & Laboratory Medicine - [facility] [address] [place] [address] Antony Lopez MD Polyp of colon; Rectal [...] explore management options, if applicable. 07/21/2022 17:55 [facility] Final Diagnosis A. COLON, 95 CMS, POLYP, BIOPSY: - Fragments of tubular adenoma. B. COLON, 80 CMS, POLYP, BIOPSY: - Tubular adenoma. C. COLON, RECTOSIGMOID AT 30 CMS, POLYP, BIOPSY: - Hyperplastic polyp. 07/21/2022 17:55 [facility] Attestation By the signature below, the attending physician certifies that they have 1) personally conducted a gross and/or microscopic examination of the described specimen(s), and/or personally interpreted the results of laboratory testing of the described specimen(s), and 2) personally rendered or confirmed the above diagnosis. 07/21/2022 17:55 [facility] at 1755 Clinical History History of colon polyps 07/21/2022 17:55 [facility] Gross Description A. Received in [...] C1. NESS LARA(ASCP) 07/21/2022 8:18 07/21/2022 17:55 [facility] Performing Lab [facility] 07/21/2022 17:55 [facility] Scanned Images 07/21/2022 17:55 [facility] Tissue ENTIRE SIGMOID COLON / Unknown 07/20/2022 10:36 EST 07/20/2022 17:45 [facility] Tissue specimen (specimen) COLON STRUCTURE / Unknown 07/20/2022 10:36 EST 07/20/2022 17:45 EST Tissue specimen (specimen) SIGMOID COLON STRUCTURE / Unknown 07/20/2022 10:36 EST 07/20/2022 17:45 EST us Antony Lopez MD PATHOLOGY ORDERABLES Final Resul t [facility] [address] [place] [address] documented in this encounter Visit Diagnoses Diagnosis Polyp of colon Benign neoplasm of colon Rectal polyp Anal and rectal polyp Diverticulosis of large intestine without perforation or abscess without bleeding Diverticulosis of colon (without mention of hemorrhage) documented in this encounter Care Teams Garage Worker Relationship Specialty Start Date End Date Vivian Bautista, MILITARY ADMINISTRATIVE TECHNICIAN [address] [place] [address] PCP - General 07/08/22 documented as of this encounter
--- OUTSIDE RECORDS SUMMARY | 2024-07-20 09:40 | XMS_ITS | Referral Summary ---
Author Organization [facility] Address [address] [place] [address] Care Team Providers Care Emergency Veterinarian Name Role Phone Vivian Bautista APRN Primary Care Provider +1 [phone] Encounters Date Type Department Care Team Description 06/27/2024 Lab Requisition [facility] Pathology & Laboratory Medicine - [facility] [address] [place] [address] Outr Resulting Lab, Provider from Last 3 [...] file Plan of Treatment Not on file Procedures Procedure Name Priority Date/Time Associated Diagnosis Comments T3, TOTAL Routine 06/27/2024 9:20 EST from Last 3 Months Results * T3, TOTAL (06/27/2024 9:20 EST) T3, Total 141 97 - 169 ng/dL 06/27/2024 22:42 EST [facility] Blood VENOUS BLOOD / Unknown 06/27/2024 9:20 EST 06/27/2024 21:51 EST us Provider Outr Resulting Lab CHEMISTRY & BLOOD GA S ORDERABLES Final Result [facility] [address] [place] [address] from Last 3 Months Insurance [employer] Care Teams Emergency Veterinarian Relationship Specialty Start Date End Date Vivian Bautista APRN [address] [address] [place] [address] PCP - General 07/08/22
--- OUTSIDE RECORDS SUMMARY | 2024-07-20 09:40 | XMS_ITS | Encounter Summary ---
Author Organization [facility] [place] [address] Care Team Providers Care Automatic Paint Sprayer Operator Name Role Phone Vivian Bautista VINNY Primary Care Provider +1 -[phone] Encounter Details Date Type Department Care Team [...] 9:40 AM EDT Office Visit Urology at [facility] [place] [address] Srinivas Kong MD [facility] [place] [address] 07/05/2025 8:30 AM EST TH Visit (TeleHealth) [place] [address] Courtney Nagel MD [facility] [place] [address] documented as of this encounter Visit Diagnoses Not on filedocumented in this encounter Care Teams Automatic Paint Sprayer Operator Relationship Specialty Start Date End Date Vivian Bautista, RECORDS MANAGEMENT ASSOCIATE [address] [place] [address] PCP - General 10/19/13 documented as of this encounter
--- OUTSIDE RECORDS SUMMARY | 2024-07-20 09:40 | XMS_ITS | Encounter Summary ---
Author Organization [facility] [place] [address] Care Team Providers Care Supervisor Riprap Placing Name Role Phone Vivian Bautista VINNY Primary Care Provider +1 -[phone] Encounter Details Date Type Department Care Team [...] 9:40 AM EDT Office Visit Urology at [facility] [place] [address] Srinivas Kong MD [facility] [place] [address] 07/05/2025 8:30 AM EST TH Visit (TeleHealth) [place] [address] Courtney Nagel MD [facility] [place] [address] documented as of this encounter Visit Diagnoses Not on filedocumented in this encounter Care Teams Supervisor Riprap Placing Relationship Specialty Start Date End Date Vivian Bautista, FIOS LINE INSTALLER [address] [place] [address] PCP - General 10/19/13 documented as of this encounter
--- OUTSIDE RECORDS SUMMARY | 2024-07-20 09:40 | XMS_ITS | Encounter Summary ---
[place] [address] Care Team Providers Care Crosstie Inspector Name Role Phone Vivian Bautista VINNY Primary Care Provider +1 -[phone] Reason for Visit * Reason Onset Date Comments Questions 07/04/2024 Encounter Details Date Type Department Care Team (Late st Contact Info) Description 07/04/2024 Telephone [place] [address] Radha Min V, RN Questions Social History Tobacco Use Types Packs/Day Years [...] encounter Miscellaneous Notes * Telephone Encounter - Radha Min V, RN - 07/04/2024 10:33 AM EST Returned the pt call and advised the pt to schedule a telehealth visit (per provider orders) for his annual checkup considering the pt's commute. Pt was questioning why this visit is necessary. Explained that it is advisable to have an annual visit so the provider can assess his overall health and address any concerns to ensure everything is well. Pt verbalized understanding. Pt was transferred to [phone] to schedule their visit. * Telephone Encounter - Radha Min V RN - 07/04/2024 10:33 AM EST Copied from CRM #[id number]. Topic: Specialty Dept CRMs - Generic Call >> Jul 04, 2024 9:58 AM Azul Rose wrote: Specialist: Courtney Nagel MD Relationship (if other than patient-full name): self Reason for Call: Patient has an FUV scheduled for 07/06/24 but questions if he really needs to be seen. Patient states his test results have all come back normal and doesn't want to drive down from [facility] if he doesn't need to. Please call patient back to advise. documented in this encounter Plan of Treatment Upcoming Encounters Date Type Department Care Team (Late st Contact Info) Description 10/09/2024 9:40 AM EDT Office [place] [address] Srinivas Kong MD [facility] [place] [address] 07/05/2025 8:30 AM EST TH Visit (TeleHealth) [place] [address] Courtney Nagel MD [facility] [place] [address] documented as of this encounter Visit Diagnoses Not on filedocumented in this encounter Care Teams Crosstie Inspector Relationship Specialty Start Date End Date Vivian Bautista APRN [address] [place] [address] PCP - General 10/19/13 documented as of this encounter
--- OUTSIDE RECORDS SUMMARY | 2024-07-20 09:40 | XMS_ITS | Encounter Summary ---
Author Organization [facility] [place] [address] Care Team Providers Care Special Duty Nurse Name Role Phone Vivian Bautista VINNY Primary Care Provider +1 -[phone] Encounter Details Date Type Department Care Team [...] 9:40 AM EDT Office Visit Urology at [facility] [place] [address] Srinivas Kong MD [facility] [place] [address] 07/05/2025 8:30 AM EST TH Visit (TeleHealth) [place] [address] Courtney Nagel MD [facility] [place] [address] documented as of this encounter Visit Diagnoses Not on filedocumented in this encounter Care Teams Special Duty Nurse Relationship Specialty Start Date End Date Vivian Bautista, FEED MILL SUPERVISOR [address] [place] [address] PCP - General 10/19/13 documented as of this encounter
--- OUTSIDE RECORDS SUMMARY | 2024-07-20 09:40 | XMS_ITS | Encounter Summary ---
Author Organization [facility] Address [address] [place] [address] Care Team Providers Care Extrusion Press Adjuster Name Role Phone Vivian Bautista APRN Primary Care Provider +1 -[phone] Encounter Details Date Type Department Care Team (Late st Contact Info) Description 07/10/2022 Lab Requisition [facility] Pathology & Laboratory Medicine - [facility] [address] [place] [address] Outr Resulting Lab, Provider Social History Tobacco [...] 97 - 169 ng/dL 07/10/2022 22:20 EST [facility] Blood VENOUS BLOOD / Unknown 07/10/2022 13:55 EST 07/10/2022 21:33 EST us Provider Outr Resulting Lab CHEMISTRY & BLOOD GA S ORDERABLES Final Result [facility] [address] [place] [address] documented in this encounter Visit Diagnoses Not on filedocumented in this encounter Care Teams Extrusion Press Adjuster Relationship Specialty Start Date End Date Vivian Bautista APRN [address] [place] [address] PCP - General 07/08/22 documented as of this encounter
--- OUTSIDE RECORDS SUMMARY | 2024-07-20 09:40 | XMS_ITS | Encounter Summary ---
Author Organization [facility] Address [address] [place] [address] Care Team Providers Care Rn Integrity Name Role Phone Vivian Bautista APRN Primary Care Provider +1 -[phone] Encounter Details Date Type Department Care Team (Late st Contact Info) Description 05/05/2023 Lab Requisition [facility] Pathology & Laboratory Medicine - [facility] [address] [place], [place] [address] Outr Resulting Lab, Provider Social History Tobacco [...] 97 - 169 ng/dL 05/05/2023 23:16 EST [facility] Blood VENOUS BLOOD / Unknown 05/05/2023 15:07 EST 05/05/2023 22:10 EST us Provider Outr Resulting Lab CHEMISTRY & BLOOD GA S ORDERABLES Final Result [facility] [address] [place] [address] documented in this encounter Visit Diagnoses Not on filedocumented in this encounter Care Teams Rn Integrity Relationship Specialty Start Date End Date Vivian Bautista APRN [address] [place] [phone] PCP - General 07/08/22 documented as of this encounter
--- OUTSIDE RECORDS SUMMARY | 2024-07-20 09:40 | XMS_ITS | Encounter Summary ---
Author Organization [facility] Address [facility] [place] [address] Care Team Providers Care Marketing Ambassador Name Role Phone Vivian Bautista VINNY Primary Care Provider +1 -[phone] Encounter Details Date Type Department Care Team (Late st Contact Info) Description 09/16/2023 Orders Only Cardiology at [address] [address] Haim Fung MD [facility] [place] [address] Mixed hyperlipidemia; Benign prostatic hyperplasia, unspecified whether [...] 9:40 AM EDT [place] [address] Srinivas Kong MD [facility] [address] 07/05/2025 8:30 AM EST TH Visit (TeleHealth) [place] [address] Courtney Nagel MD [facility] [place] [address] documented as of this encounter Visit Diagnoses Diagnosis Mixed hyperlipidemia Benign prostatic hyperplasia, unspecified whether lower urinary tract symptoms present documented in this encounter Care Teams Marketing Ambassador Relationship Specialty Start Date End Date Vivian Bautista APRN [address] [place] [address] PCP - General 10/19/13 documented as of this encounter
--- OUTSIDE RECORDS SUMMARY | 2024-07-20 09:40 | XMS_ITS | Encounter Summary ---
Author Organization [facility] Address [address] [place] [address] Care Team Providers Care Form Tamper Name Role Phone Unavailable Primary Care Provider Unavailabl e Encounter Details Date Type Department Care Team (Late st Contact Info) Description 11/11/2009 Results Only [facility] Laboratory Services - [facility] [address] [place], [place] [address] Frank Andres MD [address] [place] [id number] Social History Tobacco Use Types Packs/Day Years [...] ? GREY, EDWARD ? Accession #: ? [id number] ? : ? 1955 (Age: 54) ??M ? Collect Date: ? 11/11/2009 ? Location: ? [facility] ? Receive Date: ? 11/12/2009 ? Provider: FRANK ANDRES MD ? Copy to: CASANDRA AJAMIE MD ? Final Pathologic Diagnosis: ? Colon, 25 cm, polyps, biopsies: ? - Fragments of hyperplastic polyps. ? Document reviewed and electronically signed by: ? JOSE MORRIS MD ? Report ??Date: 11/13/2009 09:17 ? By the signature above, the attending physician certifies that he/she has ? personally conducted a gross and/or microscopic examination of the described ? specimens and rendered or confirmed the above diagnosis. ? Specimen(s) Received: ? Colon polyps 25 cm x2 ? Clinical History: ? Hx polyps ? Gross Description: ? Received in Carlton's fixative labelled Grey, Julian and #1 colon ?? polyps 25 cm x 2 are three biopsies which vary in size from 0.2 x 0.2 x 0.2 cm up to 0.4 x 0.3 x 0.2 cm. ??The specimens are submitted intact in one cassette. ?? (Orin Fernandez)/mpl ? End of Report ? TANIA ROSALES 11/11/2009 11/12/2009 8:1 1 EDT us Frank Andres MD PATHOLOGY ORDERABLES Final Result [facility] [address] [place] [address] documented in this encounter Visit Diagnoses Not on filedocumented in this encounter
--- OUTSIDE RECORDS SUMMARY | 2024-07-20 09:40 | XMS_ITS | Encounter Summary ---
Author Organization [facility] Address [address] [place] [address] Care Team Providers Care Telemarketer Name Role Phone Imer Villegas MD Primary Care Provider [phone] Vivian Bautista APRN Primary Care Provider [phone] Encounter Details Date Type Department Care Team (Late st Contact Info) Description 08/11/2021 Lab Requisition [facility] Pathology & Laboratory Medicine - [facility] [address] [place], [place] [address] Outr Resulting Lab, Provider Social History Tobacco [...] 2.8 - 5.3 pg/mL 08/11/2021 21:56 EST [facility] Blood VENOUS BLOOD / Unknown 08/11/2021 8:15 EST 08/11/2021 21:17 EST us Provider Outr Resulting Lab CHEMISTRY & BLOOD GA S ORDERABLES Final Result [facility] [address] [place] [address] documented in this encounter Visit Diagnoses Not on filedocumented in this encounter Care Teams Telemarketer Relationship Specialty Start Date End Date Imer Villegas MD [address] [place] [address] PCP - General 11/13/09 07/07/22 Vivian Bautista APRN [address] [facility] [address] [place] [address] PCP - General 07/08/22 documented as of this encounter
--- OUTSIDE RECORDS SUMMARY | 2024-07-20 09:40 | XMS_ITS | Encounter Summary ---
Author Organization [facility] [place] [address] Care Team Providers Care Office Sweeper Name Role Phone Vivian Bautista VINNY Primary Care Provider +1 -[phone] Encounter Details Date Type Department Care Team [...] 9:40 AM EDT Office Visit Urology at [facility] [place] [address] Srinivas Kong MD [facility] [place] [address] 07/05/2025 8:30 AM EST TH Visit (TeleHealth) [place] [address] Courtney Nagel MD [facility] [place] [address] documented as of this encounter Visit Diagnoses Not on filedocumented in this encounter Care Teams Office Sweeper Relationship Specialty Start Date End Date Vivian Bautista, FOREIGN LANGUAGES DEPARTMENT CHAIR [address] [place] [address] PCP - General 10/19/13 documented as of this encounter
--- OUTSIDE RECORDS SUMMARY | 2024-07-20 09:40 | XMS_ITS ---
Author Organization Unknown [facility]ER[facility]IES AND ADVERSE REACTIONS No information ASSESSMENT No information CHIEF COMPLAINT No information MEDICATIONS No information OBJECTIVE DATA No information PHYSICAL EXAMINATION No information TREATMENT PLAN Planned Care Start Date Provider Encounter for Check-up [id number] PROBLEMS No information RESULTS No information REVIEW OF SYSTEMS No information SUBJECTIVE DATA No information VITAL SIGNS No information
--- OUTSIDE RECORDS SUMMARY | 2024-07-20 09:40 | XMS_ITS | Encounter Summary ---
Author Organization [facility] Address [address] [place] [address] Care Team Providers Care Director Airport Name Role Phone David Jacobson MD Primary Care Provider [phone] Encounter Details Date Type Department Care Team (Late st Contact Info) Description 07/02/2005 Results Only [facility] [place] [facility] [address] [place] [address] Frank Andres MD [address] [place] [address] Social History Tobacco Use Types Packs/Day Years [...] when reading/interpreti ng unformatted reports. Name: ? GREYJULIAN OLGUIN ? Accession #: ? [id number] ? : ? 1955 (Age: 50) ??M [...] TANIA ROSALES 07/02/2005 07/03/2005 8:4 0 EST us Frank Andres MD PATHOLOGY ORDERABLES Final Result Performing Organization Address City/State/[facility] Co de Phone Number TANIA ROSALES [address] [place] [address] documented in this encounter Visit Diagnoses Not on filedocumented in this encounter Care Teams Director Airport Relationship Specialty Start Date End Date David Jacobson MD [address] [place] [address] PCP - General 11/13/09 07/07/22 documented as of this encounter
--- OUTSIDE RECORDS SUMMARY | 2024-07-20 09:40 | XMS_ITS | Clinical Summary ---
Author Organization [facility] Address [facility] [place] [address] Care Team Providers Care Client Coordinator Name Role Phone Vivian Bautista VINNY Primary Care Provider [phone] [phone] Allergies Active Allergy Reactions Criticality Noted Date [...] sildenafiL (VIAGRA) 100 mg Tablet 05/12/2021 Active cyclobenzaprine (Flexeril) 5 mg Tablet Take 5 mg by mouth as needed. 03/26/2022 Active multivitamin Capsule Take 1 capsule by mouth daily. Active NONFORMULARY REQUEST 2 times daily. Beet supplement Active cetirizine (ZyrTEC) 10 mg tablet Take 10 mg by mouth daily. Active fluticasone (VERAMYST) 27.5 mcg/actuation Ronceverte, Suspension 2 sprays by Nasal route as needed for Rhinitis. Active losartan (Cozaar) 50 mg tablet Take 1 tablet by mouth daily. 90 tablet 3 10/08/2022 Active levothyroxine (Synthroid) 125 mcg tabletIndications:H ypothyroidism, acquired Take 1 tablet by mouth daily. 90 tablet 3 07/06/2024 Active liothyronine (Cytomel) 5 mcg tabletIndications:H ypothyroidism, acquired Take 1 tablet once daily 90 tablet 3 07/06/2024 Active Active Problems Problem Noted Date Diagnosed [...] a higher dose of rosuvastatin. Thyroid disease Encounters Date Type Department Care Team Description 07/07/2024 Orders Only Cardiology at [address] [address] Haim Fung MD Hyperlipidemia, unspecified hyperlipidemia type 07/06/2024 1:00 PM EST Office Visit Dermatology at [facility] [address] [place] [address] Philipp Reynoso MD Seborrheic keratoses; Lentigines; Verduzco angioma; Multiple melanocytic nevi; Xerosis of skin; Stucco keratoses 07/06/2024 10:30 AM EST TH Visit (TeleHealth) [place] [address] Courtney Nagel MD Hypothyroidism, acquired 07/06/2024 Travel 07/04/2024 Tele[place] [address] Radha Min V RN Questions 06/30/2024 Travel 05/11/2024 Telephone Dermatology at [facility] [address] [place] [address] Tressa Jordan MD from Last 3 Months Family History Medical History Relation Comments Heart [...] 05/11/2023 1:19 PM EST Plan of Treatment Upcoming Encounters Date Type Department Care Team (Late st Contact Info) Description 10/09/2024 9:40 AM EDT [place] [address] Srinivas Kong MD [facility] [place] [address] 07/05/2025 8:30 AM EST TH Visit (TeleHealth) [place] [address] Courtney Nagel MD [facility] [place] [address] Health Maintenance Due Date Last Done Comments CT Colonography 1955 Colonoscopy 1955 Colorectal Cancer Screening 1955 FIT DNA 1955 FIT 1955 Sigmoidoscopy (10 year) with FIT yearly 1955 Sigmoidoscopy 1955 Hepatitis C Screening 1974 Tetanus/Diphtheria/Pertussis Vaccines (1 - Tdap) 05/02 Diabetes Screening (HgbA1C or Glucose) 1996 Pneumoccocal Vaccine: 50+ (1 of 1 - PCV) 2006 Zoster vaccine (1 of 2) 2006 Advance Directive 2011 AAA Screen 2021 Covid-19 Vaccine (1 - 2023- season) 2024 Influenza (Flu) vaccine (1 o f 1 - Influenza standard series) 02/06/2024 Procedures Procedure Name Priority Date/Time Associated Diagnosis Comments LAB SCAN 06/29/2024 12:00 AM EST from Last 3 Months Results * Scan Doc: Lab (06/29/2024 12:00 AM EST) Narrative 06/29/2024 12:00 AM EST Ordered by an unspecified provider. Scanning Provider MEDIA MGR SCAN EXT O RDR/RSLT from Last 3 Months Advance Directives Documents on File Type Date Recorded Patient Relay Tester Expl anation Personal Relay Tester 07/06/2017 10:47 AM Lynette Renee Care Teams Client Coordinator Relationship Specialty Start Date End Date Vivian Bautista, VINNY [address] [place], [place] [id number] PCP - General 10/19/13
--- OUTSIDE RECORDS SUMMARY | 2024-07-20 09:40 | XMS_ITS | Encounter Summary ---
Author Organization [facility] [place] [address] Care Team Providers Care Coding Specialist Home Health Name Role Phone Vivian Bautista VINNY Primary Care Provider [phone] [phone] Encounter Details Date Type Department Care Team (Latest Contact Info) Description 06/30/2024 Travel Social History Tobacco Use Types Packs/Day [...] 9:40 AM EDT Office Visit Urology at [facility] [address] Srinivas Kong MD [facility] [address] 07/05/2025 8:30 AM EST TH Visit (TeleHealth) [place] [address] Courtney Nagel MD [facility] [place] [address] documented as of this encounter Visit Diagnoses Not on filedocumented in this encounter Care Teams Coding Specialist Home Health Relationship Specialty Start Date End Date Vivian Bautista, YARD BRAKEMAN [address] [place] [address] PCP - General 10/19/13 documented as of this encounter
--- OUTSIDE RECORDS SUMMARY | 2024-07-20 09:40 | XMS_ITS | Encounter Summary ---
Author Organization [facility] Address [address] [place] [address] Care Team Providers Care Accounting Bookkeeper Name Role Phone Imer Villegas MD Primary Care Provider [phone] Encounter Details Date Type Department Care Team (Latest Contact Info) Description 02/15/2017 9:53 EDT - 02/15/2017 23:59 EDT Hospital Encounter [facility] [address] [place] [id number] Unknown, Provider, Discharge Disposition: Home or Self [...] Code Departure Means Destination Home or Self Custodial documented in this encounter Plan of Treatment Not on file documented as of this encounter Visit Diagnoses Not on filedocumented in this encounter Care Teams Accounting Bookkeeper Relationship Specialty Start Date End Date Imer Villegas MD [address] [place] [address] PCP - General 11/13/09 07/07/22 documented as of this encounter
--- OUTSIDE RECORDS SUMMARY | 2024-07-20 09:40 | XMS_ITS | Encounter Summary ---
Author Organization [facility] Address [address] [place] [address] Care Team Providers Care Bumboater Name Role Phone Vivian Bautista APRN Primary Care Provider +1 [phone] Encounter Details Date Type Department Care Team (Late st Contact Info) Description 06/27/2024 Lab Requisition [facility] Pathology & Laboratory Medicine - [facility] [address], [place] [address] Outr Resulting Lab, Provider Social History Tobacco [...] Comments T3, TOTAL Routine 06/27/2024 9:20 EST documented in this encounter Results * T3, TOTAL (06/27/2024 9:20 EST) T3, Total 141 97 - 169 ng/dL 06/27/2024 22:42 EST [facility] Blood VENOUS BLOOD / Unknown 06/27/2024 9:20 EST 06/27/2024 21:51 EST us Provider Outr Resulting Lab CHEMISTRY & BLOOD GA S ORDERABLES Final Result [facility] [address] [place] [address] documented in this encounter Visit Diagnoses Not on filedocumented in this encounter Care Teams Bumboater Relationship Specialty Start Date End Date Vivian Bautista APRN [address] [place] [id number] PCP - General 07/08/22 documented as of this encounter
--- OUTSIDE RECORDS SUMMARY | 2024-07-20 09:40 | XMS_ITS | Encounter Summary ---
Author Organization [facility] Address [facility] [place] [address] Care Team Providers Care Rooter Operator Name Role Phone Vivian Bautitsa VINNY Primary Care Provider [phone] [phone] Encounter Details Date Type Department Care Team (Late st Contact Info) Description 10/28/2022 [place] [phone] Srinivas Kong MD [facility] [place] [place] [address] Social History Tobacco Use Types Packs/Day Years [...] 9:40 AM EDT [place] [address] Srinivas Kong MD [facility] [place] [address] 07/05/2025 8:30 AM EST TH Visit (TeleHealth) [place] [address] Courtney Nagel MD [facility] [place] [address] documented as of this encounter Visit Diagnoses Not on filedocumented in this encounter Care Teams Rooter Operator Relationship Specialty Start Date End Date Vivian Bautista APRN [address] [place] [address] PCP - General 10/19/13 documented as of this encounter
--- OUTSIDE RECORDS SUMMARY | 2024-07-20 09:40 | XMS_ITS | Encounter Summary ---
Author Organization [facility] [place] [address] Care Team Providers Care Foster Care Therapist Name Role Phone Vivian Bautista VINNY Primary Care Provider [phone] Reason for Visit * Reason Comments Medication Refill Encounter Details Date Type Department Care Team (Late st Contact Info) Description 04/25/2023 [place] [address] Courtney Nagel MD [facility] [place] [address] Hypothyroidism, acquired Social History Tobacco Use Types [...] 9:40 AM [place]T [place] [address] Srinivas Kong MD [facility] [place] [address] 07/05/2025 8:30 AM EST TH Visit (TeleHealth) [place] [address] Courtney Nagel MD [facility] [place] [address] documented as of this encounter Visit Diagnoses Diagnosis Hypothyroidism, acquired Unspecified hypothyroidism documented in this encounter Care Teams Foster Care Therapist Relationship Specialty Start Date End Date Vivian Bautista APRN [address] [place] [address] PCP - General 10/19/13 documented as of this encounter
--- OUTSIDE RECORDS SUMMARY | 2024-07-20 09:40 | XMS_ITS | Encounter Summary ---
Author Organization [facility] Address [facility] [place] [address] Care Team Providers Care Principal Ios Developer Name Role Phone Vivian Bautista VINNY Primary Care Provider [phone] [phone] Reason for Visit * Reason Comments Skin Check Encounter Details Date Type Department Care Team (Late st Contact Info) Description 11/10/2022 9:15 AM EDT Office Visit Dermatology at [facility] [address] [place] [address] Tressa Jordan MD [facility] [address] [place] [address] Multiple benign melanocytic nevi of upper and [...] relevant family history No Social History Occupation: [employer] Hobbies: Marital status: . Previously lived in [place]. Pre-Procedure Questions Details Allergy to lidocaine, epinephrine, [...] 2 years for FSE []Note routed to psychiatric secretary [x]Recall placed in scheduling system []Appointment scheduled at checkout Scribe attestation: Tyra Grajeda [facility] has performed the documentation for this encounter in the presence of and acting as a scribe for TRESSA JORDAN MD. I performed the above scribed service and agree with the accuracy of the documentation in this encounter. Reviewed and signed by: TRESSA JORDAN MD Dermatology [facility] documented in this encounter Plan of Treatment Upcoming Encounters Date Type Department Care Team (Late st Contact Info) Description 10/09/2024 9:40 AM EDT Office [place] [address] Srinivas Kong MD [facility] [place] [address] 07/05/2025 8:30 AM EST TH Visit (TeleHealth) [place] [address] Courtney Nagel MD [facility] [address] documented as of this encounter Visit Diagnoses Diagnosis Multiple benign melanocytic nevi of upper and lower extremities and trunk Seborrheic keratoses Verduzco angioma Nevus, non-neoplastic Stucco keratoses Spider angioma Nevus, non-neoplastic Lentigines Other dyschromia documented in this encounter Care Teams Principal Ios Developer Relationship Specialty Start Date End Date Vivian Bautista APRN [address] [place] [address] PCP - General 10/19/13 documented as of this encounter
--- OUTSIDE RECORDS SUMMARY | 2024-07-20 09:40 | XMS_ITS | Encounter Summary ---
Author Organization [facility] Address [facility] [place] [address] Care Team Providers Care Solar Energy System Installer Name Role Phone Vivian Bautista VINNY Primary Care Provider [phone] [phone] Encounter Details Date Type Department Care Team (Late st Contact Info) Description 07/07/2024 Orders Only Cardiology at [address] [address] Haim Fung MD [facility] [place] [address] Hyperlipidemia, unspecified hyperlipidemia type Social History Tobacco [...] 9:40 AM EDT [place] [address] Srinivas Kong MD [facility] [place] [address] 07/05/2025 8:30 AM EST TH Visit (TeleHealth) Endocrinology at [place] [phone] Courtney Nagel MD [facility] [place] [address] Scheduled Orders Name Type Priority Associated Diagnoses Orde r Schedule Lipid Panel (Reflex Direct LDL) Lab Routine Hyperlipidemia, unspecified hyperlipidemia type Expected: 07/14/2024, Expires: 07/07/2025 documented as of this encounter Visit Diagnoses Diagnosis Hyperlipidemia, unspecified hyperlipidemia type documented in this encounter Care Teams Solar Energy System Installer Relationship Specialty Start Date End Date Vivian Bautista APRN [address] [place] [address] PCP - General 10/19/13 documented as of this encounter
--- OUTSIDE RECORDS SUMMARY | 2024-07-20 09:40 | XMS_ITS | Encounter Summary ---
Author Organization [facility] Address [address] [place] [address] Care Team Providers Care Center Customer Service Associate Name Role Phone Vivian Bautista APRN Primary Care Provider [phone] [phone] Encounter Details Date Type Department Care Team (Late st Contact Info) Description 09/15/2022 Lab Requisition [facility] Pathology & Laboratory Medicine - [facility] [address] [place] [address] Outr Resulting Lab, Provider Social History Tobacco [...] 5.3 pg/mL 09/15/2022 22:[address] [facility] Blood VENOUS BLOOD / Unknown 09/15/2022 7:55 EDT 09/15/2022 21:39 EDT Provider Outr Resulting Lab CHEMISTRY & BLOOD GA S ORDERABLES Final Result Performing Organization Address [facility] de Phone Number [facility] [address] [place] [address] * (ABNORMAL) PSA TOTAL, DIAGNOSTIC (09/15/2022 7:55 EDT) PSA 5.1(H) <=4.5 ng/mL 09/15/2022 22:[address] [facility] Blood VENOUS BLOOD / Unknown 09/15/2022 7:55 EDT 09/15/2022 21:39 EDT Narrative [facility] - 09/15/2022 22:44 EDT NOTE: Serum PSA concentration should not be interpreted as absolute evidence for the presence or absence of malignant disease. Assayed on ticketscriptaur XPT using chemiluminescent technology.??Values obtained by using different assay methods cannot be used interchangeably. us Provider Outr Resulting Lab CHEMISTRY & BLOOD GA S ORDERABLES Final Result Performing Organization Address [facility] de Phone Number [facility] [address] [place] [address] documented in this encounter Visit Diagnoses Not on filedocumented in this encounter Care Teams Center Customer Service Associate Relationship Specialty Start Date End Date Vivian Bautista APRN [address] [facility] [address] [place] [address] PCP - General 07/08/22 documented as of this encounter
--- OUTSIDE RECORDS SUMMARY | 2024-07-20 09:40 | XMS_ITS | Encounter Summary ---
Author Organization [facility] Address [facility] [place] [address] Care Team Providers Care Vehicle Monitor Technician Name Role Phone Vivian Bautista VINNY Primary Care Provider +1 [phone] Encounter Details Date Type Department Care Team (Late st Contact Info) Description 10/07/2023 8:40 AM EDT [place] [address] Srinivas Kong MD [facility] [place] [address] BPH with elevated PSA Social History Tobacco [...] Sims MD - 10/07/2023 8:[address] [facility] SECTION OF UROLOGY UROLOGY CLINIC VISIT Name: [...] to avoid leg cramps. IPSS score 9/35 (0/1/1/3/); QOL 4/6. PSA 6.12 (16% free) MRI [...] above. Srinivas Kong MD Section of Urology [facility] Office: [phone] documented in this encounter Plan of Treatment Upcoming Encounters Date Type Department Care Team (Late st Contact Info) Description 10/09/2024 9:40 AM EDT [place] [address] Srinivas Kong MD [facility] [place] [address] 07/05/2025 8:30 AM EST TH Visit (TeleHealth) [place] [address] Courtney Nagel MD [facility] [place] [place] [address] Scheduled Orders Name Type Priority Associated Diagnoses Orde r Schedule PSA (Ultrasensitive) Lab STAT BPH with elevated PSA Expected: 10/06/2024 (Approximate), Expires: 04/08/2025 documented as of this encounter Visit Diagnoses Diagnosis BPH with elevated PSA Hypertrophy of prostate without urinary obstruction and other lower urinary tract symptoms (LUTS) documented in this encounter Care Teams Vehicle Monitor Technician Relationship Specialty Start Date End Date Vivian Bautista APRN [address] [place] [address] PCP - General 10/19/13 documented as of this encounter
--- OUTSIDE RECORDS SUMMARY | 2024-07-20 09:40 | XMS_ITS | Encounter Summary ---
Author Organization [facility] Address [facility] [place] [address] Care Team Providers Care Conservation Assistant Name Role Phone Vivian Bautista VINNY Primary Care Provider +1 -[phone] Encounter Details Date Type Department Care Team (Late st Contact Info) Description 07/06/2024 10:30 AM EST TH Visit (TeleHealth) [place] [address] Courtney Nagel MD [facility] [place] [address] Hypothyroidism, acquired Social History Tobacco Use Types [...] as of this encounter Progress Notes * Courtney Nagel MD - 07/06/2024 10:30 AM EST [facility] Endocrinology Clinic Follow up Patient Chief complaint: hypothyroidism History: Julian Edmonds is a 68 y.o. male with hypothyroidism, HTN, HLD, KAREN on CPAP, here for follow up of hypothyroidism. Last visit with me in 05/2023. He remains on LT4 125 mcg daily and 5 mcg of Cytomel daily - both taken in the AM. He has lost weight since our last visit, now weighs 250 lb. Did gainsome weight over the holidays and is trying to lose more weight. Retired now, but keeps busy. No neck swelling. Has occasional diarrhea. Does not really have palpitations. No longer having tremors onlower dose of T3. Wishes energy was better, energy has gone down a bit which he attributes to his age. He continues to use his CPAP machine for treatment of KAREN and sleeps about 8 hours a night. TFTswere checked earlier this month were at goal. Past Medical History: Diagnosis Date Allergy 1974 compozine Chronic pain knee Digestive problems heartburn/sometimes Elevated cholesterol 2002 Genital disease, male e/d GERD (gastroesophageal reflux disease) Hormone disorder hypo thyroid Hyperlipidemia Hypertension Thyroid disease Past Surgical History: Procedure Laterality Date PRO UNLISTED CRANIO/MAXILLOFACIAL SURG top denture/wisdom teeth PRO UNLISTED E/M SVC appendectomy PRO UNLISTED PROCEDURE PHARYNX ADENOIDS/TONSILS tonsill PRO UNLISTED PROCEDURE, MUSCULOSKELETAL SYSTEM, GENERAL knee PRO UNLISTED PX UR SYS vasectomy Allergies Allergen Reactions Compazine [Prochlorperazine] Other (See Comments) Facial ticks Review of systems: As noted in HPI, all other systems reviewed and negative No vitals available for this visit Physical Exam: General: No acute distress, well appearing Head: atraumatic, normocephalic Eyes: no proptosis, no erythema Neck: no visible scars or goiter Resp: breathing comfortably; no respiratory distress Psych: AAO x 3; normal affect; memory intact Labs/Imagin06/27/2024: TSH 1.08 Free T4 0.92 T3 141 05/05/2023: TSH 0.52 Free T4 0.91 Total T3 129 Latest Reference Range & Units 12/17/20 14:10 05/11/22 14:18 T3, Total 80 - 200 ng/dL 119 126 Free T4 0.93 - 1.70 ng/dL 1.02 0.94 TSH 0.27 - 4.20 mcIU/mL 3.39 6.91 (H) (H): Data is abnormally high Assessment and Plan: 69 year old man with hypothyroidism and fatigue Hypothyroidism: Now biochemically euthyroid and clinically euthyroid as well. Continue with LT4 125mcg daily and Cytomel 5 mcg daily. Refills provided today. Follow up in 1 year. Advised that if he gains or loses more than 15 lbs, we can recheck TFTs. 25 minutes total time spent seeing patient today, pre-charting/reviewing previous labs/office notes, placing orders and on documentation. Courtney Nagel MD Machine Clothing Workerroller operator Endocrinology Section [facility] documented in this encounter Plan of Treatment Upcoming Encounters Date Type Department Care Team (Late st Contact Info) Description 10/09/2024 9:40 AM EDT Office Visit [place] [address] Srinivas Kong MD [facility] [place] [place] [address] 07/05/2025 8:30 AM EST TH Visit (TeleHealth) [place] [address] Courtney Nagel MD [facility] [place] [address] Scheduled Orders Name Type Priority Associated Diagnoses Orde r Schedule TSH Lab Routine Hypothyroidism, acquired Expected: 07/06/2024 (Approximate), Expires: 07/06/2025 T4, free Lab Routine Hypothyroidism, acquired Expected: 07/06/2024 (Approximate), Expires: 07/06/2025 T3 Total Lab Routine Hypothyroidism, acquired Expected: 07/06/2024 (Approximate), Expires: 07/06/2025 TSH Lab Routine Hypothyroidism, acquired Expected: 06/07/2025 (Approximate), Expires: 07/16/2025 T4, free Lab Routine Hypothyroidism, acquired Expected: 06/07/2025 (Approximate), Expires: 07/16/2025 T3 Total Lab Routine Hypothyroidism, acquired Expected: 06/07/2025 (Approximate), Expires: 07/16/2025 documented as of this encounter Visit Diagnoses Diagnosis Hypothyroidism, acquired Unspecified hypothyroidism documented in this encounter Care Teams Conservation Assistant Relationship Specialty Start Date End Date Vivian Bautista APRN [address] [place] [address] PCP - General 10/19/13 documented as of this encounter
--- OUTSIDE RECORDS SUMMARY | 2024-07-20 09:40 | XMS_ITS | Encounter Summary ---
Author Organization [facility] Address [facility] [place] [address] Care Team Providers Care Head Animal Keeper Name Role Phone Vivian Bautista VINNY Primary Care Provider +1 [phone] Encounter Details Date Type Department Care Team (Late st Contact Info) Description 05/11/2023 2:00 PM EST Office [place] [address] Courtney Nagel MD [facility] [place] [address] Hypothyroidism, acquired Social History Tobacco Use Types [...] Nagel MD - 05/11/2023 2:00 PM EST [facility] Endocrinology Clinic Follow up Patient Chief complaint: [...] pain knee Digestive problems heartburn/sometimes Elevated cholesterol 2003 Genital disease, male e/d GERD (gastroesophageal reflux [...] 1 year (telehealth visit). Courtney Nagel MD Public Safety Telecommunicatorbell spinner Endocrinology Section [facility] documented in this encounter Plan of Treatment Upcoming Encounters Date Type Department Care Team (Late st Contact Info) Description 10/09/2024 9:40 AM EDT [place] [address] Srinivas Kong MD [facility] [place] [address] 07/05/2025 8:30 AM EST TH Visit (TeleHealth) [place] [address] Courtney Nagel MD [facility] [place] [address] documented as of this encounter Visit Diagnoses Diagnosis Hypothyroidism, acquired Unspecified hypothyroidism documented in this encounter Care Teams Head Animal Keeper Relationship Specialty Start Date End Date Vivian Bautista APRN [address] [place] [address] PCP - General 10/19/13 documented as of this encounter
--- OUTSIDE RECORDS SUMMARY | 2024-07-20 09:41 | XMS_ITS | Encounter Summary ---
Author Organization [facility] [place] [address] Care Team Providers Care Group Dynamics Instructor Name Role Phone Vivian Bautista VINNY Primary Care Provider +1 [phone] Encounter Details Date Type Department Care Team [...] 9:40 AM EDT Office Visit Urology at [facility] [place] [address] [facility] [place] [address] 07/05/2025 8:30 AM EST TH Visit (TeleHealth) [place] [address] [facility] [place] [address] documented as of this encounter Visit Diagnoses Not on filedocumented in this encounter Care Teams Group Dynamics Instructor Relationship Specialty Start Date End Date Vivian Bautista, PRICING ANALYST [address] [place] [address] PCP - General 10/19/13 documented as of this encounter
--- OUTSIDE RECORDS SUMMARY | 2024-07-20 09:41 | XMS_ITS | Encounter Summary ---
Author Organization [facility] [place] [address] Care Team Providers Care Financial Institution Manager Name Role Phone Morena Bautistahryn Milton CASILLAS Primary Care Provider +1 -[phone] Reason for Visit * Reason Comments Obstructive Sleep Apnea Encounter Details Date Type Department Care Team (Late st Contact Info) Description 03/07/2020 2:30 PM EDT Office Visit Sleep Center at [facility] [address] [place] [address] Katie Mckeon, HYDRO PLANT TECHNICIAN SLEEP CENTER KAREN on CPAP Social History [...] this encounter Progress Notes * Katie Mckeon, HYDRO PLANT TECHNICIAN - 03/07/2020 2:30 PM EDT Sleep Medicine [...] some Symptom Benefit: Patient-reported last 4 scores: [facility] 12/15/2017 03/07/2018 03/07/2019 03/01/2020 [facility] 8 8 7 6 Insomnia Severity [...] if drowsy, if drowsy while driving to pullman clerk and take a nap. 4) Patient to [...] 9:40 AM EDT [place] [address] Srinivas Knog MD [facility] [place] [address] 07/05/2025 8:30 AM EST TH Visit (TeleHealth) [place] [address] Courtney Nagel MD [facility] [place] [address] documented as of this encounter Visit Diagnoses Diagnosis KAREN on CPAP Obstructive sleep apnea (adult) (pediatric) documented in this encounter Care Teams Financial Institution Manager Relationship Specialty Start Date End Date Vivian Bautista APRN [address] [place] [address] PCP - General 10/19/13 documented as of this encounter
--- OUTSIDE RECORDS SUMMARY | 2024-07-20 09:41 | XMS_ITS | Encounter Summary ---
Author Organization [facility] [place] [address] Care Team Providers Care Senior Controls Technician Name Role Phone MicheleVivian davenport Milton CASILLAS Primary Care Provider [phone] [phone] Reason for Visit * Reason Comments Sleep Apnea Encounter Details Date Type Department Care Team (Late st Contact Info) Description 09/22/2017 8:00 AM EDT Office Visit Sleep Center at [address] [address] Katie Mckeon [facility] KAREN on CPAP Social History [...] power snooze in the afternoon. Symptom Benefit: Hanna: 7 (10 previous) Sleep quality: improvement Daytime [...] if drowsy, if drowsy while driving to green chain puller and take a nap. 4) Patient [...] 9:40 AM EDT [place] [address] Srinivas Kong MD [facility] [place] [address] 07/05/2025 8:30 AM EST TH Visit (TeleHealth) [place] [address] Courtney Nagel MD [facility] [place] [address] documented as of this encounter Visit Diagnoses Diagnosis KAREN on CPAP Obstructive sleep apnea (adult) (pediatric) documented in this encounter Care Teams Senior Controls Technician Relationship Specialty Start Date End Date Vivian Bautista APRN [address] [place] [address] PCP - General 10/19/13 documented as of this encounter
--- OUTSIDE RECORDS SUMMARY | 2024-07-20 09:41 | XMS_ITS | Encounter Summary ---
Author Organization [facility] [place] [address] Care Team Providers Care Heel Coverer Name Role Phone Vivian Bautista VINNY Primary Care Provider +1 [phone] Reason for Visit * Reason Comments Medication Refill Encounter Details Date Type Department Care Team (Late st Contact Info) Description 08/26/2019 Refill [place] [address] Darren Mendoza MD [facility] [place] [address] Social History Tobacco Use Types Packs/Day Years [...] 9:40 AM EDT Office [place] [address] Srinivas Kong MD [facility] [place] [address] 07/05/2025 8:30 AM EST TH Visit (TeleHealth) [place] [address] Courtney Nagel MD [facility] [place] [address] documented as of this encounter Visit Diagnoses Not on filedocumented in this encounter Care Teams Heel Coverer Relationship Specialty Start Date End Date Vivian Bautista APRN [address] [place] [address] PCP - General 10/19/13 documented as of this encounter
--- OUTSIDE RECORDS SUMMARY | 2024-07-20 09:41 | XMS_ITS | Encounter Summary ---
Author Organization [facility] [place] [address] Care Team Providers Care Medical Record Retrieval Specialist Name Role Phone Vivian Bautista VINNY Primary Care Provider +1 [phone] Encounter Details Date Type Department Care Team [...] 9:40 AM EDT Office Visit Urology at [facility] [place] [address] Srinivas Kong MD [facility] [place] [address] 07/05/2025 8:30 AM EST TH Visit (TeleHealth) [place] [address] Courtney Nagel MD [facility] [place] [address] documented as of this encounter Visit Diagnoses Not on filedocumented in this encounter Care Teams Medical Record Retrieval Specialist Relationship Specialty Start Date End Date Vivian Bautista, DIE CUTTER APPRENTICE [address] [place] [address] PCP - General 10/19/13 documented as of this encounter
--- OUTSIDE RECORDS SUMMARY | 2024-07-20 09:41 | XMS_ITS | Encounter Summary ---
Author Organization [facility] [place] [address] Care Team Providers Care Merchandising Coordinator Name Role Phone Vivian Bautista APRN Primary Care Provider +1 [phone] Reason for Visit * Consultation (Urgent) - Closed Specialty Diagnoses / Procedures Referred By Lashaun camarena Referred To Contact Urology Diagnoses Unspecified symptoms and signs involving the genitourinary system Asymptomatic microscopic hematuria Lower urinary tract symptoms. Vviian Bautista APRN [address] [place] [address] [facility] [place] [address] Referral ID Status Reason Start Date Expiration Date V isits Requested Visits Authorized [id number] Closed Consult, Test & Treat PCP Updated and/or Approved 08/28/2021 08/28/2022 12 12 Encounter Details Date Type Department Care Team (Late st Contact Info) Description 09/25/2021 10:00 AM [place]T [place] [address] Srinivas Miller MD [facility] [place] [address] Screening PSA (prostate specific antigen); Benign prostatic [...] Miller MD - 09/25/2021 10:[address] [facility] SECTION OF UROLOGY UROLOGY CLINIC VISIT Name: [...] to avoid leg cramps. IPSS score 9/35 (0/1/1/3//2); QOL 4/6. No prostate imaging. He has [...] above. Srinivas Miller MD Section of Urology [facility] Office: [phone] documented in this encounter Miscellaneous Notes * [...] 9:40 AM [place]T [place] [address] Srinivas Miller MD [facility] [place] [address] 07/05/2025 8:30 AM EST TH Visit (TeleHealth) [place] [address] Courtney Nagel MD [facility] [place] [address] documented as of this encounter Procedures Procedure [...] EDT) Glucose, Urine Dipstick Negative Negative mg/dL [facility] Protein, Urine Dipstick Negative Negative mg/dL [facility] Bilirubin, Urine Dipstick Negative Negative mg/dL [facility] Comment: Clinical correlation required for positive Urine Bilirubin results as false positive may occur with some drugs and drug related products. If a false positive is suspected a serum total bilirubin should be considered if clinically indicated. Urobilinogen, Urine Dipstick Normal Normal mg/dL [facility] pH, Urn (dipstick) 5.0 5.0 - 8.0 [facility] Blood, Urine Dipstick Negative Negative mg/dL [facility] Ketone, Urine Dipstick Negative Negative mg/dL [facility] Nitrite, Urine Dipstick Negative Negative [facility] Leukocytes, Urine Dipstick Negative Negative [facility] Appearance, Urine Dipstick Clear Clear [facility] Specific [place] Urine Automated 1.026 1.005 - 1.030 [facility] Color, Urine Dipstick Yellow Yellow [facility] RBC, Urine 3 0 - 3 /HPF [facility] WBC, Urine 2 0 - 3 /HPF [facility] Squamous Epithelial Cells Raw Data, Urine 1 <=4 /HPF [facility] Hyaline Casts, Urine 1 0 - 2 /LPF [facility] Urine 09/25/2021 11:2 0 AM EDT 09/25/2021 2:16 PM EDT Narrative Resulting Agency Comment Spec In Lab Srinivas Miller MD URINE ORDERABLES [facility] [place] [address] * (ABNORMAL) PSA Screen (09/25/2021 10:59 AM EDT) PSA Screen 6.12(H) 0.00 - 4.00 ng/mL [facility] Comment: PLEASE NOTE: The above reference interval is intended for healthy males with an intact prostate. Values within this reference interval may indicate recurrence in men who have undergone radical prostatectomy. Blood 09/25/2021 10:5 9 AM EDT 09/25/2021 11:11 AM EDT Narrative Resulting Agency Comment Spec In Lab Srinivas Miller MD CHEMISTRY ORDERABLES [facility] [place] [address] documented in this encounter Visit Diagnoses Diagnosis Screening PSA (prostate specific antigen) Special screening for malignant neoplasm of prostate Benign prostatic hyperplasia, unspecified whether lower urinary tract symptoms present Microhematuria Microscopic hematuria documented in this encounter Care Teams Merchandising Coordinator Relationship Specialty Start Date End Date Vivian Bautista APRN [address] [place] [address] PCP - General 10/19/13 documented as of this encounter
--- OUTSIDE RECORDS SUMMARY | 2024-07-20 09:41 | XMS_ITS | Encounter Summary ---
Author Organization [facility] [place] [address] Care Team Providers Care In Home Caregiver Name Role Phone Vivian Bautista VINNY Primary Care Provider +1 [phone] Reason for Visit * Reason Comments Obstructive Sleep Apnea Encounter Details Date Type Department Care Team (Late st Contact Info) Description 03/07/2019 2:30 PM EDT Office Visit Sleep Center at [facility] [address] [place] [address] Katie Mckeon, CARBON BRUSHER ASSEMBLER [facility] KAREN on CPAP Social History [...] this encounter Progress Notes * Katie Mckeon, CARBON BRUSHER ASSEMBLER - 03/07/2019 2:30 PM EDT Sleep Medicine [...] sleep Symptom Benefit: Patient-reported last 4 scores: [facility] 09/21/2017 12/15/2017 03/07/2018 03/07/2019 [facility] 7 8 8 7 Insomnia Severity [...] if drowsy, if drowsy while driving to felt puller and take a nap. 4) Patient to replace supplies routinely and understands mask cushions can be replaced monthly. The patient indicates understanding of these issues and agrees with the plan. documented in this encounter Plan of Treatment Upcoming Encounters Date Type Department Care Team (Late st Contact Info) Description 10/09/2024 9:40 AM EDT Office Visit Urology at [facility] [place] [address] Srinivas Kong MD [facility] [place] [address] 07/05/2025 8:30 AM EST TH Visit (TeleHealth) [place] [address] Courtney Nagel MD [facility] [place] [address] documented as of this encounter Visit Diagnoses Diagnosis KAREN on CPAP Obstructive sleep apnea (adult) (pediatric) documented in this encounter Care Teams In Home Caregiver Relationship Specialty Start Date End Date Vivian Bautista APRN [address] [place] [address] PCP - General 10/19/13 documented as of this encounter
--- OUTSIDE RECORDS SUMMARY | 2024-07-20 09:41 | XMS_ITS | Encounter Summary ---
Author Organization [facility] Address [facility] [place] [address] Care Team Providers Care In Home Sales Consultant Name Role Phone Vivian Bautista VINNY Primary Care Provider +1 [phone] Encounter Details Date Type Department Care Team (Late st Contact Info) Description 08/23/2017 Orders Only Sleep Center at [facility] [address] [place] [address] Lisette Brown MD [facility] [place] [address] Social History Tobacco Use Types Packs/Day Years [...] 9:40 AM EDT [place] [address] Srinivas Kong MD [facility] [place] [address] 07/05/2025 8:30 AM EST TH Visit (TeleHealth) [place] [address] Courtney Nagel MD [facility] [place] [address] documented as of this encounter Visit Diagnoses Not on filedocumented in this encounter Care Teams In Home Sales Consultant Relationship Specialty Start Date End Date Vivian Bautista APRN [address] [place] [address] PCP - General 10/19/13 documented as of this encounter
--- OUTSIDE RECORDS SUMMARY | 2024-07-20 09:41 | XMS_ITS | Encounter Summary ---
[place] [address] Care Team Providers Care Office Systems Technology Instructor Name Role Phone Vivian Bautista Milton CASILLAS Primary Care Provider +1 -[phone] Encounter Details Date Type Department Care Team (Late st Contact Info) Description 03/08/2018 Orders Only Sleep Center at [facility] [address] [place] [address] Katie Mckeon, CITIZENSHIP INSTRUCTOR SLEEP CENTER KAREN on CPAP Social History [...] 9:40 AM EDT [place] [address] Srinivas Kong MD [facility] [place] [address] 07/05/2025 8:30 AM EST TH Visit (TeleHealth) [place] [address] Courtney Nagel MD [facility] [place] [address] Scheduled Orders Name Type Priority Associated Diagnoses Orde r Schedule Pulmonary Function Testing PFT Routine KAREN on CPAP Ordered: 03/08/2018 documented as of this encounter Visit Diagnoses Diagnosis KAREN on CPAP Obstructive sleep apnea (adult) (pediatric) documented in this encounter Care Teams Office Systems Technology Instructor Relationship Specialty Start Date End Date Vivian Bautista APRN [address] [place] [address] PCP - General 10/19/13 documented as of this encounter
--- OUTSIDE RECORDS SUMMARY | 2024-07-20 09:41 | XMS_ITS | Encounter Summary ---
Author Organization [facility] [place] [address] Care Team Providers Care Service Order Clerk Name Role Phone Vivian Bautista APRN Primary Care Provider +1 -[phone] Reason for Visit * Reason Comments Fatigue * Consultation (Routine) - Closed Specialty Diagnoses / Procedures Referred By Lashaun camarena Referred To Contact Endocrinology Diagnoses Vivian Reddy APRN [address] [place] [address] [facility] Endocrinology [address] [place] [address] Referral ID Status Reason Start Date Expiration Date V isits Requested Visits Authorized [id number] Closed Consult, Test & Treat [facility] Center 11/04/2017 11/04/2018 1 1 Encounter Details Date Type Department Care Team (Late st Contact Info) Description 03/01/2018 9:00 AM EDT Office [place] [address] Darren Mendoza MD [facility] [place] [address] Chronic fatigue; Hypothyroidism, unspecified type [...] in libido for some 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[employer]) He feels his job [...] thyroid - prostate cancer - colon cancer [place] Lives w SO Enjoys hunting (birds) [...] 9:40 AM EDT [place] [address] Srinivas Kong MD [facility] [place] [address] 07/05/2025 8:30 AM EST TH Visit (TeleHealth) [place] [address] Courtney Nagel MD [facility] [place] [address] [phone] (work) documented as of this encounter Procedures Procedure Name Priority Date/Time Associated Diagnosis Comments TESTOSTERONE, TOTAL AND FREE Routine 03/01/2018 10:01 AM EDT Chronic fatigue documented in this encounter Results * Testosterone, total and free (03/01/2018 10:01 AM EDT) Testo Total 506 250 - 1100 ng/dL [facility] Comment: Men with clinically significant hypogonadal symptoms and testosterone values repeatedly in the range of the 200-300 ng/dL or less, may benefit from testosterone treatment after adequate risk and benefits counseling. For additional information, please refer to http://education.Amvona/faq/ EfmcuFjkjkzwlvgbhFXQHXRNDD426 (This link is being provided for informational/ educational purposes only.) This test was developed and its analytical performance characteristics have been determined by [facility] [place], [place]. It has not been cleared or approved by the U.S. Food and Drug Administration. This assay has been validated pursuant to the CLIA regulations and is used for clinical purposes. Testo Free (OCTOBER) 78.9 35.0 - 155.0 pg/mL [facility] Comment: This test was developed and its analytical performance characteristics have been determined by [facility] [place], [place]. It has not been cleared or approved by the U.S. Food and Drug Administration. This assay has been validated pursuant to the CLIA regulations and is used for clinical purposes. Test Performed by [facility], [facility] [place], [address] [place], [place] Lyle Smith M.D., Ph.D., Director of Laboratories , CLIA [id number] Blood specimen (specimen) 03/01/2018 10:01 AM EDT 03/01/2018 12:56 PM EDT Narrative Resulting Agency Comment Spec In Lab Darren Mendoza MD LAB SEND OUT [place]AB [place] [address] documented in this encounter Visit Diagnoses Diagnosis Chronic fatigue Other malaise and fatigue Hypothyroidism, unspecified type documented in this encounter Care Teams Service Order Clerk Relationship Specialty Start Date End Date Vivian Bautista APRN [address] [place] [address] PCP - General 10/19/13 documented as of this encounter
--- OUTSIDE RECORDS SUMMARY | 2024-07-20 09:41 | XMS_ITS | Encounter Summary ---
Author Organization [facility] Address [facility] [place] [address] Care Team Providers Care Beam House Inspector Name Role Phone Vivian Bautista Milton CASILLAS Primary Care Provider +1 -[phone] Encounter Details Date Type Department Care Team (Late st Contact Info) Description 03/18/2021 8:15 AM EDT Office Visit Sleep Center at [facility] [address] [place] [address] Katie Mckeon, INVOICE CHECKER SLEEP CENTER KAREN on CPAP Social History [...] this encounter Progress Notes * Katie Mckeon, INVOICE CHECKER - 03/18/2021 8:15 AM EDT Sleep Medicine [...] have modem connection but is staying at [place] 6 months of the year. He will return home this weekend and plug in his CPAP to upload the data to air view. He will call me once done so I can view the data. He reports he has shoulder surgery back in August. Didn't use the machinefor couple months until [facility] He's doing better now. No problems with [...] occ Symptom Benefit: Patient-reported last 4 scores: [facility] 03/07/2018 03/07/2019 03/01/2020 03/18/2021 [facility] 8 (Low Risk) 7 (Low Risk) [...] Sleepiness or drowsiness seldom but knows to pulling unit floorhand to nap or not drive ROS: ?? [...] if drowsy, if drowsy while driving to pulling unit floorhand and take a nap. 4) Patient to [...] 9:40 AM EDT [place] [address] Srinivas Kong MD [facility] [place] [address] 07/05/2025 8:30 AM EST TH Visit (TeleHealth) [place] [address] Courtney Nagel MD [facility] [place] [address] documented as of this encounter Visit Diagnoses Diagnosis KAREN on CPAP Obstructive sleep apnea (adult) (pediatric) documented in this encounter Care Teams Beam House Inspector Relationship Specialty Start Date End Date Vivian Bautista APRN [address] [place] [address] PCP - General 10/19/13 documented as of this encounter
--- OUTSIDE RECORDS SUMMARY | 2024-07-20 09:41 | XMS_ITS | Encounter Summary ---
Author Organization [facility] [place] [address] Care Team Providers Care Hull Grinder Name Role Phone Vivian Bautista VINNY Primary Care Provider +1 -[phone] Reason for Visit * Reason Comments Obstructive Sleep Apnea Encounter Details Date Type Department Care Team (Late st Contact Info) Description 03/07/2018 2:30 PM EDT Office Visit Sleep Center at [facility] [address] [place] [address] Katie Mckeon, HAIR MACHINE OPERATOR SLEEP CENTER KAREN on CPAP Social History [...] this encounter Progress Notes * Katie Mckeon, HAIR MACHINE OPERATOR - 03/07/2018 2:30 PM EDT Sleep Medicine [...] afternoons with the pressure increase. Symptom Benefit: Merino: 8 (8 previous) Sleep quality: good Bedtime: [...] wall every afternoon. He did see his marina manager and was recently started on cytomel 5 [...] if drowsy, if drowsy while driving to pulley maintainer and take a nap. 4) Patient to [...] 9:40 AM EDT Office [place] [address] Srinivas Kong MD [facility] [place] [address] 07/05/2025 8:30 AM EST TH Visit (TeleHealth) [place] [address] Courtney Nagel MD [facility] [place] [address] documented as of this encounter Visit Diagnoses Diagnosis KAREN on CPAP Obstructive sleep apnea (adult) (pediatric) documented in this encounter Care Teams Hull Grinder Relationship Specialty Start Date End Date Vivian Bautista APRN [address] [place] [address] PCP - General 10/19/13 documented as of this encounter
--- OUTSIDE RECORDS SUMMARY | 2024-07-20 09:41 | XMS_ITS | Encounter Summary ---
Author Organization [facility] [place] [address] Care Team Providers Care Group Counselor Name Role Phone Vivian Bautista VINNY Primary Care Provider +1 -[phone] Encounter Details Date Type Department Care Team (Late st Contact Info) Description 03/17/2018 Telephone Sleep Center at [facility] [address] [place] [address] Lynette Yuen Social History Tobacco Use Types [...] EDT Office Visit Urology at [facility] [place] [address] Srinivas Kong MD [facility] [place] [address] 07/05/2025 8:30 AM EST TH Visit (TeleHealth) [place] [address] Courtney Nagel MD [facility] [place] [address] documented as of this encounter Visit Diagnoses Not on filedocumented in this encounter Care Teams Group Counselor Relationship Specialty Start Date End Date Vivian Bautista APRN [address] [place] [address] PCP - General 10/19/13 documented as of this encounter
--- OUTSIDE RECORDS SUMMARY | 2024-07-20 09:41 | XMS_ITS | Encounter Summary ---
[place] [address] Care Team Providers Care Funnel Coater Name Role Phone Michele Vivian H VINNY Primary Care Provider +1 -[phone] Encounter Details Date Type Department Care Team (Late st Contact Info) Description 10/15/2022 [place] [address] Lola Barrios RN Social History Tobacco Use [...] a repeat urine sample (UA micro) at [facility]. Orders faxed. Copied from [facility] #[id number]. Topic: Specialty Dept CRMs - Test Results >> October 15, 2022 11:25 AM Katie Hernandez wrote: Test Results Request Specialist: Dilan Relationship (if other than patient-full name): self Ordering Provider: Dilan Type of Test: urine test collected in office Date of Test: 10/05/22 Where Was This Test Performed: [facility] Patient states that he was told he would be notified of results and what the next test would be. Please advise. documented in this encounter Plan of Treatment Upcoming Encounters Date Type Department Care Team (Late st Contact Info) Description 10/09/2024 9:40 AM EDT Office Visit Urology at [place] [address] Srinivas Kong MD [facility] [place] [address] 07/05/2025 8:30 AM EST TH Visit (TeleHealth) [place] [address] Courtney Nagel MD [facility] [place] [place] [address] documented as of this encounter Visit Diagnoses Not on filedocumented in this encounter Care Teams Funnel Coater Relationship Specialty Start Date End Date Vivian Bautista APRN [address] [place] [address] PCP - General 10/19/13 documented as of this encounter
--- OUTSIDE RECORDS SUMMARY | 2024-07-20 09:41 | XMS_ITS | Encounter Summary ---
Author Organization [facility] [place] [address] Care Team Providers Care Tin Flipper Name Role Phone Vivian Bautista APRN Primary Care Provider +1 -[phone] Reason for Referral * Diagnostic Test (Routine) - Closed Specialty Diagnoses / Procedures Referred By Lashaun camarena Referred To Contact Radiology Diagnoses Elevated PSA Procedures MRI Pelvis wwo (Prostate) Srinivas Kong MD [facility] [place] [address] [place] [address] Referral ID Status Reason Start Date Expiration Date V isits Requested Visits Authorized [id number] Closed Specialty Service Requested 10/21/2021 01/19/2022 1 1 Reason for Visit * Diagnostic Test (Routine) - Closed Specialty Diagnoses / Procedures Referred By Lashaun camarena Referred To Contact Radiology Diagnoses Elevated PSA Procedures MRI Pelvis wwo (Prostate) Srinivsa Kong MD [facility] [place] [address] [facility] [place] [facility] [place] [address] Referral ID Status Reason Start Date Expiration Date V isits Requested Visits Authorized [id number] Closed Specialty Service Requested 10/21/2021 01/19/2022 1 1 Encounter Details Date Type Department Care Team (Latest Contact Info) Description 11/27/2021 7:48 AM EDT - 11/27/2021 11:59 PM EDT Hospital [place] [address] Srinivas Kong MD [facility] [place] [address] Elevated PSA Discharge Disposition: Home Social History [...] 9:40 AM EDT Office [place] [address] Srinivas Kong MD [facility] [place] [address] 07/05/2025 8:30 AM EST TH Visit (TeleHealth) [place] [address] Courtney Nagel MD [facility] [place] [address] documented as of this encounter Procedures Procedure [...] who have questions please contact the health manager respiratory care that requested your imaging first. ? Electronically signed by: Mumtaz Jaramillo MD, [facility] ([phone]), at 11/28/2021 9:22 AM Narrative 11/28/2021 9:22 [...] patients who have questions please contactthe health manager respiratory care that requested your imaging first. Electronically signed by: Mumtaz Jaramillo MD, [facility]([phone]), at 11/28/2021 9:22 AM Srinivas Kong MD [...] mLs documented in this encounter Care Teams Tin Flipper Relationship Specialty Start Date End Date Vivian Bautista, VINNY [address] [place] [address] PCP - General 10/19/13 documented as of this encounter
--- OUTSIDE RECORDS SUMMARY | 2024-07-20 09:41 | XMS_ITS | Encounter Summary ---
Author Organization [facility] [place] [address] Care Team Providers Care Molding Engineer Name Role Phone Vivian Bautista VINNY Primary Care Provider +1 -[phone] Encounter Details Date Type Department Care Team [...] 9:40 AM EDT Office Visit Urology at [facility] [place] [address] Srinivas Kong MD [facility] [place] [address] 07/05/2025 8:30 AM EST TH Visit (TeleHealth) [place] [address] Courtney Nagel MD [facility] [place] [address] documented as of this encounter Visit Diagnoses Not on filedocumented in this encounter Care Teams Molding Engineer Relationship Specialty Start Date End Date Vivian Bautista, DIGITAL SALES PLANNER [address] [place] [address] PCP - General 10/19/13 documented as of this encounter
--- OUTSIDE RECORDS SUMMARY | 2024-07-20 09:41 | XMS_ITS | Encounter Summary ---
Author Organization [facility] Address [facility] [place] [address] Care Team Providers Care Plaster Molder Name Role Phone Vivian Bautista VINNY Primary Care Provider +1 -[phone] Encounter Details Date Type Department Care Team (Late st Contact Info) Description 05/11/2022 1:30 PM EST Office Visit [place] [address] Courtney Nagel MD [facility] [place] [address] Hypothyroidism, acquired; Fatigue, unspecified type Social History [...] Nagel MD - 05/11/2022 1:30 PM EST [facility] Endocrinology Clinic Follow up Patient [...] visit in 1 year Courtney Nagel MD Commercial Lawn Specialisthydroelectric powerplant supervisor Endocrinology Section [facility] documented in this encounter Plan of Treatment Upcoming Encounters Date Type Department Care Team (Late st Contact Info) Description 10/09/2024 9:40 AM EDT Office [place] [address] Srinivas Kong MD [facility] [place] [address] 07/05/2025 8:30 AM EST TH Visit (TeleHealth) [place] [address] Courtney Nagel MD [facility] DR [place] [address] documented as of this encounter Procedures Procedure [...] T3 Total 126 80 - 200 ng/dL [facility] Blood 05/11/2022 2:18 PM EST 05/11/2022 2:36 PM EST Narrative Resulting Agency Comment Spec In Lab Courtney Nagel MD CHEMISTRY ORDERABLES [facility] [place] [address] * T4, free (05/11/2022 2:18 PM EST) Free T4 0.94 0.93 - 1.70 ng/dL [facility] Comment: Reference Interval (ng/dL): Females: ??First Trimester: 0.97-1.68 ??Second Trimester: 0.77-1.51 ??Third Trimester: 0.77-1.49 Blood 05/11/2022 2:18 PM EST 05/11/2022 2:36 PM EST Narrative Resulting Agency Comment Spec In Lab Courtney Nagel MD CHEMISTRY ORDERABLES Performing Organization Address [facility] Co de Phone Number [facility] [place] [address] * (ABNORMAL) TSH (05/11/2022 2:18 PM EST) Thyroid Stimulating Hormone 6.91(H) 0.27 - 4.20 mcIU/mL [facility] Comment: Reference Interval (mcIU/mL): Females: ??First Trimester: 0.23-3.88 ??Second Trimester: 0.22-3.90 ??Third Trimester: 0.44-4.66 Blood 05/11/2022 2:18 PM EST 05/11/2022 2:36 PM EST Narrative Resulting Agency Comment Spec In Lab Courtney Nagel MD CHEMISTRY ORDERABLES Performing Organization Address [facility] Co de Phone Number [facility] [place] [address] documented in this encounter Visit Diagnoses Diagnosis Hypothyroidism, acquired Unspecified hypothyroidism Fatigue, unspecified type documented in this encounter Care Teams Plaster Molder Relationship Specialty Start Date End Date Vivian Bautista APRN [address] [place] [address] PCP - General 10/19/13 documented as of this encounter
--- OUTSIDE RECORDS SUMMARY | 2024-07-20 09:41 | XMS_ITS | Encounter Summary ---
Author Organization [facility] Address [facility] [place] [address] Care Team Providers Care Hair Assistant Name Role Phone Vivian Bautista VINNY Primary Care Provider +1 -[phone] Encounter Details Date Type Department Care Team (Late st Contact Info) Description 10/05/2022 8:40 AM EDT Office [place] [address] Srinivas Kong MD [facility] [place] [address] Microhematuria; Lower urinary tract symptoms (LUTS); BPH [...] Kong MD - 10/05/2022 8:40 AM EDT [facility] SECTION OF UROLOGY UROLOGY CLINIC VISIT Name: [...] to avoid leg cramps. IPSS score 9/35 (0/1/1/3/1/2); QOL 4/6. PSA 6.12 (16% free) MRI [...] above. Srinivas Kong MD Section of Urology [facility] Office: [phone] documented in this encounter Plan of Treatment Upcoming Encounters Date Type Department Care Team (Late st Contact Info) Description 10/09/2024 9:40 AM EDT Office [place] [address] Srinivas Kong MD [facility] [address] 07/05/2025 8:30 AM EST TH Visit (TeleHealth) [place] [address] Courtney Nagel MD [facility] [place] [address] documented as of this encounter Visit Diagnoses Diagnosis Microhematuria Microscopic hematuria Lower urinary tract symptoms (LUTS) Other symptoms involving urinary system BPH with elevated PSA Hypertrophy of prostate without urinary obstruction and other lower urinary tract symptoms (LUTS) documented in this encounter Care Teams Hair Assistant Relationship Specialty Start Date End Date Vivian Bautista APRN [address] [place] [address] PCP - General 10/19/13 documented as of this encounter
--- OUTSIDE RECORDS SUMMARY | 2024-07-20 09:41 | XMS_ITS | Encounter Summary ---
Author Organization [facility] [place] [address] Care Team Providers Care Bottom Pounder Cement Shoes Name Role Phone Vivian Bautista APRN Primary Care Provider +1 -[phone] Reason for Referral * Diagnostic Test (Routine) - Closed Specialty Diagnoses / Procedures Referred By Lashaun camarena Referred To Contact Radiology Diagnoses Elevated PSA Procedures MRI Pelvis wwo (Prostate) Srinivas Kong MD [facility] [place] [address] [place] [address] Referral ID Status Reason Start Date Expiration Date V isits Requested Visits Authorized [id number] Closed Specialty Service Requested 10/21/2021 01/19/2022 1 1 Encounter Details Date Type Department Care Team (Late st Contact Info) Description 10/21/2021 [place] [address] Srinivas Kong MD [facility] [place] [address] Social History Tobacco Use Types [...] 9:40 AM EDT [place] [address] Srinivas Kong MD [facility] [place] [address] 07/05/2025 8:30 AM EST TH Visit (TeleHealth) [place] [address] Courtney Nagel MD [facility] [place] [address] documented as of this encounter Results * [...] who have questions please contact the health healthcare management consultant that requested your imaging first. ? Narrative 11/28/2021 9:22 AM EDT EXAMINATION: MRI [...] patients who have questions please contactthe health healthcare management consultant that requested your imaging first. Srinivas Kong MD IMG MRI ORDERABLES documented in this encounter Visit Diagnoses Diagnosis Elevated PSA Elevated prostate specific antigen (PSA) Elevated PSA Elevated prostate specific antigen (PSA) documented in this encounter Care Teams Bottom Pounder Cement Shoes Relationship Specialty Start Date End Date Vivian Bautista APRN [address] [place] [address] PCP - General 10/19/13 documented as of this encounter
--- OUTSIDE RECORDS SUMMARY | 2024-07-20 09:41 | XMS_ITS | Encounter Summary ---
Author Organization [facility] Address [facility] [place] [address] Care Team Providers Care Hot Wort Settler Name Role Phone Vivian Bautista Milton CASILLAS Primary Care Provider +1 -[phone] Encounter Details Date Type Department Care Team (Late st Contact Info) Description 03/20/2022 2:30 PM EDT Office Visit Sleep Center at [facility] [address] [place] [address] Katie Mckeon, [facility] KAREN on CPAP Social History [...] this encounter Progress Notes * Katie Mckeon, [facility] - 03/20/2022 2:30 PM EDT Sleep Medicine Clinical Health Specialist Brief Follow-Up Note HPI: Mr. Julian Edmonds is a 66 y.o. male seen for follow-up of obstructive sleep apnea. Hx of GERD HTN, thyroid, ASCVD, thoracic aortic aneurism, hyperlipidemia and AKREN ?? Sleep Study: 07/09/17 HST DOS: 07/09/17 [...] one Chin Strap: no HCC: [employer] Insurance: [employer] Snoring: no Dry Mouth/Throat: once in blue navarro Mouth Breathing: occ Symptom Benefit: Patient-reported last 4 scores: [facility] 03/07/2019 03/01/2020 03/18/2021 03/15/2022 [facility] 7 (Low Risk) 6 (Low Risk) [...] Sleepiness or drowsiness seldom but knows to cable puller to nap or not drive. He [...] reports feels better with CPAP than without [facility] scale is 6. He denies any unintentional [...] if drowsy, if drowsy while driving to cable puller and take a nap. 4) Patient [...] 9:40 AM EDT [place] [address] Srinivas Kong MD [facility] [place] [address] 07/05/2025 8:30 AM EST TH Visit (TeleHealth) [place] [address] Courtney Nagel MD [facility] [place] [address] documented as of this encounter Visit Diagnoses Diagnosis KAREN on CPAP Obstructive sleep apnea (adult) (pediatric) documented in this encounter Care Teams Hot Wort Settler Relationship Specialty Start Date End Date Vivian Bautista APRN [address] [place] [address] PCP - General 10/19/13 documented as of this encounter
--- OUTSIDE RECORDS SUMMARY | 2024-07-20 09:41 | XMS_ITS | Encounter Summary ---
Author Organization [facility] Address [facility] [place] [address] Care Team Providers Care Commercial Designer Name Role Phone MicheleMorena davenportjanice Rose APRN Primary Care Provider +1 -[phone] Reason for Visit * Consultation (Routine) - Closed Specialty Diagnoses / Procedures Referred By Lashaun camarena Referred To Contact Endocrinology Diagnoses Hypothyroidism, unspecified HYPOTHYROIDISM Frandy Styles MD [address] [place] [address] Darren Mendoza MD [facility] [place] [address] Referral ID Status Reason Start Date Expiration Date V isits Requested Visits Authorized [id number] Closed Consult, Test & Treat Connection Center PCP Updated and/or Approved 09/03/2020 09/03/2021 6 6 Encounter Details Date Type Department Care Team (Late st Contact Info) Description 12/17/2020 1:30 PM EDT Office [place] [address] Darren Mendoza MD [facility] [place] [address] Hypothyroidism, unspecified type; Fatigue, unspecified type Social [...] 9:40 AM EDT Office [place] [address] Srinivas Kong MD [facility] [place] [address] 07/05/2025 8:30 AM EST TH Visit (TeleHealth) [place] [address] Courtney Nagel MD [facility] [place] [address] Scheduled Orders Name Type Priority Associated Diagnoses [...] Free T4 1.02 0.93 - 1.70 ng/dL [facility] Blood 12/17/2020 2:10 PM EDT 12/17/2020 2:45 PM EDT Narrative Resulting Agency Comment Spec In Lab Darren Mendoza MD CHEMISTRY ORDERABLES [facility] [place] [address] * T3 Total (12/17/2020 2:10 PM EDT) T3 Total 119 75 - 170 ng/dL [facility] Blood 12/17/2020 2:10 PM EDT 12/17/2020 2:45 PM EDT Narrative Resulting Agency Comment Spec In Lab Darren Mendoza MD CHEMISTRY ORDERABLES Performing Organization Address City/[facility]/ZIP Co de Phone Number [facility] [place] [address] * TSH (12/17/2020 2:10 PM EDT) Thyroid Stimulating Hormone 3.39 0.27 - 4.20 mcIU/mL [facility] Blood 12/17/2020 2:10 PM EDT 12/17/2020 2:45 PM EDT Narrative Resulting Agency Comment Spec In Lab Darren Mendoza MD CHEMISTRY ORDERABLES Performing Organization Address City/[facility] Co de Phone Number [facility] [place] [address] documented in this encounter Visit Diagnoses Diagnosis Hypothyroidism, unspecified type Fatigue, unspecified type documented in this encounter Care Teams Commercial Designer Relationship Specialty Start Date End Date Vivian Bautista APRN [address] [place] [address] PCP - General 10/19/13 documented as of this encounter
--- OUTSIDE RECORDS SUMMARY | 2024-07-20 09:41 | XMS_ITS | Encounter Summary ---
Author Organization [facility] Address [facility] [place] [address] Care Team Providers Care Protozoology Teacher Name Role Phone Vivian Bautista VINNY Primary Care Provider +1 -[phone] Encounter Details Date Type Department Care Team (Late st Contact Info) Description 11/01/2020 Orders Only Cardiology at [address] [address] Haim Fung MD [facility] [place] [address] Social History Tobacco Use Types Packs/Day Years [...] 9:40 AM EDT Office [place] [address] Srinivas Kong MD [facility] [place] [address] 07/05/2025 8:30 AM EST TH Visit (TeleHealth) [place] [address] Courtney Nagel MD [facility] [place] [address] documented as of this encounter Visit Diagnoses Not on filedocumented in this encounter Care Teams Protozoology Teacher Relationship Specialty Start Date End Date Vivian Bautista APRN [address] [place] [address] PCP - General 10/19/13 documented as of this encounter
--- OUTSIDE RECORDS SUMMARY | 2024-07-20 09:41 | XMS_ITS | Encounter Summary ---
Author Organization [facility] Address [facility] [place] [address] Care Team Providers Care Gear Cutting Machine Operator Name Role Phone Vivian Bautista VINNY Primary Care Provider +1 -[phone] Encounter Details Date Type Department Care Team (Late st Contact Info) Description 05/14/2022 Orders [place] [address] Courtney Nagel MD [facility] [place] [address] Hypothyroidism, acquired Social History Tobacco Use Types [...] 9:40 AM EDT [place] [address] Srinivas Kong MD [facility] [place] [address] 07/05/2025 8:30 AM EST TH Visit (TeleHealth) [place] [address] Courtney Nagel MD [facility] [address] documented as of this encounter Visit Diagnoses Diagnosis Hypothyroidism, acquired Unspecified hypothyroidism documented in this encounter Care Teams Gear Cutting Machine Operator Relationship Specialty Start Date End Date Vivian Bautista APRN [address] [place] [address] PCP - General 10/19/13 documented as of this encounter
--- OUTSIDE RECORDS SUMMARY | 2024-07-20 09:41 | XMS_ITS | Encounter Summary ---
Author Organization [facility] [place] [address] Care Team Providers Care Job Service Specialist Name Role Phone Vivian Bautista VINNY Primary Care Provider +1 -[phone] Encounter Details Date Type Department Care Team [...] 9:40 AM EDT Office Visit Urology at [facility] [place] [address] Srinivas Kong MD [facility] [place] [address] 07/05/2025 8:30 AM EST TH Visit (TeleHealth) [place] [address] Courtney Nagel MD [facility] [place] [place] [address] documented as of this encounter Visit Diagnoses Not on filedocumented in this encounter Care Teams Job Service Specialist Relationship Specialty Start Date End Date Vivian Bautista, BILLET CUTTER [address] [place] [address] PCP - General 10/19/13 documented as of this encounter
--- OUTSIDE RECORDS SUMMARY | 2024-07-20 09:41 | XMS_ITS | Encounter Summary ---
Author Organization [facility] Address [facility] [place] [address] Care Team Providers Care Supervisor Welding Equipment Repairer Name Role Phone Vivian Bautista VINNY Primary Care Provider +1 -[phone] Encounter Details Date Type Department Care Team (Late st Contact Info) Description 10/08/2022 8:00 AM EDT Office Visit Cardiology at [address] [address] Haim Fung MD [facility] [place] [address] ASCVD (arteriosclerotic cardiovascular disease); Hyperlipidemia, unspecified hyperlipidemia [...] from the original note were not included. [facility] [place] [address] CARDIOLOGY OUTPATIENT PROGRESS NOTE PRIMARY CARE PROVIDER: [...] mouth daily. ??? fluticasone (VERAMYST) 27.5 mcg/actuation [place], Suspension 2 sprays by Nasal route as [...] Abdomen: Nondistended. Soft. Nontender. Extremities: No edema. HERB GROWER: Normal mentation. Psych: Appropriate affect. Labs: Lab [...] 9:40 AM EDT [place] [address] Srinivas Kong MD [facility] [place] [address] 07/05/2025 8:30 AM EST TH Visit (TeleHealth) [place] [address] Courtney Nagel MD [facility] [place] [address] documented as of this encounter Visit Diagnoses Diagnosis ASCVD (arteriosclerotic cardiovascular disease) Unspecified cardiovascular disease Hyperlipidemia, unspecified hyperlipidemia type Hypertension, unspecified type documented in this encounter Care Teams Supervisor Welding Equipment Repairer Relationship Specialty Start Date End Date Vivian Bautista, VINNY [address] [place] [address] PCP - General 10/19/13 documented as of this encounter
--- OUTSIDE RECORDS SUMMARY | 2024-07-20 09:41 | XMS_ITS | Encounter Summary ---
Author Organization [facility] Address [facility] [place] [address] Care Team Providers Care Thickener Operator Name Role Phone Vivian Bautista VINNY Primary Care Provider +1 -[phone] Encounter Details Date Type Department Care Team (Late st Contact Info) Description 09/25/2021 [place] [address] Srinivas Kong MD [facility] [place] [place] [address] Social History Tobacco Use Types Packs/Day Years [...] 9:40 AM EDT [place] [address] Srinivas Kong MD [facility] [place] [address] 07/05/2025 8:30 AM EST TH Visit (TeleHealth) [place] [address] Courtney Nagel MD [facility] [place] [address] documented as of this encounter Results * (ABNORMAL) PSA (Ultrasensitive), total and free (10/16/2021 7:23 AM EDT) Prostate Specific Antigen (Ultrasensitive ) 6.06(H) 0.00 - 4.00 ng/mL [facility] Comment: PLEASE NOTE: The above reference interval is intended for healthy males with an intact prostate. Values within this reference interval may indicate recurrence in men who have undergone radical prostatectomy. Prostate Specific Antigen, Free 1.0 ng/mL [facility] PSA % Free 16 % [facility] Comment: Probability of finding HOT KNIFE CUTTER on needle biopsy by age in years: % fPSA ? 50-59yrs ? 60-69yrs ? >=70yrs <=10 ? 49.2 ? 57.5 ? 64.5 11-18 ?26.9 ? 33.9 ? 40.8 19-25 ?18.2 ? 23.9 ? 29.7 >25 ? 9.1 ? 12.2 ? 15.8 Blood 10/16/2021 7:23 AM EDT 10/16/2021 7:31 AM EDT Narrative Resulting Agency Comment Spec In Lab Srinivas Kong MD CHEMISTRY ORDERABLES Performing Organization Address City/State/[facility] Co de Phone Number [facility] [place] [address] documented in this encounter Visit Diagnoses Diagnosis Elevated PSA Elevated prostate specific antigen (PSA) documented in this encounter Care Teams Thickener Operator Relationship Specialty Start Date End Date Vivian Bautista APRN [address] [place] [address] PCP - General 10/19/13 documented as of this encounter
--- OUTSIDE RECORDS SUMMARY | 2024-07-20 09:41 | XMS_ITS | Encounter Summary ---
[place] [address] Care Team Providers Care Rust Proofer Name Role Phone Vivian Bautista Milton CASILLAS Primary Care Provider +1 -[phone] Encounter Details Date Type Department Care Team (Late st Contact Info) Description 07/16/2022 Orders Only Sleep Center at [facility] [address] [place] [address] Katie Mckeon, DATA SERVICES DEVELOPER SLEEP CENTER KAREN on CPAP Social History [...] 9:40 AM EDT [place] [address] Srinivas Kong MD [facility] [place] [address] 07/05/2025 8:30 AM EST TH Visit (TeleHealth) [place] [address] Courtney Nagel MD [facility] [place] [address] documented as of this encounter Visit Diagnoses Diagnosis KAREN on CPAP Obstructive sleep apnea (adult) (pediatric) documented in this encounter Care Teams Rust Proofer Relationship Specialty Start Date End Date Vivian Bautista APRN [address] [place] [address] PCP - General 10/19/13 documented as of this encounter
--- OUTSIDE RECORDS SUMMARY | 2024-07-20 09:41 | XMS_ITS | Encounter Summary ---
Author Organization [facility] [place] [address] Care Team Providers Care Medical Instrument Technician Name Role Phone Vivian Bautista Milton CASILLAS Primary Care Provider +1 [phone] Encounter Details Date Type Department Care Team (Late st Contact Info) Description 09/03/2020 Orders Only Cardiology at [address] [address] Lynne Sorto, RN Chest pain, unspecified type Social History [...] 9:40 AM EDT [place] [address] Srinivas Kong MD [facility] [place] [address] 07/05/2025 8:30 AM EST TH Visit (TeleHealth) [place] [address] Shona, Courtney Shane MD [facility] [place] [address] documented as of this encounter Results * EKG 12 Lead (09/10/2020 8:05 AM EDT) Ventricular rate 60 BPM MUSE SYSTEM Atrial Rate 60 BPM MUSE SYSTEM P-R Interval 186 ms MUSE SYSTEM QRS Duration 94 ms MUSE SYSTEM Q-T Interval 384 ms MUSE SYSTEM QTC Calculated (Bezet) 384 ms MUSE SYSTEM Calculated P Piru 26 degrees MUSE SYSTEM Calculated R Piru -51 degrees MUSE SYSTEM Calculated T Piru 16 degrees MUSE SYSTEM INTERPRETATION Normal sinus rhythm Left anterior fascicular block Otherwise normal ECG No previous ECGs available I personally reviewed the tracing and edited the fellows interpretation Confirmed by fellow MD Erika, Lorri Garcia ([id number]) on 09/10/2020 11:07:46 AM Confirmed by MD ALFRED, KATY ([id number]) on 09/10/2020 1:33:58 PM MUSE SYSTEM 09/10/2020 8:05 AM EDT 09/10/2020 1:33 PM EDT Haim Fung MD ECG ORDERABLES MUSE SYSTEM documented in this encounter Visit Diagnoses Diagnosis Chest pain, unspecified type documented in this encounter Care Teams Medical Instrument Technician Relationship Specialty Start Date End Date Vivian Bautista APRN [address] [place] [address] PCP - General 10/19/13 documented as of this encounter
--- OUTSIDE RECORDS SUMMARY | 2024-07-20 09:41 | XMS_ITS | Encounter Summary ---
Author Organization [facility] [place] [address] Care Team Providers Care Sales Representative Metals Name Role Phone Vivian Bautista VINNY Primary Care Provider +1 -[phone] Reason for Visit * Reason Comments Medication Refill Encounter Details Date Type Department Care Team (Late st Contact Info) Description 09/01/2020 [place] [address] Darren Mendoza MD [facility] [place] [address] Social History Tobacco Use Types Packs/Day Years [...] 9:40 AM EDT [place] [address] Srinivas Kong MD [facility] [place] [address] 07/05/2025 8:30 AM EST TH Visit (TeleHealth) Endocrinology at [place] [phone] Courtney Nagel MD [facility] [place] [address] documented as of this encounter Visit Diagnoses Not on filedocumented in this encounter Care Teams Sales Representative Metals Relationship Specialty Start Date End Date Vivian Bautista APRN [address] [place] [address] PCP - General 10/19/13 documented as of this encounter
--- OUTSIDE RECORDS SUMMARY | 2024-07-20 09:41 | XMS_ITS | Encounter Summary ---
Author Organization [facility] Address [facility] [place] [address] Care Team Providers Care Cannon Fire Direction Specialist Name Role Phone Vivian Bautista VINNY Primary Care Provider +1 [phone] Encounter Details Date Type Department Care Team (Late st Contact Info) Description 10/16/2021 8:00 AM EDT Office Visit [place] [address] Haim Fung MD [facility] [place] [address] Hyperlipidemia, unspecified hyperlipidemia type; ASCVD (arteriosclerotic cardiovascular [...] from the original note were not included. [facility] [address] CARDIOLOGY OUTPATIENT PROGRESS NOTE PRIMARY CARE PROVIDER: [...] Abdomen: Nondistended. Soft. Nontender. Extremities: No edema. SEWING MACHINE OPERATOR FLOORPERSON: Normal mentation. Psych: Appropriate affect. Labs: Lab [...] 9:40 AM EDT Office [place] [address] Srinivas Kong MD [facility] [place] [address] 07/05/2025 8:30 AM EST TH Visit (TeleHealth) [place] [address] Courtney Nagel MD [facility] [place] [address] documented as of this encounter Results * Lipid Panel (Reflex Direct LDL) (10/16/2021 7:23 AM EDT) [facility] Cholesterol, Total 138 mg/dL [facility] Comment: Lower Risk: <200 mg/dL Average Risk: 200-239 mg/dL Higher Risk: >mi=322 mg/dL Triglyceride 153 mg/dL [facility] Comment: Average Risk/Lower Risk: <150 mg/dL Borderline High Risk: 150-199 mg/dL High Risk: 200-499 mg/dL Very High Risk: >ik=854 mg/dL HDL Cholesterol 35 mg/dL [facility] Comment: Males: ?? Higher Risk: <40 mg/dL Females: ?? Higher Risk: <50 mg/dL LDL Cholesterol 72 mg/dL [facility] Comment: Lowest Risk: <100 mg/dL Lower Risk: 100-129 mg/dL Borderline High Risk: 130-159 mg/dL High Risk: 160-189 mg/dL Very High Risk: >ry=070 mg/dL Cholesterol/HDL Ratio 3.9 ratio [facility] Lipid Interpretation See Note [facility] Comment: Lipid management should be guided by a patient? s ASCVD risk, goals and preferences. ACC/AHA Guidelines recommend high intensity statin if clinical ASCVD or LDL greater than or equal to 190 mg/dL. http://Mplife.com.[employer]/ILA-PCP-Hlovmwjeh Adults aged 40-75 with LDL 70-189 mg/dL should have their 10 year ASCVD risk estimated with the ACC/AHA ASCVD risk garbage pick up worker http://tools.acc.org/MWPAW-Kswu-Wcjuwvftd/ Statin should be discussed if risk greater [...] Lab Haim Fung MD CHEMISTRY ORDERABL ES [facility] [place] [address] documented in this encounter Visit Diagnoses Diagnosis Hyperlipidemia, unspecified hyperlipidemia type ASCVD (arteriosclerotic cardiovascular disease) Unspecified cardiovascular disease Hypertension, unspecified type documented in this encounter Care Teams Cannon Fire Direction Specialist Relationship Specialty Start Date End Date Vivian Bautista APRN [address] [place] [address] PCP - General 10/19/13 documented as of this encounter
--- OUTSIDE RECORDS SUMMARY | 2024-07-20 09:41 | XMS_ITS | Encounter Summary ---
[place] [address] Care Team Providers Care Plastic Parts Designer Name Role Phone Vivian Bautista VINNY Primary Care Provider +1 [phone] Encounter Details Date Type Department Care Team (Latest Contact Info) Description 10/16/2021 7:15 AM EDT Laboratory Appointment Lab [address] [place] [address] Elevated PSA; Hyperlipidemia, unspecified hyperlipidemia type Social [...] AM EDT Office [place] [address] Srinivas Kong MD [facility] [place] [address] 07/05/2025 8:30 AM EST TH Visit (TeleHealth) Endocrinology at [facility] [place] [address] Courtney Nagel MD [facility] [place] [address] documented as of this encounter Procedures Procedure Name Priority Date/Time Associated Diagnosis Comments HC PROSTATE SPECIFIC ANTIGEN Routine 10/16/2021 7:23 AM EDT Elevated PSA LIPID PANEL (REFLEX DIRECT LDL) Routine 10/16/2021 7:23 AM EDT Hyperlipidemia, unspecified hyperlipidemia type documented in this encounter Results * Lipid Panel (Reflex Direct LDL) (10/16/2021 7:23 AM EDT) Cholesterol, Total 138 mg/dL [facility] Comment: Lower Risk: <200 mg/dL Average Risk: 200-239 mg/dL Higher Risk: >hc=456 mg/dL Triglyceride 153 mg/dL [facility] Comment: Average Risk/Lower Risk: <150 mg/dL Borderline High Risk: 150-199 mg/dL High Risk: 200-499 mg/dL Very High Risk: >ab=674 mg/dL HDL Cholesterol 35 mg/dL [facility] Comment: Males: ?? Higher Risk: <40 mg/dL Females: ?? Higher Risk: <50 mg/dL LDL Cholesterol 72 mg/dL [facility] Comment: Lowest Risk: <100 mg/dL Lower Risk: 100-129 mg/dL Borderline High Risk: 130-159 mg/dL High Risk: 160-189 mg/dL Very High Risk: >bz=071 mg/dL Cholesterol/HDL Ratio 3.9 ratio [facility] Lipid Interpretation See Note [facility] Comment: Lipid management should be guided by a patient? s ASCVD risk, goals and preferences. ACC/AHA Guidelines recommend high intensity statin if clinical ASCVD or LDL greater than or equal to 190 mg/dL. http://Appconomy.com/VRY-EPN-Btsvfqgln Adults aged 40-75 with LDL 70-189 mg/dL should have their 10 year ASCVD risk estimated with the ACC/AHA ASCVD risk print color operator http://tools.acc.org/ESBXX-Lkny-Siflehyfq/ Statin should be discussed if risk greater [...] Lab Haim Fung MD CHEMISTRY ORDERABL ES [facility] [place] [address] * (ABNORMAL) PSA (Ultrasensitive), total and free (10/16/2021 7:23 AM EDT) Prostate Specific Antigen (Ultrasensitive ) 6.06(H) 0.00 - 4.00 ng/mL [facility] Comment: PLEASE NOTE: The above reference interval is intended for healthy males with an intact prostate. Values within this reference interval may indicate recurrence in men who have undergone radical prostatectomy. Prostate Specific Antigen, Free 1.0 ng/mL [facility] PSA % Free 16 % [facility] Comment: Probability of finding LATEX FOAM WORKER on needle biopsy by age in years: [...] Kong MD CHEMISTRY ORDERABLES Performing Organization Address City/State/[facility] Co de Phone Number [facility] [place] [address] documented in this encounter Visit Diagnoses Diagnosis Elevated PSA Elevated prostate specific antigen (PSA) Hyperlipidemia, unspecified hyperlipidemia type documented in this encounter Care Teams Plastic Parts Designer Relationship Specialty Start Date End Date Vivian Bautista APRN [address] [place] [address] PCP - General 10/19/13 documented as of this encounter
--- OUTSIDE RECORDS SUMMARY | 2024-07-20 09:41 | XMS_ITS | Encounter Summary ---
Author Organization [facility] Address [facility] [place] [address] Care Team Providers Care Stitch Marker Name Role Phone Vivian Bautista VINNY Primary Care Provider +1 -[phone] Encounter Details Date Type Department Care Team (Late st Contact Info) Description 12/22/2020 Orders [place] [address] Darren Mendoza MD [facility] [place] [place] [address] Hypothyroidism, unspecified type Social History Tobacco Use [...] 9:40 AM EDT [place] [address] Srinivas Kong MD [facility] [place] [address] 07/05/2025 8:30 AM EST TH Visit (TeleHealth) Endocrinology at [address] Courtney Nagel MD [facility] [place] [address] documented as of this encounter Visit Diagnoses Diagnosis Hypothyroidism, unspecified type documented in this encounter Care Teams Stitch Marker Relationship Specialty Start Date End Date Vivian Bautista APRN [address] [place] [address] PCP - General 10/19/13 documented as of this encounter
--- OUTSIDE RECORDS SUMMARY | 2024-07-20 09:41 | XMS_ITS | Encounter Summary ---
Author Organization [facility] [place] [address] Care Team Providers Care Biology Professor Name Role Phone Vivian Bautista VINNY Primary Care Provider +1 -[phone] Encounter Details Date Type Department Care Team [...] 9:40 AM EDT Office Visit Urology at [facility] [place] [address] Srinivas Kong MD [facility] [place] [address] 07/05/2025 8:30 AM EST TH Visit (TeleHealth) [place] [address] Courtney Nagel MD [facility] [place] [address] documented as of this encounter Visit Diagnoses Not on filedocumented in this encounter Care Teams Biology Professor Relationship Specialty Start Date End Date Vivian Bautista, MEAT CARRIER [address] [place] [address] PCP - General 10/19/13 documented as of this encounter
--- OUTSIDE RECORDS SUMMARY | 2024-07-20 09:41 | XMS_ITS | Encounter Summary ---
Author Organization [facility] Address [facility] [place] [address] Care Team Providers Care Home Organizer Name Role Phone Vivian Bautista VINNY Primary Care Provider +1 -[phone] Encounter Details Date Type Department Care Team (Late st Contact Info) Description 11/28/2021 Telephone Urology at [facility] [address] [place] [address] Srinivas Kong MD [facility] [place] [address] Social History Tobacco Use Types Packs/Day Years [...] 9:40 AM EDT Office [place] [address] Srinivas Kong MD [facility] [place] [address] 07/05/2025 8:30 AM EST TH Visit (TeleHealth) [place] [address] Courtney Nagel MD [facility] [place] [address] documented as of this encounter Visit Diagnoses Diagnosis BPH with elevated PSA Hypertrophy of prostate without urinary obstruction and other lower urinary tract symptoms (LUTS) documented in this encounter Care Teams Home Organizer Relationship Specialty Start Date End Date Vivian Bautista APRN [address] [place] [address] PCP - General 10/19/13 documented as of this encounter
--- OUTSIDE RECORDS SUMMARY | 2024-07-20 09:41 | XMS_ITS | Encounter Summary ---
Author Organization [facility] [place] [address] Care Team Providers Care Slot Technician Name Role Phone Vivian Bautista APRN Primary Care Provider +1 -[phone] Reason for Visit * Reason Comments Rash * Consultation (Routine) - Specialty Diagnoses / Procedures Referred By Lashaun camarena Referred To Contact Dermatology Diagnoses Rash and other nonspecific skin eruption RASH THROUGHOUT BODY Vivian Bautista APRN [address] [place] [address] [facility] Dermatology [address] [place] [address] Referral ID Status Reason Start Date Expiration Date V isits Requested Visits Authorized [id number] Consult, Test & Treat Connection [facility] PCP Updated and/or Approved 09/28/2019 09/27/2020 6 6 Encounter Details Date Type Department Care Team (Late st Contact Info) Description 11/27/2019 9:30 AM EDT Office Visit Dermatology at [facility] [address] [place] [address] Trino Chiang MD [facility] [place] [address] Xerosis of skin; EIC (epidermal inclusion cyst); [...] History: Melanoma: no Relevant Social History: - Nesbit Meds: Current Outpatient Medications Medication Sig Dispense [...] by Trino Chiang MD Resident in Dermatology [facility] Patient seen in conjunction with staff hog sticker: Sejal Ambrocio MD Section of Dermatology [facility] * Sejal Ambrocio MD - 11/27/2019 9:30 [...] 9:40 AM EDT [place] [address] Srinivas Kong MD [facility] [place] [address] 07/05/2025 8:30 AM EST TH Visit (TeleHealth) [place] [address] Courtney Nagel MD [facility] [place] [address] documented as of this encounter Visit Diagnoses Diagnosis Xerosis of skin Other specified disease of sebaceous glands EIC (epidermal inclusion cyst) Sebaceous cyst Stucco keratoses Skin exam, screening for cancer Screening for malignant neoplasm of the skin documented in this encounter Care Teams Slot Technician Relationship Specialty Start Date End Date Vivian Bautista APR[address] [place] [address] PCP - General 10/19/13 documented as of this encounter
--- OUTSIDE RECORDS SUMMARY | 2024-07-20 09:41 | XMS_ITS | Encounter Summary ---
Author Organization [facility] [place] [address] Care Team Providers Care Command Post Superintendent Name Role Phone Vivian Bautista Milton CASILLAS Primary Care Provider +1 -[phone] Reason for Visit * Reason Comments Obstructive Sleep Apnea Encounter Details Date Type Department Care Team (Late st Contact Info) Description 12/22/2017 8:15 AM EDT Office Visit Sleep Center at [place] [address] [place] [address] Katie Mckeon, DATA VISUALIZATION DEVELOPER SLEEP CENTER KAREN on CPAP Social [...] the higher pressure is better. Symptom Benefit: [place]: 8 (7 previous) Sleep quality: improvement Bedtime: [...] say he has an appt with the severity of illness coordinator to evaluate for his thyroid. Thinkshis mid-afternoon sleepiness could be related to his hx of thyroid disease. Options discussed today: (1) formal in lab titration study, (2) try a higher min pressure of 11 cm (11-16 cm) and follow upwith severity of illness coordinator. Mr Edmonds wants to try a pressure increase. He has an appt with severity of illness coordinator in Feb. He will RTC in Mar after his appt. He knows to call me sooner if any concerns or problems. Recomendations: 1) CPAP 11-16 cm with ramp off and Heated Humidity 2) Follow-up: RTC in March with Delmi pulido after he's seen his severity of illness coordinator. 3) Driving safety discussed, recommend patient not drive if drowsy, if drowsy while driving to conductor pullman and take a nap. 4) Patient to replace supplies routinely and understands mask cushions can be replaced monthly. 5) Patient to tighten mask straps more frequently. 6) Script to note the pressure was increased via his modem and CPAP 7) Follow up with severity of illness coordinator The patient indicates understanding of these issues and agrees with the plan. documented in this encounter Plan of Treatment Upcoming Encounters Date Type Department Care Team (Late st Contact Info) Description 10/09/2024 9:40 AM EDT [place] [address] Srinivas Kong MD [facility] [place] [address] 07/05/2025 8:30 AM EST TH Visit (TeleHealth) [place] [address] Courtney Nagel MD [facility] [place] [place] [address] documented as of this encounter Visit Diagnoses Diagnosis KAREN on CPAP Obstructive sleep apnea (adult) (pediatric) documented in this encounter Care Teams Command Post Superintendent Relationship Specialty Start Date End Date Vivian Bautista APRN [address] [place] [address] PCP - General 10/19/13 documented as of this encounter
--- OUTSIDE RECORDS SUMMARY | 2024-07-20 09:41 | XMS_ITS | Encounter Summary ---
Author Organization [facility] Address [facility] [place] [address] Care Team Providers Care Ic Designer Custom Name Role Phone Vivian Bautista VINNY Primary Care Provider +1 -[phone] Encounter Details Date Type Department Care Team (Late st Contact Info) Description 09/10/2020 Orders Only Cardiology at [address] [address] Haim Fung MD [facility] [place] [address] Social History Tobacco Use Types Packs/Day Years [...] 9:40 AM EDT [place] [address] Srinivas Kong MD [facility] [place] [address] 07/05/2025 8:30 AM EST TH Visit (TeleHealth) [place] [address] Courtney Nagel MD [facility] [place] [address] documented as of this encounter Visit Diagnoses Not on filedocumented in this encounter Care Teams Ic Designer Custom Relationship Specialty Start Date End Date Vivian Bautista APRN [address] [place] [address] PCP - General 10/19/13 documented as of this encounter
--- OUTSIDE RECORDS SUMMARY | 2024-07-20 09:41 | XMS_ITS | Encounter Summary ---
Author Organization [facility] [place] [address] Care Team Providers Care Nurse Aide Name Role Phone Vivian Bautista VINNY Primary Care Provider +1 -[phone] Reason for Visit * Reason Onset Date Comments Medication Refill 06/21/2018 Encounter Details Date Type Department Care Team (Late st Contact Info) Description 06/21/2018 Refill [place] [address] Darren Mendoza MD [facility] [place] [address] Social History Tobacco Use Types Packs/Day Years [...] AM EDT Office [place] [address] Srinivas Kong MD [facility] [place] [address] 07/05/2025 8:30 AM EST TH Visit (TeleHealth) [place] [address] Courtney Nagel MD [facility] [address] documented as of this encounter Visit Diagnoses Not on filedocumented in this encounter Care Teams Nurse Aide Relationship Specialty Start Date End Date Vivian Bautista APRN [address] [place] [address] PCP - General 10/19/13 documented as of this encounter
--- OUTSIDE RECORDS SUMMARY | 2024-07-20 09:41 | XMS_ITS | Encounter Summary ---
Author Organization [facility] Address [facility] [place] [address] Care Team Providers Care Tester Sound Name Role Phone Vivian Bautista VINNY Primary Care Provider +1 [phone] Encounter Details Date Type Department Care Team (Late st Contact Info) Description 08/18/2017 Telephone Sleep Center at [facility] [address] [place] [address] Megha Stokes, RN Social History Tobacco Use [...] 9:40 AM EDT [place] [address] Srinivas Kong MD [facility] [place] [address] 07/05/2025 8:30 AM EST TH Visit (TeleHealth) [place] [address] Courtney Nagel MD [facility] [place] [address] documented as of this encounter Visit Diagnoses Not on filedocumented in this encounter Care Teams Tester Sound Relationship Specialty Start Date End Date Vivian Bautista APRN [address] [place] [address] PCP - General 10/19/13 documented as of this encounter
--- OUTSIDE RECORDS SUMMARY | 2024-07-20 09:41 | XMS_ITS | Encounter Summary ---
Author Organization Formerly [facility] Address [facility] [place] [address] Care Team Providers Care Pellet Machine Operator Name Role Phone Vivian Bautista VINNY Primary Care Provider +1 -[phone] Encounter Details Date Type Department Care Team (Late st Contact Info) Description 10/15/2022 [place] [address] Srinivas Kong MD [facility] [place] [address] Microhematuria Social History Tobacco Use Types Packs/Day [...] 9:40 AM EDT [place] [address] Srinivas Kong MD [facility] [place] [address] 07/05/2025 8:30 AM EST TH Visit (TeleHealth) [place] [address] Courtney Nagel MD [facility] [place] [address] documented as of this encounter Visit Diagnoses Diagnosis Microhematuria Microscopic hematuria documented in this encounter Care Teams Pellet Machine Operator Relationship Specialty Start Date End Date Vivian Bautista APRN [address] [place] [address] PCP - General 10/19/13 documented as of this encounter
--- OUTSIDE RECORDS SUMMARY | 2024-07-20 09:41 | XMS_ITS | Encounter Summary ---
Author Organization Formerly [facility] [place] [address] Care Team Providers Care Bar Steward Name Role Phone Vivian Bautista VINNY Primary Care Provider +1 [phone] Reason for Visit * Reason Comments Skin Cancer Examination Encounter Details Date Type Department Care Team (Late st Contact Info) Description 11/06/2020 2:00 PM EDT Office Visit Dermatology at [facility] [address] [place] [address] Srinivas Cates MD Dilated pore of [place]; Multiple benign nevi; [...] and signed by: Srinivas Cates MD Dermatology [facility] Patient seen and evaluated with staff industrial therapist: Wil Kong MD Department of Dermatology [facility] * Wil Kong MD - 11/06/2020 2:00 [...] 9:40 AM EDT [place] [address] Srinivas Kong MD [facility] [place] [address] 07/05/2025 8:30 AM EST TH Visit (TeleHealth) [place] [address] Courtney Nagel MD [facility] [address] documented as of this encounter Visit Diagnoses Diagnosis Dilated pore of [place] Multiple benign nevi Benign neoplasm of skin, site unspecified Lentigines Other dyschromia Callus Corns and callosities Verduzco angioma Nevus, non-neoplastic Seborrheic keratoses Stucco keratoses Xerosis cutis Other specified disease of sebaceous glands documented in this encounter Care Teams Bar Steward Relationship Specialty Start Date End Date Vivian Bautista APRN [address] [place] [address] PCP - General 10/19/13 documented as of this encounter
--- OUTSIDE RECORDS SUMMARY | 2024-07-20 09:41 | XMS_ITS | Encounter Summary ---
Author Organization Formerly [facility] [place] [address] Care Team Providers Care Peoplesoft Hcm Developer Name Role Phone Vivian Bautista APRN Primary Care Provider [phone] [phone] Reason for Visit * Consultation (Routine) - Closed Specialty Diagnoses / Procedures Referred By Lashaun camarena Referred To Contact Cardiology Diagnoses Chest pain, unspecified Dizziness and giddiness Aortic ectasia, unspecified site Other chest pain Chest pain, unspecified. Dizziness and giddiness. Aortic ectasia, unspecified site. Other chest pain *SCANNED DOCS Vivian Bautista APRN [address] [place] [address] [facility] Cardiology [address] [place] [id number] Referral ID Status Reason Start Date Expiration Date V isits Requested Visits Authorized [id number] Closed Consult, Test & Treat [facility] PCP Updated and/or Approved 08/13/2020 08/13/2021 6 6 Encounter Details Date Type Department Care Team (Late st Contact Info) Description 09/10/2020 8:00 AM EDT Office Visit Cardiology at [address] [address] Haim Fung MD [facility] [place] [address] Chest pain, unspecified type; Thoracic aortic aneurysm [...] original note were not included. [facility] JANENE Black [address] CARDIOLOGY OUTPATIENT PROGRESS NOTE PRIMARY CARE PROVIDER: [...] is a 65 y.o. patient of Vivian Bautisat APRN. HPI: This is the initial outpatient [...] previous history of coronary artery disease, revascularization [place]. No history of congestive heart failure. He [...] Gatherings with Friends and Family: ??? Attends Judaism Services: ??? Active Member of Clubs or [...] Abdomen: Nondistended. Soft. Nontender. Extremities: No edema. IMPROVEMENT LEADER: Normal mentation. Psych: Appropriate affect. Labs: EKG [...] 9:40 AM EDT Office [place] [address] Srinivas Kong MD [facility] [place] [address] 07/05/2025 8:30 AM EST TH Visit (TeleHealth) [place] [address] Courtney Nagel MD [facility] [place] [address] documented as of this encounter Procedures Procedure Name Priority Date/Time Associated Diagnosis Comments HC VENIPUNCTURE Routine 09/10/2020 8:49 AM EDT Chest pain, unspecified type EKG 12-LEAD Routine 09/10/2020 8:05 AM EDT Chest pain, unspecified type documented in this encounter Results * Lipid Panel (Reflex Direct LDL) (09/10/2020 8:49 AM EDT) Cholesterol, Total 205 mg/dL [facility] Comment: Lower Risk: <200 mg/dL Average Risk: 200-239 mg/dL Higher Risk: >jp=853 mg/dL Triglyceride 267 mg/dL [facility] Comment: Average Risk/Lower Risk: <150 mg/dL Borderline High Risk: 150-199 mg/dL High Risk: 200-499 mg/dL Very High Risk: >fi=072 mg/dL HDL Cholesterol 41 mg/dL [facility] Comment: Males: ?? Higher Risk: <40 mg/dL Females: ?? Higher Risk: <50 mg/dL LDL Cholesterol 111 mg/dL [facility] Comment: Lowest Risk: <100 mg/dL Lower Risk: 100-129 mg/dL Borderline High Risk: 130-159 mg/dL High Risk: 160-189 mg/dL Very High Risk: >gi=662 mg/dL Cholesterol/HDL Ratio 5.0 ratio [facility] Lipid Interpretation See Note [facility] Comment: Lipid management should be guided by a patient? s ASCVD risk, goals and preferences. ACC/AHA Guidelines recommend high intensity statin if clinical ASCVD or LDL greater than or equal to 190 mg/dL. http://Infotop.com/STL-MEB-Tehgwfixs Adults aged 40-75 with LDL 70-189 mg/dL should have their 10 year ASCVD risk estimated with the ACC/AHA ASCVD risk apartment rental agent http://tools.acc.org/YOSEV-Vskp-Bmzjgoazl/ Statin should be discussed if risk greater [...] CHEMISTRY ORDERABL ES [facility] [place] [address] * EKG 12 Lead (09/10/2020 8:05 AM EDT) Ventricular rate 60 BPM MUSE SYSTEM Atrial Rate 60 BPM MUSE SYSTEM P-R Interval 186 ms MUSE SYSTEM QRS Duration 94 ms MUSE SYSTEM Q-T Interval 384 ms MUSE SYSTEM QTC Calculated (Bezet) 384 ms MUSE SYSTEM Calculated P [place] 26 degrees MUSE SYSTEM Calculated R [place] -51 degrees MUSE SYSTEM Calculated T [place] 16 degrees MUSE SYSTEM INTERPRETATION Normal sinus rhythm Left anterior fascicular block Otherwise normal ECG No previous ECGs available I personally reviewed the tracing and edited the fellows interpretation Confirmed by fellow MD Erika, Lorri Garcia ([id number]) on 09/10/2020 11:07:46 AM Confirmed by MD [...] type documented in this encounter Care Teams Peoplesoft Hcm Developer Relationship Specialty Start Date End Date Vivian Bautista APRN [address] [place] [address] PCP - General 10/19/13 documented as of this encounter
--- OUTSIDE RECORDS SUMMARY | 2024-07-20 09:41 | XMS_ITS | Encounter Summary ---
Author Organization [facility] Address [facility] [place] [address] Care Team Providers Care Beater Lead Name Role Phone Vivian Bautista VINNY Primary Care Provider +1 [phone] Encounter Details Date Type Department Care Team (Late st Contact Info) Description 08/19/2022 Orders Only Cardiology at [address] [address] Haim Fung MD [facility] [place] [address] Hyperlipidemia, unspecified hyperlipidemia type Social History Tobacco [...] 9:40 AM EDT [place] [address] Srinivas Kong MD [facility] [place] [address] 07/05/2025 8:30 AM EST TH Visit (TeleHealth) [place] [address] Courtney Nagel MD [facility] [place] [address] documented as of this encounter Visit Diagnoses Diagnosis Hyperlipidemia, unspecified hyperlipidemia type documented in this encounter Care Teams Beater Lead Relationship Specialty Start Date End Date Vivian Bautista APRN [address] [place] [address] PCP - General 10/19/13 documented as of this encounter
--- OUTSIDE RECORDS SUMMARY | 2024-07-20 09:41 | XMS_ITS | Encounter Summary ---
Author Organization [facility] Address [facility] [place] [address] Care Team Providers Care Knitting Supervisor Name Role Phone Vivian Bautista VINNY Primary Care Provider +1 [phone] Encounter Details Date Type Department Care Team (Late st Contact Info) Description 10/09/2022 Telephone [place] [address] Srinivas Kong MD [facility] [place] [address] Social History Tobacco Use Types Packs/Day Years [...] 9:40 AM EDT Office [place] [address] Srinivas Kong MD [facility] [place] [address] 07/05/2025 8:30 AM EST TH Visit (TeleHealth) [place] [address] Courtney Nagel MD [facility] [place] [address] documented as of this encounter Visit Diagnoses Not on filedocumented in this encounter Care Teams Knitting Supervisor Relationship Specialty Start Date End Date Vivian Bautista APRN [address] [place] [address] PCP - General 10/19/13 documented as of this encounter
--- OUTSIDE RECORDS SUMMARY | 2024-07-20 09:42 | XMS_ITS | Encounter Summary ---
[place] [address] Care Team Providers Care Abattoir Supervisor Name Role Phone Imer Villegas MD Primary Care Provider Unavaila ble Reason for Visit * Reason Onset Date Comments Referral 09/20/2013 Encounter Details Date Type Department Care Team (Late st Contact Info) Description 09/20/2013 Telephone [place] [address] Tiffany Cosby Referral Social History Tobacco Use [...] 9:40 AM EDT [place] [address] Srinivas Kong MD [facility] [place] [address] 07/05/2025 8:30 AM EST TH Visit (TeleHealth) [place] [address] Courtney Nagel MD [facility] [place] [address] documented as of this encounter Visit Diagnoses Not on filedocumented in this encounter Care Teams Abattoir Supervisor Relationship Specialty Start Date End Date Imer Villegas MD PCP - General 12/23/12 10/18/13 documented as of this encounter
--- OUTSIDE RECORDS SUMMARY | 2024-07-20 09:42 | XMS_ITS | Encounter Summary ---
Author Organization [facility] [place] [address] Care Team Providers Care Model Making Supervisor Name Role Phone MicheleVivian [place] Milton CASILLAS Primary Care Provider +1 -[phone] Encounter Details Date Type Department Care Team (Late st Contact Info) Description 06/08/2014 Telephone [place] [phone] Charles Aguiar MD [facility] [place] [address] Social History Tobacco Use Types Packs/Day Years [...] 9:40 AM EDT Office [place] [address] Srinivas Kong MD [facility] [place] [address] 07/05/2025 8:30 AM EST TH Visit (TeleHealth) [place] [address] Courtney Nagel MD [facility] [place] [address] documented as of this encounter Visit Diagnoses Not on filedocumented in this encounter Care Teams Model Making Supervisor Relationship Specialty Start Date End Date Vivian Bautista APRN [address] [place] [address] PCP - General 10/19/13 documented as of this encounter
--- OUTSIDE RECORDS SUMMARY | 2024-07-20 09:42 | XMS_ITS | Encounter Summary ---
Author Organization [facility] Address [facility] [place] [address] Care Team Providers Care Director Of Physician Practices Name Role Phone Imer Villegas MD Primary Care Provider Unavaila ble Encounter Details Date Type Department Care Team (Late st Contact Info) Description 12/26/2012 Orders [place] [address] Wm Jimenez PA [facility] [place] [address] Left knee pain (Primary Dx) Social History [...] 9:40 AM EDT [place] [address] Srinivas Kong MD [facility] [place] [address] 07/05/2025 8:30 AM EST TH Visit (TeleHealth) [place] [address] Echt, Courtney Shane MD [facility] DR [place] [address] documented as of this encounter Results * [...] leg documented in this encounter Care Teams Director Of Physician Practices Relationship Specialty Start Date End Date Imer Villegas MD PCP - General 12/23/12 10/18/13 documented as of this encounter
--- OUTSIDE RECORDS SUMMARY | 2024-07-20 09:42 | XMS_ITS | Encounter Summary ---
Author Organization [facility] Address [facility] [place] [address] Care Team Providers Care Banquet Steward Name Role Phone Vivian Bautista VINNY Primary Care Provider +1 [phone] Encounter Details Date Type Department Care Team (Late st Contact Info) Description 05/07/2014 12:45 PM EST Office [place] [address] Charles Aguiar MD [facility] [place] [address] Headache Discharge Disposition: Home Social History Tobacco [...] migraines and said he was seen in [place]. He said he may have had an [...] GERD. History of erectile dysfunction. Medications 05/07/14 3528 Medication Sig Taking? rosuvastatin (CRESTOR) 10 mg [...] to light touch and vibration. Cerebellar: Normal [id number] testing. Gait is normal. Romberg is negative. [...] would prefer to have that done through [facility] and will then therefore be arranged by [...] 9:40 AM EDT Office Visit Urology at [place] [phone] Srinivas Kong MD [facility] [place] [address] 07/05/2025 8:30 AM EST TH Visit (TeleHealth) Endocrinology at [place] [phone] Courtney Nagel MD [facility] [place] [address] documented as of this encounter Visit Diagnoses Diagnosis Headache documented in this encounter Care Teams Banquet Steward Relationship Specialty Start Date End Date Vivian Bautista APRN [address] [place] [address] PCP - General 10/19/13 documented as of this encounter
--- OUTSIDE RECORDS SUMMARY | 2024-07-20 09:42 | XMS_ITS | Encounter Summary ---
Author Organization [facility] Address [facility] [place] [address] Care Team Providers Care Flower Planter Name Role Phone Imer Villegas MD Primary Care Provider Unavaila ble Encounter Details Date Type Department Care Team (Late st Contact Info) Description 01/02/2013 1:58 PM EDT - 01/02/2013 11:59 PM EDT Hospital Encounter XRay at [address] [place] [address] Left knee pain Social History Tobacco Use [...] 9:40 AM EDT [place] [address] Srinivas Kong MD [facility] [place] [address] 07/05/2025 8:30 AM EST TH Visit (TeleHealth) [place] [address] Courtney Nagel MD [facility] [place] [address] documented as of this encounter Procedures Procedure [...] leg documented in this encounter Care Teams Flower Planter Relationship Specialty Start Date End Date Imer Villegas MD PCP - General 12/23/12 10/18/13 documented as of this encounter
--- OUTSIDE RECORDS SUMMARY | 2024-07-20 09:42 | XMS_ITS | Encounter Summary ---
Author Organization [facility] Address [facility] [place] [address] Care Team Providers Care Gunite Mixer Name Role Phone Vivian Bautista VINNY Primary Care Provider +1 [phone] Encounter Details Date Type Department Care Team (Latest Contact Info) Description 06/25/2017 7:34 AM EST - 06/25/2017 11:59 PM [facility] Hospital Encounter XRay at [address] [place] [address] Srinivas Cruz MD [facility] [place] [address] Pain in both knees, unspecified chronicity Discharge [...] 9:40 AM EDT [place] [address] Srinivas Kong MD [facility] [place] [address] 07/05/2025 8:30 AM EST TH Visit (TeleHealth) [place] [address] Courtney Nagel MD [facility] [place] [address] documented as of this encounter Procedures Procedure [...] present and is more severe than seen [id number]. Srinivas Cruz MD IMG DX ORDERABLES documented in this encounter Visit Diagnoses Diagnosis Pain in both knees, unspecified chronicity documented in this encounter Care Teams Gunite Mixer Relationship Specialty Start Date End Date Vivian Bautista APRN [address] [place] [address] PCP - General 10/19/13 documented as of this encounter
--- OUTSIDE RECORDS SUMMARY | 2024-07-20 09:42 | XMS_ITS | Encounter Summary ---
Author Organization [facility] Address [facility] [place] [address] Care Team Providers Care Nutrition Counselor Name Role Phone Vivian Bautista VINNY Primary Care Provider +1 -[phone] Reason for Visit * Reason Comments Left Knee Pain Encounter Details Date Type Department Care Team (Late st Contact Info) Description 10/19/2013 8:00 AM EDT Office [place] [address] Wm Jimenez PA [facility] DR ORTHOP[place] [address] Knee pain, left (Primary Dx) Discharge Disposition: [...] 9:40 AM EDT [place] [address] Srinivas Kong MD [facility] [place] [address] 07/05/2025 8:30 AM EST TH Visit (TeleHealth) [place] [address] Courtney Nagel MD [facility] [place] [address] documented as of this encounter Visit Diagnoses [...] mg documented in this encounter Care Teams Nutrition Counselor Relationship Specialty Start Date End Date Vivian Bautista APRN [address] [place] [address] PCP - General 10/19/13 documented as of this encounter
--- OUTSIDE RECORDS SUMMARY | 2024-07-20 09:42 | XMS_ITS | Encounter Summary ---
Author Organization Replaced By [facility] [place] [address] Care Team Providers Care Quartz Orientator Name Role Phone Vivian Bautista APRN Primary Care Provider [phone] [phone] Reason for Referral * Consultation (Routine) - Closed Specialty Diagnoses / Procedures Referred By Lashaun camarena Referred To Contact Sleep Center Diagnoses Snoring Procedures PRG HOME SLEEP TEST TYPE 3 PORTABLE Lisette Brown MD [facility] [place] [address] [facility] Sleep Medicine [address] [place] [address] Referral ID Status Reason Start Date Expiration Date V isits Requested Visits Authorized [id number] Closed Test Only 07/06/2017 08/19/2017 1 1 Reason for Visit * Consultation (Routine) - Closed Specialty Diagnoses / Procedures Referred By Lashaun camarena Referred To Contact Sleep Center Diagnoses fatigue Vivian Bautista APRN [address] [place] [address] [facility] Sleep Medicine [address] [place] [address] Referral ID Status Reason Start Date Expiration Date V isits Requested Visits Authorized [id number] Closed Consult Only 05/18/2017 05/18/2018 1 1 Encounter Details Date Type Department Care Team (Late st Contact Info) Description 06/25/2017 10:00 AM EST Office Visit Sleep Center at [address] [place] [address] Lisette Brown MD [facility] [place] [address] Snoring; Hypersomnia; Disrupted sleep-wake cycle Social History [...] Nasal Obstruction: no Daytime Symptoms: Patient-reported scores: [facility] 06/25/2017 [place] [facility] 10 (High Risk) Insomnia Severity Index [...] at 06/25/179[address] Social History: Living situation: Employment: [employer] Alcohol: about 8 beers over a week [...] that study results can be called to [phone] and detailed message left if not available [...] 9:40 AM EDT Office [place] [address] Srinivas Kong MD [facility] [place] [address] 07/05/2025 8:30 AM EST TH Visit (TeleHealth) [place] [address] Courtney Nagel MD [facility] [place] [address] Scheduled Referrals Name Type Priority Associated Diagnoses Orde r Schedule Referral to Sleep Disorders Center Outpatient Referral Routine Snoring Ordered: 06/25/2017 documented as of this encounter Visit Diagnoses Diagnosis Snoring Other dyspnea and respiratory abnormality Hypersomnia Hypersomnia, unspecified 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
--- OUTSIDE RECORDS SUMMARY | 2024-07-20 09:42 | XMS_ITS | Encounter Summary ---
Author Organization [facility] [place] [address] Care Team Providers Care Can Sterilizer Name Role Phone Vivian Bautista VINNY Primary Care Provider +1 [phone] Encounter Details Date Type Department Care Team (Late st Contact Info) Description 05/15/2014 [place] [address] Charles Aguiar MD [facility] [place] [address] Social History Tobacco Use Types Packs/Day Years [...] 9:40 AM EDT [place] [address] Srinivas Kong MD [facility] [place] [address] 07/05/2025 8:30 AM EST TH Visit (TeleHealth) [place] [address] Courtney Nagel MD [facility] [place] [address] documented as of this encounter Procedures Procedure [...] is a Non-reportable exam Charles Aguiar MD IM FILM LIBRARY ORD ERABLES documented in this encounter Visit Diagnoses Not on filedocumented in this encounter Care Teams Can Sterilizer Relationship Specialty Start Date End Date Vivian Bautista APRN [address] [place] [address] PCP - General 10/19/13 documented as of this encounter
--- OUTSIDE RECORDS SUMMARY | 2024-07-20 09:42 | XMS_ITS | Encounter Summary ---
Author Organization [facility] Address [facility] [place] [address] Care Team Providers Care Radar Mechanic Name Role Phone Vivian Dubois APRN Primary Care Provider [phone] Reason for Visit * Consultation (Routine) - Closed Specialty Diagnoses / Procedures Referred By Lashaun camarena Referred To Contact Sleep Center Diagnoses Snoring Procedures PRG HOME SLEEP TEST TYPE 3 PORTABLE Du Brown MD [facility] [place] [address] [facility] Sleep Medicine [address] [place] [address] Referral ID Status Reason Start Date Expiration Date V isits Requested Visits Authorized [id number] Closed Test Only 07/06/2017 08/19/2017 1 1 Encounter Details Date Type Department Care Team (Late st Contact Info) Description 07/09/2017 3:30 PM EST Procedure visit Sleep Center at [facility] [address] [place] [address] Du Brown MD [facility] [place] [address] KAREN (obstructive sleep apnea) Social History Tobacco [...] after initiating CPAP; call sooner for problems/questions [facility] Sleep Disorders Center HOME SLEEP APNEA TEST REPORT Patient Name: Julian Edmonds Study Date: 07/09/2017 Age & Sex: 62 y.o. Male Height: 5'10 Date of : 1955 Weight: 239 BMI: 34.3 Referring Prov.: VIVIAN DUBOIS APRN Scoring Tech: ALEE TORREZ RRT, RPSGT Sleep Fellow: Sleep Specialist: DU BROWN M.D. General Test Details Type III home sleep apnea testing was performed utilizing nasal pressure, single thoracoabdominal movement, heart rate, and oxygen saturation according to established AASM guidelines. Recording Start Time: ::43 Monitoring Start Time: :34:42 Recording End Time: ::43 Monitoring End Time: ::43 Total Recording Time (TRT): 543.0 minutes Monitoring [...] desaturation of >=4%) per hour of monitoring. Sea-Ol Breathin.0% of total monitoring time Minimum SpO2: [...] 9:40 AM EDT [place] [address] Srinivas Kong MD [facility] [place] [address] 07/05/2025 8:30 AM EST TH Visit (TeleHealth) [place] [address] Courtney Nagel MD [facility] [place] [address] documented as of this encounter Visit Diagnoses Diagnosis KAREN (obstructive sleep apnea) Obstructive sleep apnea (adult) (pediatric) documented in this encounter Care Teams Radar Mechanic Relationship Specialty Start Date End Date Vivian Dubois APRN [address] [place] [address] PCP - General 10/19/13 documented as of this encounter
--- OUTSIDE RECORDS SUMMARY | 2024-07-20 09:42 | XMS_ITS | Encounter Summary ---
Author Organization [facility] Address [facility] [place] [address] Care Team Providers Care Rubber Flap Tuber Machine Operator Name Role Phone Vivian Bautista VINNY Primary Care Provider [phone] Encounter Details Date Type Department Care Team (Late st Contact Info) Description 06/25/2017 Orders Only [place] [address] mW Jimenez PA [facility] [place] [address] Pain in both knees, unspecified chronicity Social [...] 9:40 AM EDT Office [place] [address] Srinivas Kong MD [facility] [address] 07/05/2025 8:30 AM EST TH Visit (TeleHealth) [place] [address] Courtney Nagel MD [facility] [place] [address] documented as of this encounter Results * [...] than seen in the prior study of 2013. Againseen is a metallic fixation device in the tibial tuberosity. IMPRESSION Osteoarthritis of the left knee is present and is more severe than seen [id number]. Srinivas Cruz MD IMG DX ORDERABLES documented in this encounter Visit Diagnoses Diagnosis Pain in both knees, unspecified chronicity Pain in both knees, unspecified chronicity documented in this encounter Care Teams Rubber Flap Tuber Machine Operator Relationship Specialty Start Date End Date Vivian Bautista, VINNY [address] [place] [address] PCP - General 10/19/13 documented as of this encounter
--- OUTSIDE RECORDS SUMMARY | 2024-07-20 09:42 | XMS_ITS | Encounter Summary ---
[place] [address] Care Team Providers Care Zipper Joiner Name Role Phone Vivian Bautista VINNY Primary Care Provider [phone] Encounter Details Date Type Department Care Team (Late st Contact Info) Description 07/10/2014 8:30 AM EST Office [place] [address] Eddie Norton MD [place] Discharge Disposition: Home Social History Tobacco [...] Appendectomy FH: Father - thyroid issues , [place] - 2 times Nephews: hypothyroidism PGM - [...] 5 HIAA Eddie Norton Endocrine Staff Physician [facility] documented in this encounter Plan of Treatment Upcoming Encounters Date Type Department Care Team (Late st Contact Info) Description 10/09/2024 9:40 AM EDT [place] [address] Srinivas Kong MD [facility] [place] [address] 07/05/2025 8:30 AM EST TH Visit (TeleHealth) [place] [address] Courtney Nagel MD [facility] [place] [address] documented as of this encounter Procedures Procedure Name Priority Date/Time Associated Diagnosis Comments METANEPHRINES, FRACTIONATED FREE, PLASMA Routine 07/10/2014 9:17 AM EST [place] documented in this encounter Results * Metanephrines, Fractionated Free, plasma (07/10/2014 9:17 AM EST) Normetanephrine, Free (OCTOBER) 0.73 <0.90 nmol/L [facility] Comment: Test Performed by: [place] [address] Lokie Engineer: Tha Banerjee M.D. Metanephrine, Free (OCTOBER) <0.20 <0.50 nmol/L [facility] Comment: Test Performed by: [place] [address] Lokie Engineer: Tha Banerjee M.D. Blood specimen (specimen) 07/10/2014 9:17 AM EST 07/10/2014 1:09 PM EST Narrative Resulting Agency Comment Spec In Lab Eddie Norton MD LAB SEND OUT ORD ERABLES [facility] documented in this encounter Visit Diagnoses Diagnosis [place] documented in this encounter Care Teams Zipper Joiner Relationship Specialty Start Date End Date Vivian Bautista APRN [address] [place] [address] PCP - General 10/19/13 documented as of this encounter
--- OUTSIDE RECORDS SUMMARY | 2024-07-20 09:42 | XMS_ITS | Encounter Summary ---
Author Organization [facility] Address [facility] [address] Care Team Providers Care Business Operations Specialist Name Role Phone Imer Villegas MD Primary Care Provider Unavaila ble Reason for Visit * Reason Comments Left Knee Pain Encounter Details Date Type Department Care Team (Late st Contact Info) Description 01/02/2013 3:10 PM EDT Office [place] [address] Wm Jimenez PA [facility] DR ORTHOPAEDIC [place] [address] Katy Reina PA Knee pain (Primary Dx); DJD (degenerative joint [...] NAME: Julian Edmonds AGE: 57 y.o. MR#: [id number] DATE OF VISIT: 01/02/2013 DATE OF INJURY/ONSET: [...] cough. Denies GI symptoms. PHYSICAL EXAM: Mr. Edmonds a 57 y.o. year old is alert and [...] 9:40 AM EDT [place] [address] Srinivas Kong MD [facility] [place] [address] 07/05/2025 8:30 AM EST TH Visit (TeleHealth) [place] [address] Courtney Nagel MD [facility] [place] [address] documented as of this encounter Visit Diagnoses Diagnosis Knee pain- Primary Pain in joint, lower leg DJD (degenerative joint disease) of knee Osteoarthrosis, unspecified whether generalized or localized, lower leg documented in this encounter Administered Medications Inactive Administered Medications - up to 3 most recent administrations Medication Order MAR Action Action Date Dose Rate Site Hyjaime G-F 20 (SYNVISC-ONE) Syrg 48 mg 48 mg, Intra-articular, ONCE, On Wed01/02/13 at 1700, 1 dose Given 01/02/2013 4:37 PM EDT 48 mg documented in this encounter Care Teams Business Operations Specialist Relationship Specialty Start Date End Date Imer Villegas MD PCP - General 12/23/12 10/18/13 documented as of this encounter
--- OUTSIDE RECORDS SUMMARY | 2024-07-20 09:42 | XMS_ITS | Encounter Summary ---
Author Organization [facility] Address [facility] [place] [address] Care Team Providers Care Dowel Inspector Name Role Phone Vivian Bautista VINNY Primary Care Provider [phone] Encounter Details Date Type Department Care Team (Late st Contact Info) Description 07/30/2017 Telephone Sleep Center at [facility] [address] [place] [address] Lisette Brown MD [facility] [place] [address] Social History Tobacco Use Types Packs/Day Years [...] 9:40 AM EDT [place] [address] Srinivas Kong MD [facility] [place] [address] 07/05/2025 8:30 AM EST TH Visit (TeleHealth) [place] [address] Courtney Nagel MD [facility] [place] [address] documented as of this encounter Visit Diagnoses Not on filedocumented in this encounter Care Teams Dowel Inspector Relationship Specialty Start Date End Date Vivian Bautista APRN [address] [place] [address] PCP - General 10/19/13 documented as of this encounter
--- OUTSIDE RECORDS SUMMARY | 2024-07-20 09:42 | XMS_ITS | Encounter Summary ---
Author Organization [facility] Address [facility] [place] [address] Care Team Providers Care Business English Instructor Name Role Phone Vivian Bautista APRN Primary Care Provider [phone] Reason for Visit * Reason Comments Follow-up bilat knee pain * Consultation (Routine) - Closed Specialty Diagnoses / Procedures Referred By Lashaun camarena Referred To Contact Orthopaedics Diagnoses soren knee pain Vivian Bautista APRN [address] [place] [address] [facility] [address] [place] [id number] Referral ID Status Reason Start Date Expiration Date V isits Requested Visits Authorized [id number] Closed Consult, Test & Treat Connection Center 05/25/2017 05/25/2018 1 1 Encounter Details Date Type Department Care Team (Late st Contact Info) Description 06/25/2017 8:30 AM EST Office Visit [place] [address] Wm Jimenez PA [facility] DR ORTHOPAED[place] [address] Knee instability, left (Primary Dx); Pain in [...] 9:40 AM EDT Office [place] [address] Srinivas Kong MD [facility] [place] [address] 07/05/2025 8:30 AM EST TH Visit (TeleHealth) [place] [address] Courtney Nagel MD [facility] [place] [address] documented as of this encounter Visit Diagnoses [...] documented in this encounter Care Teams Business English Instructor Relationship Specialty Start Date End Date Vivian Bautista APRN [address] [place] [address] PCP - General 10/19/13 documented as of this encounter
[2024-07-20 23:34] LABS: Calculated LDL 65 mg/dL (<100); Cholesterol 143 mg/dL (<200); HDL Cholesterol 48 mg/dL (40-60); Triglyceride 153 mg/dL (<150)
== END 2024-07-20 09:34 | disposition home or self-care (01) ==
LOC: NCHCN 09:33
PROVIDERS: PCP Nurse Practitioner Family; Visit Provider Nurse Practitioner Family
DX: E78.5 Hyperlipidemia, unspecified (principal)
CPT/HCPCS: 80061

== ENCOUNTER 2025-01-08 16:08 | Outpatient (REF) | payer MEDICARE, SELFPAY ==
[2025-01-08 16:29] LABS: Glucose Negative (Negative)
[2025-01-08 17:18] LABS: COMMENT (LAB VIEW ONLY) 152.42 mg/dL; Microalb ug/mg Crea 14.7 ug/mg Cr
== END 2025-01-08 16:09 | disposition home or self-care (01) ==
LOC: NCHCN 16:08
PROVIDERS: PCP Nurse Practitioner Family; Visit Provider Nurse Practitioner Family
DX: I10 Essential (primary) hypertension (principal); E78.5 Hyperlipidemia, unspecified; I70.90 Unspecified atherosclerosis; I71.9 Aortic aneurysm of unspecified site, without rupture; R00.1 Bradycardia, unspecified
CPT/HCPCS: 81003; 82043; 82570